=== PATIENT | female | born 1950 | race Caucasian/White ===

== ENCOUNTER 2017-12-16 09:11 | Day surgery (SDC) | payer MEDICARE ==
[~2017-12-16 09:11] MED LIST: Acetaminophen TAB* 325 MG PO PRN; Buffered Lidocaine 0.9% SYRIN* 5 ML/SYR SYRINGE INTRADERM ONE
[2017-12-16] MEDS ORDERED: Midazolam* 1 MG/ML 2 ML VIAL (2 MG) ONE (10:39)
[2017-12-16] MEDS ORDERED: Phenylephrine 2.5% OPTH.SOL* 2 ML BTL ONE (10:39)
[2017-12-16] MEDS ORDERED: acetaZOLAMIDE TAB* 250 MG ONE (10:39)
[2017-12-16] MEDS ORDERED: Proparacaine 0.5% OPHTH.SOL* 15 ML BTL ONE (10:39)
[2017-12-16] MEDS ORDERED: Povidone Iodine 5% OPTH* 30 ML BTL ONE (10:39)
[2017-12-16] MEDS ORDERED: Cyclopentolate 1% OPTH.SOL* 2 ML BTL ONE (10:39)
[2017-12-16] MEDS ORDERED: Neomycin/Polymy/Dex OPTH.SUSP* MAXITROL 0.1% 5 ML ONE (10:39)
[2017-12-16] MEDS ORDERED: Lidocaine 1% MPF* 2 ML VIAL ONE (10:39)
[2017-12-16] MEDS ORDERED: Lidocaine 2% EPI 1:200000 MPF* 20 ML VIAL ONE (10:39)
[2017-12-16] MEDS ORDERED: Ketorolac 0.5% OPHTH (NF) 0.5 % 5 ML BTL ONE (10:39)
[2017-12-16 12:11] VITALS: BP 126/66
--- NOTE | 2017-12-16 13:05 | OP ---
DATE OF OPERATION: 12/16/2017 - [facility] DATE OF : 1950. SURGEON: Ricky Siddiqi M.D. 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 POSTOPERATIVE DIAGNOSIS: Cataract right eye at primary open angle glaucoma, mild right. OPERATIVE PROCEDURE: Extracapsular cataract extraction with intraocular lens implant right eye with iStent. DESCRIPTION OF PROCEDURE: The patient was brought to the operating room after being given 1/2% Alcaine with epinephrine drops in the preoperative area. The eye was prepped and draped in the usual sterile fashion. Sterile drape and eyelid speculum were placed. Again, topical 1/2% Alcaine with epinephrine was given. A paracentesis incision was made at the 9 o'clock position with the No.75 blade. Clear cornea incision 2.2 x 2.2-mm was created at the 12 o'clock position starting at the anterior limbus using the 2.2-mm keratome. The anterior chamber was irrigated with 0.4 mL of 1% non-preservative intracameral lidocaine and filled with DisCoVisc. A capsulorrhexis was completed using the cystotome and the Utrata forceps. Hydrodissection was performed with balanced salt solution. The lens nucleus was removed with the Phacoemulsification handpiece without incident. Cortex was removed with the irrigation-aspiration handpiece. The capsular bag was re-inflated using DisCoVisc and an [id number] 20.5 Implant was inserted with the shooter, followed by an eye stent [id number] inserted into the trabecular meshwork with its shooter at the 3 o'clock position. The irrigation-aspiration handpiece was used to remove all residual DisCoVisc. The eye was refilled with balanced salt solution and the wound checked and found to be watertight. Topical Maxitrol drops were given. [id number]/[facility] #: [id number] [facility]
== END 2017-12-16 12:42 | disposition home or self-care (01) ==
LOC: OREAST 09:11
PROVIDERS: ATTEND Specialist
DX: H40.1131 Primary open-angle glaucoma, bilateral, mild stage (principal); H35.371 Puckering of macula, right eye; I10 Essential (primary) hypertension; E11.9 Type 2 diabetes mellitus without complications; E78.00 Pure hypercholesterolemia, unspecified; G47.30 Sleep apnea, unspecified; G25.81 Restless legs syndrome; Z79.82 Long term (current) use of aspirin
CPT/HCPCS: A9270-GY; C1783; J2250; V2632

== ENCOUNTER 2017-12-23 08:25 | Day surgery (SDC) | payer MEDICARE ==
[~2017-12-23 08:25] MED LIST changes: +Midazolam* 1 MG/ML 2 ML VIAL (2 MG) ONE
[2017-12-23] MEDS ORDERED: fentaNYL* 50 MCG/ML 2 ML VIAL (100 MCG VIAL) ONE (09:45)
[2017-12-23] MEDS ORDERED: Lidocaine 2% EPI 1:200000 MPF* 20 ML VIAL ONE (11:56)
[2017-12-23] MEDS ORDERED: Neomycin/Polymy/Dex OPTH.SUSP* MAXITROL 0.1% 5 ML ONE (11:56)
[2017-12-23] MEDS ORDERED: Povidone Iodine 5% OPTH* 30 ML BTL ONE (11:56)
[2017-12-23] MEDS ORDERED: Proparacaine 0.5% OPHTH.SOL* 15 ML BTL ONE (11:56)
[2017-12-23] MEDS ORDERED: Cyclopentolate 1% OPTH.SOL* 2 ML BTL ONE (11:56)
[2017-12-23] MEDS ORDERED: Phenylephrine 2.5% OPTH.SOL* 2 ML BTL ONE (11:56)
[2017-12-23] MEDS ORDERED: Lidocaine 1% MPF* 2 ML VIAL ONE (11:56)
[2017-12-23] MEDS ORDERED: Ketorolac 0.5% OPHTH (NF) 0.5 % 5 ML BTL ONE (11:56)
[2017-12-23] MEDS ORDERED: acetaZOLAMIDE TAB* 250 MG ONE (11:56)
[2017-12-23 12:07] VITALS: BP 101/53
--- NOTE | 2017-12-23 12:45 | OP ---
DATE OF OPERATION: 12/23/2017 - [facility] DATE OF : 1950. SURGEON: Ricky Siddiqi M.D. PREOPERATIVE DIAGNOSIS: Cataract left eye, open angle glaucoma left, mild stage. POSTOPERATIVE DIAGNOSIS: Cataract left eye, open angle glaucoma left, mild stage. OPERATIVE PROCEDURE: Extracapsular cataract extraction with intraocular lens implant and iStent left eye. DESCRIPTION OF PROCEDURE: The patient was brought to the operating room after being given 1/2% Alcaine with epinephrine drops in the preoperative area. The eye was prepped and draped in the usual sterile fashion. Sterile drape and eyelid speculum were placed. Again, topical 1/2% Alcaine with epinephrine was given. A paracentesis incision was made at the 3 o'clock position with the No.75 blade. Clear cornea incision 2.2 x 2.2-mm was created at the 6 o'clock position starting at the anterior limbus using the 2.2-mm keratome. The anterior chamber was irrigated with 0.4 mL of 1% non-preservative intracameral lidocaine and filled with DisCoVisc. A capsulorrhexis was completed using the cystotome and the Utrata forceps. Hydrodissection was performed with balanced salt solution. The lens nucleus was removed with the Phacoemulsification handpiece without incident. Cortex was removed with the irrigation-aspiration handpiece. The capsular bag was re-inflated using DisCoVisc and an [id number] 19.5 implant was inserted with the shooter, followed by an iStent [id number] inserted with the shooter into the trabecular meshwork at the 9 o'clock position. The irrigation-aspiration handpiece was used to remove all residual DisCoVisc. The eye was refilled with balanced salt solution and the wound checked and found to be watertight. Topical Maxitrol drops were given. [id number]/[facility] #: [id number] [facility]
== END 2017-12-23 11:30 | disposition home or self-care (01) ==
LOC: OREAST 08:25
PROVIDERS: ATTEND Specialist
DX: H25.12 Age-related nuclear cataract, left eye (principal); H40.1131 Primary open-angle glaucoma, bilateral, mild stage; E11.628 Type 2 diabetes mellitus with other skin complications; I73.9 Peripheral vascular disease, unspecified; K21.9 Gastro-esophageal reflux disease without esophagitis; I10 Essential (primary) hypertension; Z79.84 Long term (current) use of oral hypoglycemic drugs; E78.5 Hyperlipidemia, unspecified; G47.33 Obstructive sleep apnea (adult) (pediatric); M81.0 Age-related osteoporosis without current pathological fracture; D64.9 Anemia, unspecified
CPT/HCPCS: A9270-GY; C1783; J2250; J3010; V2632

== ENCOUNTER 2018-03-22 16:09 | Emergency (ER) | payer MEDICARE ==
[2018-03-22 16:41] LABS: ABS Basophils 0.1 10^3/ul (0-0.2); ABS Eosinophils 0.4 10^3/ul (0-0.6); ABS Lymphocytes 1.6 10^3/ul (1.0-4.8); ABS Monocytes 0.7 10^3/ul (0-0.8); ABS Neutrophils 9.1 10^3/ul (1.5-7.7); ABS Nucleated RBC 0 10^3/ul; Eosinophil % 3.2 % (0-6); Hematocrit 34 % (35-47); Hemoglobin 11.5 g/dl (12.0-16.0); Lymphocyte % 13.8 % (25-47); Mean Corpuscular HGB Conc 34 g/dl (31-36); Mean Corpuscular Hemoglobin 31 pg (27-31); Mean Corpuscular Volume 92 fL (80-97); Mean Platelet Volume 6.8 um3 (7.4-10.4); Nucleated Red Blood Cells % 0; Platelet Count 398 10^3/ul (150-450); Red Blood Count 3.72 10^6/ul (4.00-5.40); Red Cell Distribution Width 14 % (10.5-15)
[2018-03-22 16:57] LABS: EGFR Non-African American 57.8 (>60)
[2018-03-22] MEDS ORDERED: Iodixanol* (CONTRAST) 320 MG/ML 100 ML SDV IV ONE (17:04)
--- NOTE | 2018-03-22 17:06 | ED ---
HPI Chest Pain - HPI Summary HPI Summary: Complains of sternal CP radiating to back, SOB, nausea. Also complains of burning after urination 2 day. CP described as intermittent, worse with exertion, pressure. History of same, with SOB, radiation to back, and increased cp frequency and duration being new symptoms starting today. Multiple prior evaluations for chest pain here. Last stress test 08/19/17 negative. Patient told to come to the ED by java sdet Dr. Sunshine. Active CP here in the ED, CP has been constant since 3 PM. No active SOB, nausea currently. Denies fever, cough, sore throat, N/V/D, abdominal pain, change in BM. Medical history is DM, HDL, HTN, Chiari, sleep apnea. No history of cardiac arrest, stents. Nonsmoker, denies EtOH or recreational drugs. No anti-coag. Denies prior history of blood clots, estrogen supplements, cancer, recent trauma or surgery, new unilateral leg pain. 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 Hx Last Menstrual Period: "years ago." Onset/Duration: Started Weeks Ago Timing: Intermittent Initial Severity: Mild Current Severity: Mild Pain Intensity: 3 Chest Pain Location: Mid Sternal Chest Pain Radiates: Yes Chest Pain Radiates To:: Back Character: Exertion, Heaviness Aggravating Factor(s): Exertion Associated Signs and Symptoms: Positive: Chest Pain, Shortness of Breath, Nausea , Back Pain - Risk Factors Pulmonary Embolism Risk Factors: Negative AMI/ACS Risk Factors: Diabetes, Hypertension, Dyslipidemia - Allergy/Home Medications Allergies/Adverse Reactions: Allergies Allergy/AdvReac Type Severity Reaction Status Date / Time amoxicillin Allergy ITCHINESS Verified 03/22/18 16:18 cephalexin Allergy Rash Verified 03/22/18 16:18 ciprofloxacin [From Cipro] Allergy RASH AND Verified 03/22/18 16:18 SWELLING fluticasone furoate Allergy Difficulty Verified 03/22/18 16:18 [From Breo Ellipta] Breathing latex Allergy ITCHINESS Verified 03/22/18 16:18 vilanterol Allergy Difficulty Verified 03/22/18 16:18 [From Breo Ellipta] Breathing AIR FRESHNERS Allergy RUNNY EYES Uncoded 03/22/18 16:18 AND NOSE SULFA DRUGS Allergy Rash And Uncoded 03/22/18 16:18 Itching TIDE LAUNDRY SOAP Allergy Rash Uncoded 03/22/18 16:18 Home Medications: Home Medications Acetaminophen TAB* [Tylenol TAB*] 650 mg PO BID 03/22/18 [History Confirmed ] Aspirin EC TAB* [Ecotrin EC Low Dose 81 MG*] 81 mg PO DAILY 03/22/18 [History Confirmed 03/22/18] Baclofen TAB* [Lioresal TAB*] 10 mg PO 1200 03/22/18 [History Confirmed 03/22/18 ] Baclofen TAB* [Lioresal TAB*] 20 mg PO BID 03/22/18 [History Confirmed 03/22/18] Brimonidine P 0.1%(NF) [Alphagan P 0.1% (NF)] 1 drop BOTH EYES BID 03/22/18 [ History Confirmed 03/22/18] Calcium Carbonate/Vitamin D3 [Calcium Carbonate/Vitamin] 1 tab PO DAILY [History Confirmed 03/22/18] Cyanocobalamin TAB* [Vitamin B12 TAB*] 1,000 mcg PO DAILY 03/22/18 [History Confirmed 03/22/18] Ferrous Sulfate TAB* 650 mg PO DAILY 03/22/18 [History Confirmed 03/22/18] Fluticasone NASAL SPRAY 50MCG* [Flonase NASAL SPRAY 50MCG*] 2 spray BOTH NARES DAILY 03/22/18 [History Confirmed 03/22/18] Latanoprost 0.005%* [Xalatan 0.005%*] 1 drop BOTH EYES BEDTIME 03/22/18 [ History Confirmed 03/22/18] Losartan TAB* [Cozaar TAB*] 50 mg PO DAILY 03/22/18 [History Confirmed 03/22/18] Naproxen TAB* [Naprosyn 375 mg TAB*] 500 mg PO BID PRN 03/22/18 [History Confirmed 03/22/18] Omeprazole CAP* [Prilosec CAP* 20 MG] 40 mg PO DAILY 03/22/18 [History Confirmed 03/22/18] Propylene Glycol/Peg 400/Pf [Systane Ultra 0.4-0.3% Eye Drp] 1 each BOTH EYES QID PRN 03/22/18 [History Confirmed 03/22/18] Simvastatin TAB(NF) [Zocor(NF)] 20 mg PO DAILY 03/22/18 [History Confirmed 03/22] Spironolactone TAB* [Aldactone TAB*] 100 mg PO DAILY 03/22/18 [History Confirmed 03/22/18] Timolol 0.5% OPTH.ZACHARY* [Timoptic 0.5% Opth*] 1 drop BOTH EYES BID 03/22/18 [ History Confirmed 03/22/18] metFORMIN* [Glucophage 1000 MG TAB *] 1,000 mg PO BID 03/22/18 [History Confirmed 03/22/18] rOPINIRole TAB* [Requip TAB*] 0.5 mg PO DAILY 03/22/18 [History Confirmed ] PMH/Surg Hx/FS Hx/Imm Hx Endocrine/Hematology History: Reports: Hx Diabetes Denies: Hx Anticoagulant Therapy, Hx Systemic Lupus Erythematosus, Hx Thyroid Disease Cardiovascular History: Reports: Hx Angina, Hx Hypercholesterolemia, Hx Hypertension, Hx Peripheral Vascular Disease Denies: Hx Congestive Heart Failure, Hx Coronary Artery Disease, Hx Deep Vein Thrombosis, Hx Myocardial Infarction, Hx Pacemaker/ICD, Hx Valvular Heart Disease Respiratory History: Reports: Hx Sleep Apnea - current CPAP user Denies: Hx Asthma, Hx Chronic Obstructive Pulmonary Disease (COPD), Hx Lung Cancer, Hx Pneumonia, Hx Pulmonary Embolism GI History: Reports: Hx Gastroesophageal Reflux Disease - ON MEDICATION FOR Denies: Hx Gall Bladder Disease, Hx Gastrointestinal Bleed, Hx Ulcer, Hx Urosepsis History: Denies: Hx Dialysis, Hx Kidney Stones, Hx Renal Disease Musculoskeletal History: Reports: Hx Arthritis - HANDS, Other Musculoskeletal History - COMPRESSED SPINAL CORD Denies: Hx Rheumatoid Arthritis Sensory History: Reports: Hx Cataracts - BILATERAL, Hx Glaucoma - BILATERAL Denies: Hx Contacts or Glasses, Hx Hearing Aid Opthamlomology History: Reports: Hx Cataracts - BILATERAL, Hx Glaucoma - BILATERAL Denies: Hx Contacts or Glasses Neurological History: 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 Denies: Hx Dementia, Hx Migraine, Hx Seizures, Hx Transient Ischemic Attacks (TIA) Psychiatric History: Denies: Hx Anxiety, Hx Depression, Hx Panic Disorder, Hx Schizophrenia, Hx Bipolar Disorder - Cancer History Hx Chemotherapy: No Hx Radiation Therapy: No - Surgical History Surgery Procedure, Year, and Place: 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, compresed spinal cord - chaiari malformation Hx Anesthesia Reactions: No Infectious Disease History: No Infectious Disease History: Reports: Hx of Known/Suspected MRSA - hx of (pt not sure) Denies: Traveled Outside the [place] in Last 30 Days - Family History Known Family History: Positive: Cardiac Disease, Hypertension - Social History Alcohol Use: None Substance Use Type: Reports: None Smoking Status (MU): Never Smoked Tobacco Have You Smoked in the Last Year: No Review of Systems Constitutional: Negative Eyes: Negative ENT: Negative Positive: Chest Pain Positive: Shortness Of Breath Positive: Nausea Positive: burning Musculoskeletal: Negative Skin: Negative Neurological: Negative Psychological: Normal All Other Systems Reviewed And Are Negative: Yes Physical Exam Triage Information Reviewed: Yes Vital Signs On Initial Exam: Initial Vitals Temp Pulse Resp BP Pulse Ox 98.3 F 92 19 149/61 99 03/22/18 16:13 03/22/18 16:13 03/22/18 16:13 03/22/18 16:13 03/22/18 16:13 Vital Signs Reviewed: Yes Appearance: Positive: Well-Appearing Skin: Positive: Warm Head/Face: Positive: Normal Head/Face Inspection Eyes: Positive: Normal Neck: Positive: Supple Respiratory/Lung Sounds: Positive: Clear to Auscultation Cardiovascular: Positive: Normal. Negative: Leg Edema Left, Leg Edema Right Abdomen Description: Positive: Nontender Musculoskeletal: Positive: Normal Neurological: Positive: Normal Psychiatric: Positive: Normal AVPU Assessment: Alert - Bella Coma Scale Best Eye Response: 4 - Spontaneous Best Motor Response: 6 - Obeys Commands Best Verbal Response: 5 - Oriented Coma Scale Total: 15 Diagnostics - Vital Signs Vital Signs Temp Pulse Resp BP Pulse Ox 03/22/18 16:49 86 12 148/78 99 03/22/18 16:48 90 17 99 03/22/18 16:13 98.3 F 92 19 149/61 99 - Laboratory Lab Results: Lab Results 03/22/18 03/22/18 03/22/18 Range/Units 16:32 16:32 16:32 WBC 12.0 H (3.5-10.8) 10^3/ul RBC 3.72 L (4.00-5.40) 10^6/ul Hgb 11.5 L (12.0-16.0) g/dl Hct 34 L (35-47) % MCV 92 (80-97) fL MCH 31 (27-31) pg MCHC 34 (31-36) g/dl RDW 14 (10.5-15) % Plt Count 398 (150-450) 10^3/ul MPV 6.8 L (7.4-10.4) um3 Neut % (Auto) 76.1 (38-83) % Lymph % (Auto) 13.8 L (25-47) % Hill % (Auto) 5.9 (0-7) % Eos % (Auto) 3.2 (0-6) % Baso % (Auto) 1.0 (0-2) % Absolute Neuts (auto) 9.1 H (1.5-7.7) 10^3/ul Absolute Lymphs (auto) 1.6 (1.0-4.8) 10^3/ul Absolute Monos (auto) 0.7 (0-0.8) 10^3/ul Absolute Eos (auto) 0.4 (0-0.6) 10^3/ul Absolute Basos (auto) 0.1 (0-0.2) 10^3/ul Absolute Nucleated RBC 0 10^3/ul Nucleated RBC % 0 Sodium 138 (135-145) mmol/L Potassium 4.5 (3.5-5.0) mmol/L Chloride 103 (101-111) mmol/L Carbon Dioxide 24 (22-32) mmol/L Anion Gap 11 (2-11) mmol/L BUN 34 H (6-24) mg/dL Creatinine 0.96 H (0.51-0.95) mg/dL Est GFR ( Amer) 69.9 (>60) Est GFR (Non-Af Amer) 57.8 (>60) BUN/Creatinine Ratio 35.4 H (8-20) Glucose 80 (70-100) mg/dL Lactic Acid 1.0 (0.5-2.0) mmol/L Calcium 9.6 (8.6-10.3) mg/dL Total Bilirubin 0.30 (0.2-1.0) mg/dL AST 12 L (13-39) U/L ALT 9 (7-52) U/L Alkaline Phosphatase 59 (34-104) U/L Troponin I 0.00 (<0.04) ng/mL Total Protein 7.0 (6.4-8.9) g/dL Albumin 4.2 (3.2-5.2) g/dL Globulin 2.8 (2-4) g/dL Albumin/Globulin Ratio 1.5 (1-3) Result Diagrams: 03/22/18 16:32 03/22/18 16:32 Lab Statement: Any lab studies that have been ordered have been reviewed, and results considered in the medical decision making process. - CT cta chest CT Interpretation: No Acute Changes CT Interpretation Completed By: Radiologist - EKG 1 Cardiac Rate: NL EKG Rhythm: Sinus Rhythm ST Segment: Non-Specific Ectopy: None Chest Pain Course/Dx - Course Course Of Treatment: Complains of sternal CP radiating to back, SOB, nausea. Also complains of burning after urination 2 day. CP described as intermittent, worse with exertion, pressure. History of same, with SOB, radiation to back, and increased cp frequency and duration being new symptoms starting today. Multiple prior evaluations for chest pain here. Last stress test 08/19/17 negative. Patient told to come to the ED by java sdet Dr. Sunshine. Active CP here in the ED, CP has been constant since 3 PM. No active SOB, nausea currently. Denies fever, cough, sore throat, N/V/D, abdominal pain, change in BM. Medical history is DM, HDL, HTN, Chiari, sleep apnea. No history of cardiac arrest, stents. Nonsmoker, denies EtOH or recreational drugs. No anti-coag. Denies prior history of blood clots, estrogen supplements , cancer, recent trauma or surgery, new unilateral leg pain. Heart score 5. Discussed patient with hospitalist Dr. Messer who recommended 3 troponins and discharge if troponins negative, as patient workup is negative, and patient has recent negative stress test 07/2017. Troponins 3 negative. Vital signs within normal limits. Labs and imaging unremarkable. Follow-up with cardiology. - Diagnoses Provider Diagnoses: UTI (urinary tract infection), Chest pain Discharge - Sign-Out/Discharge Documenting (check all that apply): Discharge/Admit/Transfer - Discharge Plan Condition: Stable Disposition: HOME Patient Education Materials: Urinary Tract Infection in Women (ED), Chest Pain (ED), Angina (ED) Referrals: Simeon Fonseca MD [Primary Care Provider] - Additional Instructions: Follow up with cardiology. Return to the ED for any new or worsening symptoms - Billing Disposition and Condition Condition: STABLE Disposition: Home
[2018-03-22 17:28] LABS: Urine Appearance Clear; Urine Blood Negative (Negative); Urine Color Yellow; Urine Ketones Trace (Negative); Urine Protein Negative (Negative); Urine Specific Gravity 1.025 (1.010-1.030); Urine Urobilinogen Negative (Negative)
--- OUTSIDE RECORDS SUMMARY | 2018-03-22 17:32 | XMS REPORT ---
:1950 External Reference #:[id number] Author Organization [facility] Address [address] [place] [address] Phone [phone] Care Team Providers Name Role Phone Simeon Fonseca M.D. Care Team Information Tool And Equipment Rental Clerk Unavailable Simeon Fonseca M.D. Primary Care Physician Unavailable Payers Type Date Identification Numbers Payment Provider Subscriber Commercial Policy Number: [id number] [employer] Faustino Pereira PayID: [id number] [address] [address] [place] [address] Problems Date Description Provider Status Onset: 03/05/2018 Hypertrophy of nasal turbinates Michael Perales MD Active Onset: 03/05/2018 Sensory function status: taste and smell Michael Perales MD Active Family History Date Family Member(s) Problem(s) Comments General Allergies General Cancer General Heart Attack General Heart Disease General Thyroid Disease Social History Type Date Description Comments Occupation Unemployed Cigarette Use Never Smoked Cigarettes Cigars Never Smoked Cigars Pipe Never Smoked A Pipe Smokeless Tobacco Never Used Smokeless Tobacco ETOH Use Denies alcohol use Allergies, Adverse Reactions, Alerts Date Description Reaction Status Severity Comments 10/06/2008 Sulfa active 10/06/2008 Latex active 10/06/2008 Amoxicillin active 02/17/2018 Ciprofloxacin active rash 02/17/2018 Cephalexin active rash Medications Medication Date Status Form Strength Qnty SIG Indications Ordering Provider Fluticasone 03/05/ Active Suspension 50mcg/Act 16uni 2 puffs J34.3 Michael Propionate 2017 ts both sides Diaz once a day , Metformin HCL / Active 1000mg Take one Silcoff, 0000 tab twice Simeon eren Saleh Spironolactone / Active 100mg Once daily Silcoff, Simeon Saleh Baclofen / Active 10mg 2 in Silcoff, 0000 morning, 1 Simeon at lunch, M.DTiffany 2 at bedtime Acetaminophen / Active Tablets 325mg 2 PO tid Silcoff, Simeon Saleh Naproxen / Active Tablets 500mg 28tab 1 tab Superior, 0000 s twice a Rishabh S. day M.DTiffany Simvastatin / Active Tablets 20mg 1 by mouth Silcoff, 0000 every day Simeon Saleh Ropinirole HCL / Active Tablets 1mg 1 by mouth Silcoff, 0000 every Simeon night at M.DTiffany bedtime Losartan / Active Tablets 50mg Hektor Potassium 0000 RPA, Brigida Vitamin B12 TR / Active Tablets ER 1000mcg 1 by mouth Unknown 0000 every day Calcium 500 +D / Active Tablets 500-400mg as Unknown 0000 -Unit directed Aspirin 81 Low / Active Chewtabs 81mg QHS Unknown Dose 0000 Omeprazole / Active Capsules DR 40[facility], Caps[facility] By Simeon Catherine M.DTiffany Every Day For Acid Reflux Ferrous Sulfate / Active Tablets 325mg bid [facility], Simeon Saleh Brimonidine / Active Solution 0.2% Instill 1 Unknown Tartrate 0000 Drop In Each Eye Two Times A Day Timolol Maleate / Active Solution 0.5% Instill 1 Unknown 0000 Drop In Each Eye Two Times A Day Latanoprost / Active Solution 0.005% Instill Unknown 0000 One Drop In Each Eye AT Bedtime Fiber / Active Tablets as Unknown 0000 directed Calcium 600+D / Active Tablets 600-400mg as Unknown High Potency 0000 -Unit directed Lipitor / Hx Unknown 2013 Requip / Hx Unknown 2013 Multivitamins / Hx Unknown 2013 Travatan Z Hx Use as Clpert, 0000 - directed Hang 03/05/ Delfino 2018 Betimol / Hx Unknown 2013 Melatonin / Hx Unknown 2013 Metoprolol / Hx Tablets ER 25mg 1/2 by Silbeltran, Succinate ER 0000 - 24HR mouth Simeon 02/17/ every day M.D2017 Meclizine HCL / Hx Tablets 12.5mg 80tab 1-2 by Saleem, 0000 - s mouth Jodie M.DTiffany 03/05/ 2018 hours as needed dizziness Combigan / Hx Solution 0.2-0.5% as Silcoff, 0000 - directed Simeon M.D 2018 Systane / Hx Solution 0.4-0.3% as needed Unknown 2017 Vital Signs Date Vital Result Comment 03/05/2018 Weight 168.00 lb Weight in kg's 76.205 Height 63 inches 5'3" Height in cm's 160.0 cm BMI (Body Mass Index) 29.8 kg/m2 08/07/2014 BP Systolic 85 mmHg BP Diastolic 60 mmHg Heart Rate 77 /min Respiratory Rate 17 /min Weight 192.00 lb Weight in kg's 87.091 Height 63 inches 5'3" Height in cm's 160.0 cm BMI (Body Mass Index) 34.0 kg/m2 10/06/2008 Heart Rate 84 /min Respiratory Rate 18 /min Weight 189.00 lb Weight in kg's 85.730 Results Test Date Test Result H/L Range Note Laboratory test 10/16/2008 Surgical Pathology 1 finding <SEE NOTE> 1 --- RUN DATE: 10/18/08 [facility] NMI LIVE PAGE 1 RUN TIME: 1552 Specimen Inquiry RUN USER: INTERFACE -- Name: FAUSTINO PEREIRA [facility]#: [id number] Status: REG REF Re10/16/08 Age/Sex: 57/F Unit#: [id number] Location: [facility].O.B. : [birth year] -- Specimen: [id number] SOUT Spec Date: 10/16/[address]: Michael ni MD Spec Type: SURGICAL P Received: 10/17/08-1150 Copies to: SPECIMEN RIGHT CHEEK LESION HISTORY PRE-OP DIAGNOSIS: Right cheek lesion. GROSS DESCRIPTION The specimen is received in formalin labelled Faustino Pereira, Right Cheek Lesion, and consists of an unoriented skin ellipse measuring 1.0 x 0.5 x 0.3 cm. with a central, raised, round, boone macule measuring up to 0.4 cm. in the central portion of the specimen. The specimen is inked, serially sectioned along its short axis and submitted entirely in one cassette. DIAGNOSIS Right cheek, excision: A) Basal cell carcinoma, nodular type with squamous metaplasia. B) Deep, tip, and lateral margins of resection are clear. Signed Electronically by: OSMANY MARIN MD 10/18/08 1551 -- -- DEPARTMENT OF PATHOLOGY, [address] [place] [address] [facility] Permit #[id number] Osmany Marin M.D. Director Tc Carlos M.D. Mold Breaker Dir keith -- Procedures Date CPT Code Description Status 03/05/2018 79429 Nasal Endoscopy, Diagnostic Completed 11/28/2008 26060 Interest Income Completed 10/20/2008 14476 Exc Mal Les 1.1-2.0CM Face/Ear/Nose/Lip Completed 10/16/2008 99658 Exc Mal Les 1.1-2.0CM Face/Ear/Nose/Lip Completed Encounters Type Date Location Provider CPT E/M Dx Office Visit 03/05/2018 10:00a [facility],After 09/28/07 [place] [address] R43.0 J34.3 Office Visit 08/07/2014 10:30a [facility],After 09/28/07 [place] [address] 386.11 Office Visit 10/23/2008 3:00p [facility],After 09/28/07 [place] [address] 173.3 Office Visit 10/06/2008 3:00p [facility],After 09/28/07 [place] [address] 173.3 Plan of Care 03/05/2018 - Michael Ruparelia, MDR43.0 AnosmiaComments:Anosmia, no evidence of any significant mucosal abnormality a trial of topical nasal steroids for several months may be beneficial in some patients.J34.3 Hypertrophy of nasal turbinatesNew Medication:Fluticasone Propionate 50 mcg/Act
--- NOTE | 2018-03-22 18:11 | RAD ---
INDICATION: Chest pain radiating to the back COMPARISON: CT of the chest December 30, 2004 TECHNIQUE: Axial source images were acquired following the administration of 74 mL of Visipaque [address] angiographic technique. Coronal and sagittal reconstructed images were constructed and reviewed. FINDINGS: There there are no filling defects in the pulmonary arteries to indicate acute pulmonary embolic disease. There are no focal infiltrates or effusions. There are no pulmonary parenchymal masses. The heart is normal in size. There is no evidence of pericardial effusion. There is no evidence of aortic aneurysm or dissection. There is no mediastinal, hilar, or axillary lymphadenopathy. Degenerative changes of the thoracic spine includes loss of intervertebral disc height and marginal osteophyte formation. Limited views of the upper abdomen show no abnormalities. IMPRESSION: No CT of evidence of pulmonary embolism or any other acute thoracic abnormality.
[2018-03-22] MEDS ORDERED: Aspirin 81 mg CHEW TAB* 81 MG TAB.CHEW PO ONE (18:39)
[2018-03-22] MEDS ORDERED: Nitroglycerin TAB 0.4 MG* 0.4 MG TAB SL ONE (18:52)
--- NOTE | 2018-03-22 19:14 | RAD ---
INDICATION: Chest pain COMPARISON: Most recent comparison chest x-ray March 19, 2015 TECHNIQUE: Single AP portable view of the chest was obtained. FINDINGS: Image quality is compromised due to the relative inferiority of a portable chest x-ray. The heart and mediastinum exhibit normal size and contour. The lungs are grossly clear. There is no evidence of a large pleural effusion. Visualized bones are normal for the patient's age. IMPRESSION: No radiographic evidence for acute cardiopulmonary abnormality on this portable chest x-ray.
[2018-03-22] MEDS ORDERED: Nitrofurantoin Macrocrystals* 100 MG CAP PO ONE (21:16)
[2018-03-22 23:07] VITALS: BP 113/64
== END 2018-03-22 23:06 | disposition home or self-care (01) ==
LOC: ED 16:09
DX: R07.9 Chest pain, unspecified (principal); N39.0 Urinary tract infection, site not specified; K21.9 Gastro-esophageal reflux disease without esophagitis; E11.9 Type 2 diabetes mellitus without complications; E78.5 Hyperlipidemia, unspecified; I10 Essential (primary) hypertension; G47.30 Sleep apnea, unspecified; Z79.84 Long term (current) use of oral hypoglycemic drugs; Z79.899 Other long term (current) drug therapy; Z88.3 Allergy status to other anti-infective agents; Z88.2 Allergy status to sulfonamides; Z88.8 Allergy status to other drugs, medicaments and biological substances
CPT/HCPCS: 36415; 71045; 71275; 80053; 81003; 81015; 83605; 84484; 85025; 86803; 87086; 93005; 99283; A9270-GY; Q9967

== ENCOUNTER 2018-12-25 13:10 | Inpatient (IN) | payer MEDICARE ==
--- OUTSIDE RECORDS SUMMARY | 2018-12-25 14:07 | XMS REPORT | Continuity of Care Document ---
:1950 External Reference #:[id number] Author Name lOamide Fletcher O.D. Address [address] [place] [address] Care Team Providers Name Role Phone Simeon Fonseca M.D. Primary Care Physician Unavailable Payers Date Identification Numbers Payment Provider Subscriber Policy Number: [id number] [facility] Hiwot Carty PayID: [id number] [address] [address] [place] [address] Advance Directives Description No Information Available Problems Date Description Provider Status Onset: Essential hypertension Active Onset: Pure hypercholesterolemia Active Onset: Type 2 diabetes mellitus Active Onset: Restless legs Active Onset: Sleep apnea Active Onset: 03/27/2015 Primary open angle glaucoma Ricky Siddiqi M.D. Active Onset: 03/27/2015 Neoplastic disease Ricky Siddiqi M.D. Active Onset: 03/27/2015 Moderate Glaucoma Ricky Siddiqi M.D. Active Onset: 10/23/2015 Nuclear senile cataract Ricky Siddiqi M.D. Active Onset: 10/23/2015 Epiretinal membrane Ricky Siddiqi M.D. Active Onset: 10/23/2015 Benign neoplasm of eyelid including Ricky Siddiqi M.D. Active canthus Onset: 11/18/2016 Bilateral primary open angle Gregor Wiseman M.D. Active glaucoma Onset: 01/11/2018 Tear film insufficiency Trixie Poole O.D. Active Onset: 01/11/2018 Presence of intraocular lens Trixie Poole O.D. Active Family History Date Family Member(s) Observation Comments Father No Current Problems Mother Glaucoma Social History Type Date Description Comments Sex Unknown Marital Status Legal Status: Never Occupation Disabled ETOH Use Denies alcohol use Tobacco Use Start: Unknown Patient has never smoked Recreational Drug Use Denies Drug Use Smoking Status Reviewed: 12/10/18 Patient has never smoked Allergies, Adverse Reactions, Alerts Date Description Reaction Status Severity Comments 12/18/2014 Ciprofloxacin Active 12/18/2014 Cephalexin Active 12/18/2014 Latex Active 12/18/2014 Sulfa Antibiotics Urticaria Active Medications Medication Date Status Form Strength Qnty SIG Indications Ordering Provider Timolol Maleate 11/17/ Active Solution 0.5% 10ml instill 1 Ricky Shafer drop in [place], each eye M.D. two times a day Brimonidine 11/17/ Active Solution 0.2% 10ml instill 1 Gregor Tartrate 2017 drop in [place], each eye M.D. two times a day Latanoprost 11/17/ Active Solution 0.005% 7.5ml instill 1 Ricky Shafer drop in [place], each eye M.D. at bedtime Ropinirole HCL / Active Tablets 0.25mg Janycogarcia, 0000 Delfino Hendrix Simvastatin / Active Tablets 40mg Silcoff, 0000 Delfino Hendrix Baclofen / Active Tablets 10mg Stack[place], 0000 Jodie Saleh Metformin HCL / Active Tablets 1000mg Sopchak, 0000 Sahil D.OTiffany Spironolactone / Active Tablets 100mg Silcoff, 0000 Delfino Hendrix Omeprazole / Active Capsules DR 40mg Unknown 0000 Vitamin B-12 / Active Tablets Sub 500mcg Unknown 0000 Losartan / Active Tablets 50mg Take One Unknown Potassium 0000 Tablet By Mouth Every Morning For High Blood Pressure Repla Aspirin Low / Active Chewtabs 81mg Unknown Strength 0000 Calcium 500+D3 / Active Tablets 500-400mg Unknown 0000 -Unit Ferrous Sulfate / Active Tablets DR 325(65Fe) Unknown 0000 mg Acetaminophen / Active Solution 650mg/20. everday Unknown 0000 3ML Artificial Tears / Active Solution 0.1-0.3% as needed Unknown 0000 Gabapentin / Active Capsules 300mg Silcoff, 0000 Delfino Hendrix Ketorolac 12/14/ Hx Solution 0.5% 10ml 1 drop Ricky Her Tromethamine 2018 - right [place], 01/09/ twice a M.D. 2018 day left eye three times a day Prednisolone 12/14/ Hx Suspension 1% 15uni 1 drop Ricky Her Acetate 2018 - ts right [place], 01/09/ twice a M.D. 2018 day left eye three times a day Gentamicin 12/14/ Hx Solution 0.3% 5ml 1 drop Ricky Her Sulfate 2018 - left eye [place], 01/09/ three M.D. 2018 times a day Erythromycin 05/27/ Hx Ointment 5mg/GM 1Tube Apply to D23.11 Ricky Her 2015 - surgical [place], 08/28/ site M.D. 2015 three times a day Pred Forte 12/18/ Hx Suspension 1% 5ml 1 drop Ricky Her 2014 - left eye [place], 03/26/ three M.D. 2014 times a day for three days. start after procedure . Combigan 12/17/ Hx Solution 0.2-0.5% 5unit instill 1 Trixie Her 2014 - s drop in [place], 11/17/ Both eyes O.D. 2016 two times a day Travatan Z 12/17/ Hx Solution 0.004% 2.5un Instill 1 Ricky Her 2015 - its Drop In [place], 11/17/ Both Eyes M.D. 2016 Every Night Meclizine HCL / Hx Tablets 25mg Silcoff, 0000 - Simeon, 05/18/ M.D. 2017 Naproxen / Hx Tablets 500mg [place], 0000 - Rishabh, 05/23/ M.D. 2018 Metoprolol / Hx Tablets ER 25mg Unknown Succinate ER 0000 - 24HR 2017 Ciclopirox / Hx Cream 0.77% [place], Olamine - Simeon, 08/28/ M.D. 2016 Iron /00/ Hx Tablets 28mg Unknown 0000 - 2016 Immunizations Description No Information Available Vital Signs Date Vital Result Comment 06/04/2016 12:51pm BP Systolic 123 mmHg BP Diastolic 64 mmHg Heart Rate 86 /min Respiratory Rate 16 /min Results Test Date Facility Test Result H/L Range Note Laboratory test 12/23/2017 [facility] Point of Care 90 mg/dL N 70-[address] [place] [address] (607)- - Laboratory test 12/16/2017 [facility] Point of Care 110 mg/dL High 70-[address] [place] [address] (607)- - 1 Chemistry Instructor: [id number] 2 Chemistry Instructor: [id number] Procedures Date Code Description Status 11/25/2018 13590 Scanning Computerized Opthalmic Diagnostic Posterior Seg Completed Retina 11/25/2018 47167 Est Patient Intermediate Exam Completed 05/24/2018 51232 Scanning Computerized Ophthalmic Diagnostic Imag Posterior Completed Seg On 05/24/2018 62009 Visual Field Exam Extended Completed 05/24/2018 84346 Est Patient Comprehensive Exam Completed 12/23/2017 78471 Extracapsular Cataract Extraction W/Intraocular Lens Completed 12/23/2017 0191T I-Stent Aqueous Drainage Device Completed 12/16/2017 42859 Extracapsular Cataract Extraction W/Intraocular Lens Completed 12/16/2017 0191T I-Stent Aqueous Drainage Device Completed 12/14/2017 53877 Ophthalmic Biometry Completed 11/24/2017 79040 Est Patient Comprehensive Exam Completed 11/24/2017 76310 Scanning Computerized Opthalmic Diagnostic Posterior Seg Completed Retina 05/19/2017 29804 Scanning Computerized Ophthalmic Diagnostic Imag Posterior Completed Seg On 05/19/2017 79113 Visual Field Exam Extended Completed 05/19/2017 31094 Est Patient Comprehensive Exam Completed 11/18/2016 14116 Est Patient Intermediate Exam Completed 08/29/2016 75601 Scanning Computerized Opthalmic Diagnostic Posterior Seg Completed Retina 08/29/2016 67876 Est Patient Intermediate Exam Completed 06/04/2016 51974 Excision Lesion Eyelid Completed 05/27/2016 25668 Scanning Computerized Opthalmic Diagnostic Posterior Seg Completed Retina 05/27/2016 86221 Est Patient Comprehensive Exam Completed 10/23/2015 75589 Est Patient Intermediate Exam Completed 10/23/2015 10079 Visual Field Exam Extended Completed 10/23/2015 79812 Scanning Computerized Ophthalmic Diagnostic Imag Posterior Completed Seg On 02/12/2015 78665 Trabeculoplasty By Laser Surgery Completed 01/22/2015 10056 Trabeculoplasty By Laser Surgery Completed 12/18/2014 47566 Fundus Photography With Interpretation And Report Completed 12/18/2014 38200 Est Patient Comprehensive Exam Completed 05/17/2014 27610 Visual Field Exam Extended Completed 05/17/2014 52254 Gonioscopy Completed 05/17/2014 77578 Est Patient Comprehensive Exam Completed 05/03/2014 61118 Scanning Computerized Ophthalmic Diagnostic Imag Posterior Completed Seg On 05/03/2014 26796 Gonioscopy Completed 05/03/2014 32216 Est Patient Comprehensive Exam Completed 12/17/2012 78897 Est Patient Intermediate Exam Completed 02/04/2012 41220 Est Patient Comprehensive Exam Completed 07/23/2011 54648 Est Patient Intermediate Exam Completed 02/04/2011 55722 Visual Field Exam Extended Completed 10/31/2010 91891 Est Patient Intermediate Exam Completed 10/17/2009 62489 Visual Field Exam Extended Completed 06/08/2009 69297 Scanning Laser W/Interp And Report Completed 06/08/2009 71367 Pachymetry Completed 05/27/2005 93105 Rescheduled Appointment Completed 11/28/2004 29492 Trabeculoplasty By Laser Surgery Completed 11/12/2004 94124 Trabeculoplasty By Laser Surgery Completed 03/14/2004 94956 Visual Field Exam Intermediate Completed Encounters Type Date Location Provider Dx Diagnosis Office Visit 12/14/2017 Ricky Guo, H25.11 Age- related 1:00p stephen ARROYO M.D. 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 Angle Glaucoma 365.72 Moderate Glaucoma 239.2 Eyelid Lesion Unspecified Office Visit 11/23/2014 10:20a Ricky Her 365.11 Primary Open MD Devang, stephen Poole O.D. Angle Glaucoma 365.71 Mild / Early Stage Glaucoma Office Visit 08/17/2014 10:20a Ricky Her 365.11 Primary Open MD Devang, [facility] Miguelito Poole Angle Glaucoma 365.72 Moderate Glaucoma Office Visit 09/14/2013 10:30a Kraig Guo, 365.11 Primary Open stephen ARROYO M.D. Angle Glaucoma 365.72 Moderate Glaucoma 250.00 Diabetes/ Type 2 W/O Complication Office Visit 03/22/2013 11:00a Kraig Guo, 365.11 Primary Open stephen ARROYO M.D. Angle Glaucoma 365.71 Mild / Early Stage Glaucoma Office Visit 08/04/2012 11:15a Kraig Guo, 365.11 Primary Open stephen ARROYO M.D. Angle Glaucoma 365.71 Mild / Early Stage Glaucoma Office Visit 02/04/2011 2:00p Kraig Guo MD, stephen M.D. Office Visit 06/25/2010 11:30a Kraig Guo, 365.11 Primary Open stephen ARROYO M.D. Angle Glaucoma Office Visit 02/21/2010 11:15a Kraig Guo, 365.11 Primary Open stephen ARROYO M.D. Angle Glaucoma 370.20 Superficial Keratitis Unspec Office Visit 10/17/2009 10:30a Ricky Edmonds, 365.11 Primary Open Angle MD Devang, stephen QuirozD. Glaucoma Office Visit 06/08/2009 11:15a Ricky Staton 365.11 Primary Open Angle MD Devang, stephen Muse O.D. Glaucoma Office Visit 01/23/2009 10:15a Ricky Edmonds 365.11 Primary Open Angle MD Devang, stephen MTiffanyD. Glaucoma Office Visit 10/24/2008 11:15a Ricky Edmonds 365.11 Primary Open Angle MD Devang, stephen M.D. Glaucoma Office Visit 09/27/2008 9:45a Berkley Martinez.11 Primary Open Angle MD Devang, stephen M.D. Glaucoma Office Visit 09/13/2008 9:45a Ricky Edmonds 365.11 Primary Open Angle MD Devang, stephen M.D. Glaucoma Office Visit 07/11/2008 9:45a Berkley Martinez.11 Primary Open Angle MD Devang, tsephen MTiffanyDTiffany Glaucoma Office Visit 12/30/2007 9:45a Ricky Edmonds, 250.00 Diabetes/ Type 2 MD Devang, stephen Hsu. W/O Complication 365.11 Primary Open Angle Glaucoma Office Visit 06/30/2007 10:00a Kraig Guo, 365.11 Primary Open , stephen Saleh Angle Glaucoma Office Visit 12/22/2006 10:15a Kraig Guo, 365.11 Primary Open , pc Delfnio Angle Glaucoma Office Visit 03/03/2006 11:15a Kraig Guo, 365.11 Primary Open , pc MYue Angle Glaucoma Office Visit 09/30/2005 11:15a Kraig Guo, 365.11 Primary Open , pc M.DTiffany Angle Glaucoma Office Visit 05/28/2005 11:15a Kraig Guo, 365.11 Primary Open , pc MYue Angle Glaucoma Office Visit 10/30/2004 1:45p Kraig Guo, 365.11 Primary Open , pc MYue Angle Glaucoma Office Visit 07/16/2004 9:15a Kraig Guo, 365.11 Primary Open , stephen MYue Angle Glaucoma Plan of Treatment Future Appointment(s):05/26/2019 11:45 am - Ricky [facility]iddiqi [facility] at [facility]/26/2019 11:00 am - [facility] - Olamide Fletcher O.D.H40.1131 Primary open-angle glaucoma, bilateral, mild stageComments:Smoking can increase the risk of developing or worsening any eye related disease, as well as affect your overall health. If you are a smoker , we strongly recommend that you quit.If you are not a smoker, we strongly recommend that you do not start. Your glaucoma is stable at this time.Your eye pressure is within an acceptable range, and your testing does not show any Glaucoma related changes at thistime. Please continue your treatment.Follow up: SCHEDULED
--- OUTSIDE RECORDS SUMMARY | 2018-12-25 14:08 | XMS REPORT | Continuity of Care Document ---
:1950 External Reference #:[id number] Author Name Ravindra Espinoza Care Team Providers Name Role Phone Simeon Fonseca MD Primary Care Physician Unavailable Payers Date Identification Numbers Payment Provider Subscriber Policy Number: [id number] [employer] Hiwot Carty PayID: [id number] [address] [id number] Attn: [place] [address] Effective: 2017 Policy Number: [id number] [facility] Care Hiwot Carty Expires: 2019 Group Number: [id number]% [id number] PayID: [id number] [address] Advance Directives Description No Information Available Problems Date Description Provider Status Onset: 06/29/2013 Chest pain Juan R Sunshine M.D. Active Onset: 06/29/2013 Pure hypercholesterolemia Juan R Sunshine M.D. Active Onset: 06/29/2013 Mixed hyperlipidemia Juan R Sunshine M.D. Active Onset: 06/29/2013 Dyspnea Juan R Sunshine M.D. Active Onset: 06/29/2013 Palpitations Juan R Sunshine M.D. Active Onset: 06/29/2013 Electrocardiogram abnormal Juan R Sunshine M.D. Active Onset: 06/29/2013 Right bundle branch block Juan R Sunshine M.D. Active Onset: 06/15/2014 Sleep disorder Juan R Sunshine M.D. Active Onset: 06/15/2014 Chronic pulmonary heart disease Juan R Sunshine M.D. Active Onset: 01/03/2015 Obstructive sleep apnea of adult Carmen Martinez DNP, RN, Active [facility] Onset: 01/03/2015 Poor sleep pattern Carmen Martinez DNP RN, Active [facility]- Family History Date Family Member(s) Observation Comments Father due to Cancer () Mother due to Cancer () Children None Siblings 2 1/2 sisters 3 sisters 1 1/2 brother health Hx not known () Social History Type Date Description Comments Sex Unknown Lives With Alone Occupation Disabled Tobacco Use Start: Unknown Never Smoked Cigarettes ETOH Use Denies alcohol use Recreational Drug Use Denies Drug Use Tobacco Use Start: Unknown Patient has never smoked Smoking Status Reviewed: 11/30/18 Patient has never smoked Exercise Type/Frequency some times uses an exersise bike Allergies, Adverse Reactions, Alerts Date Description Reaction Status Severity Comments 01/07/2013 Cephalexin Active 01/07/2013 Ciprofloxacin Active 01/07/2013 Sulfa Antibiotics Active 06/29/2013 Latex rash Active 06/29/2013 Amoxicillin rash Active 07/08/2013 Tide Laundry Detergent Active Medications Medication Date Status Form Strength Qnty SIG Indications Ordering Provider Lightweight 03/13/ Active 1unit To be worn Rishabh Villarreal Carbon Fiber Afo 2015 s on left [place], Left Foot foot.. M.D. Acetaminophen 01/07/ Active Tablets 325mg 120ta 2 tabs po Rishabh Choudhary bs qam and Vinay 2po q M.DTiffany Baclofen 12/22/ Active Tablets 10mg 150ta take 2 Rishabh Villarreal 2012 bs tablets by kacie Mclean M.DTiffany every morning, 1 by mouth at noon and 2 by mouth every night Simvastatin 00/ Active Tablets 20mg 90tab 1 tab po Unknown 0000 s daily Metformin HCL 00/ Active Tablets 1000mg 60tab 1 po bid Unknown 0000 s Calcium 600 + D 00/ Active Tablets 600-400mg 60tab 1 po daily Unknown 0000 -Unit s Spironolactone / Active Tablets 100mg 60tab take one Unknown 0000 s tablet daily Ropinirole HCL / Active Tablets 0.25mg 2 tabs Rishabh S. 0000 every , night for M.D. restless leg. January repeat x1 p 4h Omeprazole / Active Capsules 40mg [address] by mouth daily Iron / Active Tablets 325(65Fe) 1 by mouth Unknown 0000 mg every other day Aspir-Low / Active Tablets DR 81mg 1 by mouth Unknown 0000 every day Vitamin B12 / Active Tablets ER 1000mcg 1 by mouth Unknown 0000 every day Timolol Maleate / Active Solution 0.5% 1 gtt each Unknown 0000 eye bid Losartan / Active Tablets 50mg 1 tablet Unknown Potassium 0000 by mouth every day Latanoprost / Active Solution 0.005% 1 drop in Unknown 0000 each eye at bedtime Gabapentin / Active Capsules 300mg 1 by mouth Unknown 0000 three times a day Systane / Active Solution 0.4-0.3% apply Unknown 0000 twice daily as needed for dry eyes Lightweight 04/10/ Hx Left foot 336.0 Rishabh Villarreal Carbon Fiber Left 2014 - Afo Vinay, Afo 03/13/ lyn.. Delfino 2015 Metoprolol 07/27/ Hx Tablets ER 25mg 90tab 1 by mouth R06.02 Qutaybeh Succinate ER 2014 - 24HR s every day S. 03/10/ Bita Shafer M.D. Ropinirole 01/07/ Hx 1 -2 tabs Rishabh S. 2012 - q evening [place], 07/08/ fo M.DTiffany 2012 rrestless leg. 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, ULTRASOUND SPEC 01/28/ day as 2016 needed Pt states she is no longer taking Travatan Z / Hx Solution 0.004% 5ml 1 drop in Unknown 0000 - both eyes 03/10/ qhs 2016 Timolol Maleate / Hx Solution 0.5% 1 gtt both Unknown 0000 - eyes qam 2013 Ciclodan / Hx Cream 0.77% bid until Unknown 0000 - clear 2012 Diphenhydramine / Hx Capsules 25mg 100ca take 1 - 2 Unknown HCL 0000 - ps capsules 07/08/ by mouth 2012 three times a day as needed Nystatin / Hx Cream [id number] 15g topically Unknown 0000 - t/GM bid prn 2012 Meclizine HCL / Hx Tablets 25mg 1/2 po q6h Silcoff, 0000 - prn Simeon 2014 Combigan / Hx Solution 0.2-0.5% 1 drop Unknown 0000 - each eye 03/10/ every bid 2016 Naproxen / Hx Tablets 500mg 1 tablet Unknown 0000 - with food 03/30/ by mouth 2017 twice a day prn Fluocinonide / Hx Ointment 0.05% topical Unknown 0000 - daily 2016 Brimonidine / Hx Solution 0.15% 1 drop in Unknown Tartrate 0000 - each eye 07/20/ twice a 2016 day Immunizations Description No Information Available Vital Signs Date Vital Result Comment 11/30/2018 10:30am Height 63 inches 5'3" Weight 169.00 lb Heart Rate 76 /min BP Systolic 132 mmHg BP Diastolic 62 mmHg BMI (Body Mass Index) 29.9 kg/m2 06/08/2018 10:50am Height 63 inches 5'3" Weight 161.38 lb Heart Rate 64 /min BP Systolic 110 mmHg left arm reg cuff BP Diastolic 64 mmHg left arm reg cuff BMI (Body Mass Index) 28.6 kg/m2 Ejection Fraction 55-60% echo 08/17/17 05/28/2018 9:57am Height 63 inches 5'3" Weight 165.00 lb Heart Rate 82 /min BP Systolic 118 mmHg BP Diastolic 66 mmHg BMI (Body Mass Index) 29.2 kg/m2 04/29/2018 1:57pm Height 63 inches 5'3" Weight 163.25 lb Heart Rate 90 /min BP Systolic Sitting 104 mmHg Lue large cuff BP Diastolic Sitting 62 mmHg Lue large cuff Respiratory Rate 16 /min O2 % BldC Oximetry 97 % BMI (Body Mass Index) 28.9 kg/m2 03/30/2018 8:56am Height 63 inches 5'3" Weight 151.75 lb Heart Rate 100 /min rapid BP Systolic Sitting 110 mmHg lue reg cuff BP Diastolic Sitting 50 mmHg lue reg cuff BP Systolic Standing 100 mmHg BP Diastolic Standing 58 mmHg Respiratory Rate 17 /min BMI (Body Mass Index) 26.9 kg/m2 Ejection Fraction 55-60% 08/17/2017 echo 09/15/2017 10:04am Height 63 inches 5'3" Weight 164.25 lb Heart Rate 84 /min BP Systolic 100 mmHg BP Diastolic 58 mmHg Respiratory Rate 14 /min BMI (Body Mass Index) 29.1 kg/m2 08/26/2017 11:25am Height 63 inches 5'3" Weight 168.25 lb with shoes Heart Rate 84 /min BP Systolic Sitting 132 mmHg LA reg cuff BP Diastolic Sitting 78 mmHg LA reg cuff BMI (Body Mass Index) 29.8 kg/m2 Ejection Fraction 55% - 60% echo 08/17/17 07/21/2017 10:41am Height 63 inches 5'3" Weight 167.25 lb with shoes Heart Rate 96 /min BP Systolic Sitting 126 mmHg LA reg cuff BP Diastolic Sitting 74 mmHg LA reg cuff BMI (Body Mass Index) 29.6 kg/m2 Ejection Fraction >70% echo 04/26/15 03/11/2017 2:10pm Height 63 inches 5'3" Weight 169.00 lb Heart Rate 84 /min BP Systolic Sitting 130 mmHg BP Diastolic Sitting 76 mmHg Respiratory Rate 20 /min O2 % BldC Oximetry 97 % room air BMI (Body Mass Index) 29.9 kg/m2 09/15/2016 10:18am Height 63 inches 5'3" Weight 164.00 lb Heart Rate 84 /min BP Systolic Sitting 134 mmHg BP Diastolic Sitting 70 mmHg BMI (Body Mass Index) 29.0 kg/m2 09/09/2016 3:41pm Height 63 inches 5'3" Weight 164.75 lb Heart Rate 80 /min BP Systolic Sitting 108 mmHg LA, reg BP Diastolic Sitting 68 mmHg LA, reg BMI (Body Mass Index) 29.2 kg/m2 Ejection Fraction >70% 04/26/15 echo 01/29/2016 10:10am Height 63 inches 5'3" Weight 168.00 lb Heart Rate 74 /min BP Systolic 120 mmHg BP Diastolic 68 mmHg Respiratory Rate 14 /min O2 % BldC Oximetry 97 % BMI (Body Mass Index) 29.8 kg/m2 01/04/2016 10:12am Height 63 inches 5'3" Weight 168.00 lb w/shoes Heart Rate 72 /min BP Systolic Sitting 118 mmHg LA reg cuff BP Diastolic Sitting 66 mmHg LA reg cuff BMI (Body Mass Index) 29.8 kg/m2 Ejection Fraction > 70% echo 04/09/15 10/30/2015 11:13am Height 63 inches 5'3" Weight 170.00 lb Heart Rate 77 /min BP Systolic 128 mmHg BP Diastolic 80 mmHg Respiratory Rate 16 /min O2 % BldC Oximetry 98 % BMI (Body Mass Index) 30.1 kg/m2 09/17/2015 10:36am Height 63 inches 5'3" Weight 169.00 lb Heart Rate 84 /min BP Systolic Sitting 138 mmHg BP Diastolic Sitting 70 mmHg Respiratory Rate 16 /min BMI (Body Mass Index) 29.9 kg/m2 05/29/2015 9:58am Height 63 inches 5'3" Weight 178.75 lb w/ shoes Heart Rate 80 /min BP Systolic Sitting 130 mmHg LA, reg BP Diastolic Sitting 68 mmHg LA, reg BMI (Body Mass Index) 31.7 kg/m2 Ejection Fraction >70% 04/26/15 ECHO 04/10/2015 2:29pm Height 63 inches 5'3" Weight 180.50 lb w/shoes Heart Rate 80 /min BP Systolic Sitting 130 mmHg LA reg cuff BP Diastolic Sitting 88 mmHg LA reg cuff Respiratory Rate 14 /min BMI (Body Mass Index) 32.0 kg/m2 Ejection Fraction > 70 echo 07/17/14 04/10/2015 9:48am Height 63 inches 5'3" Weight 179.50 lb Heart Rate 68 /min BP Systolic Sitting 120 mmHg BP Diastolic Sitting 62 mmHg Respiratory Rate 14 /min BMI (Body Mass Index) 31.8 kg/m2 01/03/2015 1:16pm Height 63 inches 5'3" Weight 181.00 lb Heart Rate 90 /min BP Systolic Sitting 110 mmHg BP Diastolic Sitting 68 mmHg Respiratory Rate 17 /min O2 % BldC Oximetry 98 % BMI (Body Mass Index) 32.1 kg/m2 Neck Circumference in inches 16 09/26/2014 10:55am Height 63 inches 5'3" Weight 186.75 lb w/shoes Heart Rate 78 /min BP Systolic Sitting 108 mmHg LA reg cuff BP Diastolic Sitting 64 mmHg LA reg cuff Respiratory Rate 14 /min BMI (Body Mass Index) 33.1 kg/m2 07/27/2014 10:14am Height 63 inches 5'3" Weight 190.00 lb Heart Rate 88 /min BP Systolic Sitting 144 mmHg BP Diastolic Sitting 80 mmHg Respiratory Rate 16 /min BMI (Body Mass Index) 33.7 kg/m2 06/15/2014 10:37am Height 63 inches 5'3" Weight 194.75 lb w/shoes Heart Rate 74 /min BP Systolic Sitting 132 mmHg LA lg cuff BP Diastolic Sitting 64 mmHg LA lg cuff Respiratory Rate 14 /min BMI (Body Mass Index) 34.5 kg/m2 04/07/2014 10:47am Height 63 inches 5'3" Weight 191.00 lb Heart Rate 80 /min BP Systolic Sitting 120 mmHg BP Diastolic Sitting 70 mmHg Respiratory Rate 16 /min BMI (Body Mass Index) 33.8 kg/m2 08/17/2013 11:05am Heart Rate 76 /min BP Systolic Sitting 126 mmHg BP Diastolic Sitting 68 mmHg Respiratory Rate 20 /min 07/08/2013 11:12am Heart Rate 76 /min BP Systolic Sitting 118 mmHg BP Diastolic Sitting 60 mmHg Respiratory Rate 16 /min 06/29/2013 1:37pm Height 63 inches 5'3" Weight 191.00 lb Heart Rate 79 /min BP Systolic 120 mmHg BP Diastolic 70 mmHg Respiratory Rate 16 /min BMI (Body Mass Index) 33.8 kg/m2 Results Description No Information Available Procedures Date Code Description Status 06/08/2018 96547 EKG Tracing & Interpretation Completed 03/30/2018 56542 EKG Tracing & Interpretation Completed 08/19/2017 33872 Treadmill Interp/Report Only Completed 08/19/2017 58039 Stress Test Supervsn W/Out I/R Completed 08/17/2017 22806 ECHO Transthoracic, Real-Time 2D With Doppler And Color Completed Flow 08/17/2017 74223 ECHO Transthoracic, Real-Time 2D With Doppler And Color Completed Flow 07/21/2017 92938 EKG Tracing & Interpretation Completed 09/09/2016 19303 EKG Tracing & Interpretation Completed 01/04/2016 53786 EKG Tracing & Interpretation Completed 06/07/2015 59837 Holter Monitor Review (24 hr)dr review & interp only Completed 05/24/2015 39743 Treadmill Interp/Report Only Completed 05/24/2015 79720 Stress Test Supervsn W/Out I/R Completed 04/26/2015 40577 ECHO Transthoracic, Real-Time 2D With Doppler And Color Completed Flow 04/10/2015 27884 EKG Tracing & Interpretation Completed 07/17/2014 38607 ECHO Transthoracic, Real-Time 2D With Doppler And Color Completed Flow 06/15/2014 04579 EKG Tracing & Interpretation Completed 07/28/2013 62805 Treadmill Interp/Report Only Completed 07/28/2013 15070 Stress Test Supervsn W/Out I/R Completed 07/25/2013 29249 Holter Monitoring 24 HR New Completed 07/19/2013 35551 ECHO Transthoracic, Real-Time 2D With Doppler And Color Completed Flow 06/29/2013 23860 EKG Tracing & Interpretation Completed 01/07/2005 08905 ECHO/Stress Completed 01/07/2005 49387 Treadmill Interp/Report Only Completed 01/07/2005 03275 Stress Test Supervsn W/Out I/R Completed Encounters Type Date Location Provider Dx Diagnosis Office Visit 06/08/2018 [facility] Juan R Villarreal G47.33 Obstructive sleep 11:00a Delfino Sunshine apnea (adult) (pediatric) I10 Essential (primary) hypertension I45.10 Unspecified right bundle-branch block E78.2 Mixed hyperlipidemia Office Visit 05/28/2018 [facility] Rishabh Villarreal G95.0 Syringomyelia and 9:45a Clinic Delfino Mclean 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 R51 Headache Office Visit 04/29/2018 [facility] Carmen G47.33 Obstructive sleep 2:00p [facility] Services Of TJ Martinez, RN, apnea (adult) [facility] [employer] TECHNICIAN-BC (pediatric) G47.14 Hypersomnia due to medical condition Z72.821 Inadequate sleep hygiene Office Visit 03/30/2018 9:00a [facility] Karina Villarreal I10 Essential ( primary) Of [facility] Delmer N.PTiffany hypertension R07.9 Chest pain, unspecified E78.2 Mixed hyperlipidemia G47.33 Obstructive sleep apnea (adult) (pediatric) I45.10 Unspecified right bundle-branch block Office Visit 09/15/2017 9:45a [place] Rishabh Villarreal G95.0 Syringomyelia and Neurologic Delfino Mclean 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 Services Of 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 G47.33 Obstructive sleep 11:00a Cardiology Delfino Sunshine apnea (adult) (pediatric) I10 Essential (primary) hypertension E78.2 Mixed hyperlipidemia R06.02 Shortness of breath R07.9 Chest pain, unspecified I45.10 Unspecified right bundle-branch block I45.2 Bifascicular block Office Visit 03/11/2017 [facility] Carmen G47.33 Obstructive sleep 1:45p [facility] TJ Martinez RN, apnea (adult) [facility] JOSTIN (pediatric) G47.14 Hypersomnia due to medical condition Office 09/15/2016 Neurohospital[facility] Rishabh Villarreal G95.0 Syringomyelia and Visit 10:15a Clinic Delfino Mclean 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 Office 09/09/2016 [facility] Valeriataybeh S. G47.33 Obstructive sleep Visit 4:00p frances Sunshine (adult) Delfino (pediatric) I10 Essential (primary) hypertension I45.19 Other right bundle-branch block E78.2 Mixed hyperlipidemia I45.2 Bifascicular block Office Visit 01/29/2016 [facility] Carmen G47.33 Obstructive sleep 10:30a [facility] Of TJ Martinez RN, apnea (adult) [facility] (pediatric) Office Visit 01/04/2016 [facility] Valeriataybjesus S. G47.33 Obstructive sleep 10:20a Delfino Sunshine apnea (adult) (pediatric) R42 Dizziness and giddiness I10 Essential (primary) hypertension I45.19 Other right bundle-branch block E78.2 Mixed hyperlipidemia Office Visit 10/30/2015 [facility] Carmen G47.33 Obstructive 11:00a Services Of [facility] TJ Martinez, sleep apnea RN, [facility] (adult) (pediatric) Office Visit 09/17/2015 [facility] Rishabh Villarreal R42 Dizziness and 10:15a Clinic Delfino Mclean giddiness G95.0 Syringomyelia and 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 Office Visit 05/29/2015 10:00a [facility] Fe Wren, 401.9 Hypertension Unspec PA 426.4 Right Bundle Branch Block 327.23 Obstructive Sleep Apnea Adult & Pediatric 780.4 Dizziness & Giddiness Office Visit 04/10/2015 [place] Juan R Villarreal 327.23 Obstructive Sleep 2:40p Cardiology Delfino Sunshine Apnea Adult & Pediatric 426.4 Right Bundle Branch Block 272.2 Hyperlipidemia Mixed 786.05 Shortness Of Breath 786.50 Pain Chest Unspec 401.9 Hypertension Unspec Office Visit 04/10/2015 [place] Miguel Villarreal 336.0 Syringomyelia & 9:45a Services Of Rosy Mclean M.D. Syringobulbia Office Visit 01/03/2015 [facility] Carmen 327.23 Obstructive Sleep 1:30p Sleep Services Of TJ Martinez, RN, Apnea Adult & [facility] Pediatric Office Visit 09/26/2014 [facility] JANIS Wesley 786.05 Shortness Of 11:00a Breath 426.4 Right Bundle Branch Block 272.2 Hyperlipidemia Mixed 780.4 Dizziness & Giddiness Office Visit 07/27/2014 10:30a [facility] Fe Wren 786.05 Shortness Of PA Breath 272.2 Hyperlipidemia Mixed 426.4 Right Bundle Branch Block 794.31 Electrocardiogram (ECG) (EKG) Abnormal 785.1 Palpitations Office Visit 06/15/2014 11:00a [facility] Juan R Villarreal 786.05 Shortness Of Delfino Sunshine Breath 272.2 Hyperlipidemia Mixed 426.4 Right Bundle Branch Block 794.31 Electrocardiogram (ECG) (EKG) Abnormal 278.00 Obesity Unspec 307.49 Sleep Disorder Other 416.9 Pulmonary Heart Disease Unspec Chronic Office Visit 04/07/2014 Kathryn Villarreal 336.0 Syringomyelia & 10:45a Neurologic Delfino Mclean Syringobulbia Services Of [facility] Office Visit 08/17/2013 Kathryn Villarreal 786.05 Shortness Of Breath 11:00a Aeljandrina Sunshine M.D. 785.1 Palpitations 272.0 Hypercholesterolemia Pure 272.2 Hyperlipidemia Mixed 426.4 Right Bundle Branch Block Office Visit 07/28/2013 11:30a [facility] Juan R Villarreal 786.50 Pain Chest Delfino Sunshine Unspec 786.05 Shortness Of Breath Office Visit 07/08/2013 Kathryn Villarreal 336.0 Syringomyelia & 11:15a Neurologic Delfino Mclean Syringobulbia Services Of [facility] Office Visit 06/29/2013 [place] 786.50 Pain Chest Unspec 1:40p Cardiology Delfino Sunshine 272.0 Hypercholesterolemia Pure 272.2 Hyperlipidemia Mixed 786.05 Shortness Of Breath 785.1 Palpitations 278.00 Obesity Unspec 794.31 Electrocardiogram (ECG) (EKG) Abnormal 426.4 Right Bundle Branch Block Office Visit 01/07/2013 11:00a Kathryn Villarreal 336.0 Syringomyelia & Neurologic Delfino Mclean Syringobulbia Services Of [facility] Office Visit 07/09/2012 11:00a [place] 336.0 Syringomyelia & Neurologic Delfino Mclean Syringobulbia Services Of [facility] Plan of Treatment Future Appointment(s):05/31/2019 9:45 am - Rishabh Mclean M.D. at [place] [facility]11/30/2018 - Rishabh Mclean M.D.G95.0 Syringomyelia and 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Follow up:6 IYQSFSD38.062 Spinal stenosis, lumbar region with neurogenic zerhqaiendmgE72.16 Spondylolisthesis, lumbar region
--- OUTSIDE RECORDS SUMMARY | 2018-12-25 14:08 | XMS REPORT | Continuity of Care Document ---
:1950 External Reference #:[id number] Author Name Ravindra Espinoza Care Team Providers Name Role Phone Simeon Fonseca MD Primary Care Physician Unavailable Payers Date Identification Numbers Payment Provider Subscriber Policy Number: [id number] [employer] Hiwot Carty PayID: [id number] [address] [id number] Attn: [place] [address] Effective: 2017 Policy Number: [id number] [facility] Care Hiwot Carty Expires: 2019 Group Number: [id number]% [id number] PayID: [id number] [address] Advance Directives Description No Information Available Problems [...] of adult Carmen Martinez DNP, RN, Active [facility] Onset: 01/03/2015 Poor sleep pattern Carmen Martinez DNP RN, Active [facility]- Family History Date Family Member(s) Observation Comments [...] [employer] 2015 s on left [place], Left Foot foot.. M.D. Acetaminophen 01/07/ Active [...] tabs Rishabh S. 2012 - q evening [place], 07/08/ fo M.DTiffany 2012 rrestless leg. 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 Pt states [...] day as needed Nystatin / Hx Cream [id number] 15g topically Unknown 0000 - t/GM bid [...] Available Procedures Date Code Description Status 06/08/2018 51770 EKG Tracing & Interpretation Completed 03/30/2018 90003 EKG Tracing & Interpretation Completed 08/19/2017 06900 Treadmill Interp/Report Only Completed 08/19/2017 72021 Stress Test Supervsn W/Out I/R Completed 08/17/2017 07109 ECHO Transthoracic, Real-Time 2D With Doppler And Color Completed Flow 08/17/2017 21366 ECHO Transthoracic, Real-Time 2D With Doppler And Color Completed Flow 07/21/2017 09487 EKG Tracing & Interpretation Completed 09/09/2016 91651 EKG Tracing & Interpretation Completed 01/04/2016 74383 EKG Tracing & Interpretation Completed 06/07/2015 50643 Holter Monitor Review (24 hr)dr review & interp only Completed 05/24/2015 02242 Treadmill Interp/Report Only Completed 05/24/2015 42738 Stress Test Supervsn W/Out I/R Completed 04/26/2015 06916 ECHO Transthoracic, Real-Time 2D With Doppler And Color Completed Flow 04/10/2015 64263 EKG Tracing & Interpretation Completed 07/17/2014 43354 ECHO Transthoracic, Real-Time 2D With Doppler And Color Completed Flow 06/15/2014 50390 EKG Tracing & Interpretation Completed 07/28/2013 40852 Treadmill Interp/Report Only Completed 07/28/2013 73702 Stress Test Supervsn W/Out I/R Completed 07/25/2013 47415 Holter Monitoring 24 HR New Completed 07/19/2013 48800 ECHO Transthoracic, Real-Time 2D With Doppler And Color Completed Flow 06/29/2013 54818 EKG Tracing & Interpretation Completed 01/07/2005 23688 ECHO/Stress Completed 01/07/2005 10439 Treadmill Interp/Report Only Completed 01/07/2005 47487 Stress Test Supervsn W/Out I/R Completed Encounters Type Date Location Provider Dx Diagnosis Office Visit 06/08/2018 [facility] Juan R Villarreal G47.33 Obstructive sleep 11:00a Delfino Sunshine apnea (adult) (pediatric) I10 Essential (primary) hypertension I45.10 Unspecified right bundle-branch block E78.2 Mixed hyperlipidemia Office Visit 05/28/2018 [facility] Rishabh Villarreal G95.0 Syringomyelia and 9:45a Clinic Delfino Mclean 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 R51 Headache Office Visit 04/29/2018 [facility] Carmen G47.33 Obstructive sleep 2:00p [facility] Services Of TJ Martinez, RN, apnea (adult) [facility] CASINO INVESTIGATOR-BC (pediatric) G47.14 Hypersomnia due to medical condition Z72.821 Inadequate sleep hygiene Office Visit 03/30/2018 9:00a [facility] Karina Villarreal I10 Essential ( primary) Of [facility] Delmer N.PTiffany hypertension R07.9 Chest pain, unspecified E78.2 Mixed hyperlipidemia G47.33 Obstructive sleep apnea (adult) (pediatric) I45.10 Unspecified right bundle-branch block Office Visit 09/15/2017 9:45a [facility] Rishabh Villarreal G95.0 Syringomyelia and Neurologic Delfino Mclean 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 Services Of [facility] 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 G47.33 Obstructive sleep Visit 4:00p frances Sunshine (adult) Delfino (pediatric) I10 Essential (primary) hypertension I45.19 Other right bundle-branch block E78.2 Mixed hyperlipidemia I45.2 Bifascicular block Office Visit 01/29/2016 [facility] Carmen G47.33 Obstructive sleep 10:30a [facility] Of TJ Martinez RN, apnea (adult) [facility] (pediatric) Office Visit 01/04/2016 [facility] Valeriataybjesus S. G47.33 Obstructive sleep 10:20a Delfino Sunshine apnea (adult) (pediatric) R42 Dizziness and giddiness I10 Essential (primary) hypertension I45.19 Other right bundle-branch block E78.2 Mixed hyperlipidemia Office Visit 10/30/2015 Pulmonology And Sleep Carmen G47.33 Obstructive 11:00a Services Of [facility] TJ Martinez, sleep apnea RN, [facility] (adult) (pediatric) Office Visit 09/17/2015 [facility]hospitalist Rishabh Villarreal R42 Dizziness and 10:15a Clinic Delfino Mclean giddiness G95.0 Syringomyelia and 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 Office Visit 05/29/2015 10:00a [facility] Fe Wren, 401.9 Hypertension Unspec PA 426.4 Right Bundle Branch Block 327.23 Obstructive Sleep Apnea Adult & Pediatric 780.4 Dizziness & Giddiness Office Visit 04/10/2015 [facility] Juan R Villarreal 327.23 Obstructive Sleep 2:40p Cardiology Delfino Sunshine Apnea Adult & Pediatric 426.4 Right Bundle Branch Block 272.2 Hyperlipidemia Mixed 786.05 Shortness Of Breath 786.50 Pain Chest Unspec 401.9 Hypertension Unspec Office Visit 04/10/2015 [facility] Miguel Villarreal 336.0 Syringomyelia & 9:45a Services Of Rosy Mclean M.D. Syringobulbia Office Visit 01/03/2015 Pulmonology And Carmen 327.23 Obstructive Sleep 1:30p Sleep Services Of TJ Martinez, RN, Apnea Adult & [facility] Pediatric Office Visit 09/26/2014 [facility] JANIS Wesley 786.05 Shortness Of 11:00a Breath 426.4 Right Bundle Branch Block 272.2 Hyperlipidemia Mixed 780.4 Dizziness & Giddiness Office Visit 07/27/2014 10:30a [facility] Fe Wren 786.05 Shortness Of PA Breath 272.2 Hyperlipidemia Mixed 426.4 Right Bundle Branch Block 794.31 Electrocardiogram (ECG) (EKG) Abnormal 785.1 Palpitations Office Visit 06/15/2014 11:00a [facility] Juan R Villarreal 786.05 Shortness Of Delfino Sunshine Breath 272.2 Hyperlipidemia Mixed 426.4 Right Bundle Branch Block 794.31 Electrocardiogram (ECG) (EKG) Abnormal 278.00 Obesity Unspec 307.49 Sleep Disorder Other 416.9 Pulmonary Heart Disease Unspec Chronic Office Visit 04/07/2014 Kathryn Villareral 336.0 Syringomyelia & 10:45a Neurologic Delfino Mclean Syringobulbia Services Of [facility] Office Visit 08/17/2013 Kathryn Villarreal 786.05 Shortness Of Breath 11:00a Alejandrina Sunshine M.D. 785.1 Palpitations 272.0 Hypercholesterolemia Pure 272.2 Hyperlipidemia Mixed 426.4 Right Bundle Branch Block Office Visit 07/28/2013 11:30a [facility] Juan R Villarreal 786.50 Pain Chest Delfino Sunshine Unspec 786.05 Shortness Of Breath Office Visit 07/08/2013 Kathryn Villarreal 336.0 Syringomyelia & 11:15a Neurologic Delfino Mclean Syringobulbia Services Of [facility] Office Visit 06/29/2013 [facility] Smith[facility]iffany 786.50 Pain Chest Unspec 1:40p Cardiology Delfino Sunshine 272.0 Hypercholesterolemia Pure 272.2 Hyperlipidemia Mixed 786.05 Shortness Of Breath 785.1 Palpitations 278.00 Obesity Unspec 794.31 Electrocardiogram (ECG) (EKG) Abnormal 426.4 Right Bundle Branch Block Office Visit 01/07/2013 11:00a Kathryn Villarreal 336.0 Syringomyelia & Neurologic Delfino Mclean Syringobulbia Services Of [facility] Office Visit 07/09/2012 11:00a [facility] 336.0 Syringomyelia & Neurologic Delfino Mclean Syringobulbia Services Of [facility] Plan of Treatment Future Appointment(s):05/31/2019 9:45 am - Rishabh Mclean M.D. at [facility]11/30/2018 - Rishabh Mclean M.D.G95.0 Syringomyelia and 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Follow up:6 RKTNFDJ42.062 Spinal stenosis, lumbar region with neurogenic goxvpnsnetpsU79.16 Spondylolisthesis, lumbar region
[2018-12-25 14:09] LABS: ABS Basophils 0.1 10^3/ul (0-0.2); ABS Eosinophils 0.1 10^3/ul (0-0.6); ABS Lymphocytes 1.7 10^3/ul (1.0-4.8); ABS Monocytes 0.6 10^3/ul (0-0.8); ABS Nucleated RBC 0 10^3/ul; Eosinophil % 1.7 %; Hematocrit 35 % (33-41); Hemoglobin 11.6 g/dL (12.0-16.0); Lymphocyte % 19.6 %; Mean Corpuscular HGB Conc 33 g/dL (31-36); Mean Corpuscular Hemoglobin 30 pg (27-31); Mean Corpuscular Volume 91 fL (80-97); Mean Platelet Volume 6.8 fL (7.4-10.4); Nucleated Red Blood Cells % 0; Platelet Count 461 10^3/uL (150-450); Red Blood Count 3.83 10^6 /uL (3.70-4.87); Red Cell Distribution Width 14 % (10.5-15); White Blood Count 8.5 10^3/uL (3.5-10.8)
[2018-12-25 14:15] LABS: INR 0.89 (0.77-1.02)
[2018-12-25 14:21] LABS: Calcium 9.3 mg/dL (8.6-10.3); Potassium 4.2 mmol/L (3.5-5.0); Total Bilirubin 0.3 mg/dL (0.2-1.0)
[2018-12-25 14:27] LABS: Albumin/Globulin Ratio 1.7 (1-3); BUN/Creatinine Ratio 34.7 (8-20); EGFR African American 97.2 (>60); EGFR Non-African American 80.3 (>60); Globulin 2.4 g/dL (2-4); Total Protein 6.4 g/dL (6.4-8.9)
[2018-12-25] MEDS ORDERED: Iodixanol* (CONTRAST) 320 MG/ML 100 ML SDV IV ONE (14:35)
--- NOTE | 2018-12-25 14:37 | ED ---
Neurological HPI - HPI Summary HPI Summary: The patient is a 68 year old female who is presenting to the [facility] with complaints of double vision, and facial numbness. The patient stated that after her bible study at 1900 yesterday (12/24/18), she began to have double vision. Later throughout today (onset early childhood specialist 12/25/18), the patient was often off- balance when ambulating. The facial numbness is described as intermittent. She denies room spinning and dizziness. Nausea was also reported as constant. The pain is rated to be 3/10 in severity. Symptoms aggravated by nothing. Symptoms alleviated by nothing. - History of Current Complaint Chief Complaint: EDGeneral Stated Complaint: BODY PAIN/DIZZY/ LEFTHIP PAIN/FACE NUMBNESS PER PT Time Seen by Provider: 12/25/18 13:18 Hx Obtained From: Patient Hx Last Menstrual Period: "years ago." Onset/Duration: Sudden Onset Pain Intensity: 3 Pain Scale Used: 0-10 Numeric Character: Visual Changes - Double Vision, Other: - Off-Balance Aggravating: Nothing Alleviating: Nothing Associated Signs and Symptoms: Positive: Nausea/Vomiting - Allergy/Home Medications Allergies/Adverse Reactions: Allergies Allergy/AdvReac Type Severity Reaction Status Date / Time amoxicillin Allergy ITCHINESS Verified 12/20/18 11:00 cephalexin Allergy Rash Verified 12/20/18 11:00 ciprofloxacin [From Cipro] Allergy RASH AND Verified 12/20/18 11:00 SWELLING fluticasone furoate Allergy Difficulty Verified 12/20/18 11:00 [From Breo Ellipta] Breathing latex Allergy ITCHINESS Verified 12/20/18 11:00 vilanterol Allergy Difficulty Verified 12/20/18 11:00 [From Breo Ellipta] Breathing AIR FRESHNERS Allergy RUNNY EYES Uncoded 06/08/18 13:30 AND NOSE SULFA DRUGS Allergy Rash And Uncoded 06/08/18 13:30 Itching TIDE LAUNDRY SOAP Allergy Rash Uncoded 06/08/18 13:30 PMH/Surg Hx/FS Hx/Imm Hx Endocrine/Hematology History: Reports: Hx Diabetes Denies: Hx Anticoagulant Therapy, Hx Systemic Lupus Erythematosus, Hx Thyroid Disease Cardiovascular History: Reports: Hx Angina, Hx Hypercholesterolemia, Hx Hypertension, Hx Peripheral Vascular Disease Denies: Hx Congestive Heart Failure, Hx Coronary Artery Disease, Hx Deep Vein Thrombosis, Hx Myocardial Infarction, Hx Pacemaker/ICD, Hx Valvular Heart Disease Respiratory History: Reports: Hx Sleep Apnea - current CPAP user Denies: Hx Asthma, Hx Chronic Obstructive Pulmonary Disease (COPD), Hx Lung Cancer, Hx Pneumonia, Hx Pulmonary Embolism GI History: Reports: Hx Gastroesophageal Reflux Disease - ON MEDICATION FOR Denies: Hx Gall Bladder Disease, Hx Gastrointestinal Bleed, Hx Ulcer, Hx Urosepsis History: Denies: Hx Dialysis, Hx Kidney Stones, Hx Renal Disease Musculoskeletal History: Reports: Hx Arthritis - HANDS, Other Musculoskeletal History - COMPRESSED SPINAL CORD Denies: Hx Rheumatoid Arthritis Sensory History: Reports: Hx Cataracts - BILATERAL, Hx Glaucoma - BILATERAL Denies: Hx Contacts or Glasses, Hx Hearing Aid Opthamlomology History: Reports: Hx Cataracts - BILATERAL, Hx Glaucoma - BILATERAL Denies: Hx Contacts or Glasses Neurological History: 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, PAIN CLINIC PT Denies: Hx Dementia, Hx Migraine, Hx Seizures, Hx Transient Ischemic Attacks (TIA) Psychiatric History: Denies: Hx Anxiety, Hx Depression, Hx Panic Disorder, Hx Schizophrenia, Hx Bipolar Disorder - Cancer History Hx Chemotherapy: No Hx Radiation Therapy: No - Surgical History Surgery Procedure, Year, and Place: 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, compresed spinal cord - chaiari malformation Hx Anesthesia Reactions: No Infectious Disease History: No Infectious Disease History: Reports: Hx of Known/Suspected MRSA - hx of (pt not sure) Denies: Traveled Outside the [place] in Last 30 Days - Family History Known Family History: Positive: Cardiac Disease, Hypertension - Social History Occupation: Retired Alcohol Use: None Substance Use Type: Reports: None Smoking Status (MU): Never Smoked Tobacco Have You Smoked in the Last Year: No Review of Systems Constitutional: Negative Eyes: Negative ENT: Negative Cardiovascular: Negative Respiratory: Negative Positive: Nausea Genitourinary: Negative Musculoskeletal: Negative Skin: Negative Neurological: Other - Unsteady gait (off-balance) and Double Vision; Negative room-spinning and dizziness Positive: Numbness - Facial Psychological: Normal All Other Systems Reviewed And Are Negative: Yes Physical Exam - Summary Physical Exam Summary: Appearance: The patient is well-nourished in no acute distress and in no acute pain. Skin: The skin is warm and dry and skin color reflects adequate perfusion. HEENT: The head is normocephalic and atraumatic. The pupils are equal and reactive. The conjunctivae are clear and without drainage. Nares are patent and without drainage. Mouth reveals moist mucous membranes and the throat is without erythema and exudate. The external ears are intact. The ear canals are patent and without drainage. The tympanic membranes are intact. Neck: The neck is supple with full range of motion and non-tender. There are no carotid bruits. There is no neck vein distension. Respiratory: Chest is non-tender. Lungs are clear to auscultation and breath sounds are symmetrical and equal. Cardiovascular: Heart is regular rate and rhythm. There is no murmur or rub auscultated. There is no peripheral edema and pulses are symmetrical and equal. Abdomen: The abdomen is soft and non-tender. There are normal bowel sounds heard in all four quadrants and there is no organomegaly palpated. Musculoskeletal: There is no back tenderness noted. Extremities are non-tender. There is good capillary refill. There is no peripheral edema or calf tenderness elicited. Neurological: Patient is alert and oriented to person, place and time. She had mild dysmetria in both upper extremities Psychiatric: The patient has an appropriate affect and does not exhibit any anxiety or depression. Triage Information Reviewed: Yes Vital Signs On Initial Exam: Initial Vitals Pulse Resp Pulse Ox 80 17 97 12/25/18 13:20 12/25/18 13:20 12/25/18 13:20 Vital Signs Reviewed: Yes Diagnostics - Vital Signs Vital Signs Temp Pulse Resp BP Pulse Ox 12/25/18 13:22 98.4 F 75 20 149/56 97 12/25/18 13:21 81 15 149/56 97 12/25/18 13:20 80 17 97 - Laboratory Lab Results: Lab Results 12/25/18 12/25/18 12/25/18 Range/Units 14:02 14:02 14:02 WBC 8.5 (3.5-10.8) 10^3/uL RBC 3.83 (3.70-4.87) 10^6 /uL Hgb 11.6 L (12.0-16.0) g/dL Hct 35 (33-41) % MCV 91 (80-97) fL MCH 30 (27-31) pg MCHC 33 (31-36) g/dL RDW 14 (10.5-15) % Plt Count 461 H (150-450) 10^3/uL MPV 6.8 L (7.4-10.4) fL Neut % (Auto) 70.8 % Lymph % (Auto) 19.6 % Sterling % (Auto) 6.9 % Eos % (Auto) 1.7 % Baso % (Auto) 1.0 % Absolute Neuts (auto) 6.0 (1.5-7.7) 10^3/ul Absolute Lymphs (auto) 1.7 (1.0-4.8) 10^3/ul Absolute Monos (auto) 0.6 (0-0.8) 10^3/ul Absolute Eos (auto) 0.1 (0-0.6) 10^3/ul Absolute Basos (auto) 0.1 (0-0.2) 10^3/ul Absolute Nucleated RBC 0 10^3/ul Nucleated RBC % 0 INR (Anticoag Therapy) (0.77-1.02) Sodium 136 (135-145) mmol/L Potassium 4.2 (3.5-5.0) mmol/L Chloride 103 (101-111) mmol/L Carbon Dioxide 24 (22-32) mmol/L Anion Gap 9 (2-11) mmol/L BUN 25 H (6-24) mg/dL Creatinine 0.72 (0.51-0.95) mg/dL Est GFR ( Amer) 97.2 (>60) Est GFR (Non-Af Amer) 80.3 (>60) BUN/Creatinine Ratio 34.7 H (8-20) Glucose 113 H (70-100) mg/dL Lactic Acid 1.3 (0.5-2.0) mmol/L Calcium 9.3 (8.6-10.3) mg/dL Total Bilirubin 0.30 (0.2-1.0) mg/dL AST 12 L (13-39) U/L ALT 12 (7-52) U/L Alkaline Phosphatase 55 (34-104) U/L Troponin I Pending Total Protein 6.4 (6.4-8.9) g/dL Albumin 4.0 (3.2-5.2) g/dL Globulin 2.4 (2-4) g/dL Albumin/Globulin Ratio 1.7 (1-3) TSH Pending 12/25/18 Range/Units 14:02 WBC (3.5-10.8) 10^3/uL RBC (3.70-4.87) 10^6 /uL Hgb (12.0-16.0) g/dL Hct (33-41) % MCV (80-97) fL MCH (27-31) pg MCHC (31-36) g/dL RDW (10.5-15) % Plt Count (150-450) 10^3/uL MPV (7.4-10.4) fL Neut % (Auto) % Lymph % (Auto) % Sterling % (Auto) % Eos % (Auto) % Baso % (Auto) % Absolute Neuts (auto) (1.5-7.7) 10^3/ul Absolute Lymphs (auto) (1.0-4.8) 10^3/ul Absolute Monos (auto) (0-0.8) 10^3/ul Absolute Eos (auto) (0-0.6) 10^3/ul Absolute Basos (auto) (0-0.2) 10^3/ul Absolute Nucleated RBC 10^3/ul Nucleated RBC % INR (Anticoag Therapy) 0.89 (0.77-1.02) Sodium (135-145) mmol/L Potassium (3.5-5.0) mmol/L Chloride (101-111) mmol/L Carbon Dioxide (22-32) mmol/L Anion Gap (2-11) mmol/L BUN (6-24) mg/dL Creatinine (0.51-0.95) mg/dL Est GFR ( Amer) (>60) Est GFR (Non-Af Amer) (>60) BUN/Creatinine Ratio (8-20) Glucose (70-100) mg/dL Lactic Acid (0.5-2.0) mmol/L Calcium (8.6-10.3) mg/dL Total Bilirubin (0.2-1.0) mg/dL AST (13-39) U/L ALT (7-52) U/L Alkaline Phosphatase (34-104) U/L Troponin I Total Protein (6.4-8.9) g/dL Albumin (3.2-5.2) g/dL Globulin (2-4) g/dL Albumin/Globulin Ratio (1-3) TSH Result Diagrams: 12/25/18 14:02 12/25/18 14:02 Lab Statement: Any lab studies that have been ordered have been reviewed, and results considered in the medical decision making process. - CT Head and Neck CT CT Interpretation Completed By: Radiologist Summary of CT Findings: Head and Neck CTA reveals as per radiologist. NECK ANGIOGRAM IMPRESSION: Approximate 30% short segment RIGHT internal carotid artery and. 15% short segment LEFT internal carotid artery stenosis. HEAD ANGIOGRAM IMPRESSION: No central intracranial arterial occlusion or high-grade. stenosis evident. ED Physician has reviewed this radiology report Brain CT CT Interpretation Completed By: Radiologist Summary of CT Findings: Brain CT reveals #. Negative unenhanced head CT. ED Physician has reviewed this radiology report - EKG 1350 Summary of EKG Findings: EKG at 1350 reveals 79 bpm with normal sinus rhythm with RBBB and Left Anterior vesicular block. The EKG is unchanged from 03/22/18. Course/Dx - Course Course Of Treatment: Because of the length of time since onset of symptoms Ms. Carty was not eligible for thrombolytics. I am concerned that this is a posterior event and she was given a full aspirin here. A CT was obtained because she is within the 24-hour window and was negative. I spoke with Dr. Hogan who recommended also giving her Plavix and admission to the hospitalist service. I spoke with Dr. Garza for admission. - Diagnoses Provider Diagnoses: CVA (cerebral vascular accident) - Critical Care Time Critical Care Time: 30-74 min Discharge - Sign-Out/Discharge Documenting (check all that apply): Patient Departure - ADMITTED FROM [facility] [place] Patient Received Moderate/Deep Sedation with Procedure: No - Discharge Plan Condition: Stable Disposition: ADMITTED TO [facility] Referrals: Simeon Fonseca MD [Primary Care Provider] - - Billing Disposition and Condition Condition: STABLE Disposition: Admitted to [facility] - Attestation Statements Document Initiated by Scribe: Yes Documenting Scribe: Solomon Marino Provider For Whom Scribe is Documenting (Include Credential): Dr. Basil Love Scribyusuf Attestation: Solomon Santana, scribed for Dr. Basil Love on 12/25/18 at 1820. Scribe Documentation Reviewed: Yes Provider Attestation: The documentation as recorded by the Solomon chacko accurately reflects the service I personally performed and the decisions made by , Dr. Basil Love Status of Scribe Document: Viewed
[2018-12-25 14:47] LABS: TSH (Thyroid Stimulating Horm) 1.76 mcIU/mL (0.34-5.60)
[2018-12-25 15:01] LABS: Urine Appearance Clear; Urine Bacteria Absent (Absent); Urine Bilirubin Negative (Negative); Urine Blood 1+ (Negative); Urine Color Straw; Urine Glucose Negative (Negative); Urine Ketones Negative (Negative); Urine Nitrite Negative (Negative); Urine Protein Negative (Negative); Urine Red Blood Cell Trace(0-2/hpf) (Absent); Urine Urobilinogen Negative (Negative); Urine White Blood Cell Trace(0-5/hpf) (Absent)
[2018-12-25] MEDS ORDERED: Gabapentin CAP(*) 300 MG PO ONE (15:13)
[2018-12-25] MEDS ORDERED: Aspirin TAB* 325 MG PO ONE (15:21)
[2018-12-25] MEDS ORDERED: Clopidogrel TAB* 75 MG PO ONE (15:30)
[2018-12-25] MEDS ORDERED: Atorvastatin* 80 MG TAB PO SCH (17:30)
[2018-12-25] MEDS ORDERED: Dextrose 50% Syringe 50 ML* 25 GM/50 ML SYRINGE IV PUSH PRN (17:38)
--- NOTE | 2018-12-25 20:19 | HP ---
ADMITTING HISTORY AND PHYSICAL: DATE OF ADMISSION: 12/25/18 CHIEF COMPLAINT: Double vision and facial numbness as well as unsteady gait. HISTORY OF PRESENT ILLNESS: The patient is a 68-year-old lady with history of Arnold-Chiari malformation, syringomyelia as well as hypertension, who was in her usual state of health until 1 day prior to admission when she began having some double vision and facial numbness. She mentioned that later throughout today, she would have intermittent double vision, but found herself having difficulty ambulating, which she at first ascribed to her double vision. However, a few hours later, her double vision improved and subsequently resolved, yet her balance she felt was still off. She denies any vertigo, fevers, chills, nausea, vomiting. She did complain of a brief chest pain possibly radiating to the back according to her friend, who drove her to the ER , but the patient herself is a poor historian who forgets many details of her inconsistent history. The rest of the 14- point review of systems is otherwise unremarkable. In the ED, she received aspirin and Plavix, but Plavix at 75, not the loading dose. Dr. Love has also spoken with Dr. Palencia in regards to above and we will defer. PAST MEDICAL AND SURGICAL HISTORY: Arnold-Chiari malformation, syringomyelia, hypertension, hyperlipidemia, diabetes mellitus type 2, status post cataract removal, glaucoma, GERD. HOME MEDICATIONS: As follows: 1. Ropinirole. 2. Metformin. 3. Simvastatin. 4. Propylene glycol. 5. Omeprazole. 6. Cyanocobalamin. 7. Latanoprost. 8. Ferrous sulfate. 9. Aspirin. 10. Tylenol. 11. Timolol ophthalmic drops. 12. Brimonidine ophthalmic drops. 13. Baclofen. 14. Spironolactone. 15. Losartan. 16. Gabapentin. ALLERGIES: To AMOXICILLIN, CEPHALEXIN, CIPROFLOXACIN, FLUTICASONE, BREO ELLIPTA , and LATEX. FAMILY HISTORY: Cancer, both her parents possibly had GI cancer, the specifics of which is unknown. SOCIAL HISTORY: The patient denies any history of smoking cigarettes, IV drug use, alcohol abuse. She lives alone in [facility]. PHYSICAL EXAMINATION GENERAL APPEARANCE: The patient is awake, somewhat confused, not in acute distress. VITAL SIGNS: Reveals the most recent vital signs of record with blood pressure of 149/82, 77 beats per minute heart rate, 99% saturation on room air, 98.4 degrees Fahrenheit. HEENT: Normocephalic, atraumatic. PERRLA. Extraocular muscles intact. Negative for icterus. Moist oral mucosa. Negative throat erythema. NECK: Soft, supple with no cervical lymphadenopathy, no JVD. CHEST: Clear to auscultation bilaterally. Good air entry. No wheezes, rales, or rhonchi. HEART: S1, S2 within normal limits. Regular rate and rhythm. No murmurs, rubs , or gallops. ABDOMEN: Soft, nondistended, nontender. Normoactive bowel sounds x4 quadrants. EXTREMITIES: No cyanosis, clubbing, or edema. PSYCHIATRIC: No active psychosis, depression, suicidal or homicidal ideation. SKIN: Warm to touch. DIAGNOSTIC STUDIES/LAB DATA: Most recent and pertinent laboratories drawn show CBC with a WBC which is normal, H and H of 11.6 and 35, platelets of 461. INR is normal. Sodium and potassium were normal, BUN of 25, creatinine is normal. LFTs were either low or normal. TSH is normal at 1.76. Urinalysis shows normal wbc's with positive leukocyte esterase. Head CTA done showed no central intracranial arterial occlusion or high-grade stenosis and there is only 30% short segment right internal carotid artery stenosis with 15% short segment on the left. Brain CT showed no acute disease. ASSESSMENT AND PLAN: The patient is a 68-year-old lady with history of Arnold-Chiari malformation, syringomyelia and hypertension, being admitted for possible cerebrovascular accident versus transient ischemic attack. 1. Intermittent double vision and facial numbness along with persistent gait abnormality. We will order MRI to rule out possible cerebellar stroke. The patient was too unsteady for me to do a Romberg test and the patient is obese and hence we will defer. We will obtain MRI in a.m. as well as 2D echo with bubble study as well as fasting lipid levels. At this time, we will continue dual antiplatelet therapy and we will continue statins and we will check lipid levels in the a.m. to see if further adjustments will need to be done. 2. Chest pain. This is not a prominent chief complaint that she mentioned to the ER physician, but was reminded by her friend who drove her to the ED. In fact, she mentioned that she at one point suggested that it may be radiating to the back and hence we will obtain a chest x-ray at this point, although I doubt that she has any dissection, although pulmonary embolism is possible. We will obtain D-dimer at this time and if elevated per her age, we will obtain CT angio of the chest. My differential for this is low given that she is not hypoxic at the moment and was on room air saturating well and it was not a prominent symptom that she complained about in my person and had to be reminded of this. As mentioned, the patient is also a poor historian, but we will rule out the patient for acute coronary syndrome. 3. Glaucoma. We will continue ophthalmic eye drops as prescribed. 4. Hypertension. Improved control. Continue losartan and spironolactone. 5. Diabetes mellitus. We will place the patient on insulin sliding scale and we will hold metformin and we will check fingersticks a.c. and h.s. We will check HbA1c to assess control over a 3-month period. 6. Gastroesophageal reflux disease. We will continue PPIs. 7. DVT prophylaxis: We will place the patient on Lovenox subcu. 8. Disposition: For PT raquel. [id number]/[facility] #: [id number] MTDD
[2018-12-25] MEDS: Ferrous Sulfate TAB* 325 MG PO SCH ×2 (20:23→20:31)
[2018-12-25] MEDS: Enoxaparin(*) 40 MG/0.4 ML SYR SUBCUT SCH (20:23)
[2018-12-25] MEDS: Acetaminophen TAB* 325 MG PO SCH (20:24)
[2018-12-25] MEDS: Gabapentin CAP(*) 300 MG PO SCH (20:27)
[2018-12-25] MEDS: Insulin LISPRO* 1 UNITS UNIT SUBCUT SCH (21:59)
[2018-12-25] MEDS: Brimonidine P 0.1%(NF) 1 DROP BTL BOTH EYES SCH (22:30)
[2018-12-25] MEDS: Latanoprost 0.005%* 2.5 ml BTL BOTH EYES SCH (22:31)
[2018-12-25] MEDS: Timolol 0.5% OPTH.SOL* BTL BOTH EYES SCH (22:31)
--- NOTE | 2018-12-26 00:06 | CONS ---
Amended report to enter date of consult. CC: Dr. Rishabh Mclean; Dr. Simeon Fonseca* CONSULTATION REPORT: DATE OF CONSULT: 12/25/18. HISTORY OF PRESENT ILLNESS: Hiwot Carty is a 68-year-old woman followed by Dr. Mclean in the setting of syringomyelia and lumbosacral spinal stenosis, who presents with vertigo, transient diplopia and facial numbness on the left. She has stroke risk factors noted of diabetes, hypertension, hyperlipidemia, sleep apnea, history of peripheral vascular disease and angina (per chart) and angina (per chart). She went to [facility] last night about 7 o'clock and became "super dizzy." She described symptoms of vertigo where everything was moving for a period of time, and the sample box maker's and the person next to her were double; nothing else was double. She felt more "giddy" than usual. She went to the bathroom. It was hard for her to walk. She walks with a walker at baseline. When she went to sit on the toilet, she almost missed it. Someone at the meeting questioned in retrospect if she had slurred speech. She went home and fell asleep in front of her computer. She was off balance when she woke and got to her bed. This morning, she still had dizziness and also on the way here had some left facial numbness that she notices with talking. She presented for evaluation of her symptoms. PAST MEDICAL HISTORY: Hiwot Shah's past medical history includes neurologic symptoms for which she is followed with Dr. Mclean for years. 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 She has history of back pain and just had a second cortisone shot for what appears to be lumbosacral spinal stenosis according to notes. She has history of diabetes, hypertension, hyperlipidemia, peripheral vascular disease, restless leg syndrome, sleep apnea for which she uses CPAP, arthritis, cataracts, glaucoma, history of carpal tunnel syndrome. MEDICATIONS: Include: 1. Simvastatin 20 mg p.o. q.h.s. 2. Metformin 1000 mg p.o. b.i.d. 3. Acetaminophen 325 mg 2 tablets, which she takes up to 3 times a day p.o. 4. Calcium and vitamin D 600/100 one p.o. daily. 5. Spironolactone 100 mg p.o. daily. 6. Ropinirole 0.25 two tablets at night for restless leg, may repeat x1. 7. Omeprazole 40 mg p.o. daily. 8. Iron 325 mg p.o. every other day. 9. Aspirin 81 mg p.o. daily. 10. Vitamin B12 1000 mcg p.o. daily. 11. Timolol 0.5% 1 drop each eye b.i.d. 12. Losartan 50 mg p.o. daily. 13. Latanoprost 0.005% 1 drop each eye at bedtime. 14. Gabapentin 300 mg p.o. t.i.d. 15. Systane applied up to 4 times a day. 16. Baclofen 10 mg 2 tablets in the morning, 1 at noon and 2 at night. ALLERGIES: She has many allergies including AMOXICILLIN, which causes itching; CEPHALEXIN causes a rash; CIPRO causes a rash; BREO ELLIPTA causes difficulty breathing; LATEX causes itching and SULFA drugs causes rash and itching. She also lists difficulty with tide detergent. FAMILY HISTORY: Includes mother and father who both in their 60s of intestinal colon cancer. She indicates her father also had a brain tumor. She has multiple half sisters and among them there is hypertension, breast cancer and high cholesterol. SOCIAL HISTORY: She lives alone in her apartment. She does have a sister who lives nearby. She does not smoke or drink alcohol and she denies any illicit drug use. REVIEW OF SYSTEMS: There has been no loss of vision. She has double vision as noted in the HPI. There has been no change in speech that she has noted, although someone noted slurred speech at [facility] study last night. She denies any new numbness or weakness in her arms or legs, but has had chronic issues in the setting of her mechanical issues and previous surgeries. There has been no weight loss, drenching night sweats, or high fevers for unknown reason. She denies any change in bowel or bladder habits. There has been a psychiatric history. She denies any rash. She has had issues with the right hip pain, back pain, left ankle pain. Sometimes she can catch her foot on a rug road and it can make her fall forward. A week ago, Thursday, she did fall and landed on the bed. When talking about different causes of vertigo, she indicated that there was one episode where she seemed like she turned her head and developed dizziness and now her dizziness seems to be all the time. PHYSICAL EXAM: Her most recent vitals include blood pressure 131/70, pulse was 79, respiratory rate was 24, saturation was 96%, temperature was 98.4 degrees Fahrenheit. She had a regular cardiac rhythm. Her lungs were clear to auscultation. There was no carotid bruit. She had distal atrophy in her left leg and wore a splint, which was taken off for the examination. Pupils were equal and responsive to light. I could see her fundi briefly. She had full extraocular movements, however, there was nystagmus on left gaze, rotatory to the left. Her facial expression, sensation and hearing were equal. Palate was upgoing. Tongue was midline. Sternocleidomastoid and trapezius were 5/5 in strength. She had wax in her ears making it limited to see her tympanic membranes. There was no pronator drift. She gave good strength in her upper extremities, right lower extremity. In her left lower extremity, she had distal atrophy and weakness. She had left hip flexion 4+/5, knee extension 5/5 , knee flexion 5-/5. There was question of slight dysmetria in finger to nose movements in both upper extremities. Her foot dorsiflexion and plantar flexion 5-/5. Her sensation was symmetric to pinprick, cold and light touch. She had reduced vibration sensation about 20 seconds at the large toes. Proprioception was intact. Reflexes were 2+ and symmetric with the exception of the left knee was 3+, right ankle 1+, left ankle 2+. Toes were equivocal bilaterally. Gait was not tested given clinical status. DIAGNOSTIC STUDIES/LAB DATA: Data includes CT of the brain, which did not show any evidence of bleed or new injury. This film was reviewed directly. CTA of the brain and neck showed 30% right internal carotid stenosis and 15% of left internal carotid artery stenosis. There is no large vessel occlusion. This film was reviewed directly. She had a chest x-ray, which is pending. Her complete metabolic panel showed an elevated BUN at 25, BUN and creatinine ratio is elevated at 34.7, glucose is elevated at 113. AST was 12. Her TSH was within normal limits. INR was normal. D-dimer was less than 200. CBC showed elevated hemoglobin at 11.6, platelet count was elevated at 461. Urine showed 1 + blood and 1+ esterase. IMPRESSION AND PLAN: A 68-year-old woman with a history of syringomyelia and lumbosacral spinal stenosis who follows with Dr. Mclean, at baseline is on baclofen and aspirin 81 mg a day, who now presents with vertigo, transient diplopia and brief left facial numbness. Her examination shows nystagmus to the left, and [id number] movements question to show slight ataxia bilaterally. [id number] movements were normal. She has chronic findings of atrophy in the distal left lower extremity and has weakness and increased reflexes in the left lower extremity consistent with her previous history. Education was given regarding vertigo and nystagmus. Of concern is the potential for stroke and she certainly has stroke risk factors. She is to be admitted to telemetry, have an echocardiogram, fasting lipid profile, Plavix has been added to her aspirin. There is no large vessel occlusion on CTA. She will need an MRI of the brain for clarification of the etiology of her symptoms. Differential diagnosis can include inner ear infection. There is no history of being sick with recent upper respiratory tract infection. She does have a history of recent fall, and history of increased vertigo with head turn, although I could not reproduce this on today's visit. Benign positional vertigo is certainly on the differential diagnosis. TIME SPENT: Over 90 minutes was spent in patient care in the emergency room and all the above was discussed with the patient. We will continue to follow up with you. [id number]/[facility] #: [id number] RASHAD
[2018-12-26] MEDS: Ropinirole TAB* 0.5 MG TAB PO SCH ×2 (00:25→20:48)
[2018-12-26] MEDS: Atorvastatin* 10 MG TAB PO SCH ×2 (00:25→20:45)
[2018-12-26 05:30] LABS: Hematocrit 35 % (33-41); Hemoglobin 11.7 g/dL (12.0-16.0); Mean Corpuscular HGB Conc 33 g/dL (31-36); Mean Corpuscular Hemoglobin 30 pg (27-31); Mean Corpuscular Volume 90 fL (80-97); Mean Platelet Volume 6.9 fL (7.4-10.4); Platelet Count 438 10^3/uL (150-450); Red Blood Count 3.94 10^6 /uL (3.70-4.87); Red Cell Distribution Width 14 % (10.5-15); White Blood Count 7.6 10^3/uL (3.5-10.8)
[2018-12-26 05:52] LABS: Albumin 4.1 g/dL (3.2-5.2); Albumin/Globulin Ratio 1.7 (1-3); BUN/Creatinine Ratio 24.7 (8-20); Calcium 9.2 mg/dL (8.6-10.3); EGFR African American 95.6 (>60); Globulin 2.4 g/dL (2-4); HDL Cholesterol 54.3 mg/dL; Magnesium 1.8 mg/dL (1.9-2.7); Phosphorus 4.6 mg/dL (2.5-5.0); Potassium 4.4 mmol/L (3.5-5.0); Total Bilirubin 0.2 mg/dL (0.2-1.0); Total Protein 6.5 g/dL (6.4-8.9)
[2018-12-26] MEDS: Insulin LISPRO* 1 UNITS UNIT SUBCUT SCH ×4 (08:08→21:52)
[2018-12-26] MEDS: Losartan TAB* 25 MG PO SCH (08:15)
[2018-12-26] MEDS: Spironolactone TAB* 25 MG PO SCH (08:15)
[2018-12-26] MEDS: Acetaminophen TAB* 325 MG PO SCH ×3 (08:15→20:44)
[2018-12-26] MEDS: Gabapentin CAP(*) 300 MG PO SCH ×3 (08:15→20:46)
[2018-12-26] MEDS: Pantoprazole TAB * 40 MG TAB PO SCH (08:16)
[2018-12-26] MEDS: Timolol 0.5% OPTH.SOL* BTL BOTH EYES SCH ×2 (08:16→20:49)
[2018-12-26] MEDS: Aspirin 81 mg CHEW TAB* 81 MG TAB.CHEW PO SCH (08:16)
[2018-12-26] MEDS: Clopidogrel TAB* 75 MG PO SCH (08:16)
[2018-12-26] MEDS ORDERED: Atorvastatin* 10 MG TAB PO SCH (09:00)
[2018-12-26] MEDS ORDERED: Ropinirole TAB* 0.5 MG TAB PO SCH (09:00)
--- NOTE | 2018-12-26 10:20 | ECHO ---
Patient: FAUSTINO PEREIRA [facility] Rec#: [id number] : 1950 Date: 12/26/2018 Age: 68y Height: 160 cm / 63.0 in Weight: 79.8 kg / 175.9 lbs Sex: F BSA: 1.8 Room#: [facility] Admit Date#: 12/25/2018 Type: Inpatient Referring: Dorys Palencia MD Reading: Janneth Rojas MD Analysis Analyst: Faby Sesay RN RDCS CC: Simeon Fonseca MD Transthoracic Echocardiogram Indication: CVA BP: 131/51 HR: 73 Rhythm: NSR Findings History: HTN, HLD, DM, obesity, Arnold-Chiari malformation. Technical Comments: The study quality is fair. The study is technically limited due to patient body habitus. Left Ventricle: The left ventricular chamber size is decreased. Mild concentric left ventricular hypertrophy is observed. Global left ventricular wall motion and contractility are within normal limits. There is normal left ventricular systolic function. The estimated ejection fraction is 55-60%. There is a left ventricular septal wall motion abnormality observed, possibly due to the presence of a right bundle branch block. There is no consistent Doppler evidence of clinically significant diastolic dysfunction. Left Atrium: The left atrial chamber size is normal. Right Ventricle: The right ventricular chamber size and systolic function are within normal limits. Right Atrium: The right atrial cavity size is normal. The bubble study is negative. A patent foramen ovale is not demonstrated by agitated contrast. Aortic Valve: The aortic valve is trileaflet. The aortic valve leaflets are mildly thickened. There is trace to mild aortic regurgitation. There is no evidence of aortic stenosis. Mitral Valve: The mitral valve leaflets are mildly thickened. There is trace to mild mitral regurgitation. There is no evidence of mitral stenosis. Tricuspid Valve: The tricuspid valve leaflets are normal. There is trace tricuspid regurgitation. The right ventricular systolic pressure is estimated at 39 mmHg. There is evidence of mild pulmonary hypertension. There is no tricuspid stenosis. Pulmonic Valve: The pulmonic valve structure is not well visualized. There is a trace pulmonic regurgitation. There is no pulmonic stenosis. Pericardium: There is no significant pericardial effusion. Aorta: There is no dilatation of the ascending aorta. The aortic arch is not well visualized. There is no dilation of the aortic root. Pulmonary Artery: The main pulmonary artery is not well visualized. Venous: The inferior vena cava appears normal in size. There is a greater than 50% respiratory change in the inferior vena cava dimension. Contrast: Normal saline was used as contrast for the bubble study. Images 55 and 56. Conclusions The left ventricular chamber size is decreased. Mild concentric left ventricular hypertrophy is observed. Global left ventricular wall motion and contractility are within normal limits. The estimated ejection fraction is 55-60%. There is no consistent Doppler evidence of clinically significant diastolic dysfunction. The right ventricular chamber size and systolic function are within normal limits. The bubble study is negative, no evidence of intracardiac shunting. The aortic valve leaflets are mildly thickened with trace to mild aortic regurgitation. There is trace to mild mitral regurgitation. There is trace tricuspid regurgitation. There is evidence of mild pulmonary hypertension estimated at 39 mmHg. No prior echo to compare. Measurements Name Value Normal Range RVIDd (AP) 2D 2.6 cm (0.9 - 2.6) RVDdMajor (2D) 2.4 cm (2.2 - 4.4) RAd ISD 4CH 4 cm (3.4 - 4.9) RA (A4C)W 3.6 cm (2.9 - 4.6) IVSd (2D) 1.2 cm (0.6 - 1) LVPWd (2D) 1.2 cm (0.6 - 1) LVIDd (2D) 3.3 cm (3.6 - 5.4) LVIDs (2D) 2.2 cm - LV FS (2D) 33 % (25 - 45) Aortic Annulus 1.7 cm (1.4 - 2.6) Ao root diameter (2D) 2.4 cm (2.1 - 3.5) Ascending Ao 2.5 cm (2.1 - 3.4) LA dimension (AP) 2D 2.4 cm (2.3 - 3.8) LAd ISD 4CH 4.5 cm (2.9 - 5.3) LA ISD 4CH W 3.2 cm (2.5 - 4.5) Name Value Normal Range LA ESV BP (A/L) index 16 ml/m2 - Name Value Normal Range MV E-wave Vmax 0.86 m/sec - MV deceleration time 246 msec - MV A-wave Vmax 0.98 m/sec - MV E:A ratio 0.9 ratio - LV septal e' Vmax 0.07 m/sec - LV lateral e' Vmax 0.07 m/sec - LV E:e' septal ratio 12.3 ratio - LV E:e' lateral ratio 12.3 ratio - Name Value Normal Range AV Vmax 1.3 m/sec - AV VTI 27.7 cm - AV peak gradient 7 mmHg - AV mean gradient 4 mmHg - LVOT Vmax 0.92 m/sec - LVOT VTI 19.8 cm - LVOT peak gradient 3 mmHg - LVOT mean gradient 2 mmHg - Name Value Normal Range TR Vmax 3 m/sec - TR peak gradient 36 mmHg - RAP 3 mmHg - RVSP 39 mmHg - IVC diameter 1.1 cm - Name Value Normal Range PV Vmax 0.85 m/sec -
[2018-12-26] MEDS: Brimonidine P 0.1%(NF) 1 DROP BTL BOTH EYES SCH ×2 (12:27→20:46)
[2018-12-26] MEDS: Enoxaparin(*) 40 MG/0.4 ML SYR SUBCUT SCH (16:49)
--- NOTE | 2018-12-26 19:19 | PN ---
Subjective Date of Service: 12/26/18 Interval History: Reports feeling better.Gait and vision preserved Objective Active Medications: Acetaminophen (Tylenol Tab*) 650 mg PO TID [facility] Last Admin: 12/26/18 13:47 Dose: 650 mg Aspirin (Aspirin 81 Mg Chew Tab*) 81 mg PO DAILY [facility] Last Admin: 12/26/18 08:16 Dose: 81 mg Atorvastatin Calcium (Lipitor*) 10 mg PO BEDTIME [facility] Last Admin: 12/26/18 00:25 Dose: 10 mg Brimonidine Tartrate (Alphagan P 0.1% (Nf)) 1 drop BOTH EYES BID [facility] Last Admin: 12/26/18 12:27 Dose: Not Given Clopidogrel Bisulfate (Plavix Tab*) 75 mg PO DAILY [facility] Last Admin: 12/26/18 08:16 Dose: 75 mg Dextrose (D50w Syringe 50 Ml*) 12.5 gm IV PUSH .FOR FS < 60 - SS PRN PRN Reason: FS < 60 Enoxaparin Sodium (Lovenox(*)) 40 mg SUBCUT Q24H [facility] Last Admin: 12/26/18 16:49 Dose: 40 mg Ferrous Sulfate (Ferrous Sulfate Tab*) 650 mg PO Q48H [facility] Last Admin: 12/25/18 20:31 Dose: Not Given Gabapentin (Neurontin Cap(*)) 300 mg PO TID [facility] Last Admin: 12/26/18 13:47 Dose: 300 mg Insulin Human Lispro (Humalog*) 0 units SUBCUT ACHS [facility]; Protocol Last Admin: 12/26/18 16:36 Dose: Not Given Latanoprost (Xalatan 0.005%*) 1 drop BOTH EYES BEDTIME [facility] Last Admin: 12/25/18 22:31 Dose: 1 drop Losartan Potassium (Cozaar Tab*) 50 mg PO DAILY [facility] Last Admin: 12/26/18 08:15 Dose: 50 mg Pantoprazole Sodium (Protonix Tab*) 40 mg PO DAILY [facility] Last Admin: 12/26/18 08:16 Dose: 40 mg Ropinirole HCl (Requip Tab*) 0.5 mg PO BEDTIME [facility] Last Admin: 12/26/18 00:25 Dose: 0.5 mg Spironolactone (Aldactone Tab*) 100 mg PO DAILY [facility] Last Admin: 12/26/18 08:15 Dose: 100 mg Timolol Maleate (Timoptic 0.5% Opth*) 1 drop BOTH EYES BID [facility] Last Admin: 12/26/18 08:16 Dose: 1 drop Vital Signs - 8 hr 12/26/18 12/26/18 12/26/18 11:54 13:47 15:35 Temperature 97.5 F Pulse Rate 72 Respiratory 16 18 18 Rate Blood Pressure 124/47 (mmHg) O2 Sat by Pulse 98 Oximetry 12/26/18 15:41 Temperature 97.9 F Pulse Rate 80 Respiratory 16 Rate Blood Pressure 124/71 (mmHg) O2 Sat by Pulse 96 Oximetry Oxygen Devices in Use Now: None, CPAP Eyes: No Scleral Icterus Ears/Nose/Mouth/Throat: NL Teeth, Lips, Gums Neck: NL Appearance and Movements; NL JVP Respiratory: Symmetrical Chest Expansion and Respiratory Effort, Clear to Auscultation Cardiovascular: NL Sounds; No Murmurs; No JVD Abdominal: NL Sounds; No Tenderness; No Distention Extremities: No Edema Skin: No Rash or Ulcers Neurological: Alert and Oriented x 3, NL Sensation, NL Muscle Strength and Tone Result Diagrams: 12/26/18 05:05 12/26/18 05:05 Additional Lab and Data: Lab Results 12/25/18 12/25/18 12/25/18 Range/Units 14:02 14:02 14:02 WBC 8.5 (3.5-10.8) 10^3/uL RBC 3.83 (3.70-4.87) 10^6 /uL Hgb 11.6 L (12.0-16.0) g/dL Hct 35 (33-41) % MCV 91 (80-97) fL MCH 30 (27-31) pg MCHC 33 (31-36) g/dL RDW 14 (10.5-15) % Plt Count 461 H (150-450) 10^3/uL MPV 6.8 L (7.4-10.4) fL Neut % (Auto) 70.8 % Lymph % (Auto) 19.6 % [place] % (Auto) 6.9 % Eos % (Auto) 1.7 % Baso % (Auto) 1.0 % Absolute Neuts (auto) 6.0 (1.5-7.7) 10^3/ul Absolute Lymphs (auto) 1.7 (1.0-4.8) 10^3/ul Absolute Monos (auto) 0.6 (0-0.8) 10^3/ul Absolute Eos (auto) 0.1 (0-0.6) 10^3/ul Absolute Basos (auto) 0.1 (0-0.2) 10^3/ul Absolute Nucleated RBC 0 10^3/ul Nucleated RBC % 0 INR (Anticoag Therapy) (0.77-1.02) Sodium 136 (135-145) mmol/L Potassium 4.2 (3.5-5.0) mmol/L Chloride 103 (101-111) mmol/L Carbon Dioxide 24 (22-32) mmol/L Anion Gap 9 (2-11) mmol/L BUN 25 H (6-24) mg/dL Creatinine 0.72 (0.51-0.95) mg/dL Est GFR ( Amer) 97.2 (>60) Est GFR (Non-Af Amer) 80.3 (>60) BUN/Creatinine Ratio 34.7 H (8-20) Glucose 113 H (70-100) mg/dL Lactic Acid 1.3 (0.5-2.0) mmol/L Calcium 9.3 (8.6-10.3) mg/dL Total Bilirubin 0.30 (0.2-1.0) mg/dL AST 12 L (13-39) U/L ALT 12 (7-52) U/L Alkaline Phosphatase 55 (34-104) U/L Troponin I Pending Total Protein 6.4 (6.4-8.9) g/dL Albumin 4.0 (3.2-5.2) g/dL Globulin 2.4 (2-4) g/dL Albumin/Globulin Ratio 1.7 (1-3) TSH Pending 12/25/18 Range/Units 14:02 WBC (3.5-10.8) 10^3/uL RBC (3.70-4.87) 10^6 /uL Hgb (12.0-16.0) g/dL Hct (33-41) % MCV (80-97) fL MCH (27-31) pg MCHC (31-36) g/dL RDW (10.5-15) % Plt Count (150-450) 10^3/uL MPV (7.4-10.4) fL Neut % (Auto) % Lymph % (Auto) % [place] % (Auto) % Eos % (Auto) % Baso % (Auto) % Absolute Neuts (auto) (1.5-7.7) 10^3/ul Absolute Lymphs (auto) (1.0-4.8) 10^3/ul Absolute Monos (auto) (0-0.8) 10^3/ul Absolute Eos (auto) (0-0.6) 10^3/ul Absolute Basos (auto) (0-0.2) 10^3/ul Absolute Nucleated RBC 10^3/ul Nucleated RBC % INR (Anticoag Therapy) 0.89 (0.77-1.02) Sodium (135-145) mmol/L Potassium (3.5-5.0) mmol/L Chloride (101-111) mmol/L Carbon Dioxide (22-32) mmol/L Anion Gap (2-11) mmol/L BUN (6-24) mg/dL Creatinine (0.51-0.95) mg/dL Est GFR ( Amer) (>60) Est GFR (Non-Af Amer) (>60) BUN/Creatinine Ratio (8-20) Glucose (70-100) mg/dL Lactic Acid (0.5-2.0) mmol/L Calcium (8.6-10.3) mg/dL Total Bilirubin (0.2-1.0) mg/dL AST (13-39) U/L ALT (7-52) U/L Alkaline Phosphatase (34-104) U/L Troponin I Total Protein (6.4-8.9) g/dL Albumin (3.2-5.2) g/dL Globulin (2-4) g/dL Albumin/Globulin Ratio (1-3) TSH Microbiology and Other Data: Microbiology 12/25/18 13:31 Urine Culture - Final Urine No Growth (<1,000 CFU/mL) Assess/Plan/Problems-Billing Assessment: - Patient Problems (1) TIA (transient ischemic attack) Current Visit: Yes Status: Acute Code(s): G45.9 - TRANSIENT CEREBRAL ISCHEMIC ATTACK, UNSPECIFIED SNOMED Code(s): 296444407 Comment: Possible Cerebellar stroke Vs TIA Stroke w/u in progress Seen by Dr Wang h/o carmen chiandrea and springomyelia mri pending to eval for stroke 2d echo pending fasting lipid panel Dual anti platelet,statin (2) Chest pain Current Visit: Yes Status: Acute Code(s): R07.9 - CHEST PAIN, UNSPECIFIED SNOMED Code(s): 11274237 Comment: d dimer ok trend troponins consider stress test if ongoing for further w/u
--- NOTE | 2018-12-26 20:15 | PN ---
Progress Note - Progress Note Date of Service: 12/26/18 Note: HPI: Dizziness resolved. No further facial numbness. No diplopia. No new symptoms. No new weakness of arms or legs, change in coordination. Active Medications Generic Name Dose Route Start Last Admin Trade Name Freq PRN Reason Stop Dose Admin Acetaminophen 650 mg 12/25/18 21:00 12/26/18 13:47 Tylenol Tab* PO 650 mg TID [facility] Administration Aspirin 81 mg 12/26/18 09:00 12/26/18 08:16 Aspirin 81 Mg Chew Tab* PO 81 mg DAILY [facility] Administration Atorvastatin Calcium 10 mg 12/26/18 00:30 12/26/18 00:25 Lipitor* PO 10 mg BEDTIME [facility] Administration Brimonidine Tartrate 1 drop 12/25/18 21:00 12/26/18 12:27 Alphagan P 0.1% (Nf) BOTH EYES Not Given BID [facility] Clopidogrel Bisulfate 75 mg 12/26/18 09:00 12/26/18 08:16 Plavix Tab* PO 75 mg DAILY [facility] Administration Dextrose 12.5 gm 12/25/18 17:38 D50w Syringe 50 Ml* IV PUSH .FOR FS < 60 - SS PRN FS < 60 Enoxaparin Sodium 40 mg 12/25/18 18:00 12/26/18 16:49 Lovenox(*) SUBCUT 40 mg Q24H [facility] Administration Ferrous Sulfate 650 mg 12/25/18 18:00 12/25/18 20:31 Ferrous Sulfate Tab* PO Not Given Q48H [facility] Gabapentin 300 mg 12/25/18 21:00 12/26/18 13:47 Neurontin Cap(*) PO 300 mg TID [facility] Administration Insulin Human Lispro 0 units 12/25/18 21:00 12/26/18 16:36 Humalog* SUBCUT Not Given [facility] Protocol Latanoprost 1 drop 12/25/18 21:00 12/25/18 22:31 Xalatan 0.005%* BOTH EYES 1 drop BEDTIME [facility] Administration Losartan Potassium 50 mg 12/26/18 09:00 12/26/18 08:15 Cozaar Tab* PO 50 mg DAILY [facility] Administration Pantoprazole Sodium 40 mg 12/26/18 09:00 12/26/18 08:16 Protonix Tab* PO 40 mg DAILY [facility] Administration Ropinirole HCl 0.5 mg 12/26/18 00:30 12/26/18 00:25 Requip Tab* PO 0.5 mg BEDTIME [facility] Administration Spironolactone 100 mg 12/26/18 09:00 12/26/18 08:15 Aldactone Tab* PO 100 mg DAILY [facility] Administration Timolol Maleate 1 drop 12/25/18 21:00 12/26/18 08:16 Timoptic 0.5% Opth* BOTH EYES 1 drop BID [facility] Administration Examination: Temp Pulse Resp BP Pulse Ox 97.9 F 80 16 124/71 96 12/26/18 15:41 12/26/18 15:41 12/26/18 15:41 12/26/18 15:41 12/26/18 15:41 There was a regular cardiac rhythm. Lungs were clear to auscultation. She was awake, alert, articulate. There were full extraocular movements, with full schroeder to confrontation. She could move her head from left to right without reproducing her dizziness. Facial expression and sensation were symmetric. There was no dysarthria. There was no pronator drift. She was strong in her upper extremities, and right leg. Left leg had slight give to hip flexion and knee flexion. Distal atrophy was noted. She denied asymmetry to light touch between side. No dysmetria was noted in the arms. Data: MRI Brain with no acute ischemia: This film was reviewed directly. Please see report for further details. Echocardiogram did show mild left ventricular hypertrophy, mild pulmonary hypertension, EF of 55-60% with left septal wall motion abnormality. No cardioembolic source with negative bubble study. Please see report for further details. Abnormal Lab Results 12/25/18 12/25/18 12/26/18 21:12 21:16 01:54 WBC RBC Hgb Hct MCV MCH MCHC RDW Plt Count MPV Sodium Potassium Chloride Carbon Dioxide Anion Gap BUN Creatinine Est GFR ( Amer) Est GFR (Non-Af Amer) BUN/Creatinine Ratio Glucose POC Glucose (mg/dL) 103 H 114 H Calcium Phosphorus Magnesium Total Bilirubin AST ALT Alkaline Phosphatase Troponin I 0.00 Total Protein Albumin Globulin Albumin/Globulin Ratio Triglycerides Cholesterol LDL Cholesterol HDL Cholesterol 12/26/18 12/26/18 12/26/18 05:05 05:05 07:22 WBC 7.6 RBC 3.94 Hgb 11.7 L Hct 35 MCV 90 MCH 30 MCHC 33 RDW 14 Plt Count 438 MPV 6.9 L Sodium 139 Potassium 4.4 Chloride 103 Carbon Dioxide 29 Anion Gap 7 BUN 18 Creatinine 0.73 Est GFR ( Amer) 95.6 Est GFR (Non-Af Amer) 79.0 BUN/Creatinine Ratio 24.7 H Glucose 105 H POC Glucose (mg/dL) 84 Calcium 9.2 Phosphorus 4.6 Magnesium 1.8 L Total Bilirubin 0.20 AST 12 L ALT 14 Alkaline Phosphatase 51 Troponin I Total Protein 6.5 Albumin 4.1 Globulin 2.4 Albumin/Globulin Ratio 1.7 Triglycerides 134 Cholesterol 142 LDL Cholesterol 61 HDL Cholesterol 54.3 12/26/18 12/26/18 11:25 16:08 WBC RBC Hgb Hct MCV MCH MCHC RDW Plt Count MPV Sodium Potassium Chloride Carbon Dioxide Anion Gap BUN Creatinine Est GFR ( Amer) Est GFR (Non-Af Amer) BUN/Creatinine Ratio Glucose POC Glucose (mg/dL) 157 H 128 H Calcium Phosphorus Magnesium Total Bilirubin AST ALT Alkaline Phosphatase Troponin I Total Protein Albumin Globulin Albumin/Globulin Ratio Triglycerides Cholesterol LDL Cholesterol HDL Cholesterol I/P: 68 year old woman with history of syringomyelia, Chiari I malformation with previous surgery, history of lumbosacral spinal stenosis, history of diabetes mellitus, hypertension, hyperlipidemia, now admitted with vertigo, diplopia and left facial numbness. Her symptoms have resolved, and her examination has improved. Differential diagnosis includes TIA. No cardioembolic source on echocardiogram. She is being monitored on telemetry. If atrial fibrillation is noted, would anticoagulate. Continue on aspirin, statin, and plavix. Continue plavix for one month and then stop. Would start to mobilize. D.Dx does include BPV. If symptoms return with mobilization, will need further evaluation and treatment. Vestibular physical therapy may be helpful. >30 minutes was spent in patient care.
[2018-12-26] MEDS: Latanoprost 0.005%* 2.5 ml BTL BOTH EYES SCH (20:48)
[2018-12-26] MEDS ORDERED: Polyethyl Glycol/Propylene Gly OPHTH.SOLN BOTH EYES PRN (23:08)
[2018-12-27 05:56] LABS: ABS Basophils 0.1 10^3/ul (0-0.2); ABS Eosinophils 0.2 10^3/ul (0-0.6); ABS Lymphocytes 1.5 10^3/ul (1.0-4.8); ABS Monocytes 0.5 10^3/ul (0-0.8); ABS Neutrophils 5.6 10^3/ul (1.5-7.7); ABS Nucleated RBC 0 10^3/ul; Eosinophil % 2.6 %; Hematocrit 39 % (33-41); Hemoglobin 12.5 g/dL (12.0-16.0); Lymphocyte % 19.2 %; Mean Corpuscular HGB Conc 32 g/dL (31-36); Mean Corpuscular Hemoglobin 29 pg (27-31); Mean Corpuscular Volume 90 fL (80-97); Nucleated Red Blood Cells % 0; Platelet Count 470 10^3/uL (150-450); Red Blood Count 4.26 10^6 /uL (3.70-4.87); Red Cell Distribution Width 14 % (10.5-15); White Blood Count 7.9 10^3/uL (3.5-10.8)
[2018-12-27 06:23] LABS: BUN/Creatinine Ratio 31.4 (8-20); Calcium 9.3 mg/dL (8.6-10.3); EGFR African American 100.4 (>60); Potassium 4.2 mmol/L (3.5-5.0)
[2018-12-27] MEDS: Insulin LISPRO* 1 UNITS UNIT SUBCUT SCH ×3 (07:38→16:11)
[2018-12-27] MEDS: Acetaminophen TAB* 325 MG PO SCH ×2 (08:31→13:08)
[2018-12-27] MEDS: Aspirin 81 mg CHEW TAB* 81 MG TAB.CHEW PO SCH (08:31)
[2018-12-27] MEDS: Clopidogrel TAB* 75 MG PO SCH (08:33)
[2018-12-27] MEDS: Gabapentin CAP(*) 300 MG PO SCH ×2 (08:33→13:09)
[2018-12-27] MEDS: Losartan TAB* 25 MG PO SCH (08:33)
[2018-12-27] MEDS: Pantoprazole TAB * 40 MG TAB PO SCH (08:34)
[2018-12-27] MEDS: Spironolactone TAB* 25 MG PO SCH (08:34)
[2018-12-27] MEDS: Timolol 0.5% OPTH.SOL* BTL BOTH EYES SCH (08:34)
[2018-12-27 12:58] VITALS: BP 114/70
--- NOTE | 2018-12-27 15:47 | PN ---
Subjective Date of Service: 12/27/18 Length of Stay: 2 Days Neurology is following Ms. Carty for the evaluation of intermittent dizziness that has resolved. Interval History: Brief history, Ms. Carty is a 68-year-old female who has history of chronic left foot drop in the setting of syringomyelia and lumbosacral spinal stenosis who presented with intermittent vertigo, transient diplopia and facial numbness n the left. She was diagnosed with TIA to the posterior circulation, most likely the left ra. She was started on Plavix 75 mg for 30 days and continued on aspirin. The MRI brain and CTA head and neck completed on 12/25/2018 were unremarkable with no evidence of large vessel occlusion or stroke. I personally reviewed the studies. The patient is asymptomatic and would like to go home. S: she is resting comfortably. She stated that the left foot keeps catching on objects when walking; hence, she is tripping. She denied any vertigo, lightheadedness, slurred speech, or new weakness. Review of Systems: Denied CP, SOB, or palpitations. Objective Active Medications: Acetaminophen (Tylenol Tab*) 650 mg PO TID [facility] Last Admin: 12/27/18 13:08 Dose: 650 mg Aspirin (Aspirin 81 Mg Chew Tab*) 81 mg PO DAILY [facility] Last Admin: 12/27/18 08:31 Dose: 81 mg Atorvastatin Calcium (Lipitor*) 10 mg PO BEDTIME [facility] Last Admin: 12/26/18 20:45 Dose: 10 mg Brimonidine Tartrate (Alphagan 0.2%) 1 drop BOTH EYES TID [facility] Last Admin: 12/27/18 13:09 Dose: 1 drop Clopidogrel Bisulfate (Plavix Tab*) 75 mg PO DAILY [facility] Last Admin: 12/27/18 08:33 Dose: 75 mg Dextrose (D50w Syringe 50 Ml*) 12.5 gm IV PUSH .FOR FS < 60 - SS PRN PRN Reason: FS < 60 Enoxaparin Sodium (Lovenox(*)) 40 mg SUBCUT Q24H [facility] Last Admin: 12/26/18 16:49 Dose: 40 mg Ferrous Sulfate (Ferrous Sulfate Tab*) 650 mg PO Q48H [facility] Last Admin: 12/25/18 20:31 Dose: Not Given Gabapentin (Neurontin Cap(*)) 300 mg PO TID [facility] Last Admin: 12/27/18 13:09 Dose: 300 mg Insulin Human Lispro (Humalog*) 0 units SUBCUT ACHS [facility]; Protocol Last Admin: 12/27/18 11:36 Dose: 2 units Latanoprost (Xalatan 0.005%*) 1 drop BOTH EYES BEDTIME [facility] Last Admin: 12/26/18 20:48 Dose: 1 drop Losartan Potassium (Cozaar Tab*) 50 mg PO DAILY [facility] Last Admin: 12/27/18 08:33 Dose: 50 mg Pantoprazole Sodium (Protonix Tab*) 40 mg PO DAILY [facility] Last Admin: 12/27/18 08:34 Dose: 40 mg Polyethyl Glycol/Propylene Glycol (Lubricant Eye Drops) 2 drop BOTH EYES QID PRN PRN Reason: dry eyes Ropinirole HCl (Requip Tab*) 0.5 mg PO BEDTIME [facility] Last Admin: 12/26/18 20:48 Dose: 0.5 mg Spironolactone (Aldactone Tab*) 100 mg PO DAILY [facility] Last Admin: 12/27/18 08:34 Dose: 100 mg Timolol Maleate (Timoptic 0.5% Opth*) 1 drop BOTH EYES BID [facility] Last Admin: 12/27/18 08:34 Dose: 1 drop Vital Signs 12/27/18 12/27/18 12/27/18 08:33 11:11 11:57 Temperature 97.7 F Pulse Rate 78 Respiratory 16 18 20 Rate Blood Pressure 114/70 (mmHg) O2 Sat by Pulse 98 Oximetry 12/27/18 12/27/18 13:09 15:12 Temperature Pulse Rate Respiratory 18 18 Rate Blood Pressure (mmHg) O2 Sat by Pulse Oximetry Intake and Output Last 24 Hours 12/25/18 12/26/18 12/27/18 12/28/18 06:59 06:59 06:59 06:59 Intake Total 0 720 360 Balance 0 720 360 Weight 170 lb 1.6 oz Intake: Oral 0 720 360 Other: # Bowel Movements 0 # Voids 2 2 Oxygen Devices in Use Now: None, CPAP Neurology Exam: General: Elderly female who appears older than stated age and in no acute distress HEENT: Normocephelic/atraumatic, sclera anicteric, mucous membranes moist Extremities: No clubbing, cyanosis, or edema Neurological Findings: Awake, alert, and oriented to person, place, and time. Speech: fluent without dysarthria, repetition intact Cranial Nerve: PERRL, EOM intact, VFF, no nystagmus, face symmetric bilaterally , facial sensation intact, hearing intact to finger rub bilaterally, palate elevates symmetrically, tongue midline, SCM and Trapezius s/s. Motor: s/s throughout, increase in tone in the left upper and lower extremities. Sensation: intact to LT/PP bilaterally upper and lower extremities Deep Tendon Reflex: 2+ symmetric in the upper/lower extremities, Babinski - down going Finger to nose, rapid alternating movements intact without tremor, no dysdiadochokinesia Gait: bradykinesia, walker dependent. No ataxia. Result Diagrams: 12/27/18 05:14 12/27/18 05:14 Additional Lab and Data: Lab Results 12/25/18 12/25/18 12/25/18 Range/Units 14:02 14:02 14:02 WBC 8.5 (3.5-10.8) 10^3/uL RBC 3.83 (3.70-4.87) 10^6 /uL Hgb 11.6 L (12.0-16.0) g/dL Hct 35 (33-41) % MCV 91 (80-97) fL MCH 30 (27-31) pg MCHC 33 (31-36) g/dL RDW 14 (10.5-15) % Plt Count 461 H (150-450) 10^3/uL MPV 6.8 L (7.4-10.4) fL Neut % (Auto) 70.8 % Lymph % (Auto) 19.6 % [place] % (Auto) 6.9 % Eos % (Auto) 1.7 % Baso % (Auto) 1.0 % Absolute Neuts (auto) 6.0 (1.5-7.7) 10^3/ul Absolute Lymphs (auto) 1.7 (1.0-4.8) 10^3/ul Absolute Monos (auto) 0.6 (0-0.8) 10^3/ul Absolute Eos (auto) 0.1 (0-0.6) 10^3/ul Absolute Basos (auto) 0.1 (0-0.2) 10^3/ul Absolute Nucleated RBC 0 10^3/ul Nucleated RBC % 0 INR (Anticoag Therapy) (0.77-1.02) Sodium 136 (135-145) mmol/L Potassium 4.2 (3.5-5.0) mmol/L Chloride 103 (101-111) mmol/L Carbon Dioxide 24 (22-32) mmol/L Anion Gap 9 (2-11) mmol/L BUN 25 H (6-24) mg/dL Creatinine 0.72 (0.51-0.95) mg/dL Est GFR ( Amer) 97.2 (>60) Est GFR (Non-Af Amer) 80.3 (>60) BUN/Creatinine Ratio 34.7 H (8-20) Glucose 113 H (70-100) mg/dL Lactic Acid 1.3 (0.5-2.0) mmol/L Calcium 9.3 (8.6-10.3) mg/dL Total Bilirubin 0.30 (0.2-1.0) mg/dL AST 12 L (13-39) U/L ALT 12 (7-52) U/L Alkaline Phosphatase 55 (34-104) U/L Troponin I Pending Total Protein 6.4 (6.4-8.9) g/dL Albumin 4.0 (3.2-5.2) g/dL Globulin 2.4 (2-4) g/dL Albumin/Globulin Ratio 1.7 (1-3) TSH Pending 12/25/18 Range/Units 14:02 WBC (3.5-10.8) 10^3/uL RBC (3.70-4.87) 10^6 /uL Hgb (12.0-16.0) g/dL Hct (33-41) % MCV (80-97) fL MCH (27-31) pg MCHC (31-36) g/dL RDW (10.5-15) % Plt Count (150-450) 10^3/uL MPV (7.4-10.4) fL Neut % (Auto) % Lymph % (Auto) % [place] % (Auto) % Eos % (Auto) % Baso % (Auto) % Absolute Neuts (auto) (1.5-7.7) 10^3/ul Absolute Lymphs (auto) (1.0-4.8) 10^3/ul Absolute Monos (auto) (0-0.8) 10^3/ul Absolute Eos (auto) (0-0.6) 10^3/ul Absolute Basos (auto) (0-0.2) 10^3/ul Absolute Nucleated RBC 10^3/ul Nucleated RBC % INR (Anticoag Therapy) 0.89 (0.77-1.02) Sodium (135-145) mmol/L Potassium (3.5-5.0) mmol/L Chloride (101-111) mmol/L Carbon Dioxide (22-32) mmol/L Anion Gap (2-11) mmol/L BUN (6-24) mg/dL Creatinine (0.51-0.95) mg/dL Est GFR ( Amer) (>60) Est GFR (Non-Af Amer) (>60) BUN/Creatinine Ratio (8-20) Glucose (70-100) mg/dL Lactic Acid (0.5-2.0) mmol/L Calcium (8.6-10.3) mg/dL Total Bilirubin (0.2-1.0) mg/dL AST (13-39) U/L ALT (7-52) U/L Alkaline Phosphatase (34-104) U/L Troponin I Total Protein (6.4-8.9) g/dL Albumin (3.2-5.2) g/dL Globulin (2-4) g/dL Albumin/Globulin Ratio (1-3) TSH Microbiology and Other Data: Microbiology 12/25/18 13:31 Urine Culture - Final Urine No Growth (<1,000 CFU/mL) Assessment/Plan 1. Acute onset dizziness, double vision, and left facial paresthesia Most likely related to TIA to the brainstem (left ra). Certainly we entertained the differential diagnosis of BPPV but that should not manifest with focal neurological deficits. Work-up for stroke was negative and unremarkable. She was started on DAPT for 30 days. Then discontinue aspirin after 30 days since she had symptoms while on aspirin. Continue statin therapy Primary stroke education discussed in details Follow-up with Dr. Mclean. Time spent: 25 minutes
[2018-12-27] MEDS: Enoxaparin(*) 40 MG/0.4 ML SYR SUBCUT SCH (18:25)
[2018-12-27] MEDS: Ferrous Sulfate TAB* 325 MG PO SCH (18:25)
--- NOTE | 2018-12-28 03:02 | DS ---
CC: Dr. Fonseca; Dr. Mclean * DISCHARGE SUMMARY: DATE OF ADMISSION: 12/25/18 DATE OF DISCHARGE: 12/27/18 PRIMARY CARE PROVIDER: Dr. Fonseca. NEUROLOGIST: Dr. Mclean. DISCHARGE DIAGNOSIS: Transient ischemic attack. SECONDARY DIAGNOSES: 1. 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 2. Lumbosacral spinal stenosis. 3. Type 2 diabetes. 4. Hypertension. 5. Hyperlipidemia. 6. Peripheral vascular disease. 7. Restless leg syndrome. 8. Sleep apnea, on CPAP. 9. Arthritis. 10. Glaucoma. 11. History of carpal tunnel syndrome. MEDICATION LIST: 1. Acetaminophen 650 mg p.o. t.i.d. 2. Aspirin 81 mg p.o. daily. 3. Baclofen 20 mg p.o. b.i.d. and 10 mg p.o. at noon. 4. Alphagan-P 0.1% 1 drop to both eyes b.i.d. 5. Calcium and vitamin D 1 tablet p.o. daily. 6. Vitamin B12 at 1000 mcg p.o. daily. 7. Ferrous sulfate 350 mg p.o. q.48 hours. 8. Gabapentin 300 mg p.o. t.i.d. 9. Xalatan 1 drop to both eyes at bedtime. 10. Losartan 50 mg p.o. daily. 11. Metformin 1000 mg p.o. b.i.d. 12. Omeprazole 40 mg p.o. daily. 13. Systane Ultra 1 drop to both eyes 4 times a day as needed for dry eye. 14. ReQuip 0.5 mg p.o. daily. 15. Simvastatin 20 mg p.o. daily. 16. Spironolactone 100 mg p.o. daily. 17. Timoptic 0.5% 1 drop to both eyes b.i.d. New Medication: 1. Plavix 75 mg p.o. daily for 30 days. HOSPITAL COURSE: Mrs. Carty is a 68-year-old lady with a past medical history as stated above who presented to the emergency room with complaints of dizziness , slurred speech, and left facial numbness. For more details about her presentation, I refer you to her history and physical. In the emergency room, the patient had a CT of the brain without contrast that was negative and a CTA of the head and neck that showed approximately 30% short segment right internal carotid artery and 15% short segment left internal carotid artery stenosis. The head angiogram showed no central or intracranial arterial occlusion or high-grade stenosis. The patient was seen in consultation by neurology (Dr. Palencia) and her impression was the patient was a 68-year-old lady with a history of syringomyelia, lumbosacral spinal stenosis at baseline, on baclofen and aspirin who now presents with vertigo, transient diplopia, and brief left facial numbness. On her examination, the patient had nystagmus to the left and finger- to-nose suggested slight ataxia bilaterally. Dr. Palencia was concerned with the possibility of a TIA. She certainly has stroke risk factors. She recommended an MRI of the brain to complete her workup. MRI of the brain showed no acute intracranial abnormality, only minimally unchanged chronic small-vessel ischemic disease and findings of known Chiari I malformation, post decompression. The patient also had a transthoracic echocardiogram that showed ejection fraction of 50% to 60% with no significant valvular disease and bubble study was negative. Dr. Palencia's impression was that on the differential diagnosis of the patient' s symptoms TIA would be included. The patient's symptoms were resolved and her recommendation was for aspirin and statin and to add Plavix for 1 month. The patient's lipid profile showed an LDL of 61 and for that reason, her statin will be continued at the same dose. The patient was seen in followup by Dr. Kemp prior to discharge and he felt that her symptoms were most likely related to TIA to the brainstem (left ra). He agreed that BPPV (benign paroxysmal positional vertigo) was in the differential, but should not manifest with focal neurological deficits. He agreed with dual antiplatelet therapy for 3 days and his recommendation had actually been to discontinue the aspirin after 30 days and to continue Plavix. I will let her long- time neurologist, Dr. Mclean, decide which antiplatelet medication he would prefer she continue. The patient had resolution of her symptoms and was thought to be stable to be discharged home today. PHYSICAL EXAMINATION: Vital Signs: Temperature 97.7, heart rate 78, respiratory rate is 18, oxygen saturation is 98% on room air, blood pressure is 114/70. General: The patient is a pleasant lady, sitting up in bed, in no acute distress. CVS: Normal S1, S2. Regular rate and rhythm. Chest: Breath sounds present bilaterally with no added sounds. Abdomen: Soft, nontender. Bowel sounds are present. Extremities: No edema. Neuro: She is alert, awake , oriented x3. Able to move all 4 extremities. There is a left footdrop and this is unchanged from prior. DIET: Heart-healthy, consistent carb diet. ACTIVITIES: As tolerated. DISPOSITION: To home. STATUS WHILE IN THE HOSPITAL: Inpatient. CONDITION AT THE TIME OF DISCHARGE: Fair. Please keep in mind that this is a summarized version of this patient's hospital stay. If you need more information, please feel free to call me at or please obtain the full medical records. TIME SPENT: Approximately 45 minutes were spent to complete this discharge. [id number] #: [id number] MTDD
== END 2018-12-27 19:29 | disposition home or self-care (01) | DRG 69 ==
LOC: ED 13:10 → MEDTELE 17:20
PROVIDERS: ADMIT Student in an Organized Health Care Education/Training Program; ATTEND Internal Medicine
PROC: 5A09357 Assistance with Respiratory Ventilation, Less than 24 Consecutive Hours, Continuous Positive Airway Pressure (ICD-10-PCS; principal; 2018-12-25)
DX: G45.9 Transient cerebral ischemic attack, unspecified (principal); E11.39 Type 2 diabetes mellitus with other diabetic ophthalmic complication; H42 Glaucoma in diseases classified elsewhere; G47.30 Sleep apnea, unspecified; G25.81 Restless legs syndrome; E11.51 Type 2 diabetes mellitus with diabetic peripheral angiopathy without gangrene; E78.5 Hyperlipidemia, unspecified; I10 Essential (primary) hypertension; M48.07 Spinal stenosis, lumbosacral region; E66.9 Obesity, unspecified; E78.00 Pure hypercholesterolemia, unspecified; M21.372 Foot drop, left foot; K21.9 Gastro-esophageal reflux disease without esophagitis; M19.042 Primary osteoarthritis, left hand; M19.041 Primary osteoarthritis, right hand; Z98.49 Cataract extraction status, unspecified eye; Z88.0 Allergy status to penicillin; Z88.1 Allergy status to other antibiotic agents; Z91.040 Latex allergy status; Z79.82 Long term (current) use of aspirin; Z79.84 Long term (current) use of oral hypoglycemic drugs; Z80.0 Family history of malignant neoplasm of digestive organs; Z86.14 Personal history of Methicillin resistant Staphylococcus aureus infection; Z82.49 Family history of ischemic heart disease and other diseases of the circulatory system; Z68.30 Body mass index [BMI] 30.0-30.9, adult; Z83.49 Family history of other endocrine, nutritional and metabolic diseases; Z80.8 Family history of malignant neoplasm of other organs or systems; R07.9 Chest pain, unspecified
CPT/HCPCS: 36415; 70450; 70496; 70498; 70551; 71045; 80048; 80053; 80061; 81003; 81015; 83036; 83605; 83735; 84100; 84443; 84484; 85025; 85027; 85379; 85610; 87086; 93005; 93306; 94660; 99285; A9270-GY; G8978-GP-CI; G8979-GP-CI; G8980-GP-CI; J1650; Q9967

== ENCOUNTER 2019-07-18 15:11 | Emergency (ER) | payer MEDICARE, OTHER ==
--- NOTE | 2019-07-18 15:36 | ED ---
Neurological HPI - HPI Summary HPI Summary: This patient is a 68-year-old female with a history of TIA 6 months ago presenting to the ED with several weeks of blurred vision in over 1 month of dizziness which has been ongoing and intermittent. She denies any chest pain, shortness of breath. She states since having the blurred vision she has followed up with Dr. Siddiqi and there are no acute findings. History of cataracts. She does wear glasses, last appointment, Dr. Siddiqi stated there would be no change of prescriptions. Endorses headaches intermittently over the past 2 weeks, no facial pain or facial droop. She does endorse some left- sided numbness and tingling to the face over the past month which has been intermittent, however denies this currently. She has back pain at baseline, no worsening symptoms over the past few weeks. Denies abdominal pain, urinary symptoms. Patient denies any obvious memory loss, but endorses some mild confusion. Dr. Siddiqi is opthomologist Dr. Mclean is neurologist PCP is Concepcion Lackey PA-C. - History of Current Complaint Chief Complaint: EDNeurologicalDeficit Stated Complaint: DIZZINESS PER EMS Time Seen by Provider: 07/18/19 15:16 Hx Obtained From: Patient Hx Last Menstrual Period: "years ago." Onset/Duration: Sudden Onset Timing: Constant Onset Severity: Moderate Pain Intensity: 0 Pain Scale Used: 0-10 Numeric Associated Signs and Symptoms: Positive: Negative - Additional Pertinent History Primary Care Physician: [id number] - Allergy/Home Medications Allergies/Adverse Reactions: Allergies Allergy/AdvReac Type Severity Reaction Status Date / Time amoxicillin Allergy ITCHINESS Verified 07/01/19 09:38 cephalexin Allergy Rash Verified 07/01/19 09:38 ciprofloxacin [From Cipro] Allergy RASH AND Verified 07/01/19 09:38 SWELLING fluticasone furoate Allergy Difficulty Verified 07/01/19 09:38 [From Breo Ellipta] Breathing latex Allergy ITCHINESS Verified 07/01/19 09:38 vilanterol Allergy Difficulty Verified 07/01/19 09:38 [From Breo Ellipta] Breathing AIR FRESHNERS Allergy RUNNY EYES Uncoded 07/01/19 09:38 AND NOSE SULFA DRUGS Allergy Rash And Uncoded 07/01/19 09:38 Itching TIDE LAUNDRY SOAP Allergy Rash Uncoded 07/01/19 09:38 Home Medications: Home Medications Omeprazole (Nf) [Prilosec (NF)] 40 mg PO DAILY 07/18/19 [History Confirmed 07/18] Ropinirole HCl 0.25 - 0.5 mg PO QPM PRN 07/18/19 [History Confirmed 07/18/19] PMH/Surg Hx/FS Hx/Imm Hx Previously Healthy: Yes Endocrine/Hematology History: Reports: Hx Diabetes Denies: Hx Anticoagulant Therapy, Hx Systemic Lupus Erythematosus, Hx Thyroid Disease Cardiovascular History: Reports: Hx Angina, Hx Hypercholesterolemia, Hx Hypertension, Hx Peripheral Vascular Disease Denies: Hx Congestive Heart Failure, Hx Coronary Artery Disease, Hx Deep Vein Thrombosis, Hx Myocardial Infarction, Hx Pacemaker/ICD, Hx Valvular Heart Disease Respiratory History: Reports: Hx Sleep Apnea - current CPAP user Denies: Hx Asthma, Hx Chronic Obstructive Pulmonary Disease (COPD), Hx Lung Cancer, Hx Pneumonia, Hx Pulmonary Embolism GI History: Reports: Hx Gastroesophageal Reflux Disease - ON MEDICATION FOR Denies: Hx Gall Bladder Disease, Hx Gastrointestinal Bleed, Hx Ulcer, Hx Urosepsis History: Denies: Hx Dialysis, Hx Kidney Stones, Hx Renal Disease Musculoskeletal History: Reports: Hx Arthritis - HANDS, Other Musculoskeletal History - COMPRESSED SPINAL CORD Denies: Hx Rheumatoid Arthritis Sensory History: Reports: Hx Cataracts - BILATERAL, Hx Glaucoma - BILATERAL Denies: Hx Contacts or Glasses, Hx Hearing Aid Opthamlomology History: Reports: Hx Cataracts - BILATERAL, Hx Glaucoma - BILATERAL Denies: Hx Contacts or Glasses Neurological History: 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, PAIN CLINIC PT Denies: Hx Dementia, Hx Migraine, Hx Seizures, Hx Transient Ischemic Attacks (TIA) Psychiatric History: Denies: Hx Anxiety, Hx Depression, Hx Panic Disorder, Hx Schizophrenia, Hx Bipolar Disorder - Cancer History Hx Chemotherapy: No Hx Radiation Therapy: No - Surgical History Surgery Procedure, Year, and Place: 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, compresed spinal cord - chaiari malformation Hx Anesthesia Reactions: No - Immunization History Hx Pertussis Vaccination: No Immunizations Up to Date: Yes Infectious Disease History: No Infectious Disease History: Reports: Hx of Known/Suspected MRSA - hx of (pt not sure) Denies: Traveled Outside the [place] in Last 30 Days - Family History Known Family History: Positive: Cardiac Disease, Hypertension - Social History Occupation: Unemployed Lives: Alone Alcohol Use: None Hx Substance Use: No Substance Use Type: Reports: None Hx Tobacco Use: No Smoking Status (MU): Never Smoked Tobacco Have You Smoked in the Last Year: No Review of Systems Constitutional: Negative Negative: Fever, Chills, Fatigue, Skin Diaphoresis Positive: Blurred Vision Negative: Palpitations, Chest Pain Negative: Shortness Of Breath, Cough Negative: Arthralgia, Myalgia Skin: Negative Neurological: Negative All Other Systems Reviewed And Are Negative: Yes Physical Exam Triage Information Reviewed: Yes Vital Signs On Initial Exam: Initial Vitals Temp Pulse Resp BP Pulse Ox 98.8 F 83 20 143/85 96 07/18/19 15:12 07/18/19 15:12 07/18/19 15:12 07/18/19 15:12 07/18/19 15:12 Vital Signs Reviewed: Yes Appearance: Positive: Well-Appearing, Well-Nourished Skin: Positive: Skin Color Reflects Adequate Perfusion Head/Face: Positive: Normal Head/Face Inspection Eyes: Positive: EOMI, SANDER, Conjunctiva Inflammed - left conjunctival injection Neck: Positive: Supple, Nontender, No Lymphadenopathy Respiratory/Lung Sounds: Positive: Clear to Auscultation, Breath Sounds Present Cardiovascular: Positive: RRR, Pulses are Symmetrical in both Upper and Lower Extremities Musculoskeletal: Positive: Normal, Strength/ROM Intact Neurological: Positive: Sensory/Motor Intact, Alert, Oriented to Person Place, Time, CN Intact II-III, Normal Gait, Speech Normal Psychiatric: Positive: Normal, Affect/Mood Appropriate AVPU Assessment: Alert Procedures - Sedation Patient Received Moderate/Deep Sedation with Procedure: No Diagnostics - Vital Signs Vital Signs Temp Pulse Resp BP Pulse Ox 07/18/19 15:12 98.8 F 83 20 143/85 96 - Laboratory Result Diagrams: 07/18/19 15:55 07/18/19 15:55 Lab Statement: Any lab studies that have been ordered have been reviewed, and results considered in the medical decision making process. NIH Scale - NIH Scale Level of Consciousness: Alert/Keenly Responsive Ask Patient the Month and His/Her Age: Both Correct Ask Pt to Open/Close Eyes and Bull Driver/Release Non-Paretic Hand: Both Correctly Best Gaze (Only Horizontal Eye Movement): Normal Visual Field Testing: No Visual Loss Facial Paresis-Pt to Smile & Close Eyes or Grimace Symmetry: Normal/Symmetrical Motor Function - Right Arm: No Drift-Holds 10 Seconds Motor Function - Left Arm: No Drift-Holds 10 Seconds Motor Function - Right Leg: No Drift-Holds 10 Seconds Motor Function - Left Leg: No Drift-Holds 10 Seconds - 4 as is Limb Ataxia-Must be out of Proportion to Weakness Present: Absent Sensory (Use Pinprick to Test Arms/Legs/Trunk/Face): Normal Best Language (Describe Picture, Name Items): No Aphasia Extinction and Inattention: No Abnormality NIH Stroke Scale Comment: 0 Course/Dx - Course Course Of Treatment: Patient is evaluated for a one-month history of intermittent blurry vision and dizziness. She states she is unsure if she has had this since her TIA 6 mos ago, but believes this to be new. Denies any symptoms currently, but states she had these symptoms this morning as well as L sided facial tingling. On physical examination, patient appears well. There is no facial droop, no slurred speech, and patient is neurologically intact. She is a and O 3. Full range of motion and strength in the bilateral upper and lower extremities. NIH stroke scale = 0. Denies blurry vision. No nystagmus noted. There is conjunctival erythema to the L eye but pt states she injured this eye a few days ago with her cell phone but denies any pain or blurry vision to this area. Labs obtained and are unremarkable. CT brain shows no acute findings. Discussed case with Dr. Mclean, neurology who suggest follow-up as an outpatient as patient is currently asymptomatic. Patient is okay with this plan at discharge and offers no other complaints at this time. - Differential Dx Differential Diagnoses Neuro: Positive: Cerebrovascular Accident, Transient Ischemic Attack, Other - cataracts, migraine, metabolic abnormality - Diagnoses Provider Diagnoses: Dizziness, Blurry vision - Physician Notifications Discussed Care Of Patient With: Rishabh Mclean Discharge ED - Sign-Out/Discharge Documenting (check all that apply): Patient Departure - Discharge Plan Condition: Stable Disposition: HOME Referrals: Concepcion Lackey PA [Primary Care Provider] - Rishabh Mclean MD [Medical Doctor] - Additional Instructions: Please call Dr. Mclean to make an appt - Billing Disposition and Condition Condition: STABLE Disposition: Home
--- OUTSIDE RECORDS SUMMARY | 2019-07-18 15:47 | XMS REPORT | Continuity of Care Document ---
:1950 External Reference #:[id number] Author Name Jaime Martinez (transmitted by agent of provider Michelle Belcher) Address [address] [place] [address] Care Team Providers Name Role Phone [facility] - Care Team Information Telegraph Editor Nutrition, Education [facility] - Urology Care Team Information Telegraph Editor [phone] Prachi Maldonado DPM - Computed Tomography Technician Care Team Information Telegraph Editor [phone] Luis Madsen MD - Cardiovascular Care Team Information Telegraph Editor [phone] [facility] - Sleep Disorder Care Team Information Telegraph Editor [phone] [facility] - Otolaryngology Care Team Information Telegraph Editor [phone] [facility] - Care Team Information Telegraph Editor [phone] [facility] - Pain Medicine Care Team Information Telegraph Editor [phone] Problems Active Problems Provider Date Pure hypercholesterolemia Simeon Fonseca M.D. Onset: 02/26/2004 Blood chemistry abnormal Simeon Fonseca M.D. Onset: 02/26/2004 Sleep apnea Simeon Fonseca M.D. Onset: 02/26/2004 Hirsutism Simeon Fonseca M.D. Onset: 02/26/2004 Syringomyelia and 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 Simeon Fonseca M.D. Onset: 02/26/2004 Degeneration of cervical intervertebral disc Simeon Fonseca M.D. Onset: 03/2007 Obesity Simeon Fonseca M.D. Onset: 11/04/2006 Insomnia Simeon Fonseca M.D. Onset: 02/01/2007 Restless legs Simeon Fonseca M.D. Onset: 02/01/2007 Type 2 diabetes mellitus Simeon Fonseca M.D. Onset: 04/18/2011 Gastroesophageal reflux disease Sahil Garcia D.O. Onset: 08/07/2015 Cobalamin deficiency Simeon Fonseca M.D. Onset: 02/02/2019 Iron deficiency anemia Simeon Fonseca M.D. Onset: 02/02/2019 Diabetic neuropathy Simeon Fonseca M.D. Onset: 02/02/2019 Essential hypertension Simeon Fonseca M.D. Onset: 02/02/2019 Tricuspid valve disorder Jaime Martinez Onset: 06/15/2019 Note: Mild insufficiency Pulmonary hypertension Jaime Martinez Onset: 06/15/2019 Note: mild: Document: 04/18/19 - Juan R Sunshine MD Social History Type Date Description Comments Sex Unknown Tobacco Use Reviewed: 09/25/14 Denies Cigarette Use Smoking Status Reviewed: 06/09/19 Denies Cigarette Use ETOH Use Denies alcohol use Recreational Drug Use Denies Drug Use Tobacco Use Start: Unknown Non Smoker Allergies, Adverse Reactions, Alerts Active Allergies Reaction Severity Comments Date Sulfa 11/07/2003 Amoxicillin 11/07/2003 Latex Local rxn; ?Chest pain 05/27/2008 Ciprofloxacin rash, swelling, itching 10/22/2011 Cephalexin Rash 04/13/2012 Clopidogrel non itching rash Mild 01/10/2019 Medications Active Medications SIG Qnty Indications Ordering Provider Date Gabapentin 1 cap by mouth 120caps M79.605 Simeon Fonseca, 04/11/2019 400mg 4x/day for leg M.D. Capsules pain (start this after running out of the 300mg capsules) M79.604 Ferrous Sulfate take 1 tablet (with D50.9 Simeon Fonseca, 10/04/2018 325(65Fe) oj or vit c) by mouth M.D. mg Tablets every other day; in the morning on an empty stomach Fluticasone Propionate spray two sprays in 48gm Simeon Fonseca, 2017 each nostril every M.D. 50mcg/Act Suspension day Diabetic Meals From Pt needs diabetic E11.9 Simeon Fonseca, 04/16/2018 Meals On Wheels meals from Meals on M.D. wheels as she is diabetic. Systane Preservative eye drops Unknown 01/25/2018 Free Solution Aspirin Ec 1 pill daily for 30tabs E11.9 Simeon Fonscea, 08/25/2016 81mg Tablets heart disease M.D. DR goncalves Simvastatin take one tablet by 90tabs E78.00 Simeon Fonseca, 06/23/2016 20mg Tablets mouth every day to M.D. lower cholesterol Vitamin B-12 take 1 sublingual 30tabs Simeon Fonseca, 05/29/2016 1000mcg tablet daily M.D. Tablets Omeprazole take one capsule by 30caps Simeon Fonseca, 02/26/2016 40mg Capsules mouth once daily for M.D. acid reflux Therapeutic Shoes with inserts and 1Pair E11.9 Simeon Fonseca, 01/15/2016 metatarsal bar for M.D. left foot R26.9 Ropinirole HCL take 1-2 tablets 120tabs G25.81 Simeon Fonseca, 09/23/2013 0.25mg by mouth every M.D. Tablets evening for restless legs, may repeat 4-6 hours later Calcium 600 + D 1 by mouth every V82.81 Simeon Fonseca, 05/24/2012 day M.D. [phone] Tablets Acetaminophen use every eight Simeon Fonseca, 04/17/2011 650mg hours if needed M.D. Capsules Baclofen 2,am--1 lunch and Unknown 11/04/2006 10mg Tablets 2 pm Metformin HCL Take One Tablet By 180tabs L68.0 Simeon Fonseca, 01/12/2006 1000mg Mouth Two Times A M.D. Tablets Day For Blood Sugar Control R73.01 E11.9 Spironolactone Take One Tablet By 90tabs L68.0 Simeon Fonseca, 03/26/2005 100mg Tablets Mouth Every Day To M.D. Minimize Abnormal Hair Growth Timolol Maleate Instill 1 Drop In Unknown 0.5% Solution Each Eye Two Times A Day Brimonidine Tartrate Ricky Siddiqi MD 0.2% Solution Latanoprost 1 drop both eyes Ricky Siddiqi MD 0.005% Solution every night for glaucoma History Medications Nitrofurantoin Monohyd take 1 capsule 14caps N30.01 Raymundo, 04/12/2019 - Macro by mouth twice Delfino Hendrix 04/19/2019 100mg Capsules a day for 1wk for uti Gabapentin 1 capsule 360caps M79.605 Raymundo, 04/06/2019 - 300mg Capsules 4x/day; for leg Delfino Hendrix 04/11/2019 pains M79.604 Gabapentin 1 capsule 270caps M79.605 Simeon Fonseca 03/07/2019 - 300mg 3x/day, for leg Delfino 04/06/2019 Capsules pains M79.604 Medications Administered in Office Medication SIG Qnty Indications Ordering Provider Date H1N1 Swine Flu Vaccine Simeon Fonseca M.D. 10/12/2009 Injection Immunizations CPT Code Status Date Vaccine Lot # [id number] Given 06/09/2019 Influenza Vaccine, Inactivated, Subunit, [id number] Adjuvanted, For Intrmusc 39738 Given 06/01/2018 Influenza Vaccine Split Virus Preservative Free [id number] Im Use 22666 Given 06/22/2017 Influenza Virus Vaccine, Quadrivalent, Split, [id number] Preservative Free 17034 Given 05/20/2016 Pneumococcal Immunization [id number] 11749 Given 05/20/2016 Influenza Virus Vaccine, Quadrivalent, Split, [id number] Preservative Free 31852 Given 08/07/2015 Influenza Virus Vaccine, Quadrivalent, Split, [id number] Preservative Free 38770 Given 03/24/2015 Prevnar 13 [id number] 60821 Given 05/26/2014 Influenza Virus Vaccine, Quadrivalent, Split, [id number] Preservative Free 12335 Given 05/24/2013 Flu, Split Virus 3Yrs 90550 Given 05/12/2013 Adacel or Boostrix, [id number] 16007 Given 05/24/2012 Flu, Split Virus 3Yrs [id number] 61320 Given 07/22/2011 Flu, Split Virus 3Yrs [id number] 47542 Given 04/18/2011 Pneumococcal Immunization [id number] 90359 Given 06/28/2010 Flu, Split Virus 3Yrs [id number] 78898 Given 06/18/2009 Flu, Split Virus 3Yrs [id number] 38199 Given 09/11/2008 Flu, Split Virus 3Yrs 83720 Given 07/23/2007 Flu, Split Virus 3Yrs 56178 Given 08/04/2006 Flu, Split Virus 3Yrs [id number] 18168 Given 07/03/2004 Flu, Split Virus 3Yrs 49298 Given 10/18/2003 Td Immunization [id number] Refused 01/14/2010 Zostavax Vital Signs Date Vital Result Comment 06/23/2019 1:50pm BP Systolic 130 mmHg BP Diastolic 60 mmHg BP Systolic Recheck 106 mmHg lying down BP Diastolic Recheck 62 mmHg lying down BP Systolic Standing Resting Right Arm 130 mmHg sitting up BP Diastolic Standing Resting Right Arm 60 mmHg sitting up BP Systolic Sitting Left Arm 148 mmHg standing BP Diastolic Sitting Left Arm 72 mmHg standing 06/20/2019 5:12pm BP Systolic 132 mmHg BP Diastolic 60 mmHg BP Systolic Recheck 91 mmHg pt's wrist cuff BP Diastolic Recheck 71 mmHg pt's wrist cuff Weight 163.50 lb Results Test Date Facility Test Result H/L Range Note Ua Inhouse 06/09/2019 In House Ua Specific [place] 1.015 Ua Blood trace [place] Ua PH 6.5 Laboratory test finding 06/09/2019 In House Hemoglobin A1c 5.6 Urine Micro Inhouse 04/19/2019 In House Ua WBC 8 1 Ua RBC 15 Ua Casts - Ua Epi - Ua Other - Ua Glucose - Ua Bilirubin - Ua Ketones - Ua Specific [place] 1.030 Ua Blood [place] Mod Ua PH 6.0 Ua Protein tr Ua Urobilinogen - Ua Nitrite - Ua Leukocytes tr Culture Urine Inhouse 04/19/2019 In House Colonies no growth Urine Micro Inhouse 04/11/2019 In House Ua WBC 4-8 Ua RBC tntc Ua Casts - Ua Epi - Ua Other sm bacteria amt Ua Glucose - Ua Bilirubin mod Ua Ketones - Ua Specific [place] 1.015 Ua Blood lg Ua PH 6.5 Ua Protein 3+ Ua Urobilinogen - Ua Nitrite + Ua Leukocytes sm Culture Urine 04/11/2019 In House Colonies 07/05 Inhouse Laboratory test 02/02/2019 In House Hemoglobin A1c 5.8 finding Basic Metabolic 01/31/2019 [facility] Sodium 138 mmol/L Normal 135- 145 Panel [phone] Potassium 4.8 mmol/L Normal 3.5-5.0 Chloride 101 mmol/L Normal 101-111 Co2 Carbon Dioxide 29 mmol/L Normal 22-32 Anion Gap 8 mmol/L Normal 2-11 Glucose 125 mg/dL High 70-100 Blood Urea Nitrogen 19 mg/dL Normal 6-24 Creatinine 0.69 mg/dL Normal 0.51-0.95 BUN/Creatinine Ratio 27.5 High 8-20 Calcium 9.0 mg/dL Normal 8.6-10.3 Egfr Non- 84.4 >60 Egfr 102.1 >60 2 Laboratory test finding 01/31/2019 [facility] Ferritin 12.4 ng/mL Normal 11-307 [phone] Iron & Iron Binding 01/31/2019 [facility] Iron 48 g/dL Low 50-212 Capacity [phone] Unsaturated Iron Binding < 390 g/dL Total Iron Binding Capacity 405 g/dL Normal 250-450 Transferrin 289 mg/dL Normal 203-362 % Iron Saturation 12 % Low 15-55 CBC Auto Diff 01/31/2019 [facility] White Blood 6.9 10^3/uL Normal 3.5-10.8 [phone] Count Red Blood Count 3.84 10^6/uL Normal 3.70-4.87 Hemoglobin 11.4 g/dL Low 12.0-16.0 Hematocrit 35 % Normal 35-47 Mean Corpuscular Volume 91 fL Normal 80-97 Mean Corpuscular Hemoglobin 30 pg Normal 27-31 Mean Corpuscular HGB Conc 33 g/dL Normal 31-36 Red Cell Distribution Width 15 % Normal 10.5-15 Platelet Count 389 10^3/uL Normal 150-450 Mean Platelet Volume 7.5 fL Normal 7.4-10.4 Abs Neutrophils 5.4 10^3/uL Normal 1.5-7.7 Abs Lymphocytes 1.0 10^3/uL Normal 1.0-4.8 Abs Monocytes 0.3 10^3/uL Normal 0-0.8 Abs Eosinophils 0.1 10^3/uL Normal 0-0.6 Abs Basophils 0.1 10^3/uL Normal 0-0.2 Abs Nucleated RBC 0.0 10^3/uL Granulocyte % 78.8 % Lymphocyte % 13.9 % Monocyte % 4.2 % Eosinophil % 1.9 % Basophil % 1.2 % Nucleated Red Blood Cells % 0.1 Lipid Profile (Trig/Chol/HDL) 01/31/2019 [facility] Triglycerides 107 mg/dL 3 [phone] Cholesterol 123 mg/dL 4 HDL Cholesterol 46.4 mg/dL 5 LDL Cholesterol 55 mg/dL 6 Laboratory test 01/31/2019 [facility] Alt (SGPT) 12 U/L Normal 7-52 finding [phone] Laboratory test 01/10/2019 [facility] Vitamin B12 1324 pg/mL High 180 -914 7 finding [phone] Comp Metabolic 01/10/2019 [facility] Sodium 141 mmol/L Normal 135- 145 Panel [phone] Potassium 4.6 mmol/L Normal 3.5-5.0 Chloride 104 mmol/L Normal 101-111 Co2 Carbon Dioxide 30 mmol/L Normal 22-32 Anion Gap 7 mmol/L Normal 2-11 Glucose 99 mg/dL Normal 70-100 Blood Urea Nitrogen 18 mg/dL Normal 6-24 Creatinine 0.78 mg/dL Normal 0.51-0.95 BUN/Creatinine Ratio 23.1 High 8-20 Calcium 9.4 mg/dL Normal 8.6-10.3 Total Protein 6.5 g/dL Normal 6.4-8.9 Albumin 4.4 g/dL Normal 3.2-5.2 Globulin 2.1 g/dL Normal 2-4 Albumin/Globulin Ratio 2.1 Normal 1-3 Total Bilirubin 0.20 mg/dL Normal 0.2-1.0 Alkaline Phosphatase 51 U/L Normal 34-104 Alt 31 U/L Normal 7-52 Ast 26 U/L Normal 13-39 Egfr Non- 73.2 >60 Egfr 88.6 >60 8 Laboratory test 01/10/2019 [facility] TSH (Thyroid 2.81 mcIU/mL Normal 0.34-5.60 finding [phone] Stim Horm) Magnesium 1.9 mg/dL Normal 1.9-2.7 Phosphorus 3.8 mg/dL Normal 2.5-5.0 CBC Auto Diff 01/10/2019 [facility] White Blood 6.9 10^3/uL Normal 3.5-10.8 [phone] Count Red Blood Count 4.11 10^6/uL Normal 3.70-4.87 Hemoglobin 12.3 g/dL Normal 12.0-16.0 Hematocrit 38 % Normal 33-41 Mean Corpuscular Volume 91 fL Normal 80-97 Mean Corpuscular Hemoglobin 30 pg Normal 27-31 Mean Corpuscular HGB Conc 33 g/dL Normal 31-36 Red Cell Distribution Width 15 % Normal 10.5-15 Platelet Count 356 10^3/uL Normal 150-450 Mean Platelet Volume 7.6 fL Normal 7.4-10.4 Abs Neutrophils 5.0 10^3/uL Normal 1.5-7.7 Abs Lymphocytes 1.2 10^3/uL Normal 1.0-4.8 Abs Monocytes 0.4 10^3/uL Normal 0-0.8 Abs Eosinophils 0.3 10^3/uL Normal 0-0.6 Abs Basophils 0 10^3/uL Normal 0-0.2 Abs Nucleated RBC 0 10^3/uL Granulocyte % 71.9 % Lymphocyte % 17.3 % Monocyte % 6.0 % Eosinophil % 4.4 % Basophil % 0.4 % Nucleated Red Blood Cells % 0 1 void, clear, yellow 2 Because ethnic data is not always readily available, this report includes an eGFR for both -Americans and non- Americans. The National Kidney Disease Education Program (NKDEP) does not endorse the use of the MDRD equation for patients that are not between the ages of 18 and 70, are , have extremes of body size, muscle mass, or nutritional status, or are non- or non-. According to the National Kidney Foundation, irrespective of diagnosis, the stage of the disease is based on the level of kidney function: Stage Description GFR(mL/min/1.73 m(2)) 1 Kidney damage with normal or decreased GFR 90 2 Kidney damage with mild decrease in GFR 60-89 3 Moderate decrease in GFR 30-59 4 Severe decrease in GFR 15-29 5 Kidney failure <15 (or dialysis) 3 Desirable: <150 Borderline High: 150-199 High: 200-499 Very High: >500 4 Desirable: <200 Borderline High: 200-239 High: >239 5 Low: <40 Desirable: 40-60 High: >60 6 Desirable: <100 Near Optimal: 100-129 Borderline High: 130-159 High: 160-189 Very High: >189 7 Normal Range 180 to 914 Indeterminate Range 145 to 180 Deficient Range <145 8 Because ethnic data is not always readily available, this report includes an eGFR for both -Americans and non- Americans. The National Kidney Disease Education Program (NKDEP) does not endorse the use of the MDRD equation for patients that are not between the ages of 18 and 70, are , have extremes of body size, muscle mass, or nutritional status, or are non- or non-. According to the National Kidney Foundation, irrespective of diagnosis, the stage of the disease is based on the level of kidney function: Stage Description GFR(mL/min/1.73 m(2)) 1 Kidney damage with normal or decreased GFR 90 2 Kidney damage with mild decrease in GFR 60-89 3 Moderate decrease in GFR 30-59 4 Severe decrease in GFR 15-29 5 Kidney failure <15 (or dialysis) Procedures Date Code Description Status 06/23/2019 81467 Electrocardiogram Complete Completed 02/02/2019 50925 Dexa Bone Density Study One Or More Sites Axial Completed Skeleton 02/02/2019 976133556 Diabetic Foot Exam Completed 11/25/2018 [id number] Diabetic Retinal Eye Exam Completed 10/29/2017 03790057 Mammogram Completed 03/28/2015 [id number] Colonoscopy Completed Medical Devices Description No Information Available Encounters Type Date Location Provider Dx Diagnosis Office Visit 06/23/2019 Main Office Jaime Martinez M79.672 Pain in left foot 1:20p R07.89 Other chest pain R42 Dizziness and giddiness R51 Headache Office Visit 06/20/2019 4:20p Main Office Jaime Martinez H53.2 Diplopia E11.51 Type 2 diabetes w diabetic peripheral angiopath w/o gangrene G95.0 Syringomyelia and 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 Office Visit 06/09/2019 1:40p Main Office Concepcion Lackey E11.51 Type 2 diabetes w P.A. 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 density and structure, multiple sites E11.40 Type 2 diabetes mellitus with diabetic neuropathy, unsp G45.9 Transient cerebral ischemic attack, unspecified E78.00 Pure hypercholesterolemia, unspecified D51.9 Vitamin B12 deficiency anemia, unspecified D50.9 Iron deficiency anemia, unspecified G25.81 Restless legs syndrome G95.0 Syringomyelia and 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 I10 Essential (primary) hypertension Office Visit 01/10/2019 11:00a Main Office Sahil Garcia, E11.40 Type 2 diabetes D.O. 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 06/23/2019 R07.89 Other chest pain Concepcion [place], P.A. 06/23/2019 R42 Dizziness and giddiness Concepcion [place], P.A. 06/23/2019 R51 Headache Concepcion [place], P.A. 06/20/2019 H53.2 Diplopia Concepcion [place], P.A. 06/20/2019 E11.51 Type 2 diabetes mellitus with diabetic Concepcion [place], P.A. peripheral angiopathy without gangrene 06/20/2019 G95.0 Syringomyelia and 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 Concepcion [place], P.A. 06/09/2019 E11.51 Type 2 diabetes mellitus with diabetic Concepcion [place], P.A. peripheral angiopathy without gangrene 06/09/2019 M79.672 Pain in left foot Concepcion [place], P.A. 06/09/2019 M79.671 Pain in right foot Concepcion [place], P.A. 06/09/2019 R31.9 Hematuria, unspecified Concepcion [place], P.A. 06/09/2019 M99.53 Intervertebral disc stenosis of neural Concepcion [place], P.A. canal of lumbar regio 06/09/2019 F51.12 Insufficient sleep syndrome Concepcion [place], P.A. 06/09/2019 G57.13 Meralgia paresthetica, bilateral lower Concepcion [place], P.A. limbs 06/09/2019 D51.9 Vitamin B12 deficiency anemia, unspecified Concepcion [place], P.A. 06/09/2019 I10 Essential (primary) hypertension Concepcion [place], P.A. 06/09/2019 K21.9 Gastro-esophageal reflux disease without Concepcion [place], P.A. esophagitis 06/09/2019 Z23 Encounter for immunization Concepcion [place], P.A. 06/09/2019 Z41.8 Encounter for other procedures for Concepcion [place], P.A. purposes other than remedying health state 04/19/2019 R30.0 Dysuria Simeon Fonseca M.D. 04/11/2019 M79.605 Pain in left leg Simeon Fonseca M.D. 04/11/2019 M79.604 Pain in right leg Silcoff, Simeon, M.D. 04/11/2019 G95.0 Syringomyelia and 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 Simeon Fonseca M.D. 04/11/2019 M99.53 Intervertebral disc stenosis of neural Simeon Fonseca M.D. canal of lumbar regio 04/11/2019 G25.81 Restless legs syndrome Simeon Fonseca M.D. 04/11/2019 D51.9 Vitamin B12 deficiency anemia, unspecified Simeon Fonseca M.D. 04/11/2019 D50.9 Iron deficiency anemia, rajwinderified Simeon Fonseca M.D. 04/11/2019 I10 Essential (primary) hypertension Simeon Fonseca M.D. 04/11/2019 R30.0 Dysuria Simeon Fonseca M.D. 02/10/2019 M99.53 Intervertebral disc stenosis of neural Simeon Fonseca M.D. canal of lumbar region 02/10/2019 G95.0 Syringomyelia and 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 Simeon Fonseca M.D. 02/10/2019 E11.51 Type 2 diabetes mellitus with diabetic Simeon Fonseca M.D. 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 02/10/2019 M21.372 Foot drop, left foot Simeon Fonseca M.D. 02/10/2019 Z91.81 History of falling Simeon Fonseca M.D. 02/02/2019 M85.89 [facility] disrd of bone density and structure, Simeon Fonseca M.D. multiple sites 02/02/2019 E11.40 Type 2 diabetes mellitus with diabetic Simeon Fonseca M.D. neuropathy, unspecifi 02/02/2019 G45.9 Transient cerebral ischemic attack, Simeon Fonseca M.D. unspecified 02/02/2019 E78.00 Pure hypercholesterolemia, Simeon Sweet M.D. 02/02/2019 D51.9 Vitamin B12 deficiency anemia, Simeon Sweet M.D. 02/02/2019 D50.9 Iron deficiency anemia, rajwinderified Simeon Fonseca M.D. 02/02/2019 G25.81 Restless legs syndrome Simeon Fonseca M.D. 02/02/2019 G95.0 Syringomyelia and 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 Simeon Fonseca M.D. 02/02/2019 I10 Essential (primary) hypertension Simeon Fonseca M.D. 02/02/2019 E11.40 Type 2 diabetes mellitus with diabetic Radiology, Dexa & X -Ray neuropathy, unsp 01/10/2019 E11.40 Type 2 diabetes mellitus with diabetic Sahil Garcia, D.O. neuropathy, unspecifi 01/10/2019 G45.9 Transient cerebral ischemic attack, Sahil Garcia, D.O. unspecified 01/10/2019 G93.5 Compression of brain Sahil Garcia D.O. 01/10/2019 M99.53 Intervertebral disc stenosis of neural Sahil Garcia, D.O. canal of lumbar regio 01/10/2019 M21.372 Foot drop, left foot Sahil Garcia D.O. 01/10/2019 Z91.81 History of falling Sahil Garcia D.O. 01/10/2019 R40.1 Stupor Sahil Garcia, D.O. 12/29/2018 G45.9 Transient cerebral ischemic attack, Brigida Raya PA unspecified 12/29/2018 G93.5 Compression of brain Brigida Raya PA 12/29/2018 M99.53 Intervertebral disc stenosis of neural Brigida Raya PA canal of lumbar regio 12/29/2018 M21.372 Foot drop, left foot Brigida Raya PA 12/29/2018 E11.40 Type 2 diabetes mellitus with diabetic Brigida Raya PA neuropathy, unspecifi Plan of Treatment Future Appointment(s):09/08/2019 1:00 pm - Jaime Martinez at [id number] - Jaime MartinezM79.672 Pain in left footFollow up:f/u w [facility] [facility] as planned in later Oct for new shoes and L sfqpyT72.89 Other chest painComments:appears similar to past EKG, no findings of concern todayFollow up: very sporatic episodes of painR42 Dizziness and giddinessComments:BP went up when pt changed position. otherwise [id number] HeadacheComments:I think pt 's discomfort and sxs is related more to musculoskeletal issues and that fleeting pain is from tense neck muscles related to worsening form w walking. seems to be assoc w L leg in her discussions, pt knws to call 911 is are more than fleeting. reviewed use of emergency call button she wears Functional Status Description No Information Available Mental Status Description No Information Available Referrals Refer to Reason for Referral Status Appt Date [facility] - ref Closed & [facility] - Referrals [address] [place] [address] [phone]
--- OUTSIDE RECORDS SUMMARY | 2019-07-18 15:47 | XMS REPORT | Continuity of Care Document ---
:1950 External Reference #:[id number] Author Name Ricky Siddiqi M.D. Address [address] [place] [address] Care Team Providers Name Role Phone Simeon Fonseca M.D. - Family Care Team Information Perpetual Inventory Clerk Medicine Rishabh Mclean M.D. - Neurology Care Team Information Perpetual Inventory Clerk [phone] Juan R Sunshine M.D. 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 Onset: 03/27/2015 Neoplastic disease Ricky Siddiqi M.D. Onset: 03/27/2015 Moderate Glaucoma Ricky Siddiqi M.D. Onset: 03/27/2015 Nuclear senile cataract Ricky Siddiqi M.D. Onset: 10/23/2015 Epiretinal membrane Ricky Siddiqi M.D. Onset: 10/23/2015 Benign neoplasm of eyelid including Ricky Siddiqi M.D. Onset: 10/23/2015 canthus Bilateral primary open angle glaucoma Gregor Wiseman M.D. Onset: 2016 Exophoria Ricky Siddiqi M.D. Onset: 07/04/2019 Tear film insufficiency Trixie Poole O.D. Onset: 01/11/2018 Presence of intraocular lens Trixie Poole O.D. Onset: 01/11/2018 Social History Type Date Description Comments Sex Unknown ETOH Use Denies alcohol use Tobacco Use Start: Unknown Patient has never smoked Recreational Drug Use Denies Drug Use Smoking Status Reviewed: 07/04/19 Patient has never smoked Allergies, Adverse Reactions, Alerts Active Allergies Reaction Severity Comments Date Ciprofloxacin 12/18/2014 Cephalexin 12/18/2014 Latex 12/18/2014 Sulfa Antibiotics Urticaria 12/18/2014 Medications Active Medications SIG Qnty Indications Ordering Provider Date Timolol Maleate instill 1 drop 10ml Ricky Siddiqi, 11/17/2016 0.5% in each eye two M.D. Solution times a day Brimonidine Tartrate instill 1 drop 10ml Ricky Siddiqi, 11/17/2016 0.2% in each eye two M.D. Solution times a day Latanoprost instill 1 drop 7.5ml Ricky Siddiqi, 11/17/2016 0.005% Solution in each eye at M.D. bedtime Ropinirole HCL Simeon Fonseca, 0.25mg M.D. Tablets Simvastatin Simeon Fonseca, 40mg Tablets M.D. Baclofen Jodie Monge 10mg Tablets M.D. Metformin HCL AnamarlonSahil 1000mg D.O. Tablets Spironolactone Simeon Fonseca, 100mg M.D. Tablets Omeprazole Unknown 40mg Capsules Vitamin B-12 Unknown 500mcg Tablets Sub Aspirin Low Strength Unknown 81mg Chewtabs Calcium 500+D3 Unknown [id number] Tablets Ferrous Sulfate Unknown 325(65Fe) mg Tablets Acetaminophen everday Unknown 650mg/20.3ML Solution Artificial Tears as needed Unknown 0.1-0.3% Solution Gabapentin Simeon Fonseca, 300mg Capsules M.D. Immunizations Description No Information Available Vital Signs Date Vital Result Comment 06/04/2016 12:51pm BP Systolic 123 mmHg BP Diastolic 64 mmHg Heart Rate 86 /min Respiratory Rate 16 /min Results Description No Information Available Procedures Description No Information Available Medical Devices Description No Information Available Encounters Description No Information Available Assessments Date Code Description Provider 07/04/2019 H40.1131 Primary open-angle glaucoma, bilateral, Ricky Siddiqi M.D. mild stage 07/04/2019 H35.371 Puckering of macula, right eye Ricky Siddiqi M.D. 07/04/2019 E11.9 Type 2 diabetes mellitus without Ricky Siddiqi M.D. 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 07/04/2019 Z96.1 Presence of intraocular lens Ricky Siddiqi M.D. Plan of Treatment 07/04/2019 - Ricky Siddiqi M.D.H40.1131 Primary open-angle glaucoma, bilateral, mild stageComments:Smoking can increase the risk of developing or worsening any eye related disease, as well as affect your overall health. If you are a smoker, we strongly recommend that you quit.If you are not a smoker, we strongly recommend that you do not start. Your glaucoma is stable at this time.Your eye pressure is within an acceptable range, and your testing does not show any further deterioration at this time. Please continue your treatment.Follow up:4 Month Follow Up IOP Check Visual Field OS FIRST, 30-2 OCT MAC At your next visit, we are not planning to dilate your eyes. However, if you have any changes in your vision or new symptoms, there arecertain situations that require us to dilate your eyes. If Dr. Siddiqi requests any additional testing, that may require extra time. If you have any questions before your next appointment, please call our office at .H35.371 Puckering of macula, right eyeComments:A Macular Pucker is a wrinkling of the retina tissue. It can cause distortion in your vision. Pleasecontact the office if you notice any changes or new distortion in your vision.Follow up:4 Month Follow Up OCT MACE11.9 Type 2 diabetes mellitus without complicationsComments: You have diabetes. I do not detect any changes in both of your retinas from diabetes at this time. Proper control of your diabetes is important for the health of your eyes. Changes in your eyes from diabetes can happen without symptoms, so it is important that you have your eyes examined. Dr. Siddiqi has sent a report to your primary care doctor, letting them know there is no damage from the Diabetes in your eyes.H50.52 HbqlfjebqZ47.1 Presence of intraocular lensComments:The artificial lens implants in both eyes appear to be stable at this time. Functional Status Description No Information Available Mental Status Description No Information Available Referrals Description No Information Available
--- OUTSIDE RECORDS SUMMARY | 2019-07-18 15:48 | XMS REPORT | Continuity of Care Document ---
:1950 External Reference #:[id number] Author Name Jaime Martinez (transmitted by agent of provider Michelle Belcher) Address [address] [place] [address] Care Team Providers Name Role Phone [facility] [employer] Living - Care Team Information Ext Js Developer Nutrition, Education [facility] - Urology Care Team Information Ext Js Developer [phone] Prachi Maldonado DPM - Flanging Roll Operator Care Team Information Ext Js Developer Luis Madsen MD - Cardiovascular Care Team Information Ext Js Developer Disease [facility] - Sleep Disorder Care Team Information Ext Js Developer [phone] Diagnostic [facility] - Otolaryngology Care Team Information Ext Js Developer [phone] [facility] - Care Team Information Ext Js Developer [phone] [facility] - Pain Medicine Care Team Information Ext Js Developer [phone] Problems Active Problems Provider Date Pure hypercholesterolemia [...] 1 pill daily for 30tabs E11.9 Simeon Fonseca, 08/25/2016 81mg Tablets heart disease M.D. DR [...] every V82.81 Simeon Fonseca, 05/24/2012 day M.D. [id number] Tablets Acetaminophen use every eight Simeon Fonseca, [...] CPT Code Status Date Vaccine Lot # [id number] Given 06/09/2019 Influenza Vaccine, Inactivated, Subunit, [id number] Adjuvanted, For Intrmusc 68671 Given 06/01/2018 Influenza Vaccine Split Virus Preservative Free [id number] Im Use 94081 Given 06/22/2017 Influenza Virus Vaccine, Quadrivalent, Split, [id number] Preservative Free 13797 Given 05/20/2016 Pneumococcal Immunization [id number] 77487 Given 05/20/2016 Influenza Virus Vaccine, Quadrivalent, Split, [id number] Preservative Free 92563 Given 08/07/2015 Influenza Virus Vaccine, Quadrivalent, Split, [id number] Preservative Free 25871 Given 03/24/2015 Prevnar 13 [id number] 33194 Given 05/26/2014 Influenza Virus Vaccine, Quadrivalent, Split, [id number] Preservative Free 54199 Given 05/24/2013 Flu, Split Virus 3Yrs 59007 Given 05/12/2013 Adacel or Boostrix, [id number] 30543 Given 05/24/2012 Flu, Split Virus 3Yrs [id number] 88510 Given 07/22/2011 Flu, Split Virus 3Yrs [id number] 50620 Given 04/18/2011 Pneumococcal Immunization [id number] 83051 Given 06/28/2010 Flu, Split Virus 3Yrs [id number] 13935 Given 06/18/2009 Flu, Split Virus 3Yrs [id number] 26081 Given 09/11/2008 Flu, Split Virus 3Yrs 94068 Given 07/23/2007 Flu, Split Virus 3Yrs 36666 Given 08/04/2006 Flu, Split Virus 3Yrs [id number] 27545 Given 07/03/2004 Flu, Split Virus 3Yrs 02187 Given 10/18/2003 Td Immunization [id number] Refused 01/14/2010 Zostavax Vital Signs Date Vital [...] Ua Inhouse 06/09/2019 In House Ua Specific [place] 1.015 Ua Blood trace [place] Ua PH 6.5 Laboratory test finding 06/09/2019 In House Hemoglobin A1c 5.6 Urine Micro Inhouse 04/19/2019 In House Ua WBC 8 1 Ua RBC 15 Ua Casts - Ua Epi - Ua Other - Ua Glucose - Ua Bilirubin - Ua Ketones - Ua Specific [place] 1.030 Ua Blood [place] Mod Ua PH 6.0 Ua Protein tr Ua Urobilinogen - Ua Nitrite - Ua Leukocytes tr Culture Urine Inhouse 04/19/2019 In House Colonies no growth Urine Micro Inhouse 04/11/2019 In House Ua WBC 4-8 Ua RBC tntc Ua Casts - Ua Epi - Ua Other sm bacteria amt Ua Glucose - Ua Bilirubin mod Ua Ketones - Ua Specific [place] 1.015 Ua Blood lg Ua PH 6.5 Ua Protein 3+ Ua Urobilinogen - Ua Nitrite + Ua Leukocytes sm Culture Urine 04/11/2019 In House Colonies 07/05 Inhouse Laboratory test 02/02/2019 In [place] Hemoglobin A1c 5.8 finding Laboratory test 01/31/2019 [facility] Alt (SGPT) 12 U/L Normal 7-52 finding [phone] Lipid Profile 01/31/2019 [facility] Triglycerides 107 mg/dL 2 (Trig/Chol/HDL) [phone] Cholesterol 123 mg/dL 3 HDL Cholesterol 46.4 mg/dL 4 LDL Cholesterol 55 mg/dL 5 CBC Auto Diff 01/31/2019 [facility] White Blood 6.9 10^3/uL Normal 3.5-10.8 [phone] Count Red Blood Count 3.84 10^6/uL Normal [...] % Nucleated Red Blood Cells % 0.1 Iron & Iron Binding Capacity 01/31/2019 [facility] Iron 48 g/dL Low 50-212 [phone] Unsaturated Iron Binding < 390 g/dL Total Iron Binding Capacity 405 g/dL Normal 250-450 Transferrin 289 mg/dL Normal 203-362 % Iron Saturation 12 % Low 15-55 Laboratory test 01/31/2019 [facility] Ferritin 12.4 ng/mL Normal 11- 307 finding [phone] Basic Metabolic Panel 01/31/2019 [facility] Sodium 138 mmol/L Normal 135-145 [phone] Potassium 4.8 mmol/L Normal 3.5-5.0 Chloride 101 mmol/L Normal 101-111 Co2 Carbon Dioxide 29 mmol/L Normal 22-32 Anion Gap 8 mmol/L Normal 2-11 Glucose 125 mg/dL High 70-100 Blood Urea Nitrogen 19 mg/dL Normal 6-24 Creatinine 0.69 mg/dL Normal 0.51-0.95 BUN/Creatinine Ratio 27.5 High 8-20 Calcium 9.0 mg/dL Normal 8.6-10.3 Egfr Non- 84.4 >60 Egfr 102.1 >60 6 Laboratory test 01/10/2019 [facility] TSH (Thyroid 2.81 mcIU/mL Normal 0.34-5.60 finding [phone] Stim Horm) Magnesium 1.9 mg/dL Normal 1.9-2.7 Phosphorus 3.8 mg/dL Normal 2.5-5.0 Comp Metabolic Panel 01/10/2019 [facility] Sodium 141 mmol/L Normal 135-145 [phone] Potassium 4.6 mmol/L Normal 3.5-5.0 Chloride 104 [...] Egfr Non- 73.2 >60 Egfr 88.6 >60 7 Laboratory test 01/10/2019 [facility] Vitamin B12 1324 pg/mL High 180 -914 8 finding [phone] CBC Auto Diff 01/10/2019 [facility] White Blood 6.9 10^3/uL Normal 3.5-10.8 [phone] Count Red Blood Count 4.11 10^6/uL Normal [...] % Nucleated Red Blood Cells % 0 CBC Auto Diff 12/25/2018 [facility] White Blood 8.5 10^3/uL Normal 3.5-10.8 [phone] Count Red Blood Count 3.83 10^6/uL Normal 3.70-4.87 Hemoglobin 11.6 g/dL Low 12.0-16.0 Hematocrit 35 % Normal 33-41 Mean Corpuscular Volume 91 fL Normal 80-97 Mean Corpuscular Hemoglobin 30 pg Normal 27-31 Mean Corpuscular HGB Conc 33 g/dL Normal 31-36 Red Cell Distribution Width 14 % Normal 10.5-15 Platelet Count 461 10^3/uL High 150-450 Mean Platelet Volume 6.8 fL Low 7.4-10.4 Abs Neutrophils 6.0 10^3/uL Normal 1.5-7.7 Abs Lymphocytes 1.7 10^3/uL Normal 1.0-4.8 Abs Monocytes 0.6 10^3/uL Normal 0-0.8 Abs Eosinophils 0.1 10^3/uL Normal 0-0.6 Abs Basophils 0.1 10^3/uL Normal 0-0.2 Abs Nucleated RBC 0 10^3/uL Granulocyte % 70.8 % Lymphocyte % 19.6 % Monocyte % 6.9 % Eosinophil % 1.7 % Basophil % 1.0 % Nucleated Red Blood Cells % 0 Comp Metabolic Panel 12/25/2018 [facility] Sodium 136 mmol/L Normal 135-145 [phone] Potassium 4.2 mmol/L Normal 3.5-5.0 Chloride 103 mmol/L Normal 101-111 Co2 Carbon Dioxide 24 mmol/L Normal 22-32 Anion Gap 9 mmol/L Normal 2-11 Calcium 9.3 mg/dL Normal 8.6-10.3 Albumin 4.0 g/dL Normal 3.2-5.2 Total Bilirubin 0.30 mg/dL Normal 0.2-1.0 Glucose 113 mg/dL High 70-100 Blood Urea Nitrogen 25 mg/dL High 6-24 Creatinine 0.72 mg/dL Normal 0.51-0.95 BUN/Creatinine Ratio 34.7 High 8-20 Total Protein 6.4 g/dL Normal 6.4-8.9 Globulin 2.4 g/dL Normal 2-4 Albumin/Globulin Ratio 1.7 Normal 1-3 Alkaline Phosphatase 55 U/L Normal 34-104 Alt 12 U/L Normal 7-52 Ast 12 U/L Low 13-39 Egfr Non- 80.3 >60 Egfr 97.2 >60 9 Laboratory test 12/25/2018 [facility] Troponin-I (TnI) 0.00 ng/mL < 0.04 10 finding [phone] TSH (Thyroid Stim Horm) 1.76 mcIU/mL Normal 0.34-5.60 Lactic Acid 1.3 mmol/L Normal 0.5-2.0 11 Urinalysis Profile 12/25/2018 [facility] Urine Color Straw [phone] Urine Appearance Clear Urine Specific [place] 1.030 Normal 1.010-1.030 Urine pH 8.0 Normal 5-9 Urine Urobilinogen Negative Negative Urine Ketones Negative Negative Urine Protein Negative Negative Urine Leukocytes 1+ Abnormal Negative Urine Blood 1+ Abnormal Negative Urine Nitrite Negative Negative Urine Bilirubin Negative Negative Urine Glucose Negative Negative Urine White Blood Cell Trace(0-5/hpf) Absent Urine Red Blood Cell Trace(0-2/hpf) Absent Urine Bacteria Absent Absent Laboratory test 12/25/2018 [facility] D Dimer < 200 Normal Less 12 finding [phone] Quantitative ng/mL Than 230 Urine Culture And 12/25/2018 [facility] Urine Culture SEE 13 Sensitivities [phone] RESULT BELOW Inr/Protime 12/25/2018 [facility] Inr 0.89 Normal 0.77-1. [phone] 02 1 void, clear, yellow 2 Desirable: <150 Borderline High: 150-199 High: 200-499 Very High: >500 3 Desirable: <200 Borderline High: 200-239 High: >239 4 Low: <40 Desirable: 40-60 High: >60 5 Desirable: <100 Near Optimal: 100-129 Borderline High: 130-159 High: 160-189 Very High: >189 6 Because ethnic data is not always readily [...] 15-29 5 Kidney failure <15 (or dialysis) 7 Because ethnic data is not always readily [...] 15-29 5 Kidney failure <15 (or dialysis) 8 Normal Range 180 to 914 Indeterminate Range 145 to 180 Deficient Range <145 9 Because ethnic data is not always readily [...] 15-29 5 Kidney failure <15 (or dialysis) 10 Troponin-I testing on Plasma Separator Tubes (PST) has a known false positive rate of 0.20-0.40%. All positive troponins reflex immediate secondary confirmatory testing. 11 Specimen hemolyzed. Result may not be valid. [facility] Severe Sepsis and Septic Shock Management Bundle Measure requires all lactic acids initially measuring >2.0 mmol/L be repeated. 12 Please note: The following may produce a false positive D Dimer test: - Rheumatoid factor greater than 60 IU/ml - Plasma hemoglobin greater than 0.05 gm/dl - Bilirubin greater than 50 mg/dl - Lipids greater than 1000 mg/dl - FDP greater than 20 ug/ml 13 SEE RESULT BELOW Name: FAUSTINO PEREIRA : [address]: Mayte Alejandra MD Acct: [id number] Unit: [id number] AGE: 68 Location: [place] [address] Re12/25/18 SEX: F Status: ADM IN SPEC: [id number] RADU: 12/25/18-1331 [facility] DR: Basil Love MD REQ: [id number] RECD: 12/25/18-145 STATUS: HE TREJO DR: Simeon Fonseca MD _ SOURCE: URINE SPDESC: ORDERED: Urine Culture Procedure Result Reported Site Urine Culture Final 12/26/18- 1228 ML No Growth (<1,000 CFU/mL) * ML - Main Lab . END OF REPORT DEPARTMENT OF PATHOLOGY, [address] [place] [address] Osmany Marin M.D. Director [facility] # [id number] Procedures Date Code Description Status 02/02/2019 00363 Dexa Bone Density Study One Or More Sites Axial Completed Skeleton 02/02/2019 347204156 Diabetic Foot Exam Completed 11/25/2018 322397557 Diabetic Retinal Eye Exam Completed 10/29/2017 64649076 Mammogram Completed 03/28/2015 95703922 Colonoscopy Completed Medical Devices Description No Information Available Encounters Type Date Location Provider Dx Diagnosis Office Visit 06/23/2019 Main Office Jaime Martinez M79.672 Pain in left foot 1:20p R07.89 Other chest pain R42 Dizziness and giddiness Office Visit 06/20/2019 4:20p Main Office Jaime [...] Encntr for oth proc for purpose oth [facility] Office Visit 04/11/2019 9:30a Main Office Simeon Fonseca, M79.605 Pain in left M.D. 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 06/23/2019 R07.89 Other chest pain Concepcion [place] 06/23/2019 R42 Dizziness and giddiness Concepcion [place] 06/20/2019 H53.2 Diplopia Concepcion [place] 06/20/2019 E11.51 Type 2 diabetes mellitus with diabetic Concepcion [place] peripheral angiopathy without gangrene 06/20/2019 G95.0 Syringomyelia and 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 Concepcion [place], [facility] 06/09/2019 E11.51 Type 2 diabetes mellitus with diabetic Concepcion [place] peripheral angiopathy without gangrene 06/09/2019 M79.672 Pain in left foot Concepcion [place] 06/09/2019 M79.671 Pain in right foot Concepcion [place] 06/09/2019 R31.9 Hematuria, unspecified Concepcion [place] 06/09/2019 M99.53 Intervertebral disc stenosis of neural Concepcion [place] canal of lumbar regio 06/09/2019 F51.12 Insufficient sleep syndrome Concepcion [place], [facility] 06/09/2019 G57.13 Meralgia paresthetica, bilateral lower Concepcion [place], [facility] limbs 06/09/2019 D51.9 Vitamin B12 deficiency anemia, unspecified Concepcion [place] 06/09/2019 I10 Essential (primary) hypertension Concepcion [place] 06/09/2019 K21.9 Gastro-esophageal reflux disease without Concepcion [place] esophagitis 06/09/2019 Z23 Encounter for immunization Concepcion [place], [facility].A[facility] 06/09/2019 Z41.8 Encounter for other procedures for Concepcioncamelia [place], P.A. purposes other than remedying health state 04/19/2019 R30.0 Dysuria Simeon Fonseca M.D. 04/11/2019 M79.605 Pain in left leg Simeon Fonseca M.D. 04/11/2019 M79.604 Pain in right leg Simeon Fonseca M.D. 04/11/2019 G95.0 Syringomyelia and 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 Simeon [...] of falling Simeon Fonseca M.D. 02/02/2019 M85.89 Ot disrd of bone density and structure, Simeon Fonseca M.D. multiple sites 02/02/2019 E11.40 Type 2 diabetes mellitus with diabetic Simeon Fonseca M.D. neuropathy, unspecifi 02/02/2019 G45.9 Transient cerebral ischemic attack, Simeon Fonseca M.D. unspecified 02/02/2019 E78.00 Pure hypercholesterolemia, rajwinderified Simeon Fonseca M.D. 02/02/2019 D51.9 Vitamin B12 deficiency anemia, unspecified Simeon Fonseca M.D. 02/02/2019 D50.9 Iron deficiency anemia, unspecified Simeon Fonseca M.D. 02/02/2019 G25.81 Restless legs syndrome Simeon Fonseca M.D. 02/02/2019 G95.0 Syringomyelia and 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 Simeon Fonseca M.D. 02/02/2019 I10 Essential (primary) hypertension Simeon Fonseca M.D. 02/02/2019 E11.40 Type 2 diabetes mellitus with diabetic Radiology, Dexa & X -Ray neuropathy, unsp 01/10/2019 E11.40 Type 2 diabetes mellitus with diabetic Sahil Garcia D.O. neuropathy, unspecifi 01/10/2019 G45.9 Transient cerebral ischemic attack, Sahil Garcia D.O. unspecified 01/10/2019 G93.5 Compression of brain Sahil Garcia D.O. 01/10/2019 M99.53 Intervertebral disc stenosis of neural Sahil Garcia D.O. canal of lumbar regio 01/10/2019 M21.372 Foot drop, left foot Sahil Garcia D.O. 01/10/2019 Z91.81 History of falling CatrinamarionSahil D.O. 01/10/2019 R40.1 Stupor Sahil Garcia D.O. 12/29/2018 G45.9 Transient cerebral ischemic attack, [...] 1:00 pm - Jaime Martinez at Main [id number] - Jaime MartinezM79.672 Pain in left footR07.89 Other chest painNew Orders:EKG W/ Reading, Ordered: 06/23/19Follow up:very sporatic episodes of painR42 Dizziness and giddinessNew Orders:Ortho Vital Signs, Ordered : 06/23/19 Functional Status Description No Information Available Mental Status Description No Information Available Referrals Refer to Reason for Referral Status Appt Date [facility] - ref Closed & [facility] - Referrals [address] [place] [address] [phone]
--- OUTSIDE RECORDS SUMMARY | 2019-07-18 15:48 | XMS REPORT | Continuity of Care Document ---
:1950 External Reference #:[id number] Author Name Jaime Martinez (transmitted by agent of provider Simeon Fonseca) Address [address] [place] [address] Care Team Providers Name Role Phone [facility] - Care Team Information Accounts Receivable Clerk Nutrition, Education [facility] - Urology Care Team Information Accounts Receivable Clerk [phone] Prachi Maldonado DPM - Prepress Proofer Care Team Information Accounts Receivable Clerk Luis Madsen MD - Cardiovascular Care Team Information Accounts Receivable Clerk Disease [facility] - Sleep Disorder Care Team Information Accounts Receivable Clerk [phone] [facility] - Otolaryngology Care Team Information Accounts Receivable Clerk [phone] [facility] - Care Team Information Accounts Receivable Clerk [phone] [facility] - Pain Medicine Care Team Information Accounts Receivable Clerk [phone] Problems Active Problems Provider Date Pure hypercholesterolemia [...] M.D. Onset: 02/02/2019 Iron deficiency anemia Simeon Fosneca M.D. Onset: 02/02/2019 Diabetic neuropathy Simeon Fonseca [...] 08/25/2016 81mg Tablets heart disease M.D. DR gonclaves Simvastatin take one tablet by 90tabs E78.00 [...] every V82.81 Simeon Fonseca, 05/24/2012 day M.D. 444-151un-Oflb Tablets Acetaminophen use every eight Simeon Fonseca, [...] CPT Code Status Date Vaccine Lot # [id number] Given 06/09/2019 Influenza Vaccine, Inactivated, Subunit, [id number] Adjuvanted, For Intrmusc 13114 Given 06/01/2018 Influenza Vaccine Split Virus Preservative Free [id number] Im Use 21302 Given 06/22/2017 Influenza Virus Vaccine, Quadrivalent, Split, [id number] Preservative Free 51185 Given 05/20/2016 Pneumococcal Immunization [id number] 67992 Given 05/20/2016 Influenza Virus Vaccine, Quadrivalent, Split, [id number] Preservative Free 33066 Given 08/07/2015 Influenza Virus Vaccine, Quadrivalent, Split, [id number] Preservative Free 20463 Given 03/24/2015 Prevnar 13 [id number] 18987 Given 05/26/2014 Influenza Virus Vaccine, Quadrivalent, Split, [id number] Preservative Free 40709 Given 05/24/2013 Flu, Split Virus 3Yrs 68621 Given 05/12/2013 Adacel or Boostrix, [id number] 30166 Given 05/24/2012 Flu, Split Virus 3Yrs [id number] 40038 Given 07/22/2011 Flu, Split Virus 3Yrs [id number] 83549 Given 04/18/2011 Pneumococcal Immunization [id number] 43276 Given 06/28/2010 Flu, Split Virus 3Yrs [id number] 76670 Given 06/18/2009 Flu, Split Virus 3Yrs [id number] 68532 Given 09/11/2008 Flu, Split Virus 3Yrs 60736 Given 07/23/2007 Flu, Split Virus 3Yrs 43843 Given 08/04/2006 Flu, Split Virus 3Yrs [id number] 69804 Given 07/03/2004 Flu, Split Virus 3Yrs 03998 Given 10/18/2003 Td Immunization [id number] Refused 01/14/2010 Zostavax Vital Signs Date Vital Result Comment 06/20/2019 5:12pm BP Systolic 132 mmHg BP Diastolic 60 mmHg BP Systolic Recheck 91 mmHg pt's wrist cuff BP Diastolic Recheck 71 mmHg pt's wrist cuff Weight 163.50 lb 06/09/2019 1:41pm BP Systolic 116 mmHg BP Diastolic 64 mmHg Weight 159.00 lb Results Test Date Facility Test Result H/L Range Note Ua Inhouse 06/09/2019 In House Ua Specific [place] 1.015 Ua Blood trace [place] Ua PH 6.5 Laboratory test finding 06/09/2019 In [place] Hemoglobin A1c 5.6 Urine Micro Inhouse 04/19/2019 In House Ua WBC 8 1 Ua RBC 15 Ua Casts - Ua Epi - Ua Other - Ua Glucose - Ua Bilirubin - Ua Ketones - Ua Specific [place] 1.030 Ua Blood [place] Mod Ua PH 6.0 Ua Protein tr Ua Urobilinogen - Ua Nitrite - Ua Leukocytes tr Culture Urine Inhouse 04/19/2019 In House [place] no growth Urine Micro Inhouse 04/11/2019 In House Ua WBC 4-8 Ua RBC tntc Ua Casts - Ua Epi - Ua Other sm bacteria amt Ua Glucose - Ua Bilirubin mod Ua Ketones - Ua Specific [place] 1.015 Ua Blood lg Ua PH 6.5 Ua Protein 3+ Ua Urobilinogen - Ua Nitrite + Ua Leukocytes sm Culture Urine 04/11/2019 In House [place] 07/05 Inhouse Laboratory test 02/02/2019 In [place] Hemoglobin A1c 5.8 finding Laboratory test 01/31/2019 [facility] Alt (SGPT) 12 U/L Normal 7-52 finding [phone] Lipid Profile 01/31/2019 [facility] Triglycerides 107 mg/dL 2 (Trig/Chol/HDL) [phone] Cholesterol 123 mg/dL 3 HDL Cholesterol 46.4 mg/dL 4 LDL Cholesterol 55 mg/dL 5 CBC Auto Diff 01/31/2019 [facility] White Blood 6.9 10^3/uL Normal 3.5-10.8 [phone] Count Red Blood Count 3.84 10^6/uL Normal [...] 0.1 Iron & Iron Binding Capacity 01/31/2019 [facility] Iron 48 g/dL Low 50-212 [phone] Unsaturated Iron Binding < 390 g/dL Total Iron Binding Capacity 405 g/dL Normal 250-450 Transferrin 289 mg/dL Normal 203-362 % Iron Saturation 12 % Low 15-55 Laboratory test 01/31/2019 [facility] Ferritin 12.4 ng/mL Normal 11- 307 finding [phone] Basic Metabolic Panel 01/31/2019 [facility] Sodium 138 mmol/L Normal 135-145 [phone] Potassium 4.8 mmol/L Normal 3.5-5.0 Chloride 101 mmol/L Normal 101-111 Co2 Carbon Dioxide 29 mmol/L Normal 22-32 Anion Gap 8 mmol/L Normal 2-11 Glucose 125 mg/dL High 70-100 Blood Urea Nitrogen 19 mg/dL Normal 6-24 Creatinine 0.69 mg/dL Normal 0.51-0.95 BUN/Creatinine Ratio 27.5 High 8-20 Calcium 9.0 mg/dL Normal 8.6-10.3 Egfr Non- 84.4 >60 Egfr 102.1 >60 6 Laboratory test 01/10/2019 [facility] TSH (Thyroid 2.81 mcIU/mL Normal 0.34-5.60 finding [phone] Stim Horm) Magnesium 1.9 mg/dL Normal 1.9-2.7 Phosphorus 3.8 mg/dL Normal 2.5-5.0 Comp Metabolic Panel 01/10/2019 [facility] Sodium 141 mmol/L Normal 135-145 [phone] Potassium 4.6 mmol/L Normal 3.5-5.0 Chloride 104 [...] Egfr 88.6 >60 7 Laboratory test 01/10/2019 [facility] Vitamin B12 1324 pg/mL High 180 -914 8 finding [phone] CBC Auto Diff 01/10/2019 [facility] White Blood 6.9 10^3/uL Normal 3.5-10.8 [phone] Count Red Blood Count 4.11 10^6/uL Normal [...] Cells % 0 CBC Auto Diff 12/25/2018 [facility] White Blood 8.5 10^3/uL Normal 3.5-10.8 [phone] Count Red Blood Count 3.83 10^6/uL Normal [...] Cells % 0 Comp Metabolic Panel 12/25/2018 [facility] Sodium 136 mmol/L Normal 135-145 [phone] Potassium 4.2 mmol/L Normal 3.5-5.0 Chloride 103 [...] Egfr 97.2 >60 9 Laboratory test 12/25/2018 [facility] Troponin-I (TnI) 0.00 ng/mL < 0.04 10 finding [phone] TSH (Thyroid Stim Horm) 1.76 mcIU/mL Normal 0.34-5.60 Lactic Acid 1.3 mmol/L Normal 0.5-2.0 11 Urinalysis Profile 12/25/2018 [facility] Urine Color Straw [phone] Urine Appearance Clear Urine Specific [place] 1.030 Normal 1.010-1.030 Urine pH 8.0 Normal 5-9 Urine Urobilinogen Negative Negative Urine Ketones Negative Negative Urine Protein Negative Negative Urine Leukocytes 1+ Abnormal Negative Urine Blood 1+ Abnormal Negative Urine Nitrite Negative Negative Urine Bilirubin Negative Negative Urine Glucose Negative Negative Urine White Blood Cell Trace(0-5/hpf) Absent Urine Red Blood Cell Trace(0-2/hpf) Absent Urine Bacteria Absent Absent Laboratory test 12/25/2018 [facility] D Dimer < 200 Normal Less 12 finding [phone] Quantitative ng/mL Than 230 Urine Culture And 12/25/2018 [facility] Urine Culture SEE 13 Sensitivities [phone] RESULT BELOW Inr/Protime 12/25/2018 [facility] Inr 0.89 Normal 0.77-1. [phone] 02 1 void, clear, yellow 2 Desirable: [...] Specimen hemolyzed. Result may not be valid. [facility] Severe Sepsis and Septic Shock Management Bundle [...] ug/ml 13 SEE RESULT BELOW Name: FAUSTINO PEREIAR : [address]: Mayte Alejandra MD Acct: [id number] Unit: [id number] AGE: 68 Location: [place] [address] Re12/25/18 SEX: F Status: ADM IN SPEC: [id number] RADU: 12/25/18-1330 [facility] DR: Basil Love MD REQ: [id number] RECD: 12/25/18 STATUS: HE TREJO DR: Simeon Fonseca MD _ SOURCE: URINE SPDESC: ORDERED: Urine Culture Procedure Result Reported Site Urine Culture Final 12/26/18- 1228 ML No Growth (<1,000 CFU/mL) * ML - Main Lab . END OF REPORT DEPARTMENT OF PATHOLOGY, [address] [place] [id number] Osmany Marin M.D. Director [facility] # [id number] Procedures Date Code Description Status 02/02/2019 46727 Dexa Bone Density Study One Or More Sites Axial Completed Skeleton 02/02/2019 117820876 Diabetic Foot Exam Completed 11/25/2018 501990163 Diabetic Retinal Eye Exam Completed 10/29/2017 37032321 Mammogram Completed 03/28/2015 [id number] Colonoscopy Completed Medical Devices Description No Information Available Encounters Type Date Location Provider Dx Diagnosis Office Visit 06/20/2019 4:20p Main Office Jaime Martinez H53.2 Diplopia E11.51 Type 2 diabetes w diabetic peripheral angiopath w/o gangrene G95.0 Syringomyelia and 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 Office Visit 06/09/2019 1:40p Main Office Concepcion Lackey, E11.51 Type 2 diabetes w P.A. diabetic [...] Encntr for oth proc for purpose oth [facility] Office Visit 04/11/2019 9:30a Main Office Simeon Fonseca, M79.605 Pain in left M.D. 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 06/20/2019 E11.51 Type 2 diabetes mellitus with diabetic Concepcion Holden, P.A. peripheral angiopathy without gangrene 06/20/2019 G95.0 Syringomyelia and 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 Concepcion Holden, P.A. 06/09/2019 E11.51 Type 2 diabetes mellitus with diabetic Concepcion Holden, P.A. peripheral angiopathy without gangrene 06/09/2019 M79.672 Pain in left foot Concepcion Holden, P.A. 06/09/2019 M79.671 Pain in right foot Concepcion Holden, P.A. 06/09/2019 R31.9 Hematuria, unspecified Concepcion Holden, P.A. 06/09/2019 M99.53 Intervertebral disc stenosis of neural Concepcion Holden, P.A. canal of lumbar regio 06/09/2019 F51.12 Insufficient sleep syndrome Concepcion Holden, P.A. 06/09/2019 G57.13 Meralgia paresthetica, bilateral lower Concepcion Holden, P.A. limbs 06/09/2019 D51.9 Vitamin B12 deficiency anemia, unspecified Concepcion Holden, P.A. 06/09/2019 I10 Essential (primary) hypertension Concepcion Holden, P.A. 06/09/2019 K21.9 Gastro-esophageal reflux disease without Concepcion Holden, P.A. esophagitis 06/09/2019 Z23 Encounter for immunization Concepcioncamelia Lackey, P.A. 06/09/2019 Z41.8 Encounter for other procedures for Concepcion Lackey, P.A. purposes other than remedying health state [...] Fonseca M.D. 04/11/2019 D50.9 Iron deficiency anemia, unspecified Simeon Fonseca M.D. 04/11/2019 I10 Essential (primary) [...] of falling Simeon Fonseca M.D. 02/02/2019 M85.89 [facility] disrd of bone density and structure, Simeon Fonseca M.D. multiple sites 02/02/2019 E11.40 Type 2 diabetes mellitus with diabetic Simeon Fonseca M.D. neuropathy, unspecifi 02/02/2019 G45.9 Transient cerebral ischemic attack, Simeon Fonseca M.D. unspecified 02/02/2019 E78.00 Pure hypercholesterolemia, rajwinderified Simeon Fonseca M.D. 02/02/2019 D51.9 Vitamin B12 deficiency anemia, unspecified Simeon Fonseca M.D. 02/02/2019 D50.9 Iron deficiency anemia, Simeon Sweet M.D. 02/02/2019 G25.81 Restless legs syndrome Simeon [...] Sahil Garcia D.O. 01/10/2019 R40.1 Stupor Sahil Garcia D.O. [...] 1:00 pm - Jaime Martinez at Main [id number] - Jaime MartinezE11.51 Type 2 diabetes mellitus with diabetic peripheral angiopathy without gangreneComments:5.6%M79.672 Pain in left footFollow up:Talk with the people at [facility] as this seems to be plantar fascitis; Address: [address] [place] [address] use ice at home to help the myxkizxovffeW50.671 Pain in right footR31.9 Hematuria, unspecifiedComments:tr hematuria noted in urine pjhglZ29.53 Intervertebral disc stenosis of neural canal of lumbar regioFollow up:cont to f/u w Dr. Mclean and pain clinic as needed cont to use bvzdazD57.12 Insufficient sleep syndromeFollow up:try going to bed and not looking at the pyfdcR41.13 Meralgia paresthetica, bilateral lower fysacX00.9 Vitamin B12 deficiency anemia, unspecifiedFollow up:cont use of B12 [id number] Essential (primary) hypertensionComments:pt advised to report cp, change in angina , sob etContinue same meds with no change. Comply with diet and exercise. Lose weight and watch salt in diet.Follow up:report cp, change in angina , sob etContinue same meds with no change. Comply with diet and exercise. Lose weight and watch salt in diet.K21.9 Gastro-esophageal reflux disease without esophagitisFollow up:try using some TUMs for heartburn like feeling , try not to eat later in the evening, if you do eat something very [id number] Encounter for immunizationComments:Counseling done regarding risks and benefits of vaccines, previous vaccine reactions and possible contraindications to vaccine discussed, and pt's questions answered. Pt agreed to vaccination. VIS sheets given.Z41.8 Encounter for other procedures for purposes other than remedying health state Functional Status Description No Information Available Mental Status Description No Information Available Referrals Refer to Reason for Referral Status Appt Date [facility] - ref Closed & [facility] Referrals [address] [place] [address] [phone]
--- OUTSIDE RECORDS SUMMARY | 2019-07-18 15:48 | XMS REPORT | Continuity of Care Document ---
:1950 External Reference #:[id number] Author Name Rishabh Mclean M.D. (transmitted by agent of provider Radha Garcia ) Address [address], [place] [address] Problems Active Problems Provider Date Chest pain Juan R Sunshine M.D. Onset: 06/29/2013 Pure hypercholesterolemia Juan R Sunshine M.D. Onset: 06/29/2013 Mixed hyperlipidemia Juan R Sunshine M.D. Onset: 06/29/2013 Dyspnea Juan R Sunshine M.D. Onset: 06/29/2013 Palpitations Juan R Sunshine M.D. Onset: 06/29/2013 Electrocardiogram abnormal Juan R Sunshine M.D. Onset: 06/29/2013 Right bundle branch block Juan R Sunshine M.D. Onset: 06/29/2013 Sleep disorder Juan R Sunshine M.D. Onset: 06/15/2014 Chronic pulmonary heart disease Juan R Sunshine M.D. Onset: 06/15/2014 Obstructive sleep apnea of adult Carmen Martinez DNP, MARYSOL, MELONIE-GALR[place] Onset: 04/2015 Poor sleep pattern Carmen Martinez DNP, MARYSOL, [place]ON[place] Onset: 01/03/2015 Social History Type Date Description Comments Sex Unknown Tobacco Use Start: Unknown Never Smoked Cigarettes ETOH Use Denies alcohol use Recreational Drug Use Denies Drug Use Tobacco Use Start: Unknown Patient has never smoked Smoking Status Reviewed: 05/31/19 Patient has never smoked Exercise Type/Frequency some times uses an [employer] bike Allergies, Adverse Reactions, Alerts Active Allergies Reaction Severity Comments Date Cephalexin 01/07/2013 Ciprofloxacin 01/07/2013 Sulfa Antibiotics 01/07/2013 Latex rash 06/29/2013 Amoxicillin rash 06/29/2013 Tide Laundry Detergent 07/08/2013 Fluticasone Furoate Difficulty breathing Moderate 12/31/2018 Vilanterol Difficulty breathing Moderate 12/31/2018 Clopidogrel rash Mild 01/10/2019 Aggrenox Dizziness 04/18/2019 Medications Active Medications SIG Qnty Indications Ordering Date Provider Lightweight Carbon To be worn on 1unghazala Rishabh Villarreal 03/13/2016 Fiber Afo Left Foot left foot.. Delfino Mclean Baclofen take 2 tablets 150tabs Rishabh Villarreal 12/22/2012 10mg Tablets by mouth every Delfino Mclean morning, 1 by mouth at noon and 2 by mouth every night Brimonidine-Dorzolamide one drop twice Unknown a day each eye 0.15-2% Solution Aspirin Adult Low Dose 1 by mouth Unknown 81mg every day Tablets DR Ropinirole HCL take one tablet Unknown 0.5mg by mouth every Tablets evening Acetaminophen ER three time Unknown 650mg daily Tablets ER Systane apply twice Unknown 0.4-0.3% Solution daily as needed for dry eyes Latanoprost 1 drop in each Unknown 0.005% Solution eye at bedtime Timolol Maleate 1 gtt each eye Unknown 0.5% bid Solution Vitamin B12 1 by mouth Unknown 1000mcg Tablets every day ER Iron 1 by mouth Unknown 325(65Fe) mg Tablets every other day Omeprazole 1 capsule by Unknown 40mg Capsules DR mouth daily Spironolactone take one tablet 60tabs Unknown 100mg daily Tablets Calcium 600 + D 1 po daily 60tabs Unknown [id number] Tablets Metformin HCL 1 po bid 60tabs Unknown 1000mg Tablets Simvastatin 1 tab po daily 90tabs Unknown 20mg Tablets History Medications Gabapentin take one capsule 90caps Unknown 04/17/2019 - 400mg by mouth 4 times a 05/30/2019 Capsules day Aspirin-Dipyridamole Take one cap po 60caps Rishabh Mclean, 01/10/2019 - ER bid M.DTiffany 01/20/2019 25-200mg Caps ER 12HR Immunizations Description No Information Available Vital Signs Date Vital Result Comment 05/31/2019 9:46am Height 63 inches 5'3" Weight 155.25 lb Heart Rate 76 /min BP Systolic 122 mmHg BP Diastolic 76 mmHg BMI (Body Mass Index) 27.5 kg/m2 04/18/2019 1:17pm Height 63 inches 5'3" Weight 160.25 lb Heart Rate 72 /min BP Systolic Recheck 112 mmHg LA, reg BP Diastolic Recheck 82 mmHg LA, reg BMI (Body Mass Index) 28.4 kg/m2 Ejection Fraction 55%-60% Ef 12/26/18 Results Test Date Facility Test Result H/L Range Note Order 01/10/2019 [facility] Holter Monitor <pending> [address] [facility] [place] [address] [phone] 1 24 hour Holter monitor for recent TIA Procedures Date Code Description Status 04/18/2019 96867 EKG Tracing & Interpretation Completed 01/14/2019 97025 Holter Monitor Review (24 hr)dr review & interp only Completed 01/10/2019 07053 ECG Monitor/Recording W/Visual Superimposition Scanning Completed 12/26/2018 37880 ECHO Transthorasic Realtime 2D W Doppler & Color Flow Hosp Completed Medical Devices Description No Information Available Encounters Type Date Location Provider Dx Diagnosis Office Visit 04/18/2019 [facility] Valeriatastefan S. 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 Office Visit 01/21/2019 [facility] Lam Amato, G95.0 Syringomyelia and 3:30p Clinic 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 R42 Dizziness and giddiness M62.81 Muscle weakness (generalized) I69.998 Other sequelae following unspecified cerebrovascular disease Office Visit 12/31/2018 [facility] Rishabh Villarreal G95.0 Syringomyelia and 3:15p Clinic Delfino Mclean 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 Z86.73 Prsnl hx of TIA (TIA), and cereb infrc w/o resid deficits Office Visit 12/27/2018 7:00a [facility] Tisha Kemp R42 Dizziness and gicasandrainess H53.2 Diplopia R20.2 Paresthesia of skin G95.0 Syringomyelia and 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 Office Visit 12/27/2018 [facility] Gaye G45.9 Transient 10:19a Assocstephen M.D. cerebral ischemic attack, unspecified Office Visit 12/26/2018 [facility] Dorys R42 Dizziness and 7:00a Clinic Delfino Palencia giddiness H53.2 Diplopia R20.2 Paresthesia of skin G95.0 Syringomyelia and 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 Office Visit 12/26/2018 [facility] Mayte G45.9 Transient 3:08p Assocstephen MD cerebral ischemic Hospitalists attack, unspecified R07.9 Chest pain, unspecified Office Visit 12/25/2018 7:00a [facility] Dorys Palencia, R42 Dizziness and Clinic Delfino giddiness H53.2 Diplopia R20.2 Paresthesia of skin G95.0 Syringomyelia and 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 Office Visit 12/25/2018 10:19a [facility] Issa Astorga R20.0 Anesthesia of Assstephen liz MD skin Hospitalists R29.810 Facial weakness H53.2 Diplopia R07.9 Chest pain, unspecified I10 Essential (primary) hypertension 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 05/31/2019 R29.6 Repeated falls Rishabh Mclean M.D. 05/31/2019 M21.372 Foot drop, left foot Rishabh Mclean M.D. 05/31/2019 Z86.73 Personal history of transient ischemic Rishabh Mclean M.D. attack (TIA), and cerebral infarction without residual deficits 04/18/2019 I63.9 Cerebral infarction, unspecified Juan R Sunshine M.D. 04/18/2019 G45.9 Transient cerebral ischemic attack, Juan R Sunshine M.D. unspecified 04/18/2019 I10 Essential (primary) hypertension Juan R Sunshine M.D. 04/18/2019 E78.5 Hyperlipidemia, unspecified Juan R Sunshine M.D. 04/18/2019 G47.33 Obstructive sleep apnea (adult) Juan R Sunshine M.D. (pediatric) 04/18/2019 E66.9 Obesity, unspecified Juan R Sunshine M.D. 04/18/2019 I45.10 Unspecified right bundle-branch block Juan R Sunshine M.D. 03/23/2019 G95.0 Syringomyelia and 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 Lam Amato NP 03/23/2019 I69.998 Other sequelae following unspecified Lam Amato NP cerebrovascular disease 03/23/2019 R42 Dizziness and giddiness Lam Amato NP 03/23/2019 Z79.82 snf (current) use of aspirin Lam Amato NP 01/21/2019 G95.0 Syringomyelia and 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 Lam Amato NP 01/21/2019 R42 Dizziness and giddiness Lam Amato, ECTOR 01/21/2019 M62.81 Muscle weakness (generalized) Lam Amato NP 01/21/2019 I69.998 Other sequelae following unspecified Lam JohnyECTOR gillis cerebrovascular disease 01/14/2019 I63.9 Cerebral infarction, unspecified Luis Madsen M.D. 01/14/2019 Z86.73 Personal history of transient ischemic Luis Madsen M.D. attack (TIA), and cer 01/10/2019 I63.9 Cerebral infarction, unspecified Nurse Visit IC 01/10/2019 Z86.73 Personal history of transient ischemic Nurse Visit IC attack (TIA), and cer 12/31/2018 G95.0 Syringomyelia and 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 Rishabh Mclean M.D. 12/31/2018 Z86.73 Personal history of transient ischemic Rishabh Mclean M.D. attack (TIA), and cer 12/27/2018 R42 Dizziness and giddiness Tisha Kemp MD 12/27/2018 G45.9 Transient cerebral ischemic attack, Gaye Ojeda M.D. unspecified 12/27/2018 H53.2 Diplopia Tisha Kemp MD 12/27/2018 R20.2 Paresthesia of skin Tisha Kemp MD 12/27/2018 G95.0 Syringomyelia and 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 Tisha Kemp MD 12/26/2018 R42 Dizziness and giddiness oDrys Palencia M.D. 12/26/2018 G45.9 Transient cerebral ischemic attack, Mayte Alejandra MD unspecified 12/26/2018 H53.2 Diplopia Dorys Palencia M.D. 12/26/2018 I63.9 Cerebral infarction, unspecified Janneth Rojas M.D. 12/26/2018 R20.2 Paresthesia of skin Dorys Palencia M.D. 12/26/2018 R07.9 Chest pain, unspecified Mayte Alejandra MD 12/26/2018 G95.0 Syringomyelia and 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 Dorys Palencia M.D. 12/25/2018 R42 Dizziness and giddiness Dorys Palencia M.D. 12/25/2018 R20.0 Anesthesia of skin Issa Valdez MD 12/25/2018 H53.2 Diplopia Dorys Palencia M.D. 12/25/2018 R29.810 Facial weakness Issa Valdez MD 12/25/2018 R20.2 Paresthesia of skin Dorys Palencia M.D. 12/25/2018 H53.2 Diplopia Issa Valdez MD 12/25/2018 G95.0 Syringomyelia and 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 Dorys Palencia M.D. 12/25/2018 R07.9 Chest pain, unspecified Issa Valdez MD 12/25/2018 I10 Essential (primary) hypertension Issa Valdez MD 12/25/2018 E11.39 Type 2 diabetes w oth diabetic Issa Valdez MD ophthalmic complication 12/25/2018 H42 Glaucoma in diseases classified Issa Valdez MD elsewhere 12/25/2018 K21.9 Gastro-esophageal reflux disease Issa Valdez MD without esophagitis 11/30/2018 G95.0 Syringomyelia and 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 Rishabh Mclean M.D. 11/30/2018 M48.062 Spinal stenosis, lumbar region with Rishabh Mclean M.D. neurogenic claudication 11/30/2018 M43.16 Spondylolisthesis, lumbar region Rishabh Mclean M.D. 11/30/2018 R51 Headache Rishabh Mclean M.D. Plan of Treatment Future Appointment(s):11/30/2019 9:45 am - Rishabh Mclean M.D. at [facility]05/31/2019 - Rishabh Mclean M.D.G95.0 Syringomyelia and 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Follow up:6 [id number] Repeated fallsNew Therapy :Physical RjbyivlV08.372 Foot drop, left footZ86.73 Personal history of transient ischemic attack (TIA), and cerebral infarction without residualdeficits Functional Status Description No Information Available Mental Status Description No Information Available Referrals Refer to Dr Reason for Referral Status Appt Date Klaudia Parker,Florentino, RD, Needs dietary assessment for cardiac Sent Cde, CDN healthy diet. Thanks. [place] [address] [phone]
[2019-07-18 16:12] LABS: ABS Basophils 0.1 10^3/ul (0-0.2); ABS Eosinophils 0.3 10^3/ul (0-0.6); ABS Lymphocytes 1.5 10^3/ul (1.0-4.8); ABS Monocytes 0.6 10^3/ul (0-0.8); ABS Neutrophils 7.2 10^3/ul (1.5-7.7); Eosinophil % 2.8 %; Hematocrit 37 % (35-47); Hemoglobin 12.1 g/dL (12.0-16.0); Lymphocyte % 15.8 %; Mean Corpuscular HGB Conc 33 g/dL (31-36); Mean Corpuscular Hemoglobin 30 pg (27-31); Mean Corpuscular Volume 91 fL (80-97); Platelet Count 381 10^3/uL (150-450); Red Blood Count 4.04 10^6 /uL (3.70-4.87); Red Cell Distribution Width 14 % (10-15); White Blood Count 9.6 10^3/uL (3.5-10.8)
[2019-07-18 16:21] LABS: INR 0.91 (0.82-1.09)
[2019-07-18 16:58] LABS: ALT 16 U/L (7-52); AST 18 U/L (13-39); Albumin 4.1 g/dL (3.2-5.2); Albumin/Globulin Ratio 1.6 (1-3); Alkaline Phosphatase 53 U/L (34-104); Anion Gap 10 mmol/L (2-11); Blood Urea Nitrogen 28 mg/dL (6-24); C Reactive Protein < 1.00 mg/L (<8.01); CO2 Carbon Dioxide 26 mmol/L (22-32); Calcium 9.4 mg/dL (8.6-10.3); Chloride 103 mmol/L (101-111); EGFR African American 100.4 (>60); Globulin 2.6 g/dL (2-4); Glucose 92 mg/dL (70-100); Potassium 4.5 mmol/L (3.5-5.0); Sodium 139 mmol/L (135-145); Total Protein 6.7 g/dL (6.4-8.9)
[2019-07-18 17:51] VITALS: BP 146/83
== END 2019-07-18 17:57 | disposition home or self-care (01) ==
LOC: ED 15:11
DX: H53.8 Other visual disturbances (principal); R42 Dizziness and giddiness; E11.9 Type 2 diabetes mellitus without complications; E78.00 Pure hypercholesterolemia, unspecified; I10 Essential (primary) hypertension; I73.9 Peripheral vascular disease, unspecified; K21.9 Gastro-esophageal reflux disease without esophagitis; Z79.82 Long term (current) use of aspirin; Z79.84 Long term (current) use of oral hypoglycemic drugs; Z79.899 Other long term (current) drug therapy; Z88.0 Allergy status to penicillin; Z88.2 Allergy status to sulfonamides; Z88.8 Allergy status to other drugs, medicaments and biological substances; Z88.1 Allergy status to other antibiotic agents; Z91.040 Latex allergy status
CPT/HCPCS: 36415; 70450; 80053; 84484; 85025; 85610; 86140; 93005; 99282

== ENCOUNTER 2019-08-02 19:39 | Emergency (ER) | payer MEDICARE, OTHER ==
[2019-08-02] MEDS ORDERED: NS 0.9% 1000 ML** 1,000 ML IV ONE (19:52)
[2019-08-02] MEDS ORDERED: Meclizine TAB* 12.5 MG PO ONE (19:52)
[2019-08-02] MEDS ORDERED: Ketorolac INJ* 30 MG/ML 1 ML VIAL IV ONE (19:52)
--- NOTE | 2019-08-02 19:56 | ED ---
Dizziness - HPI Summary HPI Summary: Pt is a 68 y/o F presenting to the ED with a chief complaint of chronic dizziness, with this episode initially onset earlier today. She states she was with her neighbor when her legs gave out, and her neighbor advised her to come to the ED. Pt reports episode of chest pain today on the L side lasting about 3 seconds, some diplopia, and headache. Her dizziness worsens with looking down. Medications reviewed. Allergies noted. - History Of Current Complaint Chief Complaint: EDDizziness Stated Complaint: VERTIGO PAIN PER EMS Time Seen by Provider: 08/02/19 19:41 Hx Obtained From: Patient Onset/Duration: Still Present, Gradually Timing: Constant Severity Initially: Moderate Severity Currently: Moderate Character: Dizzy Aggravating Factor(s): Other - moving eyes Alleviating Factor(s): Nothing Associated Signs And Symptoms: Positive: Chest Pain, Unsteady Gait, Visual Changes - Allergies/Home Medications Allergies/Adverse Reactions: Allergies Allergy/AdvReac Type Severity Reaction Status Date / Time amoxicillin Allergy ITCHINESS Verified 07/01/19 09:38 cephalexin Allergy Rash Verified 07/01/19 09:38 ciprofloxacin [From Cipro] Allergy RASH AND Verified 07/01/19 09:38 SWELLING fluticasone furoate Allergy Difficulty Verified 07/01/19 09:38 [From Breo Ellipta] Breathing latex Allergy ITCHINESS Verified 07/01/19 09:38 vilanterol Allergy Difficulty Verified 07/01/19 09:38 [From Breo Ellipta] Breathing AIR FRESHNERS Allergy RUNNY EYES Uncoded 07/01/19 09:38 AND NOSE SULFA DRUGS Allergy Rash And Uncoded 07/01/19 09:38 Itching TIDE LAUNDRY SOAP Allergy Rash Uncoded 07/01/19 09:38 PMH/Surg Hx/FS Hx/Imm Hx Previously Healthy: Yes Endocrine/Hematology History: Reports: Hx Diabetes Denies: Hx Anticoagulant Therapy, Hx Systemic Lupus Erythematosus, Hx Thyroid Disease Cardiovascular History: Reports: Hx Angina, Hx Hypercholesterolemia, Hx Hypertension, Hx Peripheral Vascular Disease Denies: Hx Congestive Heart Failure, Hx Coronary Artery Disease, Hx Deep Vein Thrombosis, Hx Myocardial Infarction, Hx Pacemaker/ICD, Hx Valvular Heart Disease Respiratory History: Reports: Hx Sleep Apnea - current CPAP user Denies: Hx Asthma, Hx Chronic Obstructive Pulmonary Disease (COPD), Hx Lung Cancer, Hx Pneumonia, Hx Pulmonary Embolism GI History: Reports: Hx Gastroesophageal Reflux Disease - ON MEDICATION FOR Denies: Hx Gall Bladder Disease, Hx Gastrointestinal Bleed, Hx Ulcer, Hx Urosepsis History: Denies: Hx Dialysis, Hx Kidney Stones, Hx Renal Disease Musculoskeletal History: Reports: Hx Arthritis - HANDS, Other Musculoskeletal History - COMPRESSED SPINAL CORD Denies: Hx Rheumatoid Arthritis Sensory History: Reports: Hx Cataracts - BILATERAL, Hx Glaucoma - BILATERAL Denies: Hx Contacts or Glasses, Hx Hearing Aid Opthamlomology History: Reports: Hx Cataracts - BILATERAL, Hx Glaucoma - BILATERAL Denies: Hx Contacts or Glasses Neurological History: 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, PAIN CLINIC PT Denies: Hx Dementia, Hx Migraine, Hx Seizures, Hx Transient Ischemic Attacks (TIA) Psychiatric History: Denies: Hx Anxiety, Hx Depression, Hx Panic Disorder, Hx Schizophrenia, Hx Bipolar Disorder - Cancer History Hx Chemotherapy: No Hx Radiation Therapy: No - Surgical History Surgery Procedure, Year, and Place: 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, compresed spinal cord - chaiari malformation Hx Anesthesia Reactions: No Infectious Disease History: No Infectious Disease History: Reports: Hx of Known/Suspected MRSA - hx of (pt not sure) Denies: Traveled Outside the [place] in Last 30 Days - Family History Known Family History: Positive: Cardiac Disease, Hypertension - Social History Alcohol Use: None Hx Substance Use: No Substance Use Type: Reports: None Hx Tobacco Use: No Smoking Status (MU): Never Smoked Tobacco Have You Smoked in the Last Year: No Review of Systems Positive: Diplopia Positive: Chest Pain Positive: Other - legs gave out today Neurological: Other - dizziness Positive: Headache All Other Systems Reviewed And Are Negative: Yes Physical Exam - Summary Physical Exam Summary: Constitutional: Well-developed, Well-nourished, Alert. (-) Distressed Skin: Warm, Dry HENT: Normocephalic; Atraumatic Eyes: Conjunctiva normal. Fatigable horizontal nystagmus with gaze Neck: Musculoskeletal ROM normal neck. (-) JVD, (-) Stridor, (-) Tracheal deviation Cardio: Rhythm regular, rate normal, Heart sounds normal; Intact distal pulses; Radial pulses are 2+ and symmetric. (-) Murmur Pulmonary/Chest wall: Effort normal. (-) Respiratory distress, (-) Wheezes, (-) Rales Abd: Soft, (-) tenderness, (-) Distension, (-) Guarding, (-) Rebound Musculoskeletal: (-) Edema Lymph: (-) Cervical adenopathy Neuro: Alert, Oriented x3 Psych: Mood and affect Normal Triage Information Reviewed: Yes Vital Signs On Initial Exam: Initial Vitals Temp Pulse Resp BP Pulse Ox 97.9 F 85 20 148/75 99 08/02/19 19:40 08/02/19 19:40 08/02/19 19:40 08/02/19 19:40 08/02/19 19:40 Vital Signs Reviewed: Yes Procedures - Sedation Patient Received Moderate/Deep Sedation with Procedure: No Diagnostics - Vital Signs Vital Signs Temp Pulse Resp BP Pulse Ox 08/02/19 19:40 97.9 F 85 20 148/75 99 - Laboratory Result Diagrams: 08/02/19 19:59 08/02/19 19:59 Lab Statement: Any lab studies that have been ordered have been reviewed, and results considered in the medical decision making process. - EKG 1954 Cardiac Rate: NL - 77bpm EKG Rhythm: Sinus Rhythm ST Segment: Normal Ectopy: None Summary of EKG Findings: EKG at 1954 shows NSR at 77bpm with RBBB. No STEMI. No changes from 07/18/19. ED physician has reviewed and interpreted this EKG. Re-Evaluation - Re-Evaluation 1st re-eval Re-Evaluation Time: 21:12 Change: Improved Comment: Pt states she is feeling much better and would like to go home. Dizzy Course/Dx - Course Course Of Treatment: Patient is here with recurrence of her vertigo. Patient's been suffering from vertigo off and on for the past couple of months and see Dr. Mclean for this. Patient has no focal neurologic deficit and is overall well-appearing. Patient had an NIH stroke scale of 0. Patient had a negative CT had roughly 2 weeks ago. Patient does not need repeat imaging today as I do not believe this represents a stroke. Patient is given meclizine with vast improvement in her symptoms. Patient had an EKG, blood work performed which was all grossly unremarkable. Patient was discharged with meclizine and instructions to call Dr. Mclean for follow-up as soon as possible. - Diagnoses Provider Diagnoses: Vertigo Discharge ED - Sign-Out/Discharge Documenting (check all that apply): Patient Departure - Discharge Plan Condition: Stable Disposition: HOME Prescriptions: Meclizine TAB* [Antivert 12.5 TAB*] 25 mg PO TID PRN #20 tab PRN Reason: Dizziness Patient Education Materials: Vertigo (ED) Referrals: Concepcion Lackey PA [Primary Care Provider] - Rishabh Mclean MD [Medical Doctor] - Additional Instructions: Please follow up with Dr. Mclean and your primary care provider tomorrow morning to schedule appointments over the next couple of days. Return to the emergency department with any new or worsening symptoms, including one-sided weakness or numbness, visual changes, slurred speech, or inability to walk. Take your medications as prescribed. - Billing Disposition and Condition Condition: STABLE Disposition: Home - Attestation Statements Document Initiated by Mayraibe: Yes Documenting Scribe: Vera Mak Provider For Whom Mayraibe is Documenting (Include Credential): Kamaljit Rivera MD. Scribe Attestation: Vera Santana, farhaned for Kamaljit Rivera MD. on 08/02/19 at 2143. Scribe Documentation Reviewed: Yes Provider Attestation: The documentation as recorded by the mayraibeVera accurately reflects the service I personally performed and the decisions made by me, Kamaljit Rivera MD. Status of Scribe Document: Viewed
[2019-08-02 20:06] LABS: ABS Basophils 0.1 10^3/ul (0-0.2); ABS Eosinophils 0.1 10^3/ul (0-0.6); ABS Lymphocytes 1.2 10^3/ul (1.0-4.8); ABS Monocytes 0.4 10^3/ul (0-0.8); ABS Neutrophils 6.3 10^3/ul (1.5-7.7); Eosinophil % 1.3 %; Hematocrit 35 % (35-47); Hemoglobin 11.6 g/dL (12.0-16.0); Lymphocyte % 14.9 %; Mean Corpuscular HGB Conc 34 g/dL (31-36); Mean Corpuscular Hemoglobin 30 pg (27-31); Mean Corpuscular Volume 91 fL (80-97); Mean Platelet Volume 6.7 fL (7.4-10.4); Platelet Count 398 10^3/uL (150-450); Red Cell Distribution Width 14 % (10-15)
[2019-08-02] MEDS ORDERED: Ibuprofen TAB* 600 MG PO ONE (20:16)
[2019-08-02 20:23] LABS: Albumin 4.1 g/dL (3.2-5.2); Albumin/Globulin Ratio 1.9 (1-3); BUN/Creatinine Ratio 43.5 (8-20); EGFR African American 115.5 (>60); EGFR Non-African American 95.4 (>60); Globulin 2.2 g/dL (2-4); Potassium 4.1 mmol/L (3.5-5.0); Total Bilirubin 0.3 mg/dL (0.2-1.0); Total Protein 6.3 g/dL (6.4-8.9)
[2019-08-02 21:43] VITALS: BP 133/78
== END 2019-08-02 21:35 | disposition home or self-care (01) ==
LOC: ED 19:39
DX: R42 Dizziness and giddiness (principal); R07.9 Chest pain, unspecified; Z88.0 Allergy status to penicillin; E11.9 Type 2 diabetes mellitus without complications; K21.9 Gastro-esophageal reflux disease without esophagitis; E78.00 Pure hypercholesterolemia, unspecified; I10 Essential (primary) hypertension; I73.9 Peripheral vascular disease, unspecified; R51 Headache
CPT/HCPCS: 36415; 80053; 84484; 85025; 93005; 99283; A9270-GY

== ENCOUNTER 2019-09-08 13:43 | Emergency (ER) | payer MEDICARE, OTHER ==
--- NOTE | 2019-09-08 14:05 | ED ---
Neurological HPI - HPI Summary HPI Summary: This patient is a 68 year old F presenting to ED with a chief complaint of dizzy spell and trouble finding words since this morning. Patient went to her physicians office for a regular check-up for dizzy spells and TIA for the past six months. While she was waiting for the doctor, patient had a dizzy spell and mild slurred speech, so she was sent here for stroke evaluation. During the dizzy spell, patient reports her face was drooping. In the ED, patient does not have slurred speech but she reports leg pain. Patient reports that all morning she has felt off and had a hard time finding words. She reports feeling lightheaded, mild headache, and diffuse abdominal pain. She denies chest pain, palpitations, shortness of breath, runny nose, nausea, vomiting, muscle pain, joint stiffness, pain or burning upon urination, blood or tarry stool. BS was 135 in the ambulance. EMS reports no abnormal vital signs that are not the patients baseline, which includes a right bundle branch block. The patient rates the pain 0/10 in severity. Symptoms aggravated by nothing. Symptoms alleviated by nothing. Patient sees Dr. Mclean, neurologist. - History of Current Complaint Chief Complaint: EDDizziness Stated Complaint: STROKE EVAL PER EMS Time Seen by Provider: 09/08/19 13:52 Last Known Well Date: 09/07/19 Hx Obtained From: Patient, EMS Hx Last Menstrual Period: "years ago." Onset/Duration: Gradual Onset, Started hours ago - Waking up this morning, Resolved Timing: Constant Onset Severity: Mild Current Severity: Mild Character: Dizzy, Impaired Speech Aggravating: Nothing Alleviating: Nothing Associated Signs and Symptoms: Positive: Negative - chest pain, palpitations, shortness of breath, runny nose, nausea, vomiting, muscle pain, joint stiffness , pain or burning upon urination, blood or tarry stool, Headache, Dizziness - Additional Pertinent History Primary Care Physician: [id number] - Allergy/Home Medications Allergies/Adverse Reactions: Allergies Allergy/AdvReac Type Severity Reaction Status Date / Time amoxicillin Allergy ITCHINESS Verified 07/01/19 09:38 cephalexin Allergy Rash Verified 07/01/19 09:38 ciprofloxacin [From Cipro] Allergy RASH AND Verified 07/01/19 09:38 SWELLING fluticasone furoate Allergy Difficulty Verified 07/01/19 09:38 [From [employer]] Breathing latex Allergy ITCHINESS Verified 07/01/19 09:38 vilanterol Allergy Difficulty Verified 07/01/19 09:38 [From [employer]] Breathing AIR FRESHNERS Allergy RUNNY EYES Uncoded 07/01/19 09:38 AND NOSE SULFA DRUGS Allergy Rash And Uncoded 07/01/19 09:38 Itching TIDE LAUNDRY SOAP Allergy Rash Uncoded 07/01/19 09:38 Home Medications: Home Medications Fluticasone Propionate [24 Hour Allergy] 2 spray BOTH NARES DAILY 09/08/19 [ History Confirmed 09/08/19] Propylene Glycol/Peg 400/Pf [Systane Ultra 0.4-0.3% Eye Drp] 1 drop BOTH EYES DAILY PRN 09/08/19 [History Confirmed 09/08/19] PMH/Surg Hx/FS Hx/Imm Hx Previously Healthy: Yes Endocrine/Hematology History: Reports: Hx Diabetes - TYPE 2 Denies: Hx Anticoagulant Therapy, Hx Systemic Lupus Erythematosus, Hx Thyroid Disease Cardiovascular History: Reports: Hx Angina, Hx Hypercholesterolemia, Hx Hypertension, Hx Peripheral Vascular Disease Denies: Hx Congestive Heart Failure, Hx Coronary Artery Disease, Hx Deep Vein Thrombosis, Hx Myocardial Infarction, Hx Pacemaker/ICD, Hx Valvular Heart Disease Respiratory History: Reports: Hx Sleep Apnea - current CPAP user Denies: Hx Asthma, Hx Chronic Obstructive Pulmonary Disease (COPD), Hx Lung Cancer, Hx Pneumonia, Hx Pulmonary Embolism GI History: Reports: Hx Gastroesophageal Reflux Disease - ON MEDICATION FOR Denies: Hx Gall Bladder Disease, Hx Gastrointestinal Bleed, Hx Ulcer, Hx Urosepsis History: Denies: Hx Dialysis, Hx Kidney Stones, Hx Renal Disease Musculoskeletal History: Reports: Hx Arthritis - HANDS, Other Musculoskeletal History - COMPRESSED SPINAL CORD Denies: Hx Rheumatoid Arthritis Sensory History: Reports: Hx Cataracts - BILATERAL, Hx Glaucoma - BILATERAL Denies: Hx Contacts or Glasses, Hx Hearing Aid Opthamlomology History: Reports: Hx Cataracts - BILATERAL, Hx Glaucoma - BILATERAL Denies: Hx Contacts or Glasses Neurological History: 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, PAIN CLINIC PT Denies: Hx Dementia, Hx Migraine, Hx Seizures, Hx Transient Ischemic Attacks (TIA) Psychiatric History: Denies: Hx Anxiety, Hx Depression, Hx Panic Disorder, Hx Schizophrenia, Hx Bipolar Disorder - Cancer History Hx Chemotherapy: No Hx Radiation Therapy: No - Surgical History Surgical History: Yes Surgery Procedure, Year, and Place: 1996 neck surgery (NO IMPLANTS) compresed spinal cord - chiari malformation; Hx Anesthesia Reactions: No - Immunization History Immunizations Up to Date: Yes Infectious Disease History: Reports: Hx of Known/Suspected MRSA - hx of (pt not sure) - Family History Known Family History: Positive: Cardiac Disease, Hypertension - Social History Occupation: Retired Alcohol Use: None Hx Substance Use: No Substance Use Type: Reports: None Hx Tobacco Use: No Smoking Status (MU): Never Smoked Tobacco Have You Smoked in the Last Year: No Review of Systems Negative: Nasal Discharge Negative: Palpitations, Chest Pain Negative: Shortness Of Breath Positive: Abdominal Pain. Negative: Vomiting, Nausea Negative: burning, dysuria Negative: Arthralgia, Myalgia Positive: Headache All Other Systems Reviewed And Are Negative: Yes Physical Exam - Summary Physical Exam Summary: Constitutional: Well-developed, Well-nourished, Alert. (-) Distressed Skin: Warm, Dry HENT: Normocephalic; Atraumatic Eyes: Conjunctiva normal Neck: Musculoskeletal ROM normal neck. (-) JVD, (-) Stridor, (-) Tracheal deviation Cardio: Rhythm regular, rate normal, Heart sounds normal; Intact distal pulses; The pedal pulses are 2+ and symmetric. Radial pulses are 2+ and symmetric. Pulmonary/Chest wall: Effort normal. (-) Respiratory distress, (-) Wheezes, (-) Rales Abd: Soft, (-) tenderness, (-) Distension, (-) Guarding, (-) Rebound Musculoskeletal: (-) Edema Neuro: Alert, Oriented x3. Reports trouble finding words but speaking in clear sentences. No dysphasia, no focal neurological deficits, cranial nerves intact. NIH: 0. Psych: Mood and affect Normal Triage Information Reviewed: Yes Vital Signs On Initial Exam: Initial Vitals Temp Pulse Resp BP Pulse Ox 98.0 F 104 18 153/74 98 09/08/19 14:01 09/08/19 14:01 09/08/19 14:01 09/08/19 14:01 09/08/19 14:01 Vital Signs Reviewed: Yes Procedures - Sedation Patient Received Moderate/Deep Sedation with Procedure: No Diagnostics - Laboratory Result Diagrams: 09/08/19 14:57 09/08/19 14:57 Lab Statement: Any lab studies that have been ordered have been reviewed, and results considered in the medical decision making process. - Radiology CXR Radiology Interpretation Completed By: Radiologist Summary of Radiographic Findings: No acute disease by radiology. KALIA henderson has reviewed this report. 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 Non-Paretic Hand: Both Correctly Best Gaze (Only Horizontal Eye Movement): Normal Visual Field Testing: No Visual Loss Facial Paresis-Pt to Smile & Close Eyes or Grimace Symmetry: Normal/Symmetrical Motor Function - Right Arm: No Drift-Holds 10 Seconds Motor Function - Left Arm: No Drift-Holds 10 Seconds Motor Function - Right Leg: No Drift-Holds 10 Seconds Motor Function - Left Leg: No Drift-Holds 10 Seconds Limb Ataxia-Must be out of Proportion to Weakness Present: Absent Sensory (Use Pinprick to Test Arms/Legs/Trunk/Face): Normal Best Language (Describe Picture, Name Items): No Aphasia Dysarthria (Read Several Words): Normal Extinction and Inattention: No Abnormality Total Score: 0 Re-Evaluation - Re-Evaluation First Eval Re-Evaluation Time: 17:56 Change: Improved Comment: Prior to Discharge the pt stated that she was experiancing her symptoms again. Upon re-eval the pt was found to have no neurological deficits. She will be discharged home with the original discharge plan. Course/Dx - Course Course Of Treatment: This patient is a 68 year old F presenting to ED with a chief complaint of dizzy spell and trouble finding words since this morning. Blood work revealed Hgb 11.9, MPV 6.9, lymphocytes 0.9, BUN/creatinine ratio 27.8, glucose 112, potassium 5.2. Her CXR was unremarkable and showed no acute diseases or abnormalities. Dr. Kemp, neurologist, was consulted at 1700 to discuss further care of the patient and possible admission. Dr. Kemp stated that the pt should be discharged home due to her lack of abnormalities during her ED workup. She was prescribed the following medications: Plavix for 21 days , and increase the ASA to 2 tabs instead of 1 after 21 days and was instructed to follow up as an outpatient to receive an Echo. Her PCP was consulted afterwards to ensure that an Echo was available as an outpatient treatment. She will be discharged with a Dx of a TIA. Prior to Discharge the pt stated that she was experiancing her symptoms again. Upon re-eval the pt was found to have no neurological deficits. She will be discharged home with the original discharge plan. - Diagnoses Provider Diagnoses: TIA (transient ischemic attack) - Physician Notifications Discussed Care Of Patient With: Tisha Kemp Time Discussed With Above Provider: 17:00 Instructed by Provider To: Other - Dr. Kemp, neurologist, was consulted at 1700 to discuss further care of the patient and possible admission. Dr. Kemp stated that the pt should be discharged home due to her lack of abnormalities during her ED workup. She was prescribed the following medications: Plavix for 21 days, and increase the ASA to 2 tabs instead of 1 after 21 days and was instructed to follow up as an outpatient to receive an Echo. Her PCP was consulted afterwards to ensure that an Echo was available as an outpatient treatment. Discharge ED - Sign-Out/Discharge Documenting (check all that apply): Patient Departure - discharge - Discharge Plan Condition: Stable Disposition: HOME Prescriptions: Clopidogrel TAB* [Plavix TAB*] 75 mg PO DAILY 21 Days #21 tab Patient Education Materials: Transient Ischemic Attack (ED) Referrals: Simeon Fonseca MD [Primary Care Provider] - 3 Days Rishabh Mclean MD [Medical Doctor] - Additional Instructions: Please follow up with your primary care physician in 1-3 days and return to the emergency department for any new or worsening symptoms. Please ask your primary care physician about receiving an echo. Take the medications as prescribed and directed. - Billing Disposition and Condition Condition: STABLE Disposition: Home - Attestation Statements Document Initiated by Mayraibe: Yes Documenting Scribe: Deric Hess Provider For Whom Marlene is Documenting (Include Credential): Jun Bravo MD Scribe Attestation: Alex Santana Marco DiSanto, farhaned for Jun Bravo MD on 09/08/19 at 1859. Scribe Documentation Reviewed: Yes Provider Attestation: The documentation as recorded by the Alex chacko Marco DiSanto accurately reflects the service I personally performed and the decisions made by Jun schmidt MD Status of Scribe Document: Viewed
--- OUTSIDE RECORDS SUMMARY | 2019-09-08 14:36 | XMS REPORT | Continuity of Care Document ---
:1950 External Reference #:[id number] Author Name Romy Arriola Care Team Providers Name Role Phone [facility] Living - Care Team Information Assistant Casino Shift Manager Nutrition, Education [facility] - Urology Care Team Information Assistant Casino Shift Manager [phone] Prachi Maldonado DPM - Waste Reclaimer Care Team Information Assistant Casino Shift Manager Luis Madsen MD - Cardiovascular Care Team Information Assistant Casino Shift Manager [phone] Disease [facility] - Sleep Disorder Care Team Information Assistant Casino Shift Manager [phone] Diagnostic [facility] - Otolaryngology Care Team Information Assistant Casino Shift Manager [phone] [facility] - Care Team Information Assistant Casino Shift Manager [phone] [facility] - Pain Medicine Care Team Information Assistant Casino Shift Manager [phone] Rishabh Mclean MD - Neurology Care Team Information Assistant Casino Shift Manager [phone] Problems Active Problems Provider Date Pure hypercholesterolemia [...] Description Comments Sex Unknown Tobacco Use Reviewed: 08/03/19 Denies Cigarette Use Smoking Status Reviewed: 08/03/19 Denies Cigarette Use ETOH Use Denies alcohol [...] Gabapentin 1 cap by mouth 120caps M79.605 iSmeon Fonseca 04/11/2019 400mg 4x/day for leg M.D. Capsules pain (start this after running out of the 300mg capsules) M79.604 Ferrous Sulfate take 1 tablet (with D50.9 Simeon Fonseca M.D. 2018 325(65Fe) oj or vit c) by mouth mg Tablets every other day; in the morning on an empty stomach D64.9 Fluticasone Propionate spray two sprays in 48gm Simeon Fonseca 2017 each nostril every M.D. 50mcg/Act Suspension [...] every V82.81 Simeon Fonseca, 05/24/2012 day M.D. [id number] Tablets Acetaminophen use every eight Simeon Fonseca, [...] MD 0.005% Solution every night for glaucoma Meclizine HCL 1 tab by mouth H81.4 Unknown 25mg Tablets three times a day as needed dizziness History Medications Nitrofurantoin Monohyd take 1 capsule [...] CPT Code Status Date Vaccine Lot # 12574 Given 06/09/2019 Influenza Vaccine, Inactivated, Subunit, [id number] Adjuvanted, For Intrmusc 98086 Given 06/01/2018 Influenza Vaccine Split Virus Preservative Free [id number] Im Use (hi-dose) 20440 Given 06/22/2017 Influenza Virus Vaccine, Quadrivalent, Split, [id number] Preservative Free 95062 Given 05/20/2016 Pneumococcal Immunization [id number] 80573 Given 05/20/2016 Influenza Virus Vaccine, Quadrivalent, Split, [id number] Preservative Free 43730 Given 08/07/2015 Influenza Virus Vaccine, Quadrivalent, Split, [id number] Preservative Free 53402 Given 03/24/2015 Prevnar 13 [id number] 56697 Given 05/26/2014 Influenza Virus Vaccine, Quadrivalent, Split, [id number] Preservative Free 18536 Given 05/24/2013 Flu, Split Virus 3Yrs 02815 Given 05/12/2013 Adacel or Boostrix, [id number] 87789 Given 05/24/2012 Flu, Split Virus 3Yrs [id number] 01078 Given 07/22/2011 Flu, Split Virus 3Yrs [id number] 59209 Given 04/18/2011 Pneumococcal Immunization [id number] 94814 Given 06/28/2010 Flu, Split Virus 3Yrs [id number] 05401 Given 06/18/2009 Flu, Split Virus 3Yrs [id number] 72363 Given 09/11/2008 Flu, Split Virus 3Yrs 75895 Given 07/23/2007 Flu, Split Virus 3Yrs 33407 Given 08/04/2006 Flu, Split Virus 3Yrs [id number] 02294 Given 07/03/2004 Flu, Split Virus 3Yrs 82538 Given 10/18/2003 Td Immunization [id number] Refused 01/14/2010 Zostavax Vital Signs Date Vital Result Comment 08/19/2019 3:35pm Weight 165.00 lb 08/03/2019 9:36am BP Systolic 104 mmHg BP Diastolic 70 mmHg Results Test Acquired Date Facility Test Result H/L Range Note Order 08/19/2019 [facility] Occult Blood, F I <pending> T (Fecal Immunochemical Test) CBC Auto 08/02/2019 [facility] White Blood Count 8.0 Normal 3.5-10.8 Diff [phone] 10^3/uL Red Blood Count 3.80 10^6/uL Normal 3.70-4.87 Hemoglobin 11.6 g/dL Low 12.0-16.0 Hematocrit 35 % Normal 35-47 Mean Corpuscular Volume 91 fL Normal 80-97 Mean Corpuscular Hemoglobin 30 pg Normal 27-31 Mean Corpuscular HGB Conc 34 g/dL Normal 31-36 Red Cell Distribution Width 14 % Normal 10-15 Platelet Count 398 10^3/uL Normal 150-450 Mean Platelet Volume 6.7 fL Low 7.4-10.4 Abs Neutrophils 6.3 10^3/uL Normal 1.5-7.7 Abs Lymphocytes 1.2 10^3/uL Normal 1.0-4.8 Abs Monocytes 0.4 10^3/uL Normal 0-0.8 Abs Eosinophils 0.1 10^3/uL Normal 0-0.6 Abs Basophils 0.1 10^3/uL Normal 0-0.2 Abs Nucleated RBC 0.0 10^3/uL Granulocyte % 78.0 % Lymphocyte % 14.9 % Monocyte % 4.8 % Eosinophil % 1.3 % Basophil % 1.0 % Nucleated Red Blood Cells % 0.0 Comp Metabolic Panel 08/02/2019 [facility] Sodium 136 mmol/L Normal 135-145 [phone] Potassium 4.1 mmol/L Normal 3.5-5.0 Chloride 100 mmol/L Low 101-111 Co2 Carbon Dioxide 30 mmol/L Normal 22-32 Anion Gap 6 mmol/L Normal 2-11 Glucose 97 mg/dL Normal 70-100 Blood Urea Nitrogen 27 mg/dL High 6-24 Creatinine 0.62 mg/dL Normal 0.51-0.95 BUN/Creatinine Ratio 43.5 High 8-20 Calcium 9.0 mg/dL Normal 8.6-10.3 Total Protein 6.3 g/dL Low 6.4-8.9 Albumin 4.1 g/dL Normal 3.2-5.2 Globulin 2.2 g/dL Normal 2-4 Albumin/Globulin Ratio 1.9 Normal 1-3 Total Bilirubin 0.30 mg/dL Normal 0.2-1.0 Alkaline Phosphatase 53 U/L Normal 34-104 Alt 13 U/L Normal 7-52 Ast 15 U/L Normal 13-39 Egfr Non- 95.4 >60 Egfr 115.5 >60 1 Laboratory test 08/02/2019 [facility] Troponin-I 0.00 ng/mL <0.04 2 finding [phone] (TnI) CBC Auto Diff 07/18/2019 [facility] White Blood 9.6 Normal 3.5-10.8 [phone] Count 10^3/uL Red Blood Count 4.04 10^6/uL Normal 3.70-4.87 Hemoglobin 12.1 g/dL Normal 12.0-16.0 Hematocrit 37 % Normal 35-47 Mean Corpuscular Volume 91 fL Normal 80-97 Mean Corpuscular Hemoglobin 30 pg Normal 27-31 Mean Corpuscular HGB Conc 33 g/dL Normal 31-36 Red Cell Distribution Width 14 % Normal 10-15 Platelet Count 381 10^3/uL Normal 150-450 Mean Platelet Volume 7.0 fL Low 7.4-10.4 Abs Neutrophils 7.2 10^3/uL Normal 1.5-7.7 Abs Lymphocytes 1.5 10^3/uL Normal 1.0-4.8 Abs Monocytes 0.6 10^3/uL Normal 0-0.8 Abs Eosinophils 0.3 10^3/uL Normal 0-0.6 Abs Basophils 0.1 10^3/uL Normal 0-0.2 Abs Nucleated RBC 0.0 10^3/uL Granulocyte % 74.4 % Lymphocyte % 15.8 % Monocyte % 6.0 % Eosinophil % 2.8 % Basophil % 1.0 % Nucleated Red Blood Cells % 0.0 Inr/Protime 07/18/2019 [facility] Inr 0.91 Normal 0.82-1.09 3 [phone] Laboratory test 07/18/2019 [facility] Troponin-I 0.00 ng/mL <0.04 4 finding [phone] (TnI) Comp Metabolic 07/18/2019 [facility] Sodium 139 mmol/L Normal 135- 145 Panel [phone] Potassium 4.5 mmol/L Normal 3.5-5.0 Chloride 103 mmol/L Normal 101-111 Co2 Carbon Dioxide 26 mmol/L Normal 22-32 Anion Gap 10 mmol/L Normal 2-11 Glucose 92 mg/dL Normal 70-100 Blood Urea Nitrogen 28 mg/dL High 6-24 Creatinine 0.70 mg/dL Normal 0.51-0.95 BUN/Creatinine Ratio 40.0 High 8-20 Calcium 9.4 mg/dL Normal 8.6-10.3 Total Protein 6.7 g/dL Normal 6.4-8.9 Albumin 4.1 g/dL Normal 3.2-5.2 Globulin 2.6 g/dL Normal 2-4 Albumin/Globulin Ratio 1.6 Normal 1-3 Total Bilirubin 0.20 mg/dL Normal 0.2-1.0 Alkaline Phosphatase 53 U/L Normal 34-104 Alt 16 U/L Normal 7-52 Ast 18 U/L Normal 13-39 Egfr Non- 83.0 >60 Egfr 100.4 >60 5 Laboratory test 07/18/2019 [facility] C Reactive < 1.00 Normal <8.01 finding [phone] Protein mg/L Laboratory test 06/09/2019 In House Hemoglobin A1c 5.6 finding Ua Inhouse 06/09/2019 In House Ua Specific 1.015 [place] Ua Blood trace [place] Ua PH 6.5 Culture Urine Inhouse 04/19/2019 In House Colonies no growth 6 Urine Micro Inhouse 04/19/2019 In House Ua WBC 8 Ua RBC 15 Ua Casts - Ua Epi - Ua Other - Ua Glucose - Ua Bilirubin - Ua Ketones - Ua Specific [place] 1.030 Ua Blood NH Mod Ua PH 6.0 Ua Protein tr Ua Urobilinogen - Ua Nitrite - Ua Leukocytes tr Culture Urine Inhouse 04/11/2019 In House Colonies 07/05 Urine Micro Inhouse 04/11/2019 In House Ua WBC 4-8 Ua RBC tntc Ua Casts - Ua Epi - Ua Other sm bacteria amt Ua Glucose - Ua Bilirubin mod Ua Ketones - Ua Specific [place] 1.015 Ua Blood lg Ua PH 6.5 Ua Protein 3+ Ua Urobilinogen - Ua Nitrite + Ua Leukocytes sm 1 Because ethnic data is not always readily [...] 15-29 5 Kidney failure <15 (or dialysis) 2 Troponin-I testing on Plasma Separator Tubes (PST) has a known false positive rate of 0.20-0.40%. All positive troponins reflex immediately to secondary confirmatory testing. Using the [employer] DxI 800 Access Immunoassay systems, the 99th percentile upper reference limit was demonstrated to be < 0.03 ng/mL. 3 Standard intensity warfarin therapeutic range: 2.0-3.0 High intensity warfarin therapeutic range: 2.5-3.5 4 Troponin-I testing on Plasma Separator Tubes (PST) has a known false positive rate of 0.20-0.40%. All positive troponins reflex immediately to secondary confirmatory testing. Using the [employer] DxI 800 Access Immunoassay systems, the 99th percentile upper reference limit was demonstrated to be < 0.03 ng/mL. 5 Because ethnic data is not always readily [...] 15-29 5 Kidney failure <15 (or dialysis) 6 void, clear, yellow Procedures Date Code Description Status 08/19/2019 95071 Electrocardiogram Complete Completed 07/25/2019 352571256 Diabetic Foot Exam Completed 07/04/2019 380088256 Diabetic Retinal Eye Exam Completed 06/23/2019 22212 Electrocardiogram Complete Completed 10/29/2017 43774769 Mammogram Completed 03/28/2015 [id number] Colonoscopy Completed Medical Devices Description No Information Available Encounters Type Date Location Provider Dx Diagnosis Office Visit 08/19/2019 Main Office Concepcion Lcakey, R07.9 Chest pain, 3:20p P.A. 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 M79.672 Pain in left foot R07.89 Other chest pain R42 Dizziness and giddiness R51 Headache Office Visit 06/20/2019 4:20p Main Office Concepcion Hudson, P.A. H53.2 Diplopia E11.51 Type 2 diabetes w [...] unspecified I10 Essential (primary) hypertension R30.0 Dysuria Assessments Date Code Description Provider 08/19/2019 R07.9 Chest pain, unspecified Concepcion Cazaresle, P.A. 08/19/2019 R42 Dizziness and giddiness Concepcion Lackey, P.A. 08/19/2019 D64.9 Anemia, unspecified Concepcion Hudson, P.A. 08/19/2019 G45.9 Transient cerebral ischemic attack, Concepcion Lackey, P.A. unspecified 08/19/2019 H53.2 Diplopia Concepcion Lackey, P.A. 08/19/2019 G47.30 Sleep apnea, unspecified Concepcion Hudson, P.A. 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 06/23/2019 R07.89 Other chest pain Concepcion Hudson, P.A. 06/23/2019 R42 Dizziness and giddiness Concepcion Hudson, P.A. 06/23/2019 R51 Headache Concepcion Hudson, P.A. 06/20/2019 H53.2 Diplopia Concepcion Hudson, P.A. 06/20/2019 E11.51 Type 2 diabetes mellitus with diabetic Concepcion Hudson, P.A. peripheral angiopathy without gangrene 06/20/2019 G95.0 Syringomyelia and 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 Concepcion Hudson, P.A. 06/09/2019 E11.51 Type 2 diabetes mellitus with diabetic Concepcion Hudson, P.A. peripheral angiopathy without gangrene 06/09/2019 M79.672 Pain in left foot Concepcion Hudson, P.A. 06/09/2019 M79.671 Pain in right foot Concepcion Hudson, P.A. 06/09/2019 R31.9 Hematuria, unspecified Concepcion Hudson, P.A. 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 of lumbar regio 06/09/2019 F51.12 Insufficient sleep syndrome Concepcion Hudson, P.A. 06/09/2019 G57.13 Meralgia paresthetica, bilateral lower limbs Concepcion Hudson , P.A. 06/09/2019 D51.9 Vitamin B12 deficiency anemia, unspecified Concepcion Hudson, P.A. 06/09/2019 I10 Essential (primary) hypertension Concepcion Hudson, P.A. 06/09/2019 K21.9 Gastro-esophageal reflux disease without Concepcion Hudson, P.A. esophagitis 06/09/2019 Z23 Encounter for immunization Concepcion Hudson, P.A. 06/09/2019 Z41.8 Encounter for other procedures for purposes Concepcioncamelia Lackey, P.A. other than remedying health state 04/19/2019 R30.0 Dysuria Simeon Fonseca M.D. 04/11/2019 M79.605 Pain in left leg Simeon Fonseca M.D. 04/11/2019 M79.604 Pain in right leg Simeon Fonseca M.D. 04/11/2019 G95.0 Syringomyelia and 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 Siemon Fonseca M.D. 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 of lumbar regio 04/11/2019 G25.81 Restless legs syndrome Simeon Fonseca M.D. 04/11/2019 D51.9 Vitamin B12 deficiency anemia, unspecified Simeon Fonseca M.D. 04/11/2019 D50.9 Iron deficiency anemia, unspecified Simeon Fonseca M.D. 04/11/2019 I10 Essential (primary) hypertension Simeon Fonseca M.D. 04/11/2019 R30.0 Dysuria Simeon Fonseca M.D. Plan of Treatment Future Appointment(s):09/08/2019 1:00 pm - Jaime Martinez at [id number] - Jaime MartinezR07.9 Chest pain, [id number] Dizziness and giddinessReferral:Sleep Clinic, Sleep Disord,Diag/QqsppgR61.9 Anemia, ftunhtworfzP52.9 Transient cerebral ischemic attack, unspecifiedFollow up:f/u w Dr. McleanH53.2 DiplopiaReferral:Sleep Clinic, Sleep Disord,Diag/ZqjtkcA15.30 Sleep apnea, unspecifiedReferral:Sleep Clinic, Sleep Disord,Diag/Clinic Functional Status Description No Information Available Mental Status Description No Information Available Referrals Refer to Reason for Referral Status Appt Date Sleep Clinic Pt has had CPAP originally obtained through sleep Created 00 /0000 clinic 2013, seems might not be working as well as in past, pt has a lot of daytime sleepiness, and falling to sleep [facility] [address], [address] [place] [address] [phone] Rishabh Mclean MD seen in ER 08/02/19 after ?recurrent TIA plus Sent 2018 vertigo Consult and Treat; established pt of Dr. Mclean [facility] [address] [place] [address] [phone] Prachi Maldonado DPM For diabetic foot monitoring and issues w drop Closed 00/ foot 52 1/2 [facility] [address] [place] [address] [phone]
--- OUTSIDE RECORDS SUMMARY | 2019-09-08 14:36 | XMS REPORT | Continuity of Care Document ---
:1950 External Reference #:[id number] Author Name Rishabh Mclean M.D. (transmitted by agent of provider Radha Cedillo) Address [address], [place] [address] Problems Active Problems Provider Date Chest pain [...] apnea of adult Carmen Martinez DNP, RN, JOSTIN Onset: 04/2015 Poor sleep pattern Carmen Martinez DNP, RN, MELONIE[place] Onset: 01/03/2015 Social History Type Date Description Comments Sex Unknown Tobacco Use Start: Unknown Never Smoked Cigarettes ETOH Use Denies alcohol use Recreational Drug Use Denies Drug Use Tobacco Use Start: Unknown Patient has never smoked Smoking Status Reviewed: 05/31/19 Patient has never smoked Exercise Type/Frequency some times uses an [employer] bike Allergies, Adverse Reactions, Alerts Active Allergies [...] + D 1 po daily 60tabs Unknown [id number] Tablets Metformin HCL 1 po bid 60tabs Unknown 1000mg Tablets Simvastatin 1 tab po daily 90tabs Unknown 20mg Tablets History Medications Gabapentin take one capsule by 90caps Unknown 04/17/2019 - 05/30/2019 400mg Capsules mouth 4 times a day Immunizations Description No Information Available Vital [...] kg/m2 Ejection Fraction 55%-60% Ef 12/26/18 Results Description No Information Available Procedures Date Code Description Status 04/18/2019 88341 EKG Tracing & Interpretation Completed Medical Devices Description No Information Available Encounters Type Date Location Provider Dx Diagnosis Office Visit 05/31/2019 [facility] Rishabh Villarreal G95.0 Syringomyelia and 9:45a [facility] Mclean M.D. 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 R29.6 Repeated falls M21.372 Foot drop, left foot Z86.73 Prsnl hx of TIA (TIA), and cereb infrc w/o resid deficits Office Visit 04/18/2019 1:20p [facility] Juan R Villarreal I63.9 Cerebral Cardiology Delfino Sunshine infarction, unspecified G45.9 Transient cerebral ischemic attack, unspecified I10 Essential (primary) hypertension E78.5 Hyperlipidemia, unspecified G47.33 Obstructive sleep apnea (adult) (pediatric) E66.9 Obesity, unspecified I45.10 Unspecified right bundle-branch block Office Visit 03/23/2019 3:30p [facility] Lam Amato, G95.0 Syringomyelia and [facility] ECTOR 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 I69.998 Other sequelae following unspecified cerebrovascular disease R42 Dizziness and giddiness Z79.82 penitentiary (current) use of aspirin Assessments Date Code Description Provider 05/31/2019 G95.0 [...] and giddiness Lam Amato NP 03/23/2019 Z79.82 penitentiary (current) use of aspirin Lam Amato NP Plan of Treatment Future Appointment(s):11/30/2019 9:45 am - Rishabh Mclean M.D. at [facility]05/31/2019 - Rishabh Mclean M.D.G95.0 Syringomyelia and 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Follow up:6 OTRZVXK67.6 Repeated fallsNew Therapy :Physical DqwpejdS38.372 Foot drop, left footZ86.73 Personal history of transient ischemic attack (TIA), and cerebral infarction without residualdeficits Functional Status Description No Information Available Mental Status Description No Information Available Referrals Description No Information Available
--- OUTSIDE RECORDS SUMMARY | 2019-09-08 14:36 | XMS REPORT | Continuity of Care Document ---
:1950 External Reference #:[id number] Author Name Brigida Raya PA (transmitted by agent of provider Simeon Fonseca) Address [address] [facility], [facility] [address] [place] [address] Care Team Providers Name Role Phone [facility] - Care Team Information Ammonium Hydroxide Operator [phone] Nutrition, Education [facility] - Urology Care Team Information Ammonium Hydroxide Operator [phone] Prachi Maldonado DPM - Body Design Checker Care Team Information Ammonium Hydroxide Operator [phone] Luis Madsen MD - Cardiovascular Care Team Information Ammonium Hydroxide Operator Disease Sleep [facility] - Sleep Disorder Care Team Information Ammonium Hydroxide Operator [phone] Diagnostic [facility] - Otolaryngology Care Team Information Ammonium Hydroxide Operator [phone] [facility] - Care Team Information Ammonium Hydroxide Operator [phone] [facility] - Pain Medicine Care Team Information Ammonium Hydroxide Operator [phone] Rishabh Mclean MD - Neurology Care Team Information Ammonium Hydroxide Operator Problems Active Problems Provider Date Pure hypercholesterolemia [...] every V82.81 Simeon Fonseca, 05/24/2012 day M.D. [id number] Tablets Acetaminophen use every eight Simeon Fonseca, [...] CPT Code Status Date Vaccine Lot # [id number] Given 06/09/2019 Influenza Vaccine, Inactivated, Subunit, [id number] Adjuvanted, For Intrmusc 96123 Given 06/01/2018 Influenza Vaccine Split Virus Preservative Free [id number] Im Use 46984 Given 06/22/2017 Influenza Virus Vaccine, Quadrivalent, Split, [id number] Preservative Free 11289 Given 05/20/2016 Pneumococcal Immunization [id number] 27814 Given 05/20/2016 Influenza Virus Vaccine, Quadrivalent, Split, [id number] Preservative Free 49953 Given 08/07/2015 Influenza Virus Vaccine, Quadrivalent, Split, [id number] Preservative Free 26355 Given 03/24/2015 Prevnar 13 [id number] 15897 Given 05/26/2014 Influenza Virus Vaccine, Quadrivalent, Split, [id number] Preservative Free 80413 Given 05/24/2013 Flu, Split Virus 3Yrs 91057 Given 05/12/2013 Adacel or Boostrix, [id number] 69185 Given 05/24/2012 Flu, Split Virus 3Yrs [id number] 91364 Given 07/22/2011 Flu, Split Virus 3Yrs [id number] 19790 Given 04/18/2011 Pneumococcal Immunization [id number] 63295 Given 06/28/2010 Flu, Split Virus 3Yrs [id number] 62932 Given 06/18/2009 Flu, Split Virus 3Yrs [id number] 41637 Given 09/11/2008 Flu, Split Virus 3Yrs 30422 Given 07/23/2007 Flu, Split Virus 3Yrs 96237 Given 08/04/2006 Flu, Split Virus 3Yrs [id number] 40716 Given 07/03/2004 Flu, Split Virus 3Yrs 80930 Given 10/18/2003 Td Immunization [id number] Refused 01/14/2010 Zostavax Vital Signs Date Vital Result Comment 08/03/2019 9:36am BP Systolic 104 mmHg BP Diastolic 70 mmHg 06/23/2019 1:50pm BP Systolic 130 mmHg BP Diastolic 60 mmHg BP Systolic Recheck 106 mmHg lying down BP Diastolic Recheck 62 mmHg lying down BP Systolic Standing Resting Right Arm 130 mmHg sitting up BP Diastolic Standing Resting Right Arm 60 mmHg sitting up BP Systolic Sitting Left Arm 148 mmHg standing BP Diastolic Sitting Left Arm 72 mmHg standing Results Test Acquired Date Facility Test Result H/L Range Note CBC Auto 08/02/[facility] White Blood 8.0 10^3/uL Normal 3.5- 10.8 Diff [phone] Count Red Blood Count 3.80 10^6/uL Normal 3.70-4.87 [...] Cells % 0.0 Comp Metabolic Panel 08/02/2019 [facility] Sodium 136 mmol/L Normal 135-145 [phone] Potassium 4.1 mmol/L Normal 3.5-5.0 Chloride 100 [...] Egfr 115.5 >60 1 Laboratory test 08/02/2019 [facility] Troponin-I 0.00 ng/mL <0.04 2 finding [phone] (TnI) CBC Auto Diff 07/18/2019 [facility] White Blood 9.6 Normal 3.5-10.8 [phone] Count 10^3/uL Red Blood Count 4.04 10^6/uL [...] Red Blood Cells % 0.0 Inr/Protime 07/18/2019 [facility] Inr 0.91 Normal 0.82-1.09 3 [phone] Laboratory test 07/18/2019 [facility] Troponin-I 0.00 ng/mL <0.04 4 finding [phone] (TnI) Comp Metabolic 07/18/2019 [facility] Sodium 139 mmol/L Normal 135- 145 Panel [phone] Potassium 4.5 mmol/L Normal 3.5-5.0 Chloride 103 [...] Egfr 100.4 >60 5 Laboratory test 07/18/2019 [facility] C Reactive < 1.00 mg/L Normal < 8.01 finding [phone] Protein Ua Inhouse 06/09/2019 [facility] House Ua Specific 1.015 [place] Ua Blood trace [place] Ua PH 6.5 Laboratory test finding 06/09/2019 In House Hemoglobin A1c 5.6 Culture Urine Inhouse 04/19/2019 In House Colonies no growth 6 Urine Micro Inhouse 04/19/2019 In House Ua WBC 8 Ua RBC 15 Ua Casts - Ua Epi - Ua Other - Ua Glucose - Ua Bilirubin - Ua Ketones - Ua Specific [place] 1.030 Ua Blood [place] Mod Ua PH 6.0 Ua Protein tr Ua Urobilinogen - Ua Nitrite - Ua Leukocytes tr Culture Urine Inhouse 04/11/2019 In House Colonies 07/05 Urine Micro Inhouse 04/11/2019 In House Ua WBC 4-8 Ua RBC tntc Ua Casts - Ua Epi - Ua Other sm bacteria amt Ua Glucose - Ua Bilirubin mod Ua Ketones - Ua Specific [place] 1.015 Ua Blood lg Ua PH 6.5 [...] immediately to secondary confirmatory testing. Using the Accupal DxI 800 Access Immunoassay systems, the 99th percentile upper reference limit was demonstrated to be < 0.03 ng/mL. 3 Standard intensity warfarin therapeutic range: 2.0-3.0 High intensity warfarin therapeutic range: 2.5-3.5 4 Troponin-I testing on Plasma Separator Tubes (PST) has a known false positive rate of 0.20-0.40%. All positive troponins reflex immediately to secondary confirmatory testing. 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 06/23/2019 R07.89 Other chest pain Concepcion [place], P.A[facility] 06/23/2019 R42 Dizziness and giddiness Concepcion [place], [facility].A[facility] 06/23/2019 R51 Headache Concepcion [place], [facility].A[facility] 06/20/2019 H53.2 Diplopia Conce[facility]ion [place], [facility].A[facility] 06/20/2019 E11.51 Type 2 diabetes mellitus with diabetic Concepcion [place], [facility] peripheral angiopathy without gangrene 06/20/2019 G95.0 Syringomyelia and 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 Concepcion [place], [facility].A[facility] 06/09/2019 E11.51 Type 2 diabetes mellitus with diabetic Concepcion [place], [facility] peripheral angiopathy without gangrene 06/09/2019 M79.672 Pain in left foot Concepcion [place], [facility].A[facility] 06/09/2019 M79.671 Pain in right foot Concepcion [place], [facility].A[facility] 06/09/2019 R31.9 Hematuria, unspecified Concepcion [place], [facility].A[facility] 06/09/2019 M99.53 Intervertebral disc stenosis of neural canal Concepcion [place] , P.A[facility] of lumbar regio 06/09/2019 F51.12 Insufficient sleep syndrome Concepcion [place], P.A[facility] 06/09/2019 G57.13 Meralgia paresthetica, bilateral lower limbs Concepcion [place] , [facility].A[facility] 06/09/2019 D51.9 Vitamin B12 deficiency anemia, unspecified Concepcion [place], [facility] 06/09/2019 I10 Essential (primary) hypertension Concepcion [place], [facility] 06/09/2019 K21.9 Gastro-esophageal reflux disease without Concepcion [place], [facility].A[facility] esophagitis 06/09/2019 Z23 Encounter for immunization Concepcion [place], P.A[facility] 06/09/2019 Z41.8 Encounter for other procedures for purposes Concepcion [place], P.A. other than remedying health state [...] M.D. 04/11/2019 D51.9 Vitamin B12 deficiency anemia, rajwinderified Simeon Fonseca M.D. 04/11/2019 D50.9 Iron deficiency anemia, rajwinderified Simeon Fonseca M.D. 04/11/2019 I10 Essential (primary) hypertension Simeon Fonseca M.D. 04/11/2019 R30.0 Dysuria Simeon Fonseca M.D. 02/10/2019 M99.53 Intervertebral disc stenosis of neural canal Simeon Fonseca M.D. of lumbar region 02/10/2019 G95.0 Syringomyelia and 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 Simeon Fonseca M.D. 02/10/2019 E11.51 Type 2 diabetes mellitus with diabetic Simeon Fonseca M.D. 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 02/10/2019 M21.372 Foot drop, left foot Simeon Fonseca M.D. 02/10/2019 Z91.81 History of falling Simeon Fonseca M.D. 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 otherwise [id number] HeadacheComments:I think pt 's discomfort and sxs [...] to Reason for Referral Status Appt Date Rishabh Mclean MD seen in ER 08/02/19 after ?recurrent TIA plus Sent vertigo Consult and Treat; established pt of Dr. Mclean [facility] [address] [place] [id number] [phone] Prachi Maldonado DPM For diabetic foot monitoring and issues w drop Closed 00/ foot 52 1/2 [place] [address] [place] [id number] [phone]
[2019-09-08 15:06] LABS: ABS Basophils 0.1 10^3/ul (0-0.2); ABS Lymphocytes 0.9 10^3/ul (1.0-4.8); ABS Monocytes 0.3 10^3/ul (0-0.8); ABS Neutrophils 7.3 10^3/ul (1.5-7.7); Eosinophil % 0.3 %; Hematocrit 36 % (35-47); Hemoglobin 11.9 g/dL (12.0-16.0); Mean Corpuscular HGB Conc 33 g/dL (31-36); Mean Corpuscular Hemoglobin 30 pg (27-31); Mean Corpuscular Volume 91 fL (80-97); Mean Platelet Volume 6.9 fL (7.4-10.4); Platelet Count 421 10^3/uL (150-450); Red Blood Count 3.95 10^6 /uL (3.70-4.87); Red Cell Distribution Width 14 % (10-15); White Blood Count 8.5 10^3/uL (3.5-10.8)
[2019-09-08 15:22] LABS: INR 0.99 (0.82-1.09)
[2019-09-08 15:23] LABS: Activated Partial Thrombo Time 33.2 seconds (26.0-38.0)
[2019-09-08 15:29] LABS: BUN/Creatinine Ratio 27.8 (8-20); Calcium 9.5 mg/dL (8.6-10.3); EGFR African American 87.3 (>60); EGFR Non-African American 72.2 (>60)
[2019-09-08 15:41] LABS: Potassium 5.2 mmol/L (3.5-5.0)
[2019-09-08] MEDS ORDERED: Clopidogrel TAB* 75 MG PO ONE (17:29)
[2019-09-08 18:44] VITALS: BP 144/70
== END 2019-09-08 18:40 | disposition home or self-care (01) ==
LOC: ED 13:43
DX: G45.9 Transient cerebral ischemic attack, unspecified (principal); E11.9 Type 2 diabetes mellitus without complications; E78.00 Pure hypercholesterolemia, unspecified; I10 Essential (primary) hypertension; I73.9 Peripheral vascular disease, unspecified; K21.9 Gastro-esophageal reflux disease without esophagitis; Z79.899 Other long term (current) drug therapy; Z88.0 Allergy status to penicillin; Z88.2 Allergy status to sulfonamides; Z88.8 Allergy status to other drugs, medicaments and biological substances; Z88.1 Allergy status to other antibiotic agents; Z91.040 Latex allergy status
CPT/HCPCS: 36415; 71046; 80048; 84484; 85025; 85610; 85730; 93005; 99284; A9270-GY

== ENCOUNTER 2019-09-15 10:15 | Emergency (ER) | payer MEDICARE, OTHER ==
--- NOTE | 2019-09-15 10:32 | ED ---
Lower Extremity - HPI Summary HPI Summary: 68 year old female presents with left leg pain. states she's had this pain for past couple weeks. She denies any chest pain or shortness breath. Has no rash. No numbness tingling. No injury. Has noticed some swelling to her reeves. Does wear a brace on that leg. Doesn't know if she has family history of blood clots. Denies any recent travel. Nonsmoker. Is diabetic. she also admits to RLQ that started a couple hours ago. She states that the pain is intermittent. She states sharp pain in RLQ/ groin. She states that she has not had bowel movement 2 days. states when did have bm two days ago it felt better. Her primary sent prescription for MiraLAX. - History of Current Complaint Chief Complaint: EDSoftTissueLowExtr Stated Complaint: POSSIBLE BLOOD CLOT PER PT Time Seen by Provider: 09/15/19 10:24 Hx Last Menstrual Period: "years ago." Pain Intensity: 0 - Allergies/Home Medications Allergies/Adverse Reactions: Allergies Allergy/AdvReac Type Severity Reaction Status Date / Time amoxicillin Allergy ITCHINESS Verified 09/15/19 10:21 cephalexin Allergy Rash Verified 09/15/19 10:21 ciprofloxacin [From Cipro] Allergy RASH AND Verified 09/15/19 10:21 SWELLING fluticasone furoate Allergy Difficulty Verified 09/15/19 10:21 [From Breo Ellipta] Breathing latex Allergy ITCHINESS Verified 09/15/19 10:21 vilanterol Allergy Difficulty Verified 09/15/19 10:21 [From Breo Ellipta] Breathing AIR FRESHNERS Allergy RUNNY EYES Uncoded 09/15/19 10:21 AND NOSE SULFA DRUGS Allergy Rash And Uncoded 09/15/19 10:21 Itching TIDE LAUNDRY SOAP Allergy Rash Uncoded 09/15/19 10:21 Home Medications: Home Medications Brimonidine/Dorzolamide/Pf [Brimonidine 0.15%-Dorzolam 2%] 1 drop BOTH EYES BID 09/15/19 [History Confirmed 09/15/19] levETIRAcetam TAB* [Keppra TAB*] 250 mg PO BID 09/15/19 [History Confirmed 09/15] PMH/Surg Hx/FS Hx/Imm Hx Endocrine/Hematology History: Reports: Hx Diabetes - TYPE 2 Denies: Hx Anticoagulant Therapy, Hx Systemic Lupus Erythematosus, Hx Thyroid Disease Cardiovascular History: Reports: Hx Angina, Hx Hypercholesterolemia, Hx Hypertension, Hx Peripheral Vascular Disease Denies: Hx Congestive Heart Failure, Hx Coronary Artery Disease, Hx Deep Vein Thrombosis, Hx Myocardial Infarction, Hx Pacemaker/ICD, Hx Valvular Heart Disease Respiratory History: Reports: Hx Sleep Apnea - current CPAP user Denies: Hx Asthma, Hx Chronic Obstructive Pulmonary Disease (COPD), Hx Lung Cancer, Hx Pneumonia, Hx Pulmonary Embolism GI History: Reports: Hx Gastroesophageal Reflux Disease - ON MEDICATION FOR Denies: Hx Gall Bladder Disease, Hx Gastrointestinal Bleed, Hx Ulcer, Hx Urosepsis History: Denies: Hx Dialysis, Hx Kidney Stones, Hx Renal Disease Musculoskeletal History: Reports: Hx Arthritis - HANDS, Other Musculoskeletal History - COMPRESSED SPINAL CORD Denies: Hx Rheumatoid Arthritis Sensory History: Reports: Hx Cataracts - BILATERAL, Hx Glaucoma - BILATERAL Denies: Hx Contacts or Glasses, Hx Hearing Aid Opthamlomology History: Reports: Hx Cataracts - BILATERAL, Hx Glaucoma - BILATERAL Denies: Hx Contacts or Glasses Neurological History: 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, PAIN CLINIC PT Denies: Hx Dementia, Hx Migraine, Hx Seizures, Hx Transient Ischemic Attacks (TIA) Psychiatric History: Denies: Hx Anxiety, Hx Depression, Hx Panic Disorder, Hx Schizophrenia, Hx Bipolar Disorder - Cancer History Hx Chemotherapy: No Hx Radiation Therapy: No - Surgical History Surgery Procedure, Year, and Place: 1996 neck surgery (NO IMPLANTS) compresed spinal cord - chiari malformation; Hx Anesthesia Reactions: No Infectious Disease History: No Infectious Disease History: Reports: Hx of Known/Suspected MRSA - hx of (pt not sure) Denies: Traveled Outside the [place] in Last 30 Days - Family History Known Family History: Positive: Cardiac Disease, Hypertension - Social History Alcohol Use: None Hx Substance Use: No Substance Use Type: Reports: None Hx Tobacco Use: No Smoking Status (MU): Never Smoked Tobacco Have You Smoked in the Last Year: No Review of Systems Negative: Fever Negative: Chest Pain Negative: Shortness Of Breath Positive: Myalgia - left leg pain All Other Systems Reviewed And Are Negative: Yes Physical Exam Triage Information Reviewed: Yes Vital Signs On Initial Exam: Initial Vitals Temp Pulse Resp BP Pulse Ox 97.6 F 85 19 121/74 97 09/15/19 10:16 09/15/19 10:16 09/15/19 10:16 09/15/19 10:16 09/15/19 10:16 Vital Signs Reviewed: Yes Appearance: Positive: Well-Appearing Skin: Positive: Warm, Dry Head/Face: Positive: Normal Head/Face Inspection Eyes: Positive: Normal, Conjunctiva Clear ENT: Positive: Pharynx normal Respiratory/Lung Sounds: Positive: Clear to Auscultation, Breath Sounds Present Cardiovascular: Positive: Normal, RRR Musculoskeletal: Positive: Strength/ROM Intact - left leg, Other - tenderness left calf and reeves, swelling to left reeves, good pulses, sensation grossly intact Neurological: Positive: Normal Psychiatric: Positive: Normal Procedures - Sedation Patient Received Moderate/Deep Sedation with Procedure: No Diagnostics - Vital Signs Vital Signs Temp Pulse Resp BP Pulse Ox 09/15/19 10:16 97.6 F 85 19 121/74 97 - Laboratory Result Diagrams: 09/15/19 10:37 09/15/19 10:37 Lab Statement: Any lab studies that have been ordered have been reviewed, and results considered in the medical decision making process. - Radiology abd Radiology Interpretation Completed By: Radiologist Summary of Radiographic Findings: IMPRESSION: NONSPECIFIC BOWEL GAS PATTERN. LARGE AMOUNT OF STOOL THROUGHOUT THE COLON. - Ultrasound No standard instances Ultrasound Interpretation Completed By: Radiologist Summary of Ultrasound Findings: IMPRESSION: NO EVIDENCE FOR DEEP VENOUS THROMBOSIS. Re-Evaluation - Re-Evaluation First Eval Re-Evaluation Time: 12:32 Comment: tenderness right groin, neg mcburney point tenderness Second Eval Re-Evaluation Time: 13:19 Change: Improved Comment: feeling better after enema Lower Extremity Course/Dx - Course Course Of Treatment: 68 year old female presents with left leg pain. states she' s had this pain for past couple weeks. She denies any chest pain or shortness breath. Has no rash. No numbness tingling. No injury. Has noticed some swelling to her reeves. Does wear a brace on that leg. Doesn't know if she has family history of blood clots. Denies any recent travel. Nonsmoker. Is diabetic. On exam has some tenderness on left reeves and calf. initally abd nontender. lab work without significant abnormality. Ultrasound shows no dvt. wbc normal. crp normal. repeat exam tenderness right groin. abd xray shows stool throughout. gave enema and feeling better. believe abd pain likely due to constipation. told if symptoms worsen to return. patient understand and agrees with plan. - Diagnoses Differential Diagnosis/HQI/PQRI: Positive: DVT, Fracture (Closed), Sprain Provider Diagnoses: Left leg pain, Abdominal pain Discharge ED - Sign-Out/Discharge Documenting (check all that apply): Patient Departure - Discharge Plan Condition: Good Disposition: HOME Patient Education Materials: Leg Pain (ED) Referrals: Simeon Fonseca MD [Primary Care Provider] - Additional Instructions: Use compression socks Ice Elevate Take Tylenol for pain every 6 hours use miralax as prescribed, increase fiber intake Follow up with primary within 5 days Return to ED if develop any fever, worsening abd pain, or any new or worsening symptoms - Billing Disposition and Condition Condition: GOOD Disposition: Home - Attestation Statements Provider Attestation: pt seen by midlevel provider independently, based on their assessment, it was not necessary to present the case to me but I was available for consultation. I did not form a physician-patient relationship with the patient. The chart however, has been reviewed. am signing this note strictly in an administrative capacity.
[2019-09-15 10:44] LABS: ABS Basophils 0.1 10^3/ul (0-0.2); ABS Eosinophils 0.4 10^3/ul (0-0.6); ABS Lymphocytes 1.3 10^3/ul (1.0-4.8); ABS Monocytes 0.5 10^3/ul (0-0.8); ABS Neutrophils 4.6 10^3/ul (1.5-7.7); Eosinophil % 5.7 %; Hematocrit 38 % (35-47); Hemoglobin 12.5 g/dL (12.0-16.0); Lymphocyte % 19.3 %; Mean Corpuscular HGB Conc 33 g/dL (31-36); Mean Corpuscular Hemoglobin 30 pg (27-31); Mean Corpuscular Volume 91 fL (80-97); Mean Platelet Volume 7.2 fL (7.4-10.4); Platelet Count 444 10^3/uL (150-450); Red Blood Count 4.17 10^6 /uL (3.70-4.87); Red Cell Distribution Width 14 % (10-15); White Blood Count 6.8 10^3/uL (3.5-10.8)
--- OUTSIDE RECORDS SUMMARY | 2019-09-15 10:50 | XMS REPORT | Continuity of Care Document ---
:1950 External Reference #:[id number] Author Name Carmen Martinez DNP, RN, JOSTIN (transmitted by agent of provider Deyanira Carson) Address [address] [facility], [address] [place] [id number] Problems Active Problems Provider Date Chest pain [...] apnea of adult Carmen Martinez DNP, RN, MELONIE-BC Onset: 04/2015 Poor sleep pattern Carmen Martinez DNP, RN, MELONIE-BC Onset: 01/03/2015 Social History Type Date Description Comments Sex Unknown Tobacco Use Start: Unknown Never Smoked Cigarettes ETOH Use Denies alcohol use Recreational Drug Use Denies Drug Use Tobacco Use Start: Unknown Patient has never smoked Smoking Status Reviewed: 09/09/19 Patient has never smoked Exercise Type/Frequency some times uses an exersise bike Allergies, Adverse Reactions, Alerts Active Allergies [...] noon and 2 by mouth every night Clopidogrel Bisulfate Jun Bravo, 75mg M.DTiffany Tablets Brimonidine-Dorzolamide one drop twice Unknown a day [...] + D 1 po daily 60tabs Unknown [id number] Tablets Metformin HCL 1 po bid 60tabs Unknown 1000mg Tablets Simvastatin 1 tab po daily 90tabs Unknown 20mg Tablets History Medications Gabapentin take one capsule by 90caps Unknown 04/17/2019 - 05/30/2019 400mg Capsules mouth 4 times a day Immunizations Description No Information Available Vital Signs Date Vital Result Comment 09/09/2019 9:23am Height 63 inches 5'3" Weight 154.00 lb Heart Rate 100 /min BP Systolic 116 mmHg BP Diastolic 68 mmHg O2 % BldC Oximetry 96 % BMI (Body Mass Index) 27.3 kg/m2 05/31/2019 9:46am Height 63 inches 5'3" Weight 155.25 lb Heart Rate 76 /min BP Systolic 122 mmHg BP Diastolic 76 mmHg BMI (Body Mass Index) 27.5 kg/m2 Results Description No Information Available Procedures Date Code Description Status 04/18/2019 23175 EKG Tracing & Interpretation Completed Medical Devices Description No Information Available Encounters Type Date Location Provider Dx Diagnosis Office Visit 05/31/2019 [place] [facility] Rishabh Villarreal G95.0 Syringomyelia and 9:45a Services Of Rosy Mclean M.D. 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 R29.6 Repeated falls M21.372 Foot drop, left foot Z86.73 Prsnl hx of TIA (TIA), and cereb infrc w/o resid deficits Office Visit 04/18/2019 1:20p [place] Juan R Villarreal I63.9 Cerebral Cardiology Delfino Sunshine infarction, unspecified G45.9 Transient cerebral ischemic attack, unspecified I10 Essential (primary) hypertension E78.5 Hyperlipidemia, unspecified G47.33 Obstructive sleep apnea (adult) (pediatric) E66.9 Obesity, unspecified I45.10 Unspecified right bundle-branch block Office Visit 03/23/2019 3:30p [place] [facility] Lam Amato, G95.0 Syringomyelia and [facility] ECTOR 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 I69.998 Other sequelae following unspecified cerebrovascular disease R42 Dizziness and giddiness Z79.82 senior care (current) use of aspirin Assessments Date Code Description Provider 09/09/2019 G47.33 Obstructive sleep apnea (adult) Carmen Martinez DNP, RN, (pediatric) FIELD PROPERTY LOSS SPECIALIST-BC 05/31/2019 G95.0 Syringomyelia and 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 Rishabh Mclean M.D. 05/31/2019 R29.6 Repeated falls Rishabh Mclean M.D. 05/31/2019 M21.372 Foot drop, left foot Rishabh Mclean M.D. 05/31/2019 Z86.73 Personal history of transient Rishabh Mclean M.D. ischemic attack (TIA), and cerebral infarction without residual [...] Sunshine M.D. 04/18/2019 I45.10 Unspecified right bundle-branch Juan R Sunshine M.D. block 03/23/2019 G95.0 Syringomyelia and 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 Lam Amato NP 03/23/2019 I69.998 Other sequelae following unspecified Lam Amato NP cerebrovascular disease 03/23/2019 R42 Dizziness and giddiness Lam Amato NP 03/23/2019 Z79.82 senior care (current) use of aspirin Lam Amato NP Plan of Treatment Future Appointment(s):11/09/2019 11:00 am - Carmen Martinez DNP, RN, MELONIE- at [facility]09/23/2019 10:00 am - Rishabh Mclean M.D. at [id number]/30/2019 9:45 am - Rishabh Mclean M.D. at [place]09/09/2019 - Carmen Martinez DNP, RN, MELONIE- BCG47.33 Obstructive sleep apnea (adult) (pediatric)Comments:Start cleaning your machine betterWe looked at the different items to clean including sathish silicone gaskets in 50% white vinegar water.If you have trouble reassembling call [facility] so they can walk you through it.Follow up:2 monthsRecommendations:Continue PAP device, Benefitting and compliant mostly, increase hours of use with treatment. Cleaning Wipe off mask daily (baby wipe- no scent, or warm water) Clean mask, tubing, filter, and water chamber weekly in mild no scent dish soap and water. Hang to dry. If you have any sleepiness while driving you MUST avoid operating a vehicle or machinery. If you have difficulty with your equipment, or need to replace your mask or hoses, please contact your homecare agency. A weight change of 20 poundsor more may have an effect on your equipment; if you are experiencing problems please call for an appointment. If you have any further questions, please call the [facility] at [phone]. Functional Status Description No Information Available Mental Status Description No Information Available Referrals Description No Information Available
--- OUTSIDE RECORDS SUMMARY | 2019-09-15 10:50 | XMS REPORT | Continuity of Care Document ---
:1950 External Reference #:[id number] Author Name Rishabh Mclean M.D. (transmitted by agent of provider [facility]) Address [address], [place] [address] Problems Active Problems Provider Date Chest pain [...] apnea of adult Carmen Martinez DNP, MARYSOL, JOSTIN Onset: 04/2015 Poor sleep pattern Carmen Martinez DNP, RN, MELONIE-GARLAND Onset: 01/03/2015 Social History Type Date Description Comments Sex Unknown Tobacco Use Start: Unknown Never Smoked Cigarettes ETOH Use Denies alcohol use Recreational Drug Use Denies Drug Use Tobacco Use Start: Unknown Patient has never smoked Smoking Status Reviewed: 09/15/19 Patient has never smoked Exercise Type/Frequency some times uses an slinksetsise bike Allergies, Adverse Reactions, Alerts Active Allergies Reaction Severity Comments Date Cephalexin 01/07/2013 Ciprofloxacin 01/07/2013 Sulfa Antibiotics 01/07/2013 Latex rash 06/29/2013 Amoxicillin rash 06/29/2013 Tide Laundry Detergent 07/08/2013 Fluticasone Furoate Difficulty breathing Moderate 12/31/2018 Vilanterol Difficulty breathing Moderate 12/31/2018 Clopidogrel rash Mild 01/10/2019 Aggrenox Dizziness 04/18/2019 Medications Active Medications SIG Qnty Indications Ordering Date Provider Levetiracetam 1 po bid 60tabs G40.209 Rishabh Villarreal 09/15/2019 250mg Tablets Delfino Mclean Lightweight Carbon To be worn on 1units Rishabh Villarreal 03/13/2016 Fiber Afo Left Foot [...] + D 1 po daily 60tabs Unknown [id number] Tablets Metformin HCL 1 po bid 60tabs Unknown 1000mg Tablets Simvastatin 1 tab po daily 90tabs Unknown 20mg Tablets History Medications Gabapentin take one capsule by 90caps Unknown 04/17/2019 - 05/30/2019 400mg Capsules mouth 4 times a day Immunizations Description No Information Available Vital Signs Date Vital Result Comment 09/15/2019 9:19am Height 63 inches 5'3" Weight 163.50 lb Heart Rate 84 /min BP Systolic Sitting 108 mmHg BP Diastolic Sitting 62 mmHg Respiratory Rate 16 /min BMI (Body Mass Index) 29.0 kg/m2 09/09/2019 9:23am Height 63 inches 5'3" Weight 154.00 lb Heart Rate 100 /min BP Systolic 116 mmHg BP Diastolic 68 mmHg O2 % BldC Oximetry 96 % BMI (Body Mass Index) 27.3 kg/m2 Results Description No Information Available Procedures Date Code Description Status 04/18/2019 97121 EKG Tracing & Interpretation Completed Medical Devices Description No Information Available Encounters Type Date Location Provider Dx Diagnosis Office Visit 05/31/2019 [facility] Rishabh Villarreal G95.0 Syringomyelia and 9:45a Services Of [facility] Mclean M.D. 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 R29.6 Repeated falls M21.372 Foot drop, left foot Z86.73 Prsnl hx of TIA (TIA), and cereb infrc w/o resid deficits Office Visit 04/18/2019 1:20p Kathryn Villarreal I63.9 [facility] Delfino Sunshine infarction, unspecified G45.9 Transient cerebral ischemic attack, unspecified I10 Essential (primary) hypertension E78.5 Hyperlipidemia, unspecified G47.33 Obstructive sleep apnea (adult) (pediatric) E66.9 Obesity, unspecified I45.10 Unspecified right bundle-branch block Office Visit 03/23/2019 3:30p [facility] Lam Amato G95.0 Syringomyelia and [facility] ECTOR 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 I69.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 (pediatric) 09/15/2019 I82.402 Acute embolism and thrombosis of Rishabh Mclean M.D. unspecified deep veins of left lower extremity 09/09/2019 G47.33 Obstructive sleep apnea (adult) Carmen Martinez DNP, RN, (pediatric) [facility]- 05/31/2019 G95.0 Syringomyelia and 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 Rishabh Mclean [...] and giddiness Lam Amato NP 03/23/2019 Z79.82 [facility] (current) use of aspirin Lam Amato NP Plan of Treatment Future Appointment(s):11/04/2019 11:30 am - Rishabh Mclean M.D. at [facility] [id number]/07/2019 10:30 am - Karina Dowell N.P. at [facility]11/09/2019 11:00 am - Carmen Martinez DNP, RN, RESTAURANT MAINTENANCE TECHNICIAN- at [facility]11/30/2019 9:45 am - Rishabh Mclean M.D. at [facility]09/15/2019 - Rishabh Mclean M.D.G95.0 Syringomyelia and hgnoadgbnnxyeR19.209 Localization-related (focal) ( partial) symptomatic epilepsy and epileptic syndromes with complex partial seizures, not intractable, without status epilepticusNew Medication: Levetiracetam 250 mg - 1 po bidNew Orders:EEG, Routine, Ordered: 09/15/19Follow up:1 month with EricRecommendations:stop aspirin in 3 weeks and just take mpqttzpclqtY52.33 Obstructive sleep apnea (adult) (pediatric)I82.402 Acute embolism and thrombosis of unspecified deep veins of left lower extremityRecommendations:go to the ER now Functional Status Description No Information Available Mental Status Description No Information Available Referrals Description No Information Available
--- OUTSIDE RECORDS SUMMARY | 2019-09-15 10:50 | XMS REPORT | Continuity of Care Document ---
:1950 External Reference #:[id number] Author Name Carmen Martinez DNP, RN, JOSTIN (transmitted by agent of provider Deyanira Carson) Address [address], [address] [place] [id number] Problems Active Problems Provider Date Chest pain [...] + D 1 po daily 60tabs Unknown [id number] Tablets Metformin HCL 1 po bid 60tabs [...] Available Procedures Date Code Description Status 04/18/2019 12161 EKG Tracing & Interpretation Completed Medical Devices Description No Information Available Encounters Type Date Location Provider Dx Diagnosis Office Visit 05/31/2019 [facility] Rishabh Villarreal G95.0 Syringomyelia and 9:45a Services Of Rosy Mclean M.D. 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 R29.6 Repeated falls M21.372 Foot drop, left foot Z86.73 Prsnl hx of TIA (TIA), and cereb infrc w/o resid deficits Office Visit 04/18/2019 1:20p [facility] Villarreal I63.9 [facility]iology Delfino Sunshine infarction, unspecified G45.9 Transient cerebral ischemic attack, unspecified I10 Essential (primary) hypertension E78.5 Hyperlipidemia, unspecified G47.33 Obstructive sleep apnea (adult) (pediatric) E66.9 Obesity, unspecified I45.10 Unspecified right bundle-branch block Office Visit 03/23/2019 3:30p [facility] Lam Amato, G95.0 Syringomyelia and [facility] ECTOR 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 I69.998 Other sequelae following unspecified cerebrovascular disease R42 Dizziness and giddiness Z79.82 long-term (current) use of aspirin Assessments Date Code Description Provider 09/09/2019 G47.33 Obstructive sleep apnea (adult) Carmen Martinez DNP, RN, (pediatric) COLLISION TECHNICIAN-BC 05/31/2019 G95.0 Syringomyelia and 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 Rishabh Mclean [...] and giddiness Lam Amato NP 03/23/2019 Z79.82 long-term (current) use of aspirin Lam Amato NP Plan of Treatment Future Appointment(s):11/09/2019 11:00 am - Carmen Martinez DNP, RN, MELONIE- at [facility]09/23/2019 10:00 am - Rishabh Mclean M.D. at [facility] [id number]/30/2019 9:45 am - Rishabh Mclean M.D. at [facility]09/09/2019 - Carmen Martinez DNP, RN, MELONIE- BCG47.33 [...] please call the [facility] at [phone]. Functional Status Description No Information Available Mental Status Description No Information Available Referrals Description No Information Available
[2019-09-15 10:58] LABS: INR 0.94 (0.82-1.09)
[2019-09-15 11:00] LABS: Albumin 4.5 g/dL (3.2-5.2); Albumin/Globulin Ratio 1.8 (1-3); C Reactive Protein 2.77 mg/L (<8.01); EGFR African American 81.3 (>60); EGFR Non-African American 67.2 (>60); Globulin 2.5 g/dL (2-4); Potassium 4.4 mmol/L (3.5-5.0); Total Bilirubin 0.2 mg/dL (0.2-1.0)
[2019-09-15] MEDS: Sodium Phosphate ADULT ENEMA* 118 ml bottle PR ONE (12:46)
[2019-09-15 14:04] VITALS: BP 126/74
== END 2019-09-15 14:05 | disposition home or self-care (01) ==
LOC: ED 10:15
DX: M79.605 Pain in left leg (principal); R10.9 Unspecified abdominal pain; E11.9 Type 2 diabetes mellitus without complications; E78.00 Pure hypercholesterolemia, unspecified; I10 Essential (primary) hypertension; I73.9 Peripheral vascular disease, unspecified; K21.9 Gastro-esophageal reflux disease without esophagitis; Z79.899 Other long term (current) drug therapy; Z88.2 Allergy status to sulfonamides; Z88.8 Allergy status to other drugs, medicaments and biological substances; Z88.1 Allergy status to other antibiotic agents; Z91.040 Latex allergy status
CPT/HCPCS: 36415; 74018; 80053; 83690; 85025; 85610; 86140; 99282; A9270-GY

== ENCOUNTER 2019-10-26 13:08 | Emergency (ER) | payer MEDICARE, OTHER ==
--- OUTSIDE RECORDS SUMMARY | 2019-10-26 13:21 | XMS REPORT | Continuity of Care Document ---
:1950 External Reference #:[id number] Author Name Jaime Martinez (transmitted by agent of provider Simeon Fonseca) Address [address] [place] [address] Care Team Providers Name Role Phone [facility] - Care Team Information Food Safety Scientist Nutrition, Education [facility] - Urology Care Team Information Food Safety Scientist [phone] Prachi Maldonado DPM - Assembly Machine Tool Setter Care Team Information Food Safety Scientist Luis Madsen MD - Cardiovascular Care Team Information Food Safety Scientist [facility] - Sleep Disorder Care Team Information Food Safety Scientist [phone] [facility] - Otolaryngology Care Team Information Food Safety Scientist [phone] [facility] - Care Team Information Food Safety Scientist [phone] [facility] - Pain Medicine Care Team Information Food Safety Scientist [phone] Rishabh Mclean MD - Neurology Care Team Information Food Safety Scientist Laura Pascual MD - Hematology & Care Team Information Food Safety Scientist Oncology Problems Active Problems Provider Date Pure hypercholesterolemia [...] Medications SIG Qnty Indications Ordering Date Provider Magnesium Citrate 4 oz by mouth once 240ml K59.00 Silcoff, 09/19/2019 daily as needed for Delfino Hendrix 1.745GM/30ML constipation, once Solution you have BM, discontinue Miralax 1 capful in 6 oz of 119gm Silcoff, 09/15/2019 3350NF fluid daily as Delfino Hendrix Powder needed for constipation Clopidogrel Unknown 09/08/2019 Bisulfate 75mg Tablets Wheeled Walker With use for balance when 1units Raymundo, 09/02/2019 Seat walking eDlfino Hendrix Gabapentin 1 cap by mouth 120caps M79.605 Raymundo, 04/11/2019 400mg 4x/day for leg pain Delfino Hendrix Capsules (start this after running out of the [...] Simeon Fonseca, 09/23/2013 0.25mg by mouth every M.DTiffany Tablets evening for restless legs, may repeat 4-6 hours later Calcium 600 + D 1 by mouth every V82.81 Simeon Fonseca, 05/24/2012 day M.D. [id number] Tablets Acetaminophen use every eight Simeon Fonseca, [...] glaucoma Meclizine HCL 1 tab by mouth 30tabs H81.4 Simeon Fonseca, 25mg Tablets three times a day M.D. as needed dizziness Levetiracetam Rishabh Mclean MD 250mg Tablets History Medications Nitrofurantoin Monohyd take 1 capsule 14caps N30.01 Raymundo, 04/12/2019 - Macro by mouth twice Delfino Hendrix 04/19/2019 100mg Capsules a day for 1wk for uti Gabapentin 1 capsule 360caps M79.605 Raymundo, 04/06/2019 - 300mg Capsules 4x/day; for leg Delfino Hendrix 04/11/2019 pains M79.604 Medications Administered in Office Medication SIG Qnty Indications Ordering Provider Date H1N1 Swine Flu Vaccine Simeon Fonseca M.D. 10/12/2009 Injection Immunizations CPT Code Status Date Vaccine Lot # 49034 Given 06/09/2019 Influenza Vaccine, Inactivated, Subunit, [id number] Adjuvanted, For Intrmusc 59037 Given 06/01/2018 Influenza Vaccine Split Virus Preservative Free [id number] Im Use (hi-dose) 70117 Given 06/22/2017 Influenza Virus Vaccine, Quadrivalent, Split, [id number] Preservative Free 94137 Given 05/20/2016 Pneumococcal Immunization [id number] 96255 Given 05/20/2016 Influenza Virus Vaccine, Quadrivalent, Split, [id number] Preservative Free 13450 Given 08/07/2015 Influenza Virus Vaccine, Quadrivalent, Split, [id number] Preservative Free 31967 Given 03/24/2015 Prevnar 13 [id number] 45448 Given 05/26/2014 Influenza Virus Vaccine, Quadrivalent, Split, [id number] Preservative Free 82166 Given 05/24/2013 Flu, Split Virus 3Yrs 61785 Given 05/12/2013 Adacel or Boostrix, [id number] 51198 Given 05/24/2012 Flu, Split Virus 3Yrs [id number] 16263 Given 07/22/2011 Flu, Split Virus 3Yrs [id number] 82446 Given 04/18/2011 Pneumococcal Immunization [id number] 27468 Given 06/28/2010 Flu, Split Virus 3Yrs [id number] 34943 Given 06/18/2009 Flu, Split Virus 3Yrs [id number] 01974 Given 09/11/2008 Flu, Split Virus 3Yrs 78572 Given 07/23/2007 Flu, Split Virus 3Yrs 06338 Given 08/04/2006 Flu, Split Virus 3Yrs [id number] 89906 Given 07/03/2004 Flu, Split Virus 3Yrs 83648 Given 10/18/2003 Td Immunization [id number] Refused 01/14/2010 Zostavax Vital Signs Date Vital Result Comment 09/19/2019 11:08am BP Systolic 132 mmHg BP Diastolic 62 mmHg Weight 164.00 lb 09/09/2019 1:32pm BP Systolic 148 mmHg BP Diastolic 72 mmHg BP Systolic Recheck 158 mmHg BP Diastolic Recheck 74 mmHg BP Systolic Standing Resting Right Arm 144 mmHg third check BP Diastolic Standing Resting Right Arm 70 mmHg third check Results Test Acquired Date Facility Test Result H/L Range Note CBC Auto 09/15/2019 [facility] White Blood 6.8 10^3/uL Normal 3.5- 10.8 Diff [phone] Count Red Blood Count 4.17 10^6/uL Normal 3.70-4.87 Hemoglobin 12.5 g/dL Normal 12.0-16.0 Hematocrit 38 % Normal 35-47 Mean Corpuscular Volume 91 fL Normal 80-97 Mean Corpuscular Hemoglobin 30 pg Normal 27-31 Mean Corpuscular HGB Conc 33 g/dL Normal 31-36 Red Cell Distribution Width 14 % Normal 10-15 Platelet Count 444 10^3/uL Normal 150-450 Mean Platelet Volume 7.2 fL Low 7.4-10.4 Abs Neutrophils 4.6 10^3/uL Normal 1.5-7.7 Abs Lymphocytes 1.3 10^3/uL Normal 1.0-4.8 Abs Monocytes 0.5 10^3/uL Normal 0-0.8 Abs Eosinophils 0.4 10^3/uL Normal 0-0.6 Abs Basophils 0.1 10^3/uL Normal 0-0.2 Abs Nucleated RBC 0.0 10^3/uL Granulocyte % 66.7 % Lymphocyte % 19.3 % Monocyte % 6.8 % Eosinophil % 5.7 % Basophil % 1.5 % Nucleated Red Blood Cells % 0.0 Inr/Protime 09/15/2019 [facility] Inr 0.94 Normal 0.82-1.09 5 [phone] Comp Metabolic Panel 09/15/2019 [facility] Sodium 137 mmol/L Normal 135-145 [phone] Potassium 4.4 mmol/L Normal 3.5-5.0 Chloride 101 mmol/L Normal 101-111 Co2 Carbon Dioxide 28 mmol/L Normal 22-32 Anion Gap 8 mmol/L Normal 2-11 Glucose 94 mg/dL Normal 70-100 Blood Urea Nitrogen 16 mg/dL Normal 6-24 Creatinine 0.84 mg/dL Normal 0.51-0.95 BUN/Creatinine Ratio 19.0 Normal 8-20 Calcium 10.0 mg/dL Normal 8.6-10.3 Total Protein 7.0 g/dL Normal 6.4-8.9 Albumin 4.5 g/dL Normal 3.2-5.2 Globulin 2.5 g/dL Normal 2-4 Albumin/Globulin Ratio 1.8 Normal 1-3 Total Bilirubin 0.20 mg/dL Normal 0.2-1.0 Alkaline Phosphatase 63 U/L Normal 34-104 Alt 10 U/L Normal 7-52 Ast 14 U/L Normal 13-39 Egfr Non- 67.2 >60 Egfr 81.3 >60 2 Laboratory test finding 09/15/2019 [facility] Lipase 47 U/L Normal 11.0-82.0 [phone] C Reactive Protein 2.77 mg/L Normal <8.01 Laboratory test 09/09/2019 In House Hemoglobin A1c 5.5 finding Laboratory test 09/08/2019 [facility] Troponin-I (TnI) 0.00 ng/mL < 0.03 3 finding [phone] Basic Metabolic 09/08/2019 [facility] Sodium 138 mmol/L Normal 135- 145 Panel [phone] Chloride 101 mmol/L Normal 101-111 Co2 Carbon Dioxide 27 mmol/L Normal 22-32 Glucose 112 mg/dL High 70-100 Blood Urea Nitrogen 22 mg/dL Normal 6-24 Creatinine 0.79 mg/dL Normal 0.51-0.95 BUN/Creatinine Ratio 27.8 High 8-20 Calcium 9.5 mg/dL Normal 8.6-10.3 Egfr Non- 72.2 >60 Egfr 87.3 >60 4 Potassium 5.2 mmol/L High 3.5-5.0 Anion Gap 10 mmol/L Normal 2-11 Laboratory test 09/08/2019 [facility] Partial 33.2 seconds Normal 26.0-38.0 finding [phone] Thrombo Time PTT Inr/Protime 09/08/2019 [facility] Inr 0.99 Normal 0.82-1.09 5 [phone] CBC Auto Diff 09/08/2019 [facility] White Blood 8.5 10^3/uL Normal 3.5-10.8 [phone] Count Red Blood Count 3.95 10^6/uL Normal 3.70-4.87 Hemoglobin 11.9 g/dL Low 12.0-16.0 Hematocrit 36 % Normal 35-47 Mean Corpuscular Volume 91 fL Normal 80-97 Mean Corpuscular Hemoglobin 30 pg Normal 27-31 Mean Corpuscular HGB Conc 33 g/dL Normal 31-36 Red Cell Distribution Width 14 % Normal 10-15 Platelet Count 421 10^3/uL Normal 150-450 Mean Platelet Volume 6.9 fL Low 7.4-10.4 Abs Neutrophils 7.3 10^3/uL Normal 1.5-7.7 Abs Lymphocytes 0.9 10^3/uL Low 1.0-4.8 Abs Monocytes 0.3 10^3/uL Normal 0-0.8 Abs Eosinophils 0.0 10^3/uL Normal 0-0.6 Abs Basophils 0.1 10^3/uL Normal 0-0.2 Abs Nucleated RBC 0.0 10^3/uL Granulocyte % 85.5 % Lymphocyte % 10.0 % Monocyte % 3.5 % Eosinophil % 0.3 % Basophil % 0.7 % Nucleated Red Blood Cells % 0.0 CBC Auto Diff 08/22/2019 [facility] White Blood 7.9 10^3/uL Normal 3.5-10.8 [phone] Count Red Blood Count 4.17 10^6/uL Normal 3.70-4.87 Hemoglobin 13.1 g/dL Normal 12.0-16.0 Hematocrit 38 % Normal 35-47 Mean Corpuscular Volume 91 fL Normal 80-97 Mean Corpuscular Hemoglobin 31 pg Normal 27-31 Mean Corpuscular HGB Conc 34 g/dL Normal 31-36 Red Cell Distribution Width 14 % Normal 10-15 Platelet Count 451 10^3/uL High 150-450 Mean Platelet Volume 7.5 fL Normal 7.4-10.4 Abs Neutrophils 5.5 10^3/uL Normal 1.5-7.7 Abs Lymphocytes 1.5 10^3/uL Normal 1.0-4.8 Abs Monocytes 0.5 10^3/uL Normal 0-0.8 Abs Eosinophils 0.3 10^3/uL Normal 0-0.6 Abs Basophils 0.1 10^3/uL Normal 0-0.2 Abs Nucleated RBC 0.0 10^3/uL Granulocyte % 69.5 % Lymphocyte % 19.3 % Monocyte % 6.1 % Eosinophil % 3.9 % Basophil % 1.2 % Nucleated Red Blood Cells % 0.0 Iron & Iron Binding Capacity 08/22/2019 [facility] Iron 25 g/dL Low 50-212 [phone] Unsaturated Iron Binding < 432 g/dL Total Iron Binding Capacity 447 g/dL Normal 250-450 Transferrin 319 mg/dL Normal 203-362 % Iron Saturation 6 % Low 15-55 CBC Auto Diff 08/02/2019 [facility] White Blood 8.0 10^3/uL Normal 3.5-10.8 [phone] Count Red Blood Count 3.80 10^6/uL Normal [...] Cells % 0.0 Comp Metabolic Panel 08/02/2019 [facility] Sodium 136 mmol/L Normal 135-145 [phone] Potassium 4.1 mmol/L Normal 3.5-5.0 Chloride 100 [...] Egfr Non- 95.4 >60 Egfr 115.5 >60 6 Laboratory test 08/02/2019 [facility] Troponin-I 0.00 ng/mL <0.04 7 finding [phone] (TnI) CBC Auto Diff 07/18/2019 [facility] White Blood 9.6 Normal 3.5-10.8 [phone] Count 10^3/uL Red Blood Count 4.04 10^6/uL [...] Red Blood Cells % 0.0 Inr/Protime 07/18/2019 [facility] Inr 0.91 Normal 0.82-1.09 8 [phone] Laboratory test 07/18/2019 [facility] Troponin-I 0.00 ng/mL <0.04 9 finding [phone] (TnI) Comp Metabolic 07/18/2019 [facility] Sodium 139 mmol/L Normal 135- 145 Panel [phone] Potassium 4.5 mmol/L Normal 3.5-5.0 Chloride 103 [...] Egfr Non- 83.0 >60 Egfr 100.4 >60 10 Laboratory test 07/18/2019 [facility] C Reactive < 1.00 Normal <8.01 finding [phone] Protein mg/L Laboratory test 06/09/2019 In House Hemoglobin A1c 5.6 finding Ua Inhouse 06/09/2019 In House Ua Specific 1.015 [place] Ua Blood trace [place] Ua PH 6.5 Culture Urine Inhouse 04/19/2019 In House Colonies no growth 11 Urine Micro Inhouse 04/19/2019 In House Ua WBC 8 Ua RBC 15 Ua Casts - Ua Epi - Ua Other - Ua Glucose - Ua Bilirubin - Ua Ketones - Ua Specific [place] 1.030 Ua Blood [place] Mod Ua PH 6.0 Ua Protein tr Ua Urobilinogen - Ua Nitrite - Ua Leukocytes tr Urine Micro Inhouse 04/11/2019 In House Ua WBC 4-8 Ua RBC tntc Ua Casts - Ua Epi - Ua Other sm bacteria amt Ua Glucose - Ua Bilirubin mod Ua Ketones - Ua Specific [place] 1.015 Ua Blood lg Ua PH 6.5 Ua Protein 3+ Ua Urobilinogen - Ua Nitrite + Ua Leukocytes sm Culture Urine Inhouse 04/11/2019 In House Colonies 07/05 Standard intensity warfarin therapeutic range: 2.0-3.0 High intensity warfarin therapeutic range: 2.5-3.5 2 Because ethnic data is not always [...] 5 Kidney failure <15 (or dialysis) 3 Troponin-I testing on Plasma Separator Tubes (PST) has a known false positive rate of 0.20-0.40%. All positive troponins reflex immediately to secondary confirmatory testing. Using the NefsisI 800 Access Immunoassay systems, the 99th percentile upper reference limit was demonstrated to be < 0.03 ng/mL. 4 Because ethnic data is not always readily [...] 15-29 5 Kidney failure <15 (or dialysis) 5 Standard intensity warfarin therapeutic range: 2.0-3.0 High intensity warfarin therapeutic range: 2.5-3.5 6 Because ethnic data is not always [...] 5 Kidney failure <15 (or dialysis) 7 Troponin-I testing on Plasma Separator Tubes (PST) has a known false positive rate of 0.20-0.40%. All positive troponins reflex immediately to secondary confirmatory testing. Using the UnicKeyView DxI 800 Access Immunoassay systems, the 99th percentile upper reference limit was demonstrated to be < 0.03 ng/mL. 8 Standard intensity warfarin therapeutic range: 2.0-3.0 High intensity warfarin therapeutic range: 2.5-3.5 9 Troponin-I testing on Plasma Separator Tubes (PST) has a known false positive rate of 0.20-0.40%. All positive troponins reflex immediately to secondary confirmatory testing. Using the UnicKeyView DxI 800 Access Immunoassay systems, the 99th percentile upper reference limit was demonstrated to be < 0.03 ng/mL. 10 Because ethnic data is not always readily [...] 15-29 5 Kidney failure <15 (or dialysis) 11 void, clear, yellow Procedures Date Code Description Status 08/19/2019 04270 Electrocardiogram Complete Completed 07/25/2019 289292274 Diabetic Foot Exam Completed 07/04/2019 [id number] Diabetic Retinal Eye Exam Completed 06/23/2019 15790 Electrocardiogram Complete Completed 10/29/2017 [id number] Mammogram Completed 03/28/2015 [id number] Colonoscopy Completed Medical Devices Description No Information Available Encounters Type Date Location Provider Dx Diagnosis Office Visit 09/19/2019 Main Office Micha MartinezA. 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 giddiness G45.9 Transient cerebral ischemic attack, unspecified G47.30 Sleep apnea, unspecified E11.51 Type 2 diabetes w diabetic peripheral angiopath w/o gangrene F51.12 Insufficient sleep syndrome I10 Essential (primary) hypertension Office Visit 09/08/2019 1:00p Main Office Concepcion Lackey, R42 Dizziness and P.A. giddiness D64.9 Anemia, unspecified G45.9 Transient cerebral ischemic attack, unspecified G47.30 Sleep apnea, unspecified E11.51 Type 2 diabetes w diabetic peripheral angiopath w/o gangrene Office Visit 08/19/2019 3:20p Main Office Concepcion Lackey, R07.9 Chest pain , P.A. 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 M79.672 Pain in left foot R07.89 Other chest pain R42 Dizziness and giddiness R51 Headache Office Visit 06/20/2019 4:20p Main Office Dante Martinez.A. H53.2 Diplopia E11.51 Type 2 diabetes w [...] Z41.8 [facility] 04/11/2019 9:30a Main Office Simeon Fonseca, M79.605 Pain in left M.D. 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 09/19/2019 R42 Dizziness and giddiness Concepcion [place], P.A. 09/19/2019 E11.51 Type 2 diabetes mellitus with diabetic Concepcion [place], P.A. peripheral angiopathy without gangrene 09/19/2019 K59.00 Constipation, unspecified Concepcion [place], P.A. 09/19/2019 I83.001 Varicose veins of unspecified lower Concepcion [place], P.A. extremity with ulcer of thigh 09/19/2019 R53.83 Other fatigue Concepcion [place], P.A. 09/09/2019 R42 Dizziness and giddiness Concepcion [place], P.A. 09/09/2019 G45.9 Transient cerebral ischemic attack, Concepcion Cazares[place], P.A. unspecified 09/09/2019 G47.30 Sleep apnea, unspecified Concepcion [place], P.A. 09/09/2019 E11.51 Type 2 diabetes mellitus with diabetic Concepcion [place], P.A. peripheral angiopathy without gangrene 09/09/2019 F51.12 Insufficient sleep syndrome Concepcion [place], P.A. 09/09/2019 I10 Essential (primary) hypertension Concepcion [place], P.A. 09/08/2019 R42 Dizziness and giddiness Concepcion [place], P.A. 09/08/2019 D64.9 Anemia, unspecified Concepcion [place], P.A. 09/08/2019 G45.9 Transient cerebral ischemic attack, Concepcion [place], P.A. unspecified 09/08/2019 G47.30 Sleep apnea, unspecified Concepcion [place], P.A. 09/08/2019 E11.51 Type 2 diabetes mellitus with diabetic Concepcion [place], P.A. peripheral angiopathy without gangrene 08/19/2019 R07.9 Chest pain, unspecified Concepcion [place], P.A. 08/19/2019 R42 Dizziness and giddiness Concepcion [place], P.A. 08/19/2019 D64.9 Anemia, unspecified Concepcion [place], P.A. 08/19/2019 G45.9 Transient cerebral ischemic attack, Concepcion [place], P.A. unspecified 08/19/2019 H53.2 Diplopia Concepcion [place], P.A. 08/19/2019 G47.30 Sleep apnea, unspecified Concepcion [place], P.A. 08/03/2019 G45.9 Transient cerebral ischemic attack, Brigida Raya PA unspecified 08/03/2019 H81.4 Vertigo of central origin Brigida Raya PA 08/03/2019 G93.5 Compression of brain Brigida Raya PA 06/23/2019 M79.672 Pain in left foot Concepcion [place], P.A. 06/23/2019 R07.89 Other chest pain Concepcion [place], P.A. 06/23/2019 R42 Dizziness and giddiness Concepcion [place], P.A. 06/23/2019 R51 Headache Concepcion [place], P.A. 06/20/2019 H53.2 Diplopia Concepcion [place], P.A. 06/20/2019 E11.51 Type 2 diabetes mellitus with diabetic Concepcion [place], P.A. peripheral angiopathy without gangrene 06/20/2019 G95.0 Syringomyelia and 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 Concepcion [place], P.A. 06/09/2019 E11.51 Type 2 diabetes mellitus with diabetic Concepcion [place], P.A. peripheral angiopathy without gangrene 06/09/2019 M79.672 Pain in left foot Concepcion [place], P.A. 06/09/2019 M79.671 Pain in right foot Concepcion [place], P.A. 06/09/2019 R31.9 Hematuria, unspecified Concepcion [place], P.A. 06/09/2019 M99.53 Intervertebral disc stenosis of neural canal Concepcion [place] , P.A. of lumbar regio 06/09/2019 F51.12 Insufficient sleep syndrome Concepcion [place], P.A. 06/09/2019 G57.13 Meralgia paresthetica, bilateral lower limbs Concepcion [place] , P.A. 06/09/2019 D51.9 Vitamin B12 deficiency anemia, unspecified Concepcion [place], P.A. 06/09/2019 I10 Essential (primary) hypertension Concepcion [place], P.A. 06/09/2019 K21.9 Gastro-esophageal reflux disease without Concepcion [place], P.A. esophagitis 06/09/2019 Z23 Encounter for immunization Concepcion [place], P.A. 06/09/2019 Z41.8 Encounter for other procedures for purposes Concepcion [place], P.A. other than remedying health state 04/19/2019 [...] 04/11/2019 D51.9 Vitamin B12 deficiency anemia, unspecified Silcoff, Simeon , M.D. 04/11/2019 D50.9 Iron deficiency anemia, unspecified Simeon Fonseca M.D. 04/11/2019 I10 Essential (primary) hypertension Simeon Fonseca M.D. 04/11/2019 R30.0 Dysuria Simeon Fonseca M.D. Plan of Treatment 09/09/2019 - Jaime MartinezR42 Dizziness and giddinessReferral:Janneth Rojas MD, Cardiology/Phys/OsteoFollow up:possibly repeat echo as recommended by [facility] EDG45.9 Transient cerebral ischemic attack, unspecifiedFollow up:Appt w Dr. Mclean schedule for , 09/15/19 at 9:00 (earliest we could get) and pt is on waiting list to get in sooner with any cancelation.G47.30 Sleep apnea, unspecifiedFollow up:cont using CPAP in bed, do not sit in chair half the overnight: need to use your cpapE11.51 Type 2 diabetes mellitus with diabetic peripheral angiopathy without gangreneFollow up:A1C 5.5%F51.12 Insufficient sleep syndromeFollow up:sleep in bed every night! not getting quality sleep every night can increase symptoms of chronic disease.I10 Essential (primary) hypertensionComments: deferring change in meds until after pt has neuro appt/ work upFollow up:pt advised to report cp, change in angina , sob etc. Continue same meds with no change. Comply with diet and exercise. Lose weight and watch salt in diet.Follow up with cardiology for echo. at this point will keep meds at same level due to dizziness with underlying cause not determined Functional Status Description No Information Available Mental Status Description No Information Available Referrals Refer to Dr Reason for Referral Status Appt Date Janneth Rojas MD pt has periods of dizziness and possible TIAs. Sent Was in ED on 09/09/19. Neuro recommended that pt had echo [facility] [address] [phone] Laura Pascual MD low blood iron even though pt has had infusion and Sent takes ferrous sulfate Consult and Co-treatment [facility] [address]; [address] [place] [address] [phone] Sleep Clinic Pt has had CPAP originally obtained through sleep clinic Sent 2013, seems might not be working as well as in past, pt has a lot of daytime sleepiness, and falling to sleep Assume Management this Problem Only [facility] [address], [address] [place] [address] [phone] Rishabh Mclean MD seen in ER 08/02/19 after ?recurrent TIA plus Sent 2018 vertigo Consult and Treat; established pt of Dr. Mclean [facility] [address] [place] [address] [phone] Prachi Maldonado DPM For diabetic foot monitoring and issues w drop Closed foot [address] [place] [address] [place] [address] [phone]
--- OUTSIDE RECORDS SUMMARY | 2019-10-26 13:21 | XMS REPORT | Continuity of Care Document ---
:1950 External Reference #:[id number] Author Name Olamide Fletcher O.D. Address [address] [place] [address] Care Team Providers Name Role Phone Simeon Fonseca M.D. - Family Care Team Information Laborer [employer] [phone] Medicine Rishabh Mclean M.D. - Neurology Care Team Information Laborer [employer] [phone] Juan R Sunshine M.D. 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 Onset: 2016 Presence of intraocular lens Trixie Poole O.D. Onset: 01/11/2018 Tear film insufficiency Trixie Poole O.D. Onset: 01/11/2018 Exophoria Ricky Siddiqi M.D. Onset: 07/04/2019 Myopia Olamide Fletcher O.D. Onset: 07/26/2019 Presbyopia Olamide Fletcher O.D. Onset: 07/26/2019 Regular astigmatism Olamide Fletcher O.D. Onset: 07/26/2019 Degeneration of macula due to cyst, hole Olamide Fletcher O.D. Onset: 2018 or pseudohole Social History Type Date Description Comments Sex Unknown ETOH Use Denies alcohol use Tobacco Use Start: Unknown Patient has never smoked Recreational Drug Use Denies Drug Use Smoking Status Reviewed: 09/27/19 Patient has never smoked Allergies, Adverse Reactions, [...] Jodie Monge 10mg Tablets M.D. Metformin HCL Sahil Garcia 1000mg D.O. Tablets Spironolactone Simeon Fonseca, 100mg M.D. Tablets Omeprazole Unknown 40mg Capsules Vitamin B-12 Unknown 500mcg Tablets Sub Aspirin Low Strength Unknown 81mg Chewtabs Calcium 500+D3 Unknown [id number] Tablets Ferrous Sulfate Unknown 325(65Fe) mg Tablets DR Acetaminophen everday Unknown 650mg/20.3ML Solution Artificial Tears as needed Unknown 0.1-0.3% Solution Gabapentin Simeon Fonseca, 300mg Capsules M.D. Immunizations Description No Information Available Vital Signs Date Vital Result Comment 06/04/2016 12:51pm BP Systolic 123 mmHg BP Diastolic 64 mmHg Heart Rate 86 /min Respiratory Rate 16 /min Results Description No Information Available Procedures Date Code Description Status 07/04/2019 82734 Scanning Computerized Ophthalmic Diagnostic Imag Posterior Completed Seg On 07/04/2019 41363 Visual Field Exam Extended Completed 07/04/2019 65812 Est Patient Comprehensive Exam Completed Medical Devices Description No Information Available Encounters Type Date Location Provider Dx Diagnosis Office Visit 07/26/2019 Ricky Siddiqi MD, Olamide Fletcher, 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 eye 09/27/2019 H40.1131 Primary open-angle glaucoma, bilateral, Olamide Fletcher O.D. 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 09/27/2019 H52.13 Myopia, bilateral Olamide Fletcher O.D. 09/27/2019 H52.4 Presbyopia Olamide Fletcher O.D. 09/27/2019 H52.223 Regular astigmatism, bilateral Olamide Fletcher O.D. 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 07/26/2019 H52.13 Myopia, bilateral Olamide Fletcher O.D. 07/26/2019 H52.4 Presbyopia Olamide Fletcher O.D. 07/26/2019 H52.223 Regular astigmatism, bilateral Olamide Fletcher O.D. 07/04/2019 H40.1131 Primary open-angle glaucoma, bilateral, Ricky Siddiqi M.D. mild stage 07/04/2019 H35.371 Puckering of macula, right eye Ricky Siddiqi M.D. 07/04/2019 E11.9 Type 2 diabetes mellitus without Ricky Siddiqi M.D. 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 07/04/2019 Z96.1 Presence of intraocular lens Ricky Siddiqi M.D. Plan of Treatment Future Appointment(s):11/17/2019 9:45 am - Ricky Siddiqi M.D. at Ricky Siddiqi MD, 11/17/2019 9:00 am - [facility] at Ricky Siddiqi MD, 2018 - Olamide Fletcher O.D.H35.341 Macular cyst, hole, or pseudohole, right eyeH40.1131 Primary open-angle glaucoma, bilateral, mild stageComments:Your glaucoma is stable at this time.Your eye pressure is within an acceptable range , and your testing does not show any Glaucoma related changes at this time. Please continue your treatment.Follow up:as qihxxresdG95.52 ExophoriaComments: Smoking can increase the risk of developing or worsening any eye related disease , as well as affect your overall health. If you are a smoker, we strongly recommend that you quit.If you are not a smoker, we strongly recommend that you do not start.H52.13 Myopia, bilateralComments:You have Myopia, or near sightedness. I have given you a prescription for glasses.H52.4 PresbyopiaComments:You have presbyopia. This is when the lens in your eye loses the ability to change focus, and happens as we age. A pair of reading glasses will help you see up close.H52.223 Regular astigmatism, bilateralComments: Astigmatism is a common vision condition that happens when a person's cornea is not symmetrical. Dr. Fletcher has given you a prescription to correct for this. Functional Status Description No Information Available Mental Status Description No Information Available Referrals Description No Information Available
--- OUTSIDE RECORDS SUMMARY | 2019-10-26 13:21 | XMS REPORT | Continuity of Care Document ---
:1950 External Reference #:[id number] Author Name Maricarmen Gil MD Address [address] [place] [address] Care Team Providers Name Role Phone [facility] - Care Team Information Size Mixer Nutrition, Education [facility] - Urology Care Team Information Size Mixer [phone] Prachi Maldonado DPM - Stress Analyst Care Team Information Size Mixer [phone] Luis Madsen MD - Cardiovascular Care Team Information Size Mixer [phone] [facility] - Sleep Disorder Care Team Information Size Mixer [phone] Diagnostic [facility] - Otolaryngology Care Team Information Size Mixer [phone] [facility] - Care Team Information Size Mixer [phone] [facility] - Pain Medicine Care Team Information Size Mixer [phone] Rishabh Mclean MD - Neurology Care Team Information Size Mixer Laura Pascual MD - Hematology & Care Team Information Size Mixer [phone] Oncology Problems Active Problems Provider Date Pure [...] 08/03/19 Denies Cigarette Use Smoking Status Reviewed: 10/20/19 Denies Cigarette Use ETOH Use Denies alcohol use Recreational Drug Use Denies Drug Use Tobacco Use Start: Unknown Non Smoker Allergies, Adverse Reactions, Alerts Active Allergies Reaction Severity Comments Date Sulfa 11/07/2003 Amoxicillin 11/07/2003 Latex Local rxn; ?Chest pain 05/27/2008 Ciprofloxacin rash, swelling, itching 10/22/2011 Cephalexin Rash 04/13/2012 Medications Active Medications SIG Qnty Indications Ordering Date Provider Magnesium Citrate 4 oz by mouth once 240ml K59.00 Simeon Fonseca, 2018 daily as needed for M.D. 1.745GM/30ML constipation, once Solution you have BM, discontinue G47.00 Levetiracetam 1 tablet by mouth Rishabh Mclean, 09/16/2019 250mg twice daily MD Tablets Miralax 1 capful in 6 oz of 119gm Simeon Fonseca, 09/15/2019 3350NF Powder fluid daily as M.D. needed for constipation Clopidogrel Bisulfate 1 tablet by mouth Unknown 09/08/2019 daily 75mg Tablets Wheeled Walker With use for balance when 1units Simeon Fonseca, 2018 Seat walking M.D. Gabapentin 1 cap by mouth 120caps M79.605 Simeon Fonseca, 04/11/2019 400mg Capsules 4x/day for leg pain M.D. (start this after running out of the 300mg capsules) M79.604 Ferrous Sulfate take 1 tablet (with D50.9 Simeon Fonseca M.DTiffany 2018 325(65Fe) oj or vit c) by [...] Preservative eye drops Unknown 01/25/2018 Free Solution Simvastatin take one tablet by 90tabs E78.00 Simeon Fonseca, 06/23/2016 20mg Tablets mouth every day to M.D. lower cholesterol Vitamin B-12 take 1 sublingual 30tabs Simeon Fonseca, 05/29/2016 1000mcg tablet daily M.D. Tablets Omeprazole take one capsule by 30caps Maricarmen Gil, 02/26/2016 40mg Capsules mouth once daily for MD MARROQUIN acid reflux Therapeutic Shoes with inserts and 1Pair E11.9 Simeon Fonseca, 01/15/2016 metatarsal bar for M.D. left foot R26.9 Ropinirole HCL take 1-2 tablets 120tabs G25.81 Simeon Fonseca, 09/23/2013 0.25mg by mouth every M.D. Tablets evening for restless legs, may repeat 4-6 hours later Calcium 600 + D 1 by mouth every V82.81 Simeon Fonseca, 05/24/2012 day M.D. [id number] Tablets Acetaminophen use every eight Simeon Fonseca, [...] times a day M.D. as needed dizziness Medications Administered in Office Medication SIG Qnty Indications Ordering Provider Date H1N1 Swine Flu Vaccine Simeon Fonseca M.D. 10/12/2009 Injection Immunizations CPT Code Status Date Vaccine Lot # 65093 Given 06/09/2019 Influenza Vaccine, Inactivated, Subunit, [id number] Adjuvanted, For Intrmusc 45330 Given 06/01/2018 Influenza Vaccine Split Virus Preservative Free [id number] Im Use (hi-dose) 77330 Given 06/22/2017 Influenza Virus Vaccine, Quadrivalent, Split, [id number] Preservative Free 25926 Given 05/20/2016 Pneumococcal Immunization [id number] 45981 Given 05/20/2016 Influenza Virus Vaccine, Quadrivalent, Split, [id number] Preservative Free 70882 Given 08/07/2015 Influenza Virus Vaccine, Quadrivalent, Split, [id number] Preservative Free 95170 Given 03/24/2015 Prevnar 13 [id number] 97459 Given 05/26/2014 Influenza Virus Vaccine, Quadrivalent, Split, [id number] Preservative Free 88402 Given 05/24/2013 Flu, Split Virus 3Yrs 90408 Given 05/12/2013 Adacel or Boostrix, [id number] 99658 Given 05/24/2012 Flu, Split Virus 3Yrs [id number] 51322 Given 07/22/2011 Flu, Split Virus 3Yrs [id number] 25141 Given 04/18/2011 Pneumococcal Immunization [id number] 42226 Given 06/28/2010 Flu, Split Virus 3Yrs [id number] 30966 Given 06/18/2009 Flu, Split Virus 3Yrs [id number] 82126 Given 09/11/2008 Flu, Split Virus 3Yrs 98491 Given 07/23/2007 Flu, Split Virus 3Yrs 50190 Given 08/04/2006 Flu, Split Virus 3Yrs [id number] 53992 Given 07/03/2004 Flu, Split Virus 3Yrs 63443 Given 10/18/2003 Td Immunization 10019 Refused 01/14/2010 Zostavax Vital Signs Date Vital Result Comment 10/20/2019 4:55pm BP Systolic 146 mmHg BP Diastolic 72 mmHg Height 61.5 inches 5'1.50" Weight 164.00 lb BMI (Body Mass Index) 30.5 kg/m2 09/29/2019 9:58am BP Systolic 114 mmHg BP Diastolic 62 mmHg Results Test Acquired Date Facility Test Result H/L Range Note Urinalysis Profile 10/13/2019 [facility] Urine Color Yellow [phone] Urine Appearance Clear Urine Specific [place] 1.025 Normal 1.010-1.030 Urine pH 6.0 Normal 5-9 Urine Urobilinogen Negative Negative Urine Ketones Negative Negative Urine Protein Negative Negative Urine Leukocytes Trace Abnormal Negative Urine Blood Negative Negative Urine Nitrite Negative Negative Urine Bilirubin Negative Negative Urine Glucose Negative Negative Urine White Blood Cell 2+(11-20/hpf) Abnormal Absent Urine Red Blood Cell 1+(3-5/hpf) Abnormal Absent Urine Bacteria Absent Absent Urine Squamous Epithelial Cell Present Abnormal Absent Urine Culture And 10/13/2019 [facility] Urine Culture SEE RESULT 1 Sensitivities [phone] BELOW CBC Auto Diff 09/15/2019 [facility] White Blood 6.8 10^3/uL Normal 3.5-10 [phone] Count .8 Red Blood Count 4.17 10^6/uL Normal 3.70-4.87 [...] Red Blood Cells % 0.0 Inr/Protime 09/15/2019 [facility] Inr 0.94 Normal 0.82-1.09 2 [phone] Comp Metabolic Panel 09/15/2019 [facility] Sodium 137 mmol/L Normal 135-145 [phone] Potassium 4.4 mmol/L Normal 3.5-5.0 Chloride 101 [...] Egfr Non- 67.2 >60 Egfr 81.3 >60 3 Laboratory test finding 09/15/2019 [facility] Lipase 47 U/L Normal 11.0-82.0 [phone] C Reactive Protein 2.77 mg/L Normal <8.01 Laboratory test 09/09/2019 In House Hemoglobin A1c 5.5 finding Laboratory test 09/08/2019 [facility] Troponin-I (TnI) 0.00 ng/mL < 0.03 4 finding [phone] Basic Metabolic 09/08/2019 [facility] Sodium 138 mmol/L Normal 135- 145 Panel [phone] Chloride 101 mmol/L Normal 101-111 Co2 Carbon Dioxide 27 mmol/L Normal 22-32 Glucose 112 mg/dL High 70-100 Blood Urea Nitrogen 22 mg/dL Normal 6-24 Creatinine 0.79 mg/dL Normal 0.51-0.95 BUN/Creatinine Ratio 27.8 High 8-20 Calcium 9.5 mg/dL Normal 8.6-10.3 Egfr Non- 72.2 >60 Egfr 87.3 >60 5 Potassium 5.2 mmol/L High 3.5-5.0 Anion Gap 10 mmol/L Normal 2-11 Laboratory test 09/08/2019 [facility] Partial 33.2 seconds Normal 26.0-38.0 finding [phone] Thrombo Time PTT Inr/Protime 09/08/2019 [facility] Inr 0.99 Normal 0.82-1.09 6 [phone] CBC Auto Diff 09/08/2019 [facility] White Blood 8.5 10^3/uL Normal 3.5-10.8 [phone] Count Red Blood Count 3.95 10^6/uL Normal [...] Cells % 0.0 CBC Auto Diff 08/22/2019 [facility] White Blood 7.9 10^3/uL Normal 3.5-10.8 [phone] Count Red Blood Count 4.17 10^6/uL Normal [...] 0.0 Iron & Iron Binding Capacity 08/22/2019 [facility] Iron 25 g/dL Low 50-212 [phone] Unsaturated Iron Binding < 432 g/dL Total Iron Binding Capacity 447 g/dL Normal 250-450 Transferrin 319 mg/dL Normal 203-362 % Iron Saturation 6 % Low 15-55 Laboratory test 08/02/2019 [facility] Troponin-I (TnI) 0.00 ng/mL < 0.04 7 finding [phone] Comp Metabolic 08/02/2019 [facility] Sodium 136 mmol/L Normal 135- 145 Panel [phone] Potassium 4.1 mmol/L Normal 3.5-5.0 Chloride 100 [...] Egfr Non- 95.4 >60 Egfr 115.5 >60 8 CBC Auto Diff 08/02/2019 [facility] White Blood 8.0 10^3/uL Normal 3.5-10.8 [phone] Count Red Blood Count 3.80 10^6/uL Normal [...] Red Blood Cells % 0.0 Inr/Protime 07/18/2019 [facility] Inr 0.91 Normal 0.82-1.09 9 [phone] Laboratory test 07/18/2019 [facility] Troponin-I 0.00 ng/mL <0.04 10 finding [phone] (TnI) Comp Metabolic 07/18/2019 [facility] Sodium 139 mmol/L Normal 135- 145 Panel [phone] Potassium 4.5 mmol/L Normal 3.5-5.0 Chloride 103 [...] Egfr Non- 83.0 >60 Egfr 100.4 >60 11 Laboratory test 07/18/2019 [facility] C Reactive < 1.00 Normal <8.01 finding [phone] Protein mg/L CBC Auto Diff 07/18/2019 [facility] White Blood 9.6 Normal 3.5-10.8 [phone] Count 10^3/uL Red Blood Count 4.04 10^6/uL [...] % Nucleated Red Blood Cells % 0.0 Ua Inhouse 06/09/2019 In House Ua Specific [place] 1.015 Ua Blood trace [place] Ua PH 6.5 Laboratory test finding 06/09/2019 In House Hemoglobin A1c 5.6 1 SEE RESULT BELOW Name: FAUSTINO PEREIRA : [address]: Naveen Guzman MD Acct: [id number] Unit: [id number] AGE: 68 Location: [facility] Re10/13/19 SEX: F Status: REG REF SPEC: [id number] RADU: 10/13/19-[address] [facility] [address]: Naveen Guzman MD REQ: [id number] RECD: 10/13/19 STATUS: HE TREJO DR: Simeon Fonseca MD _ SOURCE: URINE SPDESC: ORDERED: Urine Culture Procedure Result Reported Site Urine Culture Final 10/15/19- 915 ML No growth of clinically significant organisms * ML - Main Lab . END OF REPORT DEPARTMENT OF PATHOLOGY, [address] [place] [address] Osmany Marin M.D. Director [facility] # [id number] 2 Standard intensity warfarin therapeutic range: 2.0-3.0 High intensity warfarin therapeutic range: 2.5-3.5 3 Because ethnic data is not always readily [...] 15-29 5 Kidney failure <15 (or dialysis) 4 Troponin-I testing on Plasma Separator Tubes (PST) has a known false positive rate of 0.20-0.40%. All positive troponins reflex immediately to secondary confirmatory testing. Using the [employer] DxI 800 Access Immunoassay systems, the 99th [...] 5 Kidney failure <15 (or dialysis) 6 Standard intensity warfarin therapeutic range: 2.0-3.0 High intensity warfarin therapeutic range: 2.5-3.5 7 Troponin-I testing on Plasma Separator Tubes (PST) has a known false positive rate of 0.20-0.40%. All positive troponins reflex immediately to secondary confirmatory testing. Using the [employer] DxI 800 Access Immunoassay systems, the 99th percentile upper reference limit was demonstrated to be < 0.03 ng/mL. 8 Because ethnic data is not always [...] 15-29 5 Kidney failure <15 (or dialysis) 9 Standard intensity warfarin therapeutic range: 2.0-3.0 High intensity warfarin therapeutic range: 2.5-3.5 10 Troponin-I testing on Plasma Separator Tubes (PST) has a known false positive rate of 0.20-0.40%. All positive troponins reflex immediately to secondary confirmatory testing. Using the [employer] Access Immunoassay systems, the 99th percentile upper reference limit was demonstrated to be < 0.03 ng/mL. 11 Because ethnic data is not always readily [...] (or dialysis) Procedures Date Code Description Status 08/19/2019 38985 Electrocardiogram Complete Completed 07/25/2019 [id number] Diabetic Foot Exam Completed 07/04/2019 731027944 Diabetic Retinal Eye Exam Completed 06/23/2019 07343 Electrocardiogram Complete Completed 10/29/2017 97832857 Mammogram Completed 03/28/2015 81939708 Colonoscopy Completed Medical Devices Description No Information Available Encounters Type Date Location Provider Dx Diagnosis Office Visit 10/20/2019 Main Office Maricarmen Gil MD L60.8 Other nail disorders 4:30p Z68.30 Body mass index (BMI) 30.0-30.9, adult Office Visit 09/29/2019 9:45a Main Office Jeffery Maricarmen K59.00 ConstipationLuis Eduardo MD unspecified R41.3 Other amnesia G93.5 Compression of brain Office Visit 09/19/2019 11:20a Main Office Concepcion Lackey, I10 Essential ( primary) P.A. hypertension R42 Dizziness and giddiness E11.51 Type [...] Office Visit 06/23/2019 1:20p Main Office Concepcion Lackey, P.A. M79.672 Pain in left foot R07.89 Other chest pain R42 Dizziness and giddiness R51 Headache Office Visit 06/20/2019 4:20p Main Office Concepcion Lackey, P.A. H53.2 Diplopia E11.51 Type 2 diabetes [...] Encntr for oth proc for purpose oth than remedy health state Assessments Date Code Description Provider 10/20/2019 L60.8 Other nail disorders Maricarmen Gil MD 10/20/2019 Z68.30 Body mass index (BMI) 30.0-30.9, adult Maricarmen Gil MD 09/29/2019 K59.00 Constipation, unspecified Maricarmen Gil MD 09/29/2019 R41.3 Other amnesia Maricarmen Gil MD 09/29/2019 G93.5 Compression of brain Maricarmen Gil MD 09/19/2019 I10 Essential (primary) hypertension Concepcion [place], P.A. 09/19/2019 R42 Dizziness and giddiness Concepcion [place], P.A. 09/19/2019 E11.51 Type 2 diabetes mellitus with diabetic Concepcion [place], P.A. peripheral angiopathy without gangrene 09/19/2019 K59.00 Constipation, unspecified Concepcion [place], P.A. 09/19/2019 I83.001 Varicose veins of unspecified lower extremity Concepcion [place], P.A. with ulcer of thigh 09/19/2019 R53.83 Other fatigue Concepcion [place], P.A. 09/09/2019 R42 Dizziness and giddiness Concepcion [place], P.A. 09/09/2019 G45.9 Transient cerebral ischemic attack, Concepcion [place], P.A. unspecified 09/09/2019 G47.30 Sleep apnea, unspecified Concepcion [place], P.A. 09/09/2019 E11.51 Type 2 diabetes mellitus with diabetic Concepcion [place], P.A. peripheral angiopathy without gangrene 09/09/2019 F51.12 Insufficient sleep syndrome Concepcion [place], P.A. 09/09/2019 I10 Essential (primary) hypertension Concepcion [place], P.A. 09/08/2019 R42 Dizziness and giddiness Concepcion [place], P.A. 09/08/2019 D64.9 Anemia, unspecified Concepcion [place], P.A. 09/08/2019 G45.9 Transient cerebral ischemic attack, Concepcion [place], P.A. unspecified 09/08/2019 G47.30 Sleep apnea, unspecified Concepcion [place], P.A. 09/08/2019 E11.51 Type 2 diabetes mellitus with diabetic Concepcion [place], P.A. peripheral angiopathy without gangrene 08/19/2019 R07.9 Chest pain, unspecified Concepcion [place], P.A. 08/19/2019 R42 Dizziness and giddiness Concepcion [place], P.A. 08/19/2019 D64.9 Anemia, unspecified Concepcion [place], P.A. 08/19/2019 G45.9 Transient cerebral ischemic attack, Concepcion [place], P.A. unspecified 08/19/2019 H53.2 Diplopia Concepcion [place], P.A. 08/19/2019 G47.30 Sleep apnea, unspecified Concepcion [place], P.A. 08/03/2019 G45.9 Transient cerebral ischemic attack, Brigida Raya PA unspecified 08/03/2019 H81.4 Vertigo of central origin Brigida Raya PA 08/03/2019 G93.5 Compression of brain Brigida Raya PA 06/23/2019 M79.672 Pain in left foot Concepcion [place], P.A. 06/23/2019 R07.89 Other chest pain Concepcion [place], P.A. 06/23/2019 R42 Dizziness and giddiness Concepcion [place], P.A. 06/23/2019 R51 Headache Concepcion [place], P.A. 06/20/2019 H53.2 Diplopia Concepcion [place], P.A. 06/20/2019 E11.51 Type 2 diabetes mellitus with diabetic Concepcion [place], P.A. 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 06/09/2019 E11.51 Type 2 diabetes mellitus with diabetic Concepcion [place], P.A. peripheral angiopathy without gangrene 06/09/2019 M79.672 Pain in left foot Concepcion [place], P.A. 06/09/2019 M79.671 Pain in right foot Concepcion [place], P.A. 06/09/2019 R31.9 Hematuria, unspecified Concepcion [place], P.A. 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 of lumbar regio 06/09/2019 F51.12 Insufficient sleep syndrome Concepcion [place], P.A. 06/09/2019 G57.13 Meralgia paresthetica, bilateral lower limbs Concepcion [place] , P.A. 06/09/2019 D51.9 Vitamin B12 deficiency anemia, unspecified Concepcion [place], P.A. 06/09/2019 I10 Essential (primary) hypertension Concepcion [place], P.A. 06/09/2019 K21.9 Gastro-esophageal reflux disease without Concepcion [place], P.A. esophagitis 06/09/2019 Z23 Encounter for immunization Concepcion [place], P.A. 06/09/2019 Z41.8 Encounter for other procedures for purposes Concepcion [place], P.A. other than remedying health state Plan of Treatment Future Appointment(s):03/29/2020 10:00 am - Maricarmen Gil MD at Main [id number] - Concepcion [place], P.A.R42 Dizziness and giddinessReferral:Janneth Rojas MD, Cardiology/Phys/OsteoFollow up:possibly repeat echo as recommended by [facility] EDG45.9 Transient cerebral ischemic attack, unspecifiedFollow up:Appt [...] Dr Reason for Referral Status Appt Date [facility] redness of first two toes with Created onychomycosis, progressive, over several months, patient with diabetes. [address] [place] [address] [phone] Janneth Rojas MD pt has periods of dizziness and possible TIAs. Was Sent in ED on 09/09/19. Neuro recommended that pt had echo latanya Consult and Treat [facility] [address] [address] [phone] Laura Pascual MD low blood iron even though pt has had infusion and Sent takes ferrous sulfate Consult and Co-treatment [facility] [address]; [address] [place] [address] [phone] Sleep Clinic Pt has had CPAP originally obtained through sleep clinic Sent 2013, seems might not be working as well as in past, pt has a lot of daytime sleepiness, and falling to sleep Assume Management this Problem Only [facility] [address], [address] [place] [address] [phone] Rishabh Mclean MD seen in ER 08/02/19 after ?recurrent TIA plus Sent 2018 vertigo Consult and Treat; [facility] [address] [place] [address] [phone] Prachi Maldonado, OPAL For diabetic foot monitoring and issues w drop Closed 00/ foot 52 1/2 [facility] [address] [place] [address] [phone]
--- OUTSIDE RECORDS SUMMARY | 2019-10-26 13:21 | XMS REPORT | Continuity of Care Document ---
:1950 External Reference #:[id number] Author Name Olamide Fletcher O.D. Address [address] [place] [address] Care Team Providers Name Role Phone Simeon Fonseca M.D. - Family Care Team Information Blood Bank Laboratory Professional [phone] Medicine Rishabh Mclean M.D. - Neurology Care Team Information Blood Bank Laboratory Professional [phone] Juan R Sunshine M.D. - Care Team Information Blood Bank Laboratory Professional [phone] Cardiovascular Disease Concepcion Lackey - Physician Care Team Information Blood Bank Laboratory Professional [phone] Blood Bank Assistant Problems Active Problems Provider Date Essential hypertension [...] Strength Unknown 81mg Chewtabs Calcium 500+D3 Unknown [id number] Tablets Ferrous Sulfate Unknown 325(65Fe) mg Tablets [...] Available Procedures Date Code Description Status 07/04/2019 92729 Scanning Computerized Ophthalmic Diagnostic Imag Posterior Completed Seg On 07/04/2019 28747 Visual Field Exam Extended Completed 07/04/2019 27966 Est Patient Comprehensive Exam Completed Medical Devices [...] this time. Please continue your treatment.Follow up:as iqzfbabshK81.52 ExophoriaComments: Smoking can increase the risk of [...]
--- OUTSIDE RECORDS SUMMARY | 2019-10-26 13:21 | XMS REPORT | Continuity of Care Document ---
:1950 External Reference #:[id number] Author Name Karina Dowell N.P. (transmitted by agent of provider Soumya Espinoza) Address [address] [place] [address] [place] [address] Problems Active Problems Provider Date Chest pain [...] apnea of adult Carmen Martinez DNP, RN, [place] Onset: 04/2015 Poor sleep pattern Carmen Martinez DNP, RN, [place] Onset: 01/03/2015 Social History Type Date Description Comments Sex Unknown Tobacco Use Start: Unknown Never Smoked Cigarettes ETOH Use Denies alcohol use Recreational Drug Use Denies Drug Use Tobacco Use Start: Unknown Patient has never smoked Smoking Status Reviewed: 01/10/20 Patient has never smoked Exercise Type/Frequency some times uses an [employer] bike Allergies, Adverse Reactions, Alerts Active Allergies Reaction Severity Comments Date Cephalexin 01/07/2013 Ciprofloxacin 01/07/2013 Sulfa Antibiotics 01/07/2013 Latex rash 06/29/2013 Amoxicillin rash 06/29/2013 Tide Laundry Detergent 07/08/2013 Fluticasone Furoate Difficulty breathing Moderate 12/31/2018 Vilanterol Difficulty breathing Moderate 12/31/2018 Aggrenox Dizziness 04/18/2019 Inactive Allergies Clopidogrel rash Mild 01/10/2019 Medications Active Medications SIG Qnty Indications Ordering Date Provider Levetiracetam 1 po bid 60tabs G40.209 Rishabh Villarreal 09/15/2019 250mg Delfino Mclean Tablets Lightweight Carbon To be worn on 1units Rishabh Villarreal 03/13/2016 Fiber Afo Left Foot left foot.. Delfino Mclean Baclofen take 2 tablets by 150tabs Rishabh Villarreal 12/22/2012 10mg Tablets mouth every Delfino Mclean morning, 1 by mouth at noon and 2 by mouth every night Gabapentin take one capsule Unknown 400mg Capsules by mouth as directed via physician Meclizine HCL 1 tab by mouth Unknown 25mg three times a day Chewtabs as needed Clopidogrel Bisulfate Take one tab by 90tabs Rishabh Villarreal mouth daily Delfino Mclean 75mg Tablets Brimonidine-Dorzolamid one drop twice a Unknown e day each eye 0.15-2% Solution Ropinirole HCL take one tablet Unknown 0.5mg by mouth every Tablets evening Acetaminophen ER three time daily Unknown 650mg Tablets ER Systane apply twice daily Unknown 0.4-0.3% Solution as needed for dry eyes Latanoprost 1 drop in each Unknown 0.005% eye at bedtime Solution Timolol Maleate 1 gtt each eye Unknown 0.5% bid Solution Vitamin B12 1 by mouth every Unknown 1000mcg day Tablets ER Iron 1 by mouth every Unknown 325(65Fe) mg Tablets other day Omeprazole 1 capsule by Unknown 40mg Capsules mouth daily Spironolactone take one tablet 60tabs Unknown 100mg daily Tablets Calcium 600 + D 1 po daily 60tabs Unknown [id number] Tablets Metformin HCL 1 po bid 60tabs Unknown 1000mg Tablets Simvastatin 1 tab po daily 90tabs Unknown 20mg Tablets History Medications Gabapentin take one capsule by 90caps Unknown 04/17/2019 - 05/30/2019 400mg Capsules mouth 4 times a day Immunizations Description No Information Available Vital Signs Date Vital Result Comment 10/07/2019 10:31am Height 63 inches 5'3" Weight 161.00 lb with shoes Heart Rate 80 /min BP Systolic Sitting 130 mmHg lue reg cuff BP Diastolic Sitting 70 mmHg lue reg cuff BP Systolic Standing 134 mmHg lue reg cuff BP Diastolic Standing 70 mmHg lue reg cuff Respiratory Rate 14 /min BMI (Body Mass Index) 28.5 kg/m2 Ejection Fraction 55-60% echo. 12/26/18 09/15/2019 9:19am Height 63 inches 5'3" Weight 163.50 lb Heart Rate 84 /min BP Systolic Sitting 108 mmHg BP Diastolic Sitting 62 mmHg Respiratory Rate 16 /min BMI (Body Mass Index) 29.0 kg/m2 Results Description No Information Available Procedures Date Code Description Status 04/18/2019 24822 EKG Tracing & Interpretation Completed Medical Devices Description No Information Available Encounters Type Date Location Provider Dx Diagnosis Office Visit 09/15/2019 [facility] Rishabh Villarreal G95.0 Syringomyelia and 9:00a Clinic Delfino Mclean 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 G40.209 Local-rel symptc epi w cmplx prt seiz,not ntrct,w/o stat epi G47.33 Obstructive sleep apnea (adult) (pediatric) I82.402 Acute embolism and thombos unsp deep veins of l low extrem R40.4 Transient alteration of awareness M79.662 Pain in left lower leg Office Visit 09/09/2019 Pulmon[facility] And Carmen G47.33 Obstructive sleep 9:30a [facility] TJ Martinez, RN, apnea (adult) [facility] ELECTRONIC SCALE TESTER-BC (pediatric) Office Visit 05/31/2019 [place] [facility] Rishabh Villarreal G95.0 Syringomyelia and 9:45a Services Of Rosy Mclean M.D. 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 R29.6 Repeated falls M21.372 Foot drop, left foot Z86.73 Prsnl hx of TIA (TIA), and cereb infrc w/o resid deficits Office Visit 04/18/2019 1:20p Kathryn SmithTiffany I63.9 Cerebral Cardiology Delfino Sunshine infarction, unspecified G45.9 Transient cerebral ischemic attack, unspecified I10 Essential (primary) hypertension E78.5 Hyperlipidemia, unspecified G47.33 Obstructive sleep apnea (adult) (pediatric) E66.9 Obesity, unspecified I45.10 Unspecified right bundle-branch block Assessments Date Code Description Provider 10/07/2019 G47.33 Obstructive sleep apnea (adult) Karina Dowell, N.P. (pediatric) 10/07/2019 R42 Dizziness and giddiness Karina Dowell, N.P. 10/07/2019 G45.9 Transient cerebral ischemic attack, Karina Dowell, N.P. unspecified 10/07/2019 I10 Essential (primary) hypertension Karina Dowell, N.P. 10/07/2019 E78.5 Hyperlipidemia, unspecified Karina Dowell, N.P. 09/15/2019 G95.0 Syringomyelia and 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 Rishabh Mclean M.D. 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 (pediatric) 09/15/2019 I82.402 Acute embolism and thrombosis of Rishabh Mclean M.D. unspecified deep veins of left lower extremity 09/15/2019 R40.4 Transient alteration of awareness Rishabh Mclean M.D. 09/15/2019 M79.662 Pain in left lower leg Rishabh Mclean M.D. 09/09/2019 G47.33 Obstructive sleep apnea (adult) Carmen Martinez DNP, RN, (pediatric) ELECTRONIC SCALE TESTER- 05/31/2019 G95.0 Syringomyelia and 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 Rishabh Mclean [...] right bundle-branch Juan R Sunshine M.D. block Plan of Treatment Future Appointment(s):11/04/2019 11:30 am - Rishabh Mclean M.D. at [facility]/09/2019 11:00 am - Carmen Martinez DNP, RN, ELECTRONIC SCALE TESTER- at [facility]11/30/2019 9:45 am - Rishabh Mclean M.D. at [place] [facility]10/07/2019 - Karina Dowell, N.PTiffanyG47.33 Obstructive sleep apnea (adult) (pediatric)R42 Dizziness and toybfbuyoD53.9 Transient cerebral ischemic attack, zijtsnsestjF40 Essential ( primary) hypertensionFollow up:[facility] 03/2020Recommendations:If dizziness persists when getting out of bed and BP low, could cut down spironolactone.E78.5 Hyperlipidemia, unspecified Functional Status Description No Information Available Mental Status Description No Information Available Referrals Description No Information Available
--- OUTSIDE RECORDS SUMMARY | 2019-10-26 13:21 | XMS REPORT | Continuity of Care Document ---
:1950 External Reference #:[id number] Author Name Maricarmen Gil MD Address [address] [place] [address] Care Team Providers Name Role Phone [facility] - Care Team Information Vocational Psychologist [phone] Nutrition, Education [facility] - Urology Care Team Information Vocational Psychologist [phone] Prachi Maldonado DPM - Paster Operator Care Team Information Vocational Psychologist Luis Madsen MD - Cardiovascular Care Team Information Vocational Psychologist [phone] Disease Sleep Clinic - Sleep Disorder Care Team Information Vocational Psychologist [phone] Diagnostic [facility] - Otolaryngology Care Team Information Vocational Psychologist [phone] [facility] - Care Team Information Vocational Psychologist [phone] [facility] - Pain Medicine Care Team Information Vocational Psychologist [phone] Rishabh Mclean MD - Neurology Care Team Information Vocational Psychologist Laura Pascual MD - Hematology & Care Team Information Vocational Psychologist Oncology Problems Active Problems Provider Date Pure [...] 08/03/19 Denies Cigarette Use Smoking Status Reviewed: 09/29/19 Denies Cigarette Use ETOH Use Denies alcohol [...] every V82.81 Simeon Fonseca, 05/24/2012 day M.D. [id number] Tablets Acetaminophen use every eight Simeon Fonseca, [...] times a day M.D. as needed dizziness History Medications Nitrofurantoin Monohyd [...] CPT Code Status Date Vaccine Lot # 62595 Given 06/09/2019 Influenza Vaccine, Inactivated, Subunit, [id number] Adjuvanted, For Intrmusc 47030 Given 06/01/2018 Influenza Vaccine Split Virus Preservative Free [id number] Im Use (hi-dose) 06887 Given 06/22/2017 Influenza Virus Vaccine, Quadrivalent, Split, [id number] Preservative Free 25033 Given 05/20/2016 Pneumococcal Immunization [id number] 43260 Given 05/20/2016 Influenza Virus Vaccine, Quadrivalent, Split, [id number] Preservative Free 72047 Given 08/07/2015 Influenza Virus Vaccine, Quadrivalent, Split, [id number] Preservative Free 84689 Given 03/24/2015 Prevnar 13 [id number] 66071 Given 05/26/2014 Influenza Virus Vaccine, Quadrivalent, Split, [id number] Preservative Free 47779 Given 05/24/2013 Flu, Split Virus 3Yrs 63349 Given 05/12/2013 Adacel or Boostrix, [id number] 71180 Given 05/24/2012 Flu, Split Virus 3Yrs [id number] 33817 Given 07/22/2011 Flu, Split Virus 3Yrs [id number] 40118 Given 04/18/2011 Pneumococcal Immunization [id number] 21929 Given 06/28/2010 Flu, Split Virus 3Yrs [id number] 97630 Given 06/18/2009 Flu, Split Virus 3Yrs [id number] 48240 Given 09/11/2008 Flu, Split Virus 3Yrs 50629 Given 07/23/2007 Flu, Split Virus 3Yrs 42878 Given 08/04/2006 Flu, Split Virus 3Yrs [id number] 05086 Given 07/03/2004 Flu, Split Virus 3Yrs 12075 Given 10/18/2003 Td Immunization [id number] Refused 01/14/2010 Zostavax Vital Signs Date Vital Result Comment 09/29/2019 9:58am BP Systolic 114 mmHg BP Diastolic 62 mmHg 09/19/2019 11:08am BP Systolic 132 mmHg BP Diastolic 62 mmHg Weight 164.00 lb Results Test Acquired Date Facility Test Result H/L Range Note CBC Auto 09/15/2019 [facility] White Blood 6.8 10^3/uL Normal 3.5- 10.8 Diff [phone] Count Red Blood Count 4.17 10^6/uL Normal [...] Red Blood Cells % 0.0 Inr/Protime 09/15/2019 [facility] Inr 0.94 Normal 0.82-1.09 2 [phone] Comp Metabolic Panel 09/15/2019 [facility] Sodium 137 mmol/L Normal 135-145 [phone] Potassium 4.4 mmol/L Normal 3.5-5.0 Chloride 101 [...] 81.3 >60 2 Laboratory test finding 09/15/2019 [facility] Lipase 47 U/L Normal 11.0-82.0 [phone] C Reactive Protein 2.77 mg/L Normal <8.01 Laboratory test 09/09/2019 In House Hemoglobin A1c 5.5 finding Laboratory test 09/08/2019 [facility] Troponin-I (TnI) 0.00 ng/mL < 0.03 3 finding [phone] Basic Metabolic 09/08/2019 [facility] Sodium 138 mmol/L Normal 135- 145 Panel [phone] Chloride 101 mmol/L Normal 101-111 Co2 Carbon Dioxide 27 mmol/L Normal 22-32 Glucose 112 mg/dL High 70-100 Blood Urea Nitrogen 22 mg/dL Normal 6-24 Creatinine 0.79 mg/dL Normal 0.51-0.95 BUN/Creatinine Ratio 27.8 High 8-20 Calcium 9.5 mg/dL Normal 8.6-10.3 Egfr Non- 72.2 >60 Egfr 87.3 >60 4 Potassium 5.2 mmol/L High 3.5-5.0 Anion Gap 10 mmol/L Normal 2-11 Laboratory test 09/08/2019 [facility] Partial 33.2 seconds Normal 26.0-38.0 finding [phone] Thrombo Time PTT Inr/Protime 09/08/2019 [facility] Inr 0.99 Normal 0.82-1.09 5 [phone] CBC Auto Diff 09/08/2019 [facility] White Blood 8.5 10^3/uL Normal 3.5-10.8 [phone] Count Red Blood Count 3.95 10^6/uL Normal [...] Cells % 0.0 CBC Auto Diff 08/22/2019 [facility] White Blood 7.9 10^3/uL Normal 3.5-10.8 [phone] Count Red Blood Count 4.17 10^6/uL Normal [...] 0.0 Iron & Iron Binding Capacity 08/22/2019 [facility] Iron 25 g/dL Low 50-212 [phone] Unsaturated Iron Binding < 432 g/dL Total Iron Binding Capacity 447 g/dL Normal 250-450 Transferrin 319 mg/dL Normal 203-362 % Iron Saturation 6 % Low 15-55 CBC Auto Diff 08/02/2019 [facility] White Blood 8.0 10^3/uL Normal 3.5-10.8 [phone] Count Red Blood Count 3.80 10^6/uL Normal [...] Cells % 0.0 Comp Metabolic Panel 08/02/2019 [facility] Sodium 136 mmol/L Normal 135-145 [phone] Potassium 4.1 mmol/L Normal 3.5-5.0 Chloride 100 [...] Egfr 115.5 >60 6 Laboratory test 08/02/2019 [facility] Troponin-I 0.00 ng/mL <0.04 7 finding [phone] (TnI) CBC Auto Diff 07/18/2019 [facility] White Blood 9.6 Normal 3.5-10.8 [phone] Count 10^3/uL Red Blood Count 4.04 10^6/uL [...] Red Blood Cells % 0.0 Inr/Protime 07/18/2019 [facility] Inr 0.91 Normal 0.82-1.09 8 [phone] Laboratory test 07/18/2019 [facility] Troponin-I 0.00 ng/mL <0.04 9 finding [phone] (TnI) Comp Metabolic 07/18/2019 [facility] Sodium 139 mmol/L Normal 135- 145 Panel [phone] Potassium 4.5 mmol/L Normal 3.5-5.0 Chloride 103 [...] Egfr 100.4 >60 10 Laboratory test 07/18/2019 [facility] C Reactive < 1.00 Normal <8.01 finding [phone] Protein mg/L Laboratory test 06/09/2019 In House Hemoglobin A1c 5.6 finding Ua Inhouse 06/09/2019 In House Ua Specific 1.015 [place] Ua Blood trace [place] Ua PH 6.5 Culture Urine Inhouse 04/19/2019 In House Colonies no growth 11 Urine Micro Inhouse 04/19/2019 In House Ua WBC 8 Ua RBC 15 Ua Casts - Ua Epi - Ua Other - Ua Glucose - Ua Bilirubin - Ua Ketones - Ua Specific [place] 1.030 Ua Blood NH Mod Ua PH 6.0 Ua Protein tr Ua Urobilinogen - Ua Nitrite - Ua Leukocytes tr Urine Micro Inhouse 04/11/2019 In House Ua WBC 4-8 Ua RBC tntc Ua Casts - Ua Epi - Ua Other sm bacteria amt Ua Glucose - Ua Bilirubin mod Ua Ketones - Ua Specific [place] 1.015 Ua Blood lg Ua PH 6.5 Ua Protein 3+ Ua Urobilinogen - Ua Nitrite + Ua Leukocytes sm Culture Urine Inhouse 04/11/2019 In House Colonies 07/05 1 Standard intensity warfarin therapeutic range: 2.0-3.0 High [...] immediately to secondary confirmatory testing. Using the [employer] 800 Access Immunoassay systems, the 99th percentile [...] yellow Procedures Date Code Description Status 08/19/2019 17582 Electrocardiogram Complete Completed 07/25/2019 016021138 Diabetic Foot Exam Completed 07/04/2019 891016093 Diabetic Retinal Eye Exam Completed 06/23/2019 87344 Electrocardiogram Complete Completed 10/29/2017 55262521 Mammogram Completed 03/28/2015 94072917 Colonoscopy Completed Medical Devices Description No Information Available Encounters Type Date Location Provider Dx Diagnosis Office Visit 09/29/2019 Main Office Maricarmen Gil, K59.00 Constipation, 9:45a unspecified R41.3 Other amnesia Office Visit 09/19/2019 11:20a Main Office Concepcion [...] Encntr for oth proc for purpose oth [facility] Office Visit 04/11/2019 9:30a Main Office Simeon Fonseca, M79.605 Pain in left M.D. 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 09/19/2019 R42 Dizziness and giddiness Concepcion Kennedy, P.A. 09/19/2019 E11.51 Type 2 diabetes mellitus with diabetic Concepcion Kennedy, P.A. peripheral angiopathy without gangrene 09/19/2019 K59.00 Constipation, unspecified Concepcion Kennedy, P.A. 09/19/2019 I83.001 Varicose veins of unspecified lower Concepcion Kennedy, P.A. extremity with ulcer of thigh 09/19/2019 R53.83 Other fatigue Concepcion Kennedy, P.A. 09/09/2019 R42 Dizziness and giddiness Concepcion Kennedy, P.A. 09/09/2019 G45.9 Transient cerebral ischemic attack, Concepcion Kennedy, P.A. unspecified 09/09/2019 G47.30 Sleep apnea, unspecified Concepcion Kennedy, P.A. 09/09/2019 E11.51 Type 2 diabetes mellitus with diabetic Concepcion Kennedy, P.A. peripheral angiopathy without gangrene 09/09/2019 F51.12 Insufficient sleep syndrome Concepcion Kennedy, P.A. 09/09/2019 I10 Essential (primary) hypertension Concepcion Kennedy, P.A. 09/08/2019 R42 Dizziness and giddiness Concepcion Kennedy, P.A. 09/08/2019 D64.9 Anemia, unspecified Concepcion Kennedy, P.A. 09/08/2019 G45.9 Transient cerebral ischemic attack, Concepcion Kennedy, P.A. unspecified 09/08/2019 G47.30 Sleep apnea, unspecified Concepcion Kennedy, P.A. 09/08/2019 E11.51 Type 2 diabetes mellitus with diabetic Concepcion Kennedy, P.A. peripheral angiopathy without gangrene 08/19/2019 R07.9 Chest pain, unspecified Concepcion Kennedy, P.A. 08/19/2019 R42 Dizziness and giddiness Concepcion Kennedy, P.A. 08/19/2019 D64.9 Anemia, unspecified Concepcion Kennedy, P.A. 08/19/2019 G45.9 Transient cerebral ischemic attack, Concepcion Kennedy, P.A. unspecified 08/19/2019 H53.2 Diplopia Concepcion Kennedy, P.A. 08/19/2019 G47.30 Sleep apnea, unspecified Concepcion Kennedy, P.A. 08/03/2019 G45.9 Transient cerebral ischemic attack, Brigida Raya PA unspecified 08/03/2019 H81.4 Vertigo of central origin Brigida Raya PA 08/03/2019 G93.5 Compression of brain Brigida Raya PA 06/23/2019 M79.672 Pain in left foot Concepcion Kennedy, P.A. 06/23/2019 R07.89 Other chest pain Concepcion Kennedy, P.A. 06/23/2019 R42 Dizziness and giddiness Concepcion Kennedy, P.A. 06/23/2019 R51 Headache Concepcion Kennedy, P.A. 06/20/2019 H53.2 Diplopia Concepcion Kennedy, P.A. 06/20/2019 E11.51 Type 2 diabetes mellitus with diabetic Concepcion Kennedy, P.A. peripheral angiopathy without gangrene 06/20/2019 G95.0 Syringomyelia and 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 Concepcion Kennedy, P.A. 06/09/2019 E11.51 Type 2 diabetes mellitus with diabetic Concepcion Kennedy, P.A. peripheral angiopathy without gangrene 06/09/2019 M79.672 Pain in left foot Concepcion Kennedy, P.A. 06/09/2019 M79.671 Pain in right foot Concepcion Kennedy, P.A. 06/09/2019 R31.9 Hematuria, unspecified Concepcion Kennedy, P.A. 06/09/2019 M99.53 Intervertebral disc stenosis of neural canal Concepcion Kennedy , P.A. of lumbar regio 06/09/2019 F51.12 Insufficient sleep syndrome Concepcion Kennedy, P.A. 06/09/2019 G57.13 Meralgia paresthetica, bilateral lower limbs Concepcion Kennedy , P.A. 06/09/2019 D51.9 Vitamin B12 deficiency anemia, unspecified Concepcion Kennedy, P.A. 06/09/2019 I10 Essential (primary) hypertension Concepcion Kennedy, P.A. 06/09/2019 K21.9 Gastro-esophageal reflux disease without Concepcion Kennedy, P.A. esophagitis 06/09/2019 Z23 Encounter for immunization Concepcion Kennedy, P.A. 06/09/2019 Z41.8 Encounter for other procedures for purposes Concepcion Kennedy, P.A. other than remedying health state 04/19/2019 [...] Simeon Fonseca M.D. Plan of Treatment Future Appointment(s):03/29/2020 10:00 am - Maricarmen Gil MD at Main [id number] - Jaime MartinezR42 Dizziness and giddinessReferral:Janneth Rojas MD, Cardiology/Phys/OsteoFollow up:possibly repeat echo as recommended by [facility] EDG45.9 Transient cerebral ischemic attack, unspecifiedFollow up:Appt [...] periods of dizziness and possible TIAs. Sent 00/00/ 0000 Was in ED on 09/09/19. Neuro recommended that pt had echo lat[facility] [address] [address] [phone] Laura Pascual MD low blood iron even though pt has had infusion and Sent takes ferrous sulfate Consult and Co-treatment [facility] [address]; [address] [place] [address] [phone] Sleep Clinic Pt has had CPAP originally obtained through sleep clinic Sent 2013, seems might not be working as well as in past, pt has a lot of daytime sleepiness, and falling to sleep Assume Management this Problem Only [facility] [address], [address] [place] [address] [phone] Rishabh Mclean MD seen in ER 08/02/19 after ?recurrent TIA plus Sent 2018 vertigo Consult and Treat; established pt of Dr. Mclean [facility] [address] [place] [address] [phone] Prachi Maldonado DPM For diabetic foot monitoring and issues w drop Closed foot [address] [place] [address] [place] [address] [phone]
--- NOTE | 2019-10-26 14:41 | UC ---
General HPI - HPI Summary HPI Summary: PATIENT REPORTS SHE FELL OUT OF BED THIS MORNING. NO HEAD INJURY OR LOC. IS NOW COMPLAINING OF GENERALIZED WEAKNESS AND PAIN IN HER NECK, BACK AND KNEES. SHE IS COMPLAINING OF BILATERAL HAND NUMBNESS/TINGLING. INTERMITTENT HEADACHE. ARRIVES ACCOMPANIED BY HER NEIGHBOR WHO STATES THAT HER SPEECH IS SLURRED COMPARED TO HER BASELINE. PATIENT HAS HISTORY OF TIA, SEIZURE DISORDER AND DIABETES. IS ON PLAVIX BUT SHE IS NOT SURE WHY. - History of Current Complaint Stated Complaint: FELL KNEE/BACK /NECK/SHOULDER INJURY Time Seen by Provider: 10/26/19 14:15 Hx Obtained From: Patient, Family/[employer] - NEIGHBOR Hx Last Menstrual Period: "years ago." Onset/Duration: Sudden Onset, Lasting Hours, Still Present Timing: Constant Onset Severity: Moderate Current Severity: Moderate - Allergy/Home Medications Allergies/Adverse Reactions: Allergies Allergy/AdvReac Type Severity Reaction Status Date / Time amoxicillin Allergy ITCHINESS Verified 10/26/19 15:31 cephalexin Allergy Rash Verified 10/26/19 15:31 ciprofloxacin [From Cipro] Allergy RASH AND Verified 10/26/19 15:31 SWELLING fluticasone furoate Allergy Difficulty Verified 10/26/19 15:31 [From Breo Ellipta] Breathing latex Allergy ITCHINESS Verified 10/26/19 15:31 Sulfa (Sulfonamide Allergy Rash And Verified 10/26/19 15:31 Antibiotics) Itching vilanterol Allergy Difficulty Verified 10/26/19 15:31 [From Breo Ellipta] Breathing AIR FRESHNERS Allergy RUNNY EYES Uncoded 09/15/19 10:21 AND NOSE TIDE LAUNDRY SOAP Allergy Rash Uncoded 09/15/19 10:21 PMH/Surg Hx/FS Hx/Imm Hx Endocrine History: Diabetes Cardiovascular History: Hypertension Neurological History: TIA, Seizures Other Neurological History: LEFT SIDED WEAKNESS/FOOT DROP Other History Of: Negative For: HIV, Hepatitis B, Hepatitis C, Anticoagulant Therapy - Surgical History Surgical History: Yes Surgery Procedure, Year, and Place: 1996 neck surgery (NO IMPLANTS) compresed spinal cord - chiari malformation; - Family History Known Family History: Positive: Cardiac Disease, Hypertension - Social History Alcohol Use: None Substance Use Type: None Smoking Status (MU): Never Smoked Tobacco Have You Smoked in the Last Year: No - Immunization History Most Recent Influenza Vaccination: fall 2015 Most Recent Pneumonia Vaccination: unknown Review of Systems All Other Systems Reviewed And Are Negative: Yes Constitutional: Positive: Negative Skin: Positive: Negative Respiratory: Positive: Negative Cardiovascular: Positive: Negative Gastrointestinal: Positive: Negative Musculoskeletal: Positive: Arthralgia, Myalgia Neurological: Positive: Headache Physical Exam Triage Information Reviewed: Yes Appearance: No Pain Distress, Well-Nourished Vital Signs Reviewed: Yes Eyes: Positive: Conjunctiva Clear ENT: Positive: Hearing grossly normal Neck: Positive: Supple Respiratory: Positive: No respiratory distress, No accessory muscle use Cardiovascular: Positive: Pulses Normal Abdomen Description: Positive: Soft Musculoskeletal: Positive: No Edema, Other: - LEFT SIDED WEAKNESS Neurological: Positive: Alert - ORIENTED, COGNITIVELY INTACT. Psychological: Positive: Age Appropriate Behavior Skin: Negative: Rashes Course/Dx - Course Course Of Treatment: PATIENT PRESENTS AFTER FALLING OUT OF BED THIS MORNING. SHE IS COMPLAINING OF DIFFUSE BODY PAINNECK, ENTIRE BACK, KNEES. SHE IS COMPLAINING OF BILATERAL HAND NUMBNESS/TINGLING. HAS A HISTORY OF SEIZURE DISORDER AND TIA. SHE HAS BASELINE LEFT-SIDED WEAKNESS BUT DENIES ANY HISTORY OF ACTUAL STROKE. THINKS MAYBE IT'S FROM HER RECURRENT SEIZURES. SHE IS ACCOMPANIED BY HER NEIGHBOR WHO STATES THAT HER SPEECH IS SLURRED COMPARED TO HER BASELINE. NO HEAD INJURY OR LOC. [place] [facility] [place] - Diagnoses Provider Diagnosis: Generalized pain, Fall - Physician Notifications Discussed Patient Care With: Apolinar Nascimento - [place] [facility] Time Discussed With Above Provider: 14:40 Instructed by Provider To: MD Will See In ED Discharge ED - Sign-Out/Discharge Documenting (check all that apply): Patient Departure All imaging exams completed and their final reports reviewed: No Studies - Discharge Plan Condition: Stable Disposition: TRANS HIGHER LVL OF CARE FAC Referrals: No Primary Care Phys,NOPCP [Primary Care Provider] - - Billing Disposition and Condition Condition: STABLE Disposition: Trans Higher Lvl of Care Fac
[2019-10-26 14:50] VITALS: BP 140/77
== END 2019-10-26 14:50 | disposition short-term general hospital (02) ==
LOC: UCEAST 13:08
DX: M54.2 Cervicalgia (principal); M54.9 Dorsalgia, unspecified; M25.569 Pain in unspecified knee; M25.542 Pain in joints of left hand; M25.541 Pain in joints of right hand; Z86.73 Personal history of transient ischemic attack (TIA), and cerebral infarction without residual deficits; I10 Essential (primary) hypertension; E11.9 Type 2 diabetes mellitus without complications; Z88.0 Allergy status to penicillin; W06.XXXA Fall from bed, initial encounter; Y92.9 Unspecified place or not applicable; Z88.1 Allergy status to other antibiotic agents; Z88.2 Allergy status to sulfonamides; Z91.040 Latex allergy status; Z91.09 Other allergy status, other than to drugs and biological substances; Z88.8 Allergy status to other drugs, medicaments and biological substances
CPT/HCPCS: 99213; G0463

== ENCOUNTER 2020-08-16 14:18 | Observation (INO) ==
[2020-08-16] MEDS ORDERED: NS 0.9% 1000 ml BAG 1,000 ML IV ONE (14:58)
[2020-08-16 15:23] LABS: ABS Basophils 0.1 10^3/ul (0-0.2); ABS Eosinophils 0.3 10^3/ul (0-0.6); ABS Lymphocytes 1.1 10^3/ul (1.0-4.8); ABS Monocytes 0.5 10^3/ul (0-0.8); ABS Neutrophils 4.4 10^3/ul (1.5-7.7); Hematocrit 37 % (35-47); Hemoglobin 12.2 g/dL (12.0-16.0); Lymphocyte % 17.6 %; Mean Corpuscular HGB Conc 33 g/dL (31-36); Mean Corpuscular Hemoglobin 30 pg (27-31); Mean Corpuscular Volume 90 fL (80-97); Mean Platelet Volume 6.8 fL (7.4-10.4); Nucleated Red Blood Cells % 0.1; Platelet Count 441 10^3/uL (150-450); Red Blood Count 4.07 10^6 /uL (3.70-4.87); Red Cell Distribution Width 14 % (10-15); White Blood Count 6.5 10^3/uL (3.5-10.8)
[2020-08-16 15:34] LABS: Activated Partial Thrombo Time 30.5 seconds (26.0-38.0); INR 0.97 (0.82-1.09)
[2020-08-16 15:41] LABS: Albumin 4.2 g/dL (3.2-5.2); Albumin/Globulin Ratio 1.8 (1-3); Calcium 9.1 mg/dL (8.6-10.3); EGFR African American 100.1 (>60); EGFR Non-African American 82.7 (>60); Globulin 2.4 g/dL (2-4); HDL Cholesterol 48.8 mg/dL; Potassium 4.5 mmol/L (3.5-5.0); Total Bilirubin 0.2 mg/dL (0.2-1.0); Total Protein 6.6 g/dL (6.4-8.9)
[2020-08-16] MEDS ORDERED: Iodixanol (CONTRAST) 320 MG/ML 100 ML SDV IV ONE (15:57)
[2020-08-16] MEDS ORDERED: Dextrose 50% Syringe 50 ml 25 GM/50 ML SYRINGE IV PUSH PRN (20:03)
[2020-08-16] MEDS ORDERED: Ondansetron 4 mg VIAL 2 MG/ML 2 ml VIAL IV PRN (20:03)
[2020-08-16] MEDS: Timolol 0.5% OPTH.SOL BTL BOTH EYES SCH (23:31)
[2020-08-16] MEDS ORDERED: Latanoprost 0.005% 2.5 ml BTL BOTH EYES SCH (23:45)
[2020-08-17 06:40] LABS: Urine Appearance Clear; Urine Bilirubin Negative (Negative); Urine Blood Negative (Negative); Urine Color Yellow; Urine Glucose Negative (Negative); Urine Ketones Negative (Negative); Urine Nitrite Negative (Negative); Urine Protein Negative (Negative); Urine Specific Gravity 1.049 (1.010-1.030); Urine Urobilinogen Negative (Negative)
[2020-08-17 06:46] LABS: Urine Bacteria 1+ (Absent); Urine Red Blood Cell 3+(>10/hpf) (Absent); Urine Squamous Epithelial Cell Present (Absent); Urine White Blood Cell 2+(11-20/hpf) (Absent)
[2020-08-17] MEDS: Polyethyl Glycol/Propylene Gly OPHTH.SOLN BOTH EYES SCH ×2 (07:28→11:42)
[2020-08-17] MEDS: Fluticasone NASAL SPRAY 50MCG 16 gm SPRAY BTL INTRANASAL SCH ×2 (07:28→07:34)
[2020-08-17] MEDS: Timolol 0.5% OPTH.SOL BTL BOTH EYES SCH (07:29)
[2020-08-17 11:12] VITALS: BP 117/50
[2020-08-17] MEDS ORDERED: Latanoprost 0.005% 2.5 ml BTL BOTH EYES SCH (18:00)
== END 2020-08-17 16:44 | disposition home or self-care (01) ==
LOC: EDACCT# → MEDTELE 14:18 → ED 14:18 → MEDTELE 22:25
PROVIDERS: ADMIT Hospitalist; ATTEND Internal Medicine

== ENCOUNTER 2023-06-22 16:32 | Inpatient (IN) ==
[2023-06-22] MEDS ORDERED: Acetaminophen IV 1 GM/100ML 1,000 MG/100 ML BAG IV ONE (17:05)
[2023-06-22 17:53] LABS: Urine Appearance Clear; Urine Bilirubin Negative (Negative); Urine Blood 1+ (Negative); Urine Color Yellow; Urine Glucose Negative (Negative); Urine Ketones 1+ (Negative); Urine Nitrite Negative (Negative); Urine Protein Negative (Negative); Urine Specific Gravity 1.019 (1.002-1.030); Urine Urobilinogen Negative (Negative)
[2023-06-22 17:55] LABS: Urine Bacteria Absent (Absent); Urine Red Blood Cell 3+(>10/hpf) (Absent); Urine Squamous Epithelial Cell Present (Absent); Urine White Blood Cell Trace(0-5/hpf) (Absent)
[2023-06-22 18:09] LABS: Albumin 4.1 g/dL (3.2-5.2); CO2 Carbon Dioxide 30 mmol/L (22-32); Calcium 8.9 mg/dL (8.6-10.3); Chloride 100 mmol/L (101-111); Sodium 136 mmol/L (135-145)
[2023-06-22 18:15] LABS: ALT 9 U/L (7-52); Albumin/Globulin Ratio 1.4 (1-3); Alkaline Phosphatase 52 U/L (35-149); Blood Urea Nitrogen 28 mg/dL (6-24); C Reactive Protein 30.98 mg/L (<8.01); Creatine Kinase 72 U/L (10-223); Creatinine, Serum 0.76 mg/dL (0.51-0.95); Globulin 2.9 g/dL (2-4); Glucose 106 mg/dL (70-100); eGFR CKD-EPI 82.7 (>60)
[2023-06-22 18:17] LABS: Anion Gap 6 mmol/L (2-16)
[2023-06-22 18:22] LABS: ABS Eosinophils 0.1 10^3/uL (0.0-0.5); ABS Lymphocytes 0.4 10^3/uL (1.0-4.8); ABS Monocytes 0.7 10^3/uL (0.0-0.9); ABS Neutrophils 7.3 10^3/uL (1.5-7.6); ABS Nucleated RBC 0.01 10^3/ul; Activated Partial Thrombo Time 28.3 seconds (26.0-38.0); Eosinophil % 0.8 %; Hematocrit 39.2 % (35-45); Hemoglobin 13.5 g/dL (11.5-14.3); High Sens Troponin Baseline 6 pg/mL (<15); INR 1.02 (0.83-1.13); Mean Corpuscular Hemoglobin 32.7 pg (27-33); Mean Corpuscular Hgb Conc 34.5 g/dL (31-36); Mean Corpuscular Volume 94.9 fL (80-97); Mean Platelet Volume 7.9 fL (7.5-11.2); Nucleated Red Blood Cells % 0.1 /100 WBC (0.0-0.4); Platelet Count 217 10^3/uL (150-450); Red Blood Count 4.13 10^6/uL (3.63-4.92); Red Cell Distribution Width 13.7 % (12-17); White Blood Count 8.6 10^3/uL (3.8-11.8)
[2023-06-22] MEDS ORDERED: Iodixanol (CONTRAST) 320 MG/ML 100 ML SDV IV ONE (18:22)
[2023-06-22 19:21] LABS: Potassium Redraw 4.4 mmol/L (3.5-5.0)
[2023-06-22 19:29] LABS: High Sensitivity Troponin 1 Hr 7 pg/mL (<15)
[2023-06-22] MEDS ORDERED: Dexamethasone IV 4 MG/ML VIAL 1 ml VIAL IV SLOW PU ONE (20:34)
[2023-06-22] MEDS ORDERED: Polyethylene Glycol 3350 17 GM PACKET PO PRN (22:41)
[2023-06-22] MEDS ORDERED: guaiFENesin 100 mg/5 ml LIQ unit dose cup PO PRN (22:42)
[2023-06-22] MEDS ORDERED: PROPYLENE GLYCOL 0.6% BOTH EYES PRN (22:50)
[2023-06-23] MEDS: Enoxaparin 40 MG/0.4 ML SYR SUBCUT SCH ×2 (00:33→21:49)
[2023-06-23] MEDS: Latanoprost 0.005% 2.5 ml BTL BOTH EYES SCH ×2 (02:55→21:49)
[2023-06-23] MEDS: Timolol 0.5% OPTH.SOL BTL BOTH EYES SCH ×3 (02:55→21:49)
[2023-06-23 05:42] LABS: Blood Urea Nitrogen 24 mg/dL (6-24); CO2 Carbon Dioxide 28 mmol/L (22-32); Calcium 8.2 mg/dL (8.6-10.3); Chloride 99 mmol/L (101-111); Creatinine, Serum 0.67 mg/dL (0.51-0.95); Glucose 143 mg/dL (70-100); Sodium 136 mmol/L (135-145); eGFR CKD-EPI 92.2 (>60)
[2023-06-23 05:44] LABS: Anion Gap 9 mmol/L (2-16)
[2023-06-23] MEDS ORDERED: Remdesivir 100 mg Vial 200 MG in NS 0.9% 250 ml 210 ML IV ONE (09:52)
[2023-06-23] MEDS: Calcium/Vitamin D TAB 250/125 TAB PO SCH (10:29)
[2023-06-23] MEDS ORDERED: Dextran 70/Hypromellose Tears Eye Drops 15 ml BTL (for Artificials Tears) BOTH EYES PRN (10:55)
[2023-06-23] MEDS: Sulfamethox/Trimethoprim DS TAB 800/160 mg PO SCH ×2 (11:35→21:47)
[2023-06-23 14:23] LABS: TSH Ultra Thyroid Stim Horm 0.94 mcIU/mL (0.34-5.60)
[2023-06-23 14:35] LABS: Folate 17.86 ng/mL (5.90-24.80); Vitamin B12 > 1450 pg/mL (180-914)
[2023-06-24 07:03] LABS: Hematocrit 38.5 % (35-45); Hemoglobin 13.1 g/dL (11.5-14.3); Mean Corpuscular Hemoglobin 32.3 pg (27-33); Mean Corpuscular Hgb Conc 33.9 g/dL (31-36); Mean Corpuscular Volume 95.3 fL (80-97); Mean Platelet Volume 8.4 fL (7.5-11.2); Platelet Count 204 10^3/uL (150-450); Red Blood Count 4.04 10^6/uL (3.63-4.92); Red Cell Distribution Width 13.7 % (12-17); White Blood Count 10.1 10^3/uL (3.8-11.8)
[2023-06-24 07:08] LABS: Albumin/Globulin Ratio 1.5 (1-3); Calcium 9.3 mg/dL (8.6-10.3); Creatinine, Serum 0.77 mg/dL (0.51-0.95); Globulin 2.7 g/dL (2-4); Potassium 4.4 mmol/L (3.5-5.0); Total Bilirubin 0.2 mg/dL (0.2-1.0); Total Protein 6.7 g/dL (6.4-8.9); eGFR CKD-EPI 81.4 (>60)
[2023-06-24 07:26] LABS: INR 1.01 (0.83-1.13)
[2023-06-24] MEDS ORDERED: Remdesivir 100 mg Vial 100 MG in NS 0.9% 250 ml 230 ML IV SCH (09:00)
[2023-06-24] MEDS: Sulfamethox/Trimethoprim DS TAB 800/160 mg PO SCH (09:33)
[2023-06-24] MEDS: Calcium/Vitamin D TAB 250/125 TAB PO SCH (09:33)
[2023-06-24] MEDS: Timolol 0.5% OPTH.SOL BTL BOTH EYES SCH (09:43)
[2023-06-24 14:07] VITALS: BP 119/50
== END 2023-06-24 15:58 | disposition home or self-care (01) | DRG 177 ==
LOC: EDHOLD 16:32 → ED 16:32 → SUATTDRO 21:06 → MEDTELE 06-23 07:40 → SUATTDRO 06-23 15:01
PROVIDERS: ADMIT Internal Medicine; ATTEND Student in an Organized Health Care Education/Training Program

== ENCOUNTER 2024-10-10 09:34 | Inpatient (IN) ==
[2024-10-10 10:41] LABS: Venous Bicarbonate HCO3 22.1 mmol/L (24-28)
[2024-10-10 10:56] LABS: Hematocrit 41.6 % (35-45); Hemoglobin 13.9 g/dL (11.5-14.3); Mean Corpuscular Hemoglobin 31.8 pg (27-33); Mean Corpuscular Hgb Conc 33.5 g/dL (31-36); Mean Corpuscular Volume 94.8 fL (80-97); Red Blood Count 4.38 10^6/uL (3.63-4.92); Red Cell Distribution Width 14.5 % (12-17); White Blood Count 8.3 10^3/uL (3.8-11.8)
[2024-10-10 11:11] LABS: High Sens Troponin Baseline 395 pg/mL (<15)
[2024-10-10 11:31] LABS: Urine Appearance Clear; Urine Bilirubin Negative (Negative); Urine Blood Negative (Negative); Urine Color Yellow; Urine Glucose Negative (Negative); Urine Ketones Negative (Negative); Urine Nitrite Negative (Negative); Urine Protein Trace (Negative); Urine Specific Gravity 1.024 (1.002-1.030); Urine Urobilinogen Negative (Negative); Urine pH 5.5 (5.0-8.0)
[2024-10-10 11:35] LABS: ALT 8 U/L (7-52); Albumin 3.3 g/dL (3.5-5.7); Albumin/Globulin Ratio 1.4 (1-3); Alkaline Phosphatase 50 U/L (35-149); Anion Gap 7 mmol/L (2-16); Blood Urea Nitrogen 43 mg/dL (6-24); C Reactive Protein 21.22 mg/L (<8.01); CO2 Carbon Dioxide 30 mmol/L (22-32); Calcium 7.8 mg/dL (8.6-10.3); Chloride 97 mmol/L (101-111); Creatinine, Serum 1.19 mg/dL (0.51-0.95); Globulin 2.3 g/dL (2-4); Glucose 85 mg/dL (70-100); Sodium 134 mmol/L (135-145); Total Bilirubin 0.2 mg/dL (0.2-1.0); Total Protein 5.6 g/dL (6.4-8.9)
[2024-10-10 11:42] LABS: ABS Basophils 0.1 10^3/uL (0.0-0.1); ABS Lymphocytes 1.4 10^3/uL (1.0-4.8); ABS Monocytes 1.1 10^3/uL (0.0-0.9); ABS Neutrophils 5.7 10^3/uL (1.5-7.6); ABS Nucleated RBC 0.04 10^3/ul; Eosinophil % 0.1 %; Lymphocyte % 17.3 %; Nucleated Red Blood Cells % 0.4 %/100WBC (0.0-0.8); Platelet Count Platelets clumped. 10^3/uL (150-450)
[2024-10-10] MEDS: Lactated Ringers 1000 ml BAG 1,000 ML IV ONE ×3 (11:45→17:38)
[2024-10-10 11:47] LABS: Urine Bacteria Absent /HPF (Absent); Urine Red Blood Cell 3+(>10/hpf) /HPF (0-Trace); Urine Squamous Epithelial Cell Present /HPF (Absent); Urine White Blood Cell Trace(0-5/hpf) /HPF (0-Trace)
[2024-10-10 12:01] LABS: High Sensitivity Troponin 1 Hr 182 pg/mL (<15)
[2024-10-10] MEDS: Azithromycin 500 mg/250 ml NS 500 MG/250 ML BAG IVPB ONE (12:02)
[2024-10-10] MEDS: Cefepime 2 GM in Dextrose 2 GM/50 ML BAG IV ONE (12:02)
[2024-10-10] MEDS: cefTRIAXone 1 gm/50 mL D5W 1 GM/50 ML BAG IV ONE (12:06)
[2024-10-10] MEDS: Iodixanol 320 (CONTRAST) 100 ML SDV IV ONE (12:37)
[2024-10-10] MEDS ORDERED: Norepinephrine 4 MG/250mL D5W 4,000 MCG/250 ML BAG IV ONE (13:15)
[2024-10-10] MEDS: Norepinephrine 4 MG/250mL D5W 4,000 MCG/250 ML BAG IV SCH (13:19)
[2024-10-10] MEDS: Iohexol 350 (CONTRAST) 500 ML MDV IV ONE (13:21)
[2024-10-10] MEDS ORDERED: Valproic Acid IV 100 MG/ML 5 ML VIAL (500 MG) IVPB ONE (14:21)
[2024-10-10] MEDS: Valproic Acid IV 750 MG in NS 0.9% 100 ml BAG 100 ML IVPB ONE (15:02)
[2024-10-10] MEDS: Pantoprazole VIAL 40 MG VIAL IV SCH (19:04)
[2024-10-10 19:32] LABS: Urine Appearance Clear; Urine Bacteria Absent /HPF (Absent); Urine Bilirubin Negative (Negative); Urine Blood Negative (Negative); Urine Color Yellow; Urine Glucose Negative (Negative); Urine Ketones 1+ (Negative); Urine Nitrite Negative (Negative); Urine Protein 1+ (>=30 mg/dL) (Negative); Urine Red Blood Cell 1+(3-5/hpf) /HPF (0-Trace); Urine Specific Gravity >1.050 (1.002-1.030); Urine Urobilinogen Negative (Negative); Urine White Blood Cell Absent /HPF (0-Trace)
[2024-10-10] MEDS: Dextrose 50% Syringe 50 ml 25 GM/50 ML SYRINGE ONE (19:37)
[2024-10-10] MEDS: Dextrose 50% Syringe 50 ml 25 GM/50 ML SYRINGE IV PUSH PRN (19:37)
[2024-10-10] MEDS ORDERED: Valproic Acid IV 100 MG/ML 5 ML VIAL (500 MG) IVPB SCH (21:00)
[2024-10-10] MEDS: Valproic Acid IV 750 MG in NS 0.9% 100 ml BAG 100 ML IVPB SCH (21:13)
[2024-10-10] MEDS: Heparin 5000 UNITS/ML 1 mL VIAL SUBCUT SCH (21:35)
[2024-10-10] MEDS: Cefepime 2 GM in Dextrose 2 GM/50 ML BAG IV SCH (22:37)
[2024-10-11] MEDS: Acetaminophen IV 1 GM/100ML 1,000 MG/100 ML BAG IV PRN (04:30)
[2024-10-11 05:43] LABS: Albumin 3.1 g/dL (3.5-5.7); Albumin/Globulin Ratio 1.5 (1-3); Calcium 7.7 mg/dL (8.6-10.3); Creatinine, Serum 0.78 mg/dL (0.51-0.95); Globulin 2.1 g/dL (2-4); Magnesium 1.8 mg/dL (1.9-2.7); Potassium 5.2 mmol/L (3.5-5.0); Total Bilirubin 0.2 mg/dL (0.2-1.0); Total Protein 5.2 g/dL (6.4-8.9); eGFR CKD-EPI 79.7 (>60)
[2024-10-11 05:50] LABS: Hemoglobin 12.4 g/dL (11.5-14.3); Mean Corpuscular Hemoglobin 30.6 pg (27-33); Mean Corpuscular Hgb Conc 31.9 g/dL (31-36); Mean Corpuscular Volume 95.8 fL (80-97); Mean Platelet Volume 8.2 fL (7.5-11.2); Platelet Count 187 10^3/uL (150-450); Red Blood Count 4.07 10^6/uL (3.63-4.92); Red Cell Distribution Width 14.6 % (12-17); White Blood Count 5.5 10^3/uL (3.8-11.8)
[2024-10-11 06:50] LABS: ABS Lymphocytes 0.8 10^3/uL (1.0-4.8); ABS Monocytes 0.8 10^3/uL (0.0-0.9); ABS Neutrophils 3.9 10^3/uL (1.5-7.6); ABS Nucleated RBC 0.01 10^3/ul; Eosinophil % 0.2 %; Lymphocyte % 14.2 %; Nucleated Red Blood Cells % 0.1 %/100WBC (0.0-0.8)
[2024-10-11] MEDS: Valproic Acid IV 500 MG in NS 0.9% 100 ml BAG 100 ML IVPB SCH (09:46)
[2024-10-11] MEDS: Azithromycin 500 mg/250 ml NS 500 MG/250 ML BAG IVPB SCH (12:22)
[2024-10-11] MEDS: Iohexol 350 (CONTRAST) 500 ML MDV IV ONE (15:13)
[2024-10-11 15:14] LABS: HDL Cholesterol 32.4 mg/dL
[2024-10-11] MEDS: Lactulose 30 ml UDC PO ONE (17:25)
[2024-10-11] MEDS: Senna TAB 8.6 mg TAB PO SCH (18:15)
[2024-10-11] MEDS: Lactulose 30 ml UDC ONE (18:15)
[2024-10-11] MEDS: D5LR 1000 ml BAG 1,000 ML IV SCH (18:17)
[2024-10-12 06:24] LABS: Hematocrit 37.7 % (35-45); Hemoglobin 12.1 g/dL (11.5-14.3); Mean Corpuscular Hemoglobin 30.9 pg (27-33); Mean Corpuscular Hgb Conc 32.1 g/dL (31-36); Mean Corpuscular Volume 96.1 fL (80-97); Mean Platelet Volume 8.2 fL (7.5-11.2); Platelet Count 171 10^3/uL (150-450); Red Blood Count 3.92 10^6/uL (3.63-4.92); Red Cell Distribution Width 14.6 % (12-17); White Blood Count 6.2 10^3/uL (3.8-11.8)
[2024-10-12 07:13] LABS: Anion Gap 3 mmol/L (2-16); Blood Urea Nitrogen 23 mg/dL (6-24); CO2 Carbon Dioxide 34 mmol/L (22-32); Calcium 7.8 mg/dL (8.6-10.3); Chloride 99 mmol/L (101-111); Creatinine, Serum 0.67 mg/dL (0.51-0.95); Glucose 144 mg/dL (70-100); Sodium 136 mmol/L (135-145); eGFR CKD-EPI 91.7 (>60)
[2024-10-12 07:40] LABS: ABS Eosinophils 0.1 10^3/uL (0.0-0.5); ABS Lymphocytes 0.7 10^3/uL (1.0-4.8); ABS Neutrophils 4.4 10^3/uL (1.5-7.6); ABS Nucleated RBC 0.02 10^3/ul; Eosinophil % 0.8 %; Lymphocyte % 11.2 %; Nucleated Red Blood Cells % 0.3 %/100WBC (0.0-0.8)
[2024-10-12 08:23] LABS: Magnesium 1.8 mg/dL (1.9-2.7); Potassium Redraw 5.2 mmol/L (3.5-5.0)
[2024-10-12] MEDS: Magnesium Sulfate 2 gm BAG 2 GM/50 ML BAG IVPB ONE (10:03)
[2024-10-12] MEDS: Lactulose 30 ml UDC PO SCH (10:04)
[2024-10-12] MEDS: levETIRAcetam IV 1,500 MG in NS 0.9% 100 ml BAG 100 ML IVPB ONE (11:21)
[2024-10-12] MEDS ORDERED: levETIRAcetam IV 1,500 MG in NS 0.9% 100 ml BAG 100 ML IVPB ONE (18:00)
[2024-10-12] MEDS: levETIRAcetam 1000MG IVPREMIX 1,000 MG/100 ML BAG IVPB SCH (22:42)
[2024-10-13] MEDS: Morphine 2 MG/ML SYRINGE IV ONE (03:55)
[2024-10-13 06:14] LABS: Hematocrit 38.8 % (35-45); Hemoglobin 12.4 g/dL (11.5-14.3); Mean Corpuscular Hemoglobin 30.7 pg (27-33); Mean Corpuscular Volume 95.7 fL (80-97); Mean Platelet Volume 8.2 fL (7.5-11.2); Platelet Count 175 10^3/uL (150-450); Red Blood Count 4.05 10^6/uL (3.63-4.92); Red Cell Distribution Width 14.3 % (12-17); White Blood Count 6.2 10^3/uL (3.8-11.8)
[2024-10-13 06:31] LABS: Calcium 8.1 mg/dL (8.6-10.3); Creatinine, Serum 0.51 mg/dL (0.51-0.95); Magnesium 2.1 mg/dL (1.9-2.7); Potassium 5.3 mmol/L (3.5-5.0); eGFR CKD-EPI 97.9 (>60)
[2024-10-13 07:57] LABS: ABS Eosinophils 0.1 10^3/uL (0.0-0.5); ABS Lymphocytes 0.6 10^3/uL (1.0-4.8); ABS Monocytes 1.1 10^3/uL (0.0-0.9); ABS Neutrophils 4.3 10^3/uL (1.5-7.6); ABS Nucleated RBC 0.01 10^3/ul; Eosinophil % 1.7 %; Lymphocyte % 9.3 %; Nucleated Red Blood Cells % 0.1 %/100WBC (0.0-0.8)
[2024-10-13] MEDS ORDERED: levETIRAcetam 1000MG IVPREMIX 1,000 MG/100 ML BAG IVPB SCH (09:00)
[2024-10-13 09:45] LABS: C Reactive Protein 61.77 mg/L (<8.01)
[2024-10-13 09:46] LABS: PO2 Arterial 137 mmHg (80-100)
[2024-10-13 09:59] LABS: PCO2 Arterial 86 mmHg (35-45)
[2024-10-13] MEDS: levETIRAcetam 1000MG IVPREMIX 1,000 MG/100 ML BAG IVPB SCH (21:04)
[2024-10-13] MEDS: Cefepime 2 GM in Dextrose 2 GM/50 ML BAG IV SCH (21:47)
[2024-10-14 05:39] LABS: Calcium 8.3 mg/dL (8.6-10.3); Creatinine, Serum 0.46 mg/dL (0.51-0.95); Potassium 4.5 mmol/L (3.5-5.0); eGFR CKD-EPI 100.4 (>60)
[2024-10-14] MEDS: Metoprolol Tartrate 5 mg VIAL 5 ml VIAL (1 mg/ml) IV PRN (13:58)
[2024-10-14] MEDS: hydrALAZINE 20 mg/ml 1 ML Vial IV IV SLOW PU PRN (18:08)
[2024-10-15 00:57] LABS: Venous Bicarbonate HCO3 36.3 mmol/L (24-28)
[2024-10-15 05:29] LABS: Hematocrit 38.8 % (35-45); Mean Corpuscular Hemoglobin 31.4 pg (27-33); Mean Corpuscular Hgb Conc 33.5 g/dL (31-36); Mean Corpuscular Volume 93.7 fL (80-97); Mean Platelet Volume 7.7 fL (7.5-11.2); Platelet Count 225 10^3/uL (150-450); Red Blood Count 4.14 10^6/uL (3.63-4.92); Red Cell Distribution Width 14.1 % (12-17); White Blood Count 8.4 10^3/uL (3.8-11.8)
[2024-10-15 06:11] LABS: Calcium 9.3 mg/dL (8.6-10.3); Creatinine, Serum 0.47 mg/dL (0.51-0.95); Magnesium 1.7 mg/dL (1.9-2.7); Potassium 3.8 mmol/L (3.5-5.0); eGFR CKD-EPI 99.8 (>60)
[2024-10-15 07:17] LABS: ABS Basophils 0.1 10^3/uL (0.0-0.1); ABS Eosinophils 0.1 10^3/uL (0.0-0.5); ABS Lymphocytes 0.8 10^3/uL (1.0-4.8); ABS Monocytes 1.1 10^3/uL (0.0-0.9); ABS Neutrophils 6.4 10^3/uL (1.5-7.6); Eosinophil % 0.6 %; Lymphocyte % 9.7 %
[2024-10-15] MEDS: Magnesium Sulfate 2 gm BAG 2 GM/50 ML BAG IVPB ONE (08:38)
[2024-10-15] MEDS: Magnesium Sulfate IV 1GM/100ML 1 GM/100 ML BAG IV ONE (09:27)
[2024-10-15] MEDS: Morphine 2 MG/ML SYRINGE IV ONE (13:21)
[2024-10-15] MEDS: Metoclopramide 5 MG/ML VIAL (10 mg) IV ONE (13:21)
[2024-10-15] MEDS: CloBAZam 10 mg TAB (NF) PO ONE (18:03)
[2024-10-15] MEDS: Latanoprost 0.005% 2.5 ml BTL BOTH EYES SCH (20:42)
[2024-10-16 07:16] LABS: ABS Eosinophils 0.2 10^3/uL (0.0-0.5); ABS Lymphocytes 1.1 10^3/uL (1.0-4.8); ABS Neutrophils 7.6 10^3/uL (1.5-7.6); ABS Nucleated RBC 0.01 10^3/ul; Eosinophil % 1.5 %; Hematocrit 36.9 % (35-45); Hemoglobin 12.2 g/dL (11.5-14.3); Lymphocyte % 10.7 %; Mean Corpuscular Hemoglobin 31.1 pg (27-33); Mean Corpuscular Volume 94.1 fL (80-97); Mean Platelet Volume 7.6 fL (7.5-11.2); Nucleated Red Blood Cells % 0.1 %/100WBC (0.0-0.8); Platelet Count 283 10^3/uL (150-450); Red Blood Count 3.92 10^6/uL (3.63-4.92); Red Cell Distribution Width 14.2 % (12-17); White Blood Count 9.9 10^3/uL (3.8-11.8)
[2024-10-16 07:53] LABS: Calcium 8.2 mg/dL (8.6-10.3); Creatinine, Serum 0.48 mg/dL (0.51-0.95); Magnesium 1.8 mg/dL (1.9-2.7); eGFR CKD-EPI 99.3 (>60)
[2024-10-17 06:24] LABS: Hematocrit 37.4 % (35-45); Hemoglobin 12.2 g/dL (11.5-14.3); Mean Corpuscular Hemoglobin 31.2 pg (27-33); Mean Corpuscular Hgb Conc 32.6 g/dL (31-36); Mean Corpuscular Volume 95.6 fL (80-97); Mean Platelet Volume 7.2 fL (7.5-11.2); Platelet Count 359 10^3/uL (150-450); Red Blood Count 3.91 10^6/uL (3.63-4.92); Red Cell Distribution Width 14.6 % (12-17); White Blood Count 9.9 10^3/uL (3.8-11.8)
[2024-10-17 06:46] LABS: Calcium 8.5 mg/dL (8.6-10.3); Creatinine, Serum 0.6 mg/dL (0.51-0.95); Magnesium 1.9 mg/dL (1.9-2.7); Phosphorus 4.7 mg/dL (2.5-5.0); Potassium 4.4 mmol/L (3.5-5.0); eGFR CKD-EPI 94.1 (>60)
[2024-10-17 07:45] LABS: ABS Basophils 0.1 10^3/uL (0.0-0.1); ABS Eosinophils 0.4 10^3/uL (0.0-0.5); ABS Lymphocytes 1.6 10^3/uL (1.0-4.8); ABS Monocytes 1.1 10^3/uL (0.0-0.9); ABS Neutrophils 6.8 10^3/uL (1.5-7.6); ABS Nucleated RBC 0.01 10^3/ul; Eosinophil % 3.7 %; Lymphocyte % 15.8 %; Nucleated Red Blood Cells % 0.1 %/100WBC (0.0-0.8)
[2024-10-17] MEDS: Timolol 0.5% OPTH.SOL BTL BOTH EYES SCH (09:50)
[2024-10-17] MEDS: Enoxaparin 40 MG/0.4 ML SYR SUBCUT SCH (13:38)
[2024-10-17] MEDS: Furosemide 20 mg/2 ml IV VIAL IV SLOW PU ONE (20:01)
[2024-10-18 06:35] LABS: Hematocrit 31.7 % (35-45); Hemoglobin 10.5 g/dL (11.5-14.3); Mean Corpuscular Hemoglobin 31.7 pg (27-33); Mean Corpuscular Hgb Conc 33.1 g/dL (31-36); Mean Corpuscular Volume 95.7 fL (80-97); Mean Platelet Volume 7.2 fL (7.5-11.2); Platelet Count 355 10^3/uL (150-450); Red Blood Count 3.31 10^6/uL (3.63-4.92); Red Cell Distribution Width 14.3 % (12-17); White Blood Count 6.8 10^3/uL (3.8-11.8)
[2024-10-18 06:59] LABS: Albumin 2.7 g/dL (3.5-5.7); Albumin/Globulin Ratio 1.3 (1-3); Calcium 7.9 mg/dL (8.6-10.3); Creatinine, Serum 0.57 mg/dL (0.51-0.95); Globulin 2.1 g/dL (2-4); Magnesium 1.7 mg/dL (1.9-2.7); Phosphorus 4.4 mg/dL (2.5-5.0); Potassium 4.6 mmol/L (3.5-5.0); Total Bilirubin 0.3 mg/dL (0.2-1.0); Total Protein 4.8 g/dL (6.4-8.9); eGFR CKD-EPI 95.3 (>60)
[2024-10-18 08:29] LABS: ABS Eosinophils 0.3 10^3/uL (0.0-0.5); ABS Lymphocytes 1.4 10^3/uL (1.0-4.8); ABS Monocytes 0.9 10^3/uL (0.0-0.9); ABS Neutrophils 4.1 10^3/uL (1.5-7.6); ABS Nucleated RBC 0.01 10^3/ul; Eosinophil % 4.8 %; Lymphocyte % 21.1 %; Nucleated Red Blood Cells % 0.1 %/100WBC (0.0-0.8); RBC Morphology Normal (Normal)
[2024-10-18] MEDS: Magnesium Sulfate 2 gm BAG 2 GM/50 ML BAG IVPB ONE ×2 (09:25→13:51)
[2024-10-19 06:51] LABS: Calcium 8.2 mg/dL (8.6-10.3); Creatinine, Serum 0.5 mg/dL (0.51-0.95); Magnesium 2.1 mg/dL (1.9-2.7); eGFR CKD-EPI 98.4 (>60)
[2024-10-19 08:21] LABS: Hematocrit 33.5 % (35-45); Hemoglobin 11.2 g/dL (11.5-14.3); Mean Corpuscular Hemoglobin 31.3 pg (27-33); Mean Corpuscular Hgb Conc 33.3 g/dL (31-36); Mean Corpuscular Volume 93.8 fL (80-97); Mean Platelet Volume 7.1 fL (7.5-11.2); Platelet Count 455 10^3/uL (150-450); Red Blood Count 3.57 10^6/uL (3.63-4.92); Red Cell Distribution Width 14.3 % (12-17); White Blood Count 7.5 10^3/uL (3.8-11.8)
[2024-10-19] MEDS: Furosemide 40 mg/4 ml IV VIAL IV SLOW PU ONE (12:57)
[2024-10-19] MEDS ORDERED: Sulfur Hexaflouride MICROSPHR 25 MG VIAL IV PRN (13:33)
[2024-10-19 14:07] LABS: C Reactive Protein 13.48 mg/L (<8.01)
[2024-10-20 07:29] LABS: Calcium 8.6 mg/dL (8.6-10.3); Creatinine, Serum 0.59 mg/dL (0.51-0.95); Potassium 5.1 mmol/L (3.5-5.0); eGFR CKD-EPI 94.5 (>60)
[2024-10-20] MEDS: SODIUM ZIRCONIUM CYCLOSILICATE 10 GM PACKET PO ONE (10:43)
[2024-10-21 06:22] LABS: Calcium 8.7 mg/dL (8.6-10.3); Creatinine, Serum 0.63 mg/dL (0.51-0.95); Potassium 4.9 mmol/L (3.5-5.0)
[2024-10-21 10:02] VITALS: BP 122/55
== END 2024-10-21 13:55 | DRG 871 ==
LOC: ED 09:34 → EDHOLD 13:58 → SUATTDRO 13:58 → EDHOLD 14:24 → ICU 14:40 → MEDTELE 10-12 13:13 → ICU 10-13 10:50 → MED 10-16 15:23
PROVIDERS: ADMIT Student in an Organized Health Care Education/Training Program; ATTEND Student in an Organized Health Care Education/Training Program